=== PATIENT | female | born 1955 | race Caucasian/White ===

== ENCOUNTER 2020-01-28 11:25 | Outpatient (REF) | payer SELFPAY | END 2020-01-28 11:26 | disposition home or self-care (01) | LOC: HO.HAP 11:25 | PROVIDERS: PCP Internal Medicine Endocrinology, Diabetes & Metabolism; Referring Provider Internal Medicine Endocrinology, Diabetes & Metabolism; Visit Provider Internal Medicine Endocrinology, Diabetes & Metabolism | DX: Z46.1 Encounter for fitting and adjustment of hearing aid (principal) | CPT/HCPCS: V5267 ==

== ENCOUNTER 2020-02-04 14:52 | Outpatient (REF) | payer MEDICARE, OTHER, SELFPAY ==
--- NOTE | 2020-02-04 | MM_ITS ---
EXAMINATION: MM SCREENING DIGITAL BREAST TOMOSYNTHESIS, BILATERAL CLINICAL INFORMATION: Screening. Asymptomatic. The lifetime risk of breast cancer based on the Tyrer-Cuzick Model is 6%. COMPARISON: Mammography: 01/29/2019, 01/23/2018, 07/20/2017, 12/27/2016 TECHNIQUE: Digital breast tomosynthesis is performed in both the craniocaudal and mediolateral oblique views along with computer-aided detection (CAD). Synthesized 2D images are generated from the tomosynthesis. FINDINGS: There are scattered areas of fibroglandular density (ACR BI-RADS breast composition Category b). Scattered bilateral parenchymal asymmetries are stable. There is probable hamartoma again noted anterior medial right breast similar to prior studies. Neither breast shows developing density or interval mass or architectural abnormality or abnormal calcifications. No significant changes. MM/MM tomosynthesis screening BI IMPRESSION: No significant changes from prior exams. ASSESSMENT: BI-RADS 2: Benign RECOMMENDATION: Routine annual mammography screening. This patient's information was entered into a reminder system with a target due date for their next mammogram.
== END 2020-02-04 14:53 | disposition home or self-care (01) ==
LOC: HO.MAMMO 14:52
PROVIDERS: Visit Provider Internal Medicine Endocrinology, Diabetes & Metabolism
DX: Z12.31 Encounter for screening mammogram for malignant neoplasm of breast (principal)
CPT/HCPCS: 77063; 77067

== ENCOUNTER 2020-04-03 12:49 | Outpatient (REF) | payer MEDICARE, OTHER, SELFPAY ==
--- NOTE | 2020-04-07 09:50 | MHC.AU.P13 ---
Adult Audiological Evaluation Date of Visit: 04/03/20 Sales Development Associate Used: Not Applicable Reason for Appointment: Audiologic re-evaluation due to history of Diabetes which may cause further hearing loss and Linda notes speech sounds more muffled. Previous Hearing Test Results: 11/01/2018 [facility] Mild to moderate sensorineural hearing loss bilaterally Ear History: Bothersome Tinnitus/Ringing/Noises in Ears: Both Ears Medical History: Medical History: Diabetes High Blood Pressure Medication List: Aleve, Align Probiotic, Apple Cider Vinegar Capsule, Asprin, Benedryl, Biotin, Diltiazem, Fish Oil, Lisinopril, Lorazepam, Metformin, Omeprazole, Pravastatin, Sucralfate, Trulicity, Vitamin D, Zipraidone, Zolpidem Hearing Instrument History- Right Ear: Crm Marketing Analyst: ipadio Model: [place]da[employer] [id number] Serial Number: [id number] Battery Size: 312 Repair Warranty: 01/29/2022 Loss and Damage Warranty: 01/29/2022 Dispensed By: [facility] Date of Fittin11/07/2018 Hearing Instrument History- Left Ear: Crm Marketing Analyst: ipadio Model: Koudai [id number] Serial Number: [id number] Battery Size: 312 Warranty: 01/29/2022 Loss and Damage Warranty: 01/29/2022 Dispensed By: [facility] Date of Fittin11/07/2018 Otoscopy: Right Ear: Unremarkable Left Ear: Unremarkable Tympanometry: Right Ear: Not performed at today's visit Left Ear: Not performed at today's visit Hearing Evaluation: Transducer(s) Used: Insert Earphones Bone Conduction Method: Conventional Audiometry Stimuli Used: Pure Tones Right Ear: Description of Hearing: Moderate sensorineural hearing loss rising to mild loss at 4000 and 6000 Hz Left Ear: Description of Hearing: Moderate sensorineural hearing loss through all frequencies with the exception of a mild loss at 4000 Hz Speech Recognition Threshold (SRT): Method Used: Monitored Live Voice Stimuli Used: Spondee Words Right Ear: 40 dB HL Left Ear: 40 dB HL Word Discrimination: Method: Recorded Lists Word Lists Used: NU-6 Right Ear: 100% at 80 dB HL Left Ear: 96% at 80 dB HL Comparison: Compared to the most recent evaluation: Hearing is stable. Recommendations: -Hearing aids were cleaned. Microphones of both hearing aids were blocked with debris. Improved sounds quality of hearing aids following cleaning. -Audiologic re-evaluation in one year to continue to monitor due to diagnosis of Diabetes which may affect the peripheral auditory system. Will send a reminder card Diagnosis: Primary Diagnosis: H90.3 Bilateral Sensorineural Hearing Loss Secondary Diagnosis: H93.13 Tinnitus, Bilateral Services Performed: Comprehensive Audiological Evaluation (CPT 81149) Signature: Provider: Abby Delatorre, CCC-A
== END 2020-04-03 12:50 | disposition home or self-care (01) ==
LOC: HO.SH 12:49
PROVIDERS: Visit Provider Internal Medicine Endocrinology, Diabetes & Metabolism
DX: H93.13 Tinnitus, bilateral (principal)
CPT/HCPCS: 92557

== ENCOUNTER 2020-07-29 12:53 | Outpatient (REF) | payer SELFPAY | END 2020-07-29 12:54 | disposition home or self-care (01) | LOC: HO.HAP 12:53 | PROVIDERS: Visit Provider Internal Medicine Endocrinology, Diabetes & Metabolism | DX: Z13.89 Encounter for screening for other disorder (principal) ==

== ENCOUNTER 2021-01-01 15:08 | Outpatient (REF) | payer SELFPAY | END 2021-01-01 15:09 | disposition home or self-care (01) | LOC: HO.HAP 15:08 | PROVIDERS: Visit Provider Internal Medicine Endocrinology, Diabetes & Metabolism | DX: Z13.89 Encounter for screening for other disorder (principal) ==

== ENCOUNTER 2021-02-05 11:53 | Outpatient (REF) | payer MEDICARE, OTHER, SELFPAY ==
--- NOTE | ~2021-02-05 | MM_ITS ---
EXAMINATION: MM SCREENING DIGITAL BREAST TOMOSYNTHESIS, BILATERAL CLINICAL INFORMATION: Screening. Asymptomatic. The lifetime risk of breast cancer based on the Tyrer-Cuzick Model is 5%. COMPARISON: Mammography: 02/04/2020, 01/29/2019, 01/23/2018, 12/27/2016 TECHNIQUE: Digital breast tomosynthesis is performed in both the craniocaudal and mediolateral oblique views along with computer-aided detection (CAD). Synthesized 2D images are generated from the tomosynthesis. Additional left MLO view is provided. FINDINGS: There are scattered areas of fibroglandular density (ACR BI-RADS breast composition Category b). There are no significant masses, abnormal calcifications, or other abnormalities. There are scattered benign stable parenchymal asymmetries similar to prior studies. No developing density. No architectural abnormality or abnormal calcifications. No significant changes. MM/MM tomosynthesis screening BI IMPRESSION: No mammographic evidence of malignancy. ASSESSMENT: BI-RADS 2: Benign RECOMMENDATION: Routine annual mammography screening. This patient's information was entered into a reminder system with a target due date for their next mammogram.
== END 2021-02-05 11:54 | disposition home or self-care (01) ==
LOC: HO.MAMMO 11:53
PROVIDERS: Visit Provider Internal Medicine Endocrinology, Diabetes & Metabolism
DX: Z12.31 Encounter for screening mammogram for malignant neoplasm of breast (principal)
CPT/HCPCS: 77063; 77067

== ENCOUNTER 2021-04-30 12:42 | Outpatient (REF) | payer MEDICARE, OTHER, SELFPAY ==
--- NOTE | 2021-05-03 08:20 | MHC.AU.AHA ---
Adult Audiological Evaluation Date of Visit: 04/30/21 Senior Biostatistician Used: Not Applicable Reason for Appointment: Linda was seen for a re-evaluation to monitor the status of her hearing loss as she is diagnosed with diabetes which may cause further hearing loss. She reports no subjective change in hearing. Linda's medical history has remained stable, with the exception of the identification of an unknown mass in her uterus that she is undergoing surgery for later in the month. She reports being satisfied with the sound quality and fit of her hearing devices. Previous Hearing Test Results: [facility]- 04/03/2020- Overall moderate sensorineural hearing loss bilaterally with mild thresholds at 4000 and 6000 Hz. Ear History: Bothersome Tinnitus/Ringing/Noises in Ears: Both Ears History of occupational noise exposure?: No History: No Medical History: Medical History: Diabetes, High Blood Pressure Allergies: Demerol and Percocet Medication List: Align probiotic capsule, Apple cider vinegar capsules, ASA, Biotin, Colace, Diltiazem, Fish oil capsules, Ibuprofen, Lisinopril, Lorazepam, Metformin ER, Pravastatin, Sucralfate, Trulicity, Triamcinolone ointment, Vitamin D, Ziprasidone Hearing Instrument History- Right Ear: Propagator: Polarizonics Model: Circle of Moms [id number] Serial Number: [id number] Battery Size: 312 Repair Warranty: 01/29/2022 Loss and Damage Warranty: 01/29/2022 Dispensed By: [facility] Date of Fittin11/07/2018 Hearing Instrument History- Left Ear: Propagator: Polarizonics Model: Circle of Moms [id number] Serial Number: [id number] Battery Size: 312 Warranty: 01/29/2022 Loss and Damage Warranty: 01/29/2022 Dispensed By: [facility] Date of Fittin11/07/2018 Otoscopy: Right Ear: Partially occluded with cerumen Left Ear: Mostly occluding cerumen Tympanometry: Tympanometry performed due to: To determine if cerumen blockage is fully occluding canal(s) Right Ear: Normal Middle Ear System (Type A) Left Ear: Normal Middle Ear System (Type A) Hearing Evaluation: Transducer(s) Used: Circumaural Headphones Bone Conduction Method: Conventional Audiometry Stimuli Used: Pure Tones Right Ear: Description of Hearing: Mild at 250 Hz sloping to a moderate sensorineural hearing loss through 2000 Hz, rising to a mild sensorineural hearing loss at 4000 Hz, sloping to a moderate hearing loss through 8000 Hz. Left Ear: Description of Hearing: Mild at 250 Hz sloping to a moderate sensorineural hearing loss through 2000 Hz, rising to a mild sensorineural hearing loss at 4000 Hz, sloping to a moderate hearing loss through 8000 Hz. Speech Recognition Threshold (SRT): Method Used: Monitored Live Voice Stimuli Used: Spondee Words Right Ear: 45 dB HL Left Ear: 45 dB HL Word Discrimination: Method: Recorded Lists Word Lists Used: NU-6 Right Ear: 96% at 85 dB HL Left Ear: 92% at 85 dB HL Comparison: Compared to the most recent evaluation: Thresholds have decreased bilaterally. Compared to most recent evaluation: Since 04/03/2020, thresholds from 250-4000 Hz have remained stable, while a 15-20 dB worsening of thresholds is noted from 0189-4847 Hz bilaterally. Stable word discrimination for both ears. Interpretation of Results: Overall moderate sensorineural hearing loss that has remained mostly stable, with the exception of decreased thresholds in the high frequencies, since the previous evaluation. Recommendations: - Follow-up with physician for cerumen removal. - Hearing aid maintenance performed today. - Hearing aid(s) reprogrammed with updated test results. - Patient should follow up with her primary care physician to have mostly occluding cerumen in the left ear removed. Recommended patient obtain the ear wax softener, Earwax MD, to use 2-3 nights before the cerumen removal. Patient's hearing aids were cleaned and biologic listening check revealed the devices were in good working order. The hearing aids were reprogrammed with today's hearing test results. Discussed scheduling a follow up appointment in early December to send the devices to the director revenue before her warranty expires on 01/29/2022. Patient should return for a re-evaluation in one year, or sooner with changes. - Audiological re-evaluation in one year. Will send a reminder card. Diagnosis: Primary Diagnosis: H90.3 Bilateral Sensorineural Hearing Loss Secondary Diagnosis: H61.23 Impacted Cerumen, Bilateral Services Performed: Comprehensive Audiological Evaluation (CPT 94833) Tympanometry (CPT 07844) Signature: Student/Clinical Fellow: Yes: Yudith Davis B.A., Abby Chief Merchandising Officer I have reviewed/agreed with student/fellow documentation: Yes Provider: Abby Delatorre, [facility]
== END 2021-04-30 12:43 | disposition home or self-care (01) ==
LOC: HO.SH 12:42
PROVIDERS: Visit Provider Internal Medicine Endocrinology, Diabetes & Metabolism
DX: Z01.118 Encounter for examination of ears and hearing with other abnormal findings (principal); H90.3 Sensorineural hearing loss, bilateral; H61.23 Impacted cerumen, bilateral
CPT/HCPCS: 92557; 92567

== ENCOUNTER 2021-12-10 11:16 | Outpatient (REF) | payer SELFPAY ==
--- NOTE | 2021-12-10 12:11 | MHC.AU.HFU ---
Hearing Instrument Follow-Up- Binaural Date of Visit: 12/10/21 Right Ear: Stephani Potter0 312-T SN: [id number] Color: Sandalwood Repair Warranty: 01/29/2022 Loss and Damage Warranty: 01/29/2022 Battery Size: 312 Hospice Clinical Marketer: 2M Type of Mold: Large open dome Type of Wax Guard: CeruShield Dispensed By: [facility] Date of Fittin11/07/2018 Left Ear:Stephani Philippeo Tariq0 312-T SN: [id number] Color: [place]wood Repair Warranty: 01/29/2022 Loss and Damage Warranty: 01/29/2022 Battery Size: 312 Hospice Clinical Marketer: 2M Type of Mold: Large open dome Type of Wax Guard: CeruShield Dispensed By: [facility] Date of Fittin11/07/2018 Follow-Up Summary: Linda dropped of her left hearing aid reporting that it was . The cerushield was stuck in the rotor assembler and plugged with wax. The cerushield was able to be removed with a dental pick and replaced. The hearing aid was cleaned, microphones were vacuumed, and dome and retention tail were also replaced. A listening check demonstrated the hearing aid is in good working order. Recommendations: Hearing instrument maintenance in 6 months, or sooner if needed. Please contact our clinic with any questions or concerns. Diagnosis Code(s): Primary Diagnosis: H90.3 Bilateral Sensorineural Hearing Loss Signature: Provider: Helga Zambrano, [facility]
== END 2021-12-10 11:17 | disposition home or self-care (01) ==
LOC: HO.HAP 11:16
PROVIDERS: Visit Provider Internal Medicine Endocrinology, Diabetes & Metabolism
DX: Z13.89 Encounter for screening for other disorder (principal)

== ENCOUNTER 2021-12-24 12:53 | Outpatient (REF) | payer SELFPAY ==
--- NOTE | 2021-12-24 13:51 | MHC.AU.HFU ---
Hearing Instrument Follow-Up- Binaural Date of Visit: 12/24/21 Right Ear: Phonak Keniaeo M90 312-T SN: [id number] Color: [place]wood Repair Warranty: 01/29/2022 Loss and Damage Warranty: 01/29/2022 Battery Size: 312 Barking Machine Feeder: 2M Type of Dome: LARGE OPEN Type of Wax Guard: CeruShield Dispensed By: [facility] Date of Fittin11/07/2018 Left Ear: Phonak Keniaeo M90 312-T SN: [id number] Color: [place] Repair Warranty: 01/29/2022 Loss and Damage Warranty: 01/29/2022 Battery Size: 312 Barking Machine Feeder: 2M Type of Dome: LARGE OPEN Type of Wax Guard: CeruShield Dispensed By: [facility] Date of Fittin11/07/2018 Follow-Up Summary: Patient would like her hearing aids sent for clean/check at [facility] before end of warranty. She was provided with a pair of loaner instruments ([employer]padeo [id number] #[id number], [id number]). The loaners were paired to her phone. Recommendations: Patient will be contacted when materials have arrived. When repairs return, will need to unpair the loaners from her phone and potentially re-pair the hearing aids. Diagnosis Code(s): Primary Diagnosis: H90.3 Bilateral Sensorineural Hearing Loss Signature: Provider: Helga Torrez, CCC-A
== END 2021-12-24 12:54 | disposition home or self-care (01) ==
LOC: HO.HAP 12:53
PROVIDERS: Visit Provider Internal Medicine Endocrinology, Diabetes & Metabolism
DX: Z13.89 Encounter for screening for other disorder (principal)

== ENCOUNTER 2022-01-06 10:48 | Outpatient (REF) | payer SELFPAY | END 2022-01-06 10:49 | disposition home or self-care (01) | LOC: HO.HAP 10:48 | PROVIDERS: Visit Provider Internal Medicine Endocrinology, Diabetes & Metabolism | DX: Z46.1 Encounter for fitting and adjustment of hearing aid (principal); H90.3 Sensorineural hearing loss, bilateral | CPT/HCPCS: V5267 ==

== ENCOUNTER 2022-02-07 12:52 | Outpatient (REF) | payer MEDICARE, OTHER, SELFPAY ==
--- NOTE | ~2022-02-07 | MM_ITS ---
EXAMINATION: MM SCREENING DIGITAL BREAST TOMOSYNTHESIS, BILATERAL CLINICAL INFORMATION: Screening. Asymptomatic. The lifetime risk of breast cancer based on the Tyrer-Cuzick Model is 5%. COMPARISON: Mammography: 02/05/2021, 02/04/2020, 02/08/2019 TECHNIQUE: Digital breast tomosynthesis is performed in both the craniocaudal and mediolateral oblique views along with computer-aided detection (CAD). Synthesized 2D images are generated from the tomosynthesis. FINDINGS: There are scattered areas of fibroglandular density (ACR BI-RADS breast composition Category b). There are chronic bilateral scattered parenchymal asymmetries similar to prior studies. There is no developing density or interval mass or architectural abnormality. No abnormal calcifications. The axilla and skin contours are unremarkable. There are no significant changes from prior exams. MM/MM tomosynthesis screening BI IMPRESSION: No mammographic evidence of malignancy. ASSESSMENT: BI-RADS 2: Benign RECOMMENDATION: Routine annual mammography screening. This patient's information was entered into a reminder system with a target due date for their next mammogram.
== END 2022-02-07 12:53 | disposition home or self-care (01) ==
LOC: HO.MAMMO 12:52
PROVIDERS: PCP Internal Medicine Endocrinology, Diabetes & Metabolism; Visit Provider Internal Medicine Endocrinology, Diabetes & Metabolism
DX: Z12.31 Encounter for screening mammogram for malignant neoplasm of breast (principal)
CPT/HCPCS: 77063; 77067

== ENCOUNTER → 2022-06-17 12:59 | Outpatient (BNVA) | payer MEDICARE, OTHER, SELFPAY | PROVIDERS: PCP Internal Medicine Endocrinology, Diabetes & Metabolism; Visit Provider Physician Assistant Surgical ==

== ENCOUNTER 2022-06-25 09:51 | Emergency (ER) | payer MEDICARE, OTHER, SELFPAY ==
--- NOTE | ~2022-06-25 | XR_ITS ---
EXAMINATION: XR ANKLE, RIGHT CLINICAL INFORMATION: Intermittent pain and swelling. COMPARISON: None available. TECHNIQUE: AP, lateral, and mortise views of the right ankle. FINDINGS: Moderate lateral malleolar soft tissue swelling. Ankle mortise and subtalar joints are normal. No visible acute fracture or dislocation seen. There is a small calcaneal heel enthesophyte. XR/XR ankle RT min 3V IMPRESSION: Small calcaneal heel enthesophyte. No visible acute fracture or dislocation seen..
[2022-06-25 09:58] VITALS: BP 162/69; PULSE 95; RESP 16; TEMP 36.1; O2SAT 95; BMI 35.9
--- NOTE | 2022-06-25 10:16 | ED.GENADULT ---
HPI - General Adult General Chief complaint: Extremity Problem Stated complaint: R ankle pain Time Seen by Provider: 06/25/22 10:15 Source: patient Mode of arrival: ambulatory Limitations: no limitations History of Present Illness HPI narrative: Patient is a 67 year old assigned female at with no reported medical history presenting to the emergency department today with right ankle pain. Patient states that over the last 5 days she has had intermittent right ankle swelling with no known injury. Patient denies any dizziness, lightheadedness, abdominal pain, nausea, vomiting, fever, chills, blurry vision, double vision, loss of vision, chest pain, difficulty breathing, shortness of breath, back pain, night sweats, pain with urination, increased urinary frequency, increased urinary urgency, blood in her urine or stool, syncope or a near syncopal episode, bowel incontinence, bladder incontinence, bowel retention, bladder retention, or any other complaints at this time. Onset (ago): day(s) (5) Location: right and lower extremity Radiation: non-radiation Severity: mild Severity scale (1-10): 2 Quality: aching and dull Pain Consistency: intermittent Relieving factors: none Exacerbating factors: none Associated symptoms: denies other symptoms Treatments prior to arrival: none Related Data Home Medications Medication Instructions Recorded Confirmed APPLE CIDER VINEGAR CAPSULES 1,000 mg PO 06/17/22 ASA 81 mg PO 06/17/22 BIOTIN 45 mcg PO 06/17/22 Bifidobacterium infantis 4 mg 4 mg PO DAILY 06/17/22 capsule (Align) FISH OIL CAPSULES 500 mg PO BID 06/17/22 SENNA 50 mg PO BID 06/17/22 VITAMIN D3 2,000 units PO 06/17/22 cyclosporine 0.05 % eye drops in a 1 drp ophthalmic (eye) BID 06/17/22 dropperette (Restasis) diltiazem HCl 180 mg 180 mg PO DAILY 06/17/22 capsule,extended release 24 hr docusate sodium 100 mg capsule 100 mg PO BID 06/17/22 (Colace) dulaglutide 0.75 mg/0.5 mL 1.5 mg subcut QWEEK 06/17/22 subcutaneous pen injector (Trulicity) glipizide 5 mg tablet 5 mg PO DAILY 06/17/22 ibuprofen 600 mg tablet 600 mg PO Q6H PRN 06/17/22 insulin aspart U-100 100 unit/mL 12 unit subcut QAM 06/17/22 (3 mL) subcutaneous pen (Novolog FlexPen U-100 Insulin aspart) insulin aspart U-100 100 unit/mL 18 unit subcut QPM 06/17/22 (3 mL) subcutaneous pen (Novolog FlexPen U-100 Insulin aspart) insulin detemir U-100 100 unit/mL 60 unit subcut BEDTIME 06/17/22 (3 mL) subcutaneous pen (Levemir FlexPen) insulin detemir U-100 100 unit/mL 98 unit subcut BEDTIME 06/17/22 (3 mL) subcutaneous pen (Levemir FlexPen) lisinopril 10 mg tablet 10 mg PO DAILY 06/17/22 lorazepam 1 mg tablet 1 mg PO BID PRN 06/17/22 lorazepam 2 mg tablet 2 mg PO BID PRN 06/17/22 metformin 1,000 mg tablet,extended mg PO 06/17/22 release 24hr omeprazole 20 mg capsule,delayed 20 mg PO DAILY 06/17/22 release pravastatin 40 mg tablet 40 mg PO DAILY 06/17/22 sucralfate 1 gram tablet 1 g PO BID 06/17/22 ziprasidone HCl 20 mg capsule 20 mg PO BID 06/17/22 ziprasidone HCl 80 mg capsule 80 mg PO BID 06/17/22 Allergies Allergy/AdvReac Type Severity Reaction Status Date / Time demerol Allergy Unknown Hives Uncoded 06/25/22 10:01 percocet Allergy Unknown Hives Uncoded 06/25/22 10:01 Review of Systems Constitutional: Constitutional: Reports no additional constitutional complaints, Denies chills, Denies fever(s) and Denies night sweats Eyes: Eyes: Reports no additional eye complaints, Denies blurry vision, Denies change in vision, Denies diplopia, Denies eye discharge, Denies loss of vision and Denies eye pain ENT: Denies dizziness Cardiovascular: Cardiovascular: Reports no additional cardiovascular complaints, Denies chest pain, Denies lightheadedness, Denies Loss of Consciousness and Denies dyspnea Respiratory: Respiratory: Reports no additional respiratory complaints and Denies dyspnea Gastrointestinal: Gastrointestinal: Reports no additional gastrointestinal complaints, Denies abdominal pain, Denies melena, Denies hematochezia, Denies change in bowel habits and Denies change in stool character Genitourinary: Genitourinary: Denies hematuria, Denies urinary frequency, Denies dysuria, Denies urinary incontinence, Denies urinary hesitancy and Denies urinary urgency Musculoskeletal: Musculoskeletal: Reports no additional musculoskeletal complaints, Denies numbness and Denies tingling Comments: right ankle pain Neurologic: Denies dizziness, Denies loss of vision, Denies numbness and Denies tingling Psychiatric: Psychiatric: Reports no additional psychiatric complaints Endocrine: Endocrine: Reports no additional endocrine complaints Hematologic/Lymphatic: Hematologic/Lymphatic: Reports no additional hematologic/lymphatic complaints Allergic/Immunologic: Allergic/Immunologic: Reports no additional allergic/immunologic complaints [facility] Past Medical History Attestation statement: The following information was validated with the patient. Source: old records reviewed and nursing notes reviewed Surgical History Hx of section Hx of cholecystectomy Hx of hysterectomy Hx of lymph node excision Hx of wisdom tooth extraction Family History Family History Mother Hypertension Diabetes High cholesterol Stroke Father Diabetes Hypertension High cholesterol Heart attack Sister Diabetes Hypertension Son Stroke Hypertension High cholesterol Social History Social History Alcohol intake: never Patient Tobacco Use Status: Never used Tobacco Advance Directives: No Advance Directives Information Provided: Yes Physical Exam ED Vital Signs: Vital Signs - 24 hr 06/25/22 09:58 Temperature 97 F Pulse Rate 95 Respiratory Rate 16 Blood Pressure 162/69 H Pulse Oximetry 95 Oxygen Delivery Method Room Air BMI result Body Mass Index 35.9 Const General: cooperative, no acute distress, alert and awake Nutritional Appearance: well nourished Orientation/consciousness: patient oriented x3 Limitations: no limitations [facility] Head: Yes normal to inspection and Yes atraumatic Ears: hearing grossly normal bilaterally and external ears normal General nose exam: Normal external nose present, no nasal discharge noted and no epistaxis Face and sinus: Yes normal facial exam, No abrasion and No laceration Mouth: Normal oral and palatal mucosa present, no drooling and no muffled voice Eyes General: appearance normal, both eyes and all related structures Periorbital: periorbital findings normal Eyelids: Yes eyelids normal Conjunctivae: conjunctivae normal Pupils: Equal, round and reactive pupils present EOM: EOMs intact bilaterally Neck Neck: Yes normal visual inspection, Yes full ROM and Yes no lymphadenopathy Chest Chest palpation & inspection: normal inspection of the chest Resp Effort & Inspection: normal respiratory effort and able to speak in complete sentences Auscultation: clear to auscultation bilaterally Cardio Rate: regular rate Rhythm: regular rhythm GI Inspection: Yes normal to inspection Neuro General: patient oriented x3 and moves all extremities Cranial nerves: Yes Equal, round and reactive pupils present Cognition (Neuro): normal cognition Motor exam (neuro): 5/5 motor strength present throughout Sensory Exam: Normal double simultaneous stimulation for sensation Coordination: [id number] test normal Extrem General: Yes normal to inspection, Yes full ROM and Yes capillary refill normal Psych Appearance: grossly normal Mental Status: mental status grossly normal Affect: normal affect Attitude: cooperative Thought process: Normal thought process present Thought content: Normal thought content present Insight: Good insight present (Psych) Procedures Orthopedic Splinting/Casting Injury #1: Side: right Lower Extremity Injury Location: ankle Lower Extremity Immobilizer: boot orthosis Medical Decision Making Medical Decision Making MDM Narrative: Patient is a 67 year old assigned female at with no reported medical history presenting to the emergency department today with right ankle pain. Patient's physical exam was unremarkable. Patient's right ankle x-ray showed no acute process. I explained my physical exam findings as well as all test results to the patient. I answered all questions asked by the patient. Patient's right ankle was placed in a boot, without incident. PMS intact prior to and after boot placement. I stressed the importance of the patient taking her medication as prescribed. I stressed the importance of the patient following up with her primary care provider and an orthopedic provider. I stressed the importance of the patient returning to the emergency department immediately if her symptoms were to worsen or if she were to develop any dizziness, shortness of breath, difficulty breathing, chest pain, blurry vision, loss of vision, nausea, vomiting, abdominal pain, fever, chills, back pain, or any other complaints. Patient verbalized agreement and understanding with this treatment plan and discharge. Differential Diagnosis Differential Diagnoses: The differential diagnosis associated with the presentation includes right ankle pain, right ankle strain, right ankle sprain Independent Interpretation I performed an independent interpretation of an: Plain X-Ray Interpretation: My interpretation is in agreement with the radiologist's impression of this imaging study. EXAMINATION: XR ANKLE, RIGHT CLINICAL INFORMATION: Intermittent pain and swelling.? COMPARISON: None available.? TECHNIQUE: AP, lateral, and mortise views of the right ankle. FINDINGS: Moderate lateral malleolar soft tissue swelling. Ankle mortise and subtalar joints are normal. No visible acute fracture or dislocation seen. There is a small calcaneal heel enthesophyte. XR/XR ankle RT min 3V IMPRESSION: Small calcaneal heel enthesophyte. No visible acute fracture or dislocation seen.. Dictated By: Asa Sanford MD Signed By: Electronically signed by Asa Sanford MD 06/25/22 1029 Discharge Plan Discharge Clinical Impression: Ankle pain, Osteoarthritis, Ankle sprain Patient Disposition: Home, Self-Care Instructions: Osteoarthritis (DC) Additional Instructions: Follow up with your primary care provider and an orthopedic provider. Return to the emergency department immediately if your symptoms worsen or if you develop any dizziness, shortness of breath, difficulty breathing, chest pain, blurry vision, loss of vision, nausea, vomiting, abdominal pain, fever, chills, back pain, or any other complaints. Prescriptions: No Action lisinopril 10 mg tablet 10 mg PO DAILY lorazepam 2 mg tablet 2 mg PO BID PRN glipizide 5 mg tablet 5 mg PO DAILY metformin 1,000 mg tablet extended release 24hr PO pravastatin 40 mg tablet 40 mg PO DAILY ziprasidone HCl 20 mg capsule 20 mg PO BID ziprasidone HCl 80 mg capsule 80 mg PO BID diltiazem HCl 180 mg capsule,extended release 24hr 180 mg PO DAILY lorazepam 1 mg tablet 1 mg PO BID PRN Levemir FlexPen 100 unit/mL (3 mL) insulin pen 60 unit subcut BEDTIME Levemir FlexPen 100 unit/mL (3 mL) insulin pen 98 unit subcut BEDTIME Align 4 mg capsule 4 mg PO DAILY APPLE CIDER VINEGAR CAPSULES 1,000 mg PO ASA 81 mg PO BIOTIN 45 mcg PO docusate sodium [Colace] 100 mg capsule 100 mg PO BID FISH OIL CAPSULES 500 mg PO BID ibuprofen 600 mg tablet 600 mg PO Q6H PRN insulin aspart U-100 [Novolog FlexPen U-100 Insulin] 100 unit/mL (3 mL) insulin pen 12 unit subcut QAM insulin aspart U-100 [Novolog FlexPen U-100 Insulin] 100 unit/mL (3 mL) insulin pen 18 unit subcut QPM omeprazole 20 mg capsule,delayed release(DR/EC) 20 mg PO DAILY cyclosporine [Restasis] 0.05 % dropperette 1 drp ophthalmic (eye) BID SENNA 50 mg PO BID sucralfate 1 gram tablet 1 g PO BID Trulicity 0.75 mg/0.5 mL pen injector 1.5 mg subcut QWEEK VITAMIN D3 2,000 units PO Referrals: [facility] [place] Family Medicine [Provider Group] (Call to establish and follow up with a primary care provider. If you already have a primary care provider, please follow up with them.) [facility] [place] Primary Care, Leigh [Provider Group] (Call to establish and follow up with a primary care provider. If you already have a primary care provider, please follow up with them.) [facility] [place] Primary Care,Donal [Provider Group] (Call to establish and follow up with a primary care provider. If you already have a primary care provider, please follow up with them.) [facility] [place] [facility] [Provider Group] (Call to establish and follow up with an orthopedic provider.) Print Language: Swedish
== END 2022-06-25 11:13 | disposition home or self-care (01) ==
PROVIDERS: Emergency Provider Emergency Medicine; PCP Internal Medicine Endocrinology, Diabetes & Metabolism
DX: S93.401A Sprain of unspecified ligament of right ankle, initial encounter (principal); X58.XXXA Exposure to other specified factors, initial encounter; M25.571 Pain in right ankle and joints of right foot; Z79.85 Long-term (current) use of injectable non-insulin antidiabetic drugs; Z79.899 Other long term (current) drug therapy; Z79.02 Long term (current) use of antithrombotics/antiplatelets; Y93.9 Activity, unspecified; Y92.9 Unspecified place or not applicable; Y99.9 Unspecified external cause status
CPT/HCPCS: 73610; 99283

== ENCOUNTER → 2022-07-11 10:28 | Outpatient (BNVA) | payer MEDICARE, OTHER, SELFPAY | PROVIDERS: PCP Internal Medicine Endocrinology, Diabetes & Metabolism; Visit Provider Physician Assistant | DX: M76.71 Peroneal tendinitis, right leg (principal) | CPT/HCPCS: 99202 ==

== ENCOUNTER → 2022-07-14 12:54 | Outpatient (BNVA) | payer MEDICARE, OTHER, SELFPAY | PROVIDERS: PCP Internal Medicine Endocrinology, Diabetes & Metabolism; Visit Provider Physician Assistant | DX: E66.9 Obesity, unspecified (principal); E11.9 Type 2 diabetes mellitus without complications; I10 Essential (primary) hypertension; Z68.35 Body mass index [BMI] 35.0-35.9, adult | CPT/HCPCS: 99202 ==

== ENCOUNTER 2022-07-15 10:20 | Outpatient (REF) | payer MEDICARE, OTHER, SELFPAY ==
[2022-07-15 10:37] LABS: MANUAL DIFF FLAG NO
[2022-07-15 11:00] LABS: Basophils Percent Auto 0.4 % (0-2); Eosinophils Absolute Auto 0.3 X10*3/uL (0.0-0.4); Eosinophils Percent Auto 4.6 % (0-4); Hematocrit 36.8 % (37.0-47.0); Hemoglobin 12.6 g/dl (12.0-16.0); Imm Gran Abs Auto 0.03 X10*3/uL (0.00-0.03); Imm Gran Pct Auto 0.4 % (0.0-0.4); Lymphocytes Absolute Auto 1.8 X10*3/uL (1.2-4.9); Lymphocytes Percent Auto 26.6 % (20-40); Mean Corpuscular HGB Conc 34.2 g/dl (31.0-35.0); Mean Corpuscular Hemoglobin 29.2 pg (27.0-33.0); Mean Corpuscular Volume 85.4 fL (80.0-98.0); Mean Platelet Volume 11.4 fL (9.4-12.3); Monocytes Absolute Auto 0.6 X10*3/uL (0.1-1.2); Platelet Count 178 X10*3/uL (160-400); Red Blood Count 4.31 X10*6/uL (4.20-5.50); Red Cell Distribution Width 13.2 % (11.0-16.0); White Blood Count 6.8 X10*3/uL (4.8-10.8)
[2022-07-15 11:05] LABS: Estimated Average Glucose 146 mg/dL; Hemoglobin A1c % 6.7 %
[2022-07-15 11:34] LABS: Alanine Aminotransferase 66 U/L (0-31); Albumin Level 4.2 g/dL (3.5-5.0); Alkaline Phosphatase 100 U/L (39-117); Anion Gap 12 (12-20); Aspartate Amino Transferase 47 U/L (5-31); Bilirubin Total 1.1 mg/dL (0.0-1.0); Blood Urea Nitrogen 27 mg/dL (9-16); C Reactive Protein 1.28 mg/dL (< or = 0.50); Calcium 10.1 mg/dL (8.4-10.2); Carbon Dioxide 27 mmol/L (22-29); Chloride 106 mmol/L (96-108); Cholesterol 159 mg/dL; Estimated Glomerular Filt Rate > 60; Glucose Random 191 mg/dL (60-115); HDL Cholesterol 43 mg/dL; Iron 94 mcg/dL (30-160); LDL Cholesterol Calculated 83 mg/dl; Percent Iron Saturation 26 % (15-50); Potassium 4.1 mmol/L (3.3-5.1); Sodium 141 mmol/L (135-145); Total Iron Binding Capacity 364 mcg/dL (228-428); Total Protein 6.6 g/dL (6.5-8.0); Triglycerides 166 mg/dL; Unsaturated Iron Binding 270 ug/dL
[2022-07-15 12:19] LABS: Ferritin 49 ng/mL (10-250); Folate 12.3 ng/mL (> or = 4.0); TSH reflex Free T4 1.98 uIU/mL (0.32-4.0); Vitamin B12 536 pg/mL (200-900); Vitamin D 25-OH Total 69.7 ng/mL (>30)
[2022-07-15 12:45] LABS: Insulin 418 uU/mL (2-29)
[2022-07-20 19:59] LABS: Calcium (PTHI) 9.9 mg/dL (8.6-10.4); PTHI 22 pg/mL (16-77)
[2022-07-22 04:29] LABS: Zinc 92 mcg/dL (60-130)
[2022-07-22 13:22] LABS: Vitamin B1 7 nmol/L (8-30)
[2022-07-22 14:18] LABS: Vitamin A 73 mcg/dL (38-98)
== END 2022-07-15 10:21 | disposition home or self-care (01) ==
LOC: HO.LAB 10:20
PROVIDERS: PCP Internal Medicine Endocrinology, Diabetes & Metabolism; Visit Provider Physician Assistant
DX: Z01.818 Encounter for other preprocedural examination (principal); E11.9 Type 2 diabetes mellitus without complications; E66.9 Obesity, unspecified; I10 Essential (primary) hypertension
CPT/HCPCS: 36415; 80053; 80061; 82306; 82607; 82728; 82746; 83036; 83525; 83540; 83970; 84425; 84443; 84590; 84630; 85025; 86140

== ENCOUNTER 2022-07-27 13:56 | Outpatient (REF) | payer MEDICARE, OTHER, SELFPAY | END 2022-07-27 13:57 | disposition home or self-care (01) | LOC: HO.SH 13:56 | PROVIDERS: Visit Provider Internal Medicine Endocrinology, Diabetes & Metabolism | DX: Z01.118 Encounter for examination of ears and hearing with other abnormal findings (principal); H90.3 Sensorineural hearing loss, bilateral | CPT/HCPCS: 92557; 92567 ==

== ENCOUNTER 2022-07-27 14:52 | Outpatient (REF) | payer SELFPAY | END 2022-07-27 14:53 | disposition home or self-care (01) | LOC: HO.HAP 14:52 | PROVIDERS: Visit Provider Internal Medicine Endocrinology, Diabetes & Metabolism | DX: Z46.1 Encounter for fitting and adjustment of hearing aid (principal); H90.3 Sensorineural hearing loss, bilateral | CPT/HCPCS: 92700; V5267 ==

== ENCOUNTER 2022-08-02 11:25 | Outpatient (REF) | payer SELFPAY | END 2022-08-02 11:26 | disposition home or self-care (01) | LOC: HO.HAP 11:25 | PROVIDERS: Visit Provider Internal Medicine Endocrinology, Diabetes & Metabolism | DX: Z46.1 Encounter for fitting and adjustment of hearing aid (principal); H90.3 Sensorineural hearing loss, bilateral | CPT/HCPCS: V5299 ==

== ENCOUNTER → 2022-08-09 16:18 | Outpatient (BNVA) | payer SELFPAY | PROVIDERS: PCP Internal Medicine Endocrinology, Diabetes & Metabolism; Visit Provider Physician Assistant ==

== ENCOUNTER 2022-08-30 13:49 | Outpatient (AMB) | payer OTHER, SELFPAY ==
--- NOTE | 2022-08-30 14:00 | MHC.AMNUTRGE ---
Intake VS Expanded 08/30/22 14:08 Height 5 ft 1 in Weight 183 lb BMI 34.6 Intake Visit Reasons: (OV) Initial Nutrition SWL Allergies demerol Allergy (Unknown, Uncoded 07/11/22 10:43) Hives percocet Allergy (Unknown, Uncoded 07/11/22 10:43) Hives HPI Nutrition Presentation Details Pt reports she is still unsure about SWL vs MWL Reason for consult elevated BMI Diet Assmnt Details 2 eggs with tea 11:30 Premade premier shake 2:30 same shake 5:30 cheese stick 7pm dinner and fruit - 5oz chicken, salad with vinegar oil lettuce, tomato, cucumber 10pm Celebrate bar Bed at midnight - does not want to change this. States very hungry. used to snack at night also before program Wheelchair exercises - 3-4x per week, for 30 minutes SWL online classes: completed. She shares that she spoke with her psychiatrist about bariatric surgery and he is familiar, they discussed medication changes that could take place should she decide to pursue surgery Dietary counseling reduction Diagnosis Nutrition problem #1 overweight/obesity As related to (etiology) #1 excess energy intake and physical inactivity As evidenced by (sign/symptom) #1 high BMI Monitoring/Goals Nutrition problem monitoring total energy intake, level of knowledge/skill, total PRO intake, total CHO intake and weight Outcome progress progressing Learning/Education Readiness to learn fair Stages of change contemplation Most Recent Diabetes Results: Cholesterol 159 mg/dL 07/15/22 HDL Cholesterol 43 mg/dL 07/15/22 Triglycerides 166 mg/dL 07/15/22 Creatinine 0.85 mg/dL (0.5-1.4) 07/15/22 Blood Urea Nitrogen 27 mg/dL (9-16) H 07/15/22 Sodium 141 mmol/L (135-145) 07/15/22 Potassium 4.1 mmol/L (3.3-5.1) 07/15/22 Chloride 106 mmol/L (96-108) 07/15/22 Carbon Dioxide 27 mmol/L (22-29) 07/15/22 Calcium 10.1 mg/dL (8.4-10.2) 07/15/22 AST 47 U/L (5-31) H 07/15/22 ALT 66 U/L (0-31) H 07/15/22 Total Protein 6.6 g/dL (6.5-8.0) 07/15/22 Albumin 4.2 g/dL (3.5-5.0) 07/15/22 PFSH Surgical History Hx of section Hx of cholecystectomy Hx of hysterectomy Hx of lymph node excision Hx of wisdom tooth extraction Family History Mother Hypertension Diabetes High cholesterol Stroke Father Diabetes Hypertension High cholesterol Heart attack Sister Diabetes Hypertension Son Stroke Hypertension High cholesterol Social History Alcohol intake: never Patient Tobacco Use Status: Never used Tobacco Assessment & Plan Assessment & Plan (1) Diabetes mellitus: Code(s): E11.9 - Type 2 diabetes mellitus without complications (2) Obesity (BMI 30-39.9): Code(s): E66.9 - Obesity, unspecified Patient Instructions: Provided education about post op nutrition, ideas for meal preparation given her partners nutritional needs/preferences. Answered nutrition related questions and concerns. Will be seen again if she decides to pursue SWL Coding Level of Care Code Nutr Indiv Intake (32971) Diagnoses Diabetes mellitus E11.9 Obesity (BMI 30-39.9) E66.9 Time Spent (min) 45 Comment in office
[2022-08-30 14:08] VITALS: BMI 34.6
== END 2022-08-30 14:49 | disposition home or self-care (01) ==
PROVIDERS: PCP Internal Medicine Endocrinology, Diabetes & Metabolism; Visit Provider Dietitian, Registered
DX: E11.9 Type 2 diabetes mellitus without complications (principal); E66.9 Obesity, unspecified

== ENCOUNTER → 2022-08-30 13:49 | Outpatient (BNVA) | payer MEDICARE, OTHER, SELFPAY | PROVIDERS: PCP Internal Medicine Endocrinology, Diabetes & Metabolism; Visit Provider Dietitian, Registered | DX: E11.9 Type 2 diabetes mellitus without complications (principal); E66.9 Obesity, unspecified; Z68.34 Body mass index [BMI] 34.0-34.9, adult; Z71.3 Dietary counseling and surveillance | CPT/HCPCS: 97802 ==

== ENCOUNTER 2022-09-01 15:14 | Outpatient (AMB) | payer MEDICARE, OTHER, SELFPAY ==
[2022-09-01 15:18] VITALS: BP 120/57; PULSE 75; TEMP 36.2; O2SAT 96; BMI 34.1
--- NOTE | 2022-09-01 15:18 | MHC.OFFVISWM ---
Intake VS Expanded 09/01/22 15:18 Height 5 ft 1 in Weight 180 lb 9.6 oz BMI 34.1 BP 120/57 L Blood Pressure Location Rt brachial Blood Pressure Position Sitting Pulse 75 Pulse Source Pulse Oximeter Temp 97.2 F Temperature Source Temporal Artery Scan Pulse Oximetry 96 Oxygen Delivery Method Room Air Body Fat 75.2 Body Fat Percentage 41.6 Free Fat Mass 105.4 Muscle Mass 100.0 Visceral Mass 13.0 Water Mass 74.2 BMR 1,451 Intake Visit Reasons: (OV) F/U SWL Allergies demerol Allergy (Unknown, Uncoded 07/11/22 10:43) Hives percocet Allergy (Unknown, Uncoded 07/11/22 10:43) Hives Medication List - Last Reconciled 09/01/22 by Laquita Barroso PA-C [APPLE CIDER VINEGAR CAPSULES 1,000 mg PO] [ASA 81 mg PO] Bifidobacterium infantis (Align) 4 mg PO DAILY [BIOTIN 45 mcg PO] cyclosporine 0.05% (Restasis) 1 drp ophthalmic (eye) BID diltiazem HCl 180 mg PO DAILY docusate sodium (Colace) 100 mg PO BID dulaglutide (Trulicity) 1.5 mg subcut QWEEK [FISH OIL CAPSULES 500 mg PO BID] ibuprofen 600 mg PO Q6H PRN insulin aspart U-100 (Novolog FlexPen U-100 Insulin aspart) 18 units subcut QPM insulin aspart U-100 (Novolog FlexPen U-100 Insulin aspart) 12 units subcut QAM insulin detemir U-100 (Levemir FlexPen) 60 units subcut BEDTIME insulin detemir U-100 (Levemir FlexPen) 98 units subcut BEDTIME lisinopril 10 mg PO DAILY lorazepam 2 mg PO BID PRN lorazepam 1 mg PO BID PRN metformin ER mg PO BID omeprazole 20 mg PO DAILY pravastatin 40 mg PO DAILY [SENNA 50 mg PO BID] sucralfate 1 g PO BID thiamine HCl (vitamin B1) 50 mg PO DAILY [VITAMIN D3 2,000 multiple units PO] ziprasidone HCl 20 mg PO BID ziprasidone HCl 80 mg PO BID HPI HPI Comments History of Present Illness Details Follow up, patient still not sure about whether she wants to have bariatric surgery or not. Saw Judy and watched all SWL classes has appt with next week. She has not done pre operative work up yet. TBWL has been 9.2 lbs or 4.8%. She is most worried about not having any support at home and ability to take care of her ill live in partner. BS's - 120 - 150's, with ocassional up to 167. Pt had many questions today and all were answered. [facility] Medical History (Updated 09/01/22 @ 16:01 by Laquita Barroso PA-C) Myocardial infarction Surgical History Hx of section Hx of cholecystectomy Hx of hysterectomy Hx of lymph node excision Hx of wisdom tooth extraction Family History Mother Hypertension Diabetes High cholesterol Stroke Father Diabetes Hypertension High cholesterol Heart attack Sister Diabetes Hypertension Son Stroke Hypertension High cholesterol Social History Alcohol intake: never Patient Tobacco Use Status: Never used Tobacco Physical Exam Vital Signs: BMI result Body Mass Index 34.1 Assessment & Plan Assessment & Plan (1) Obesity: Code(s): E66.9 - Obesity, unspecified Plan: Patient still has not decided whether she wants to have bariatric surgery or not. She lsot 20 lbs in our MWL program many years ago. 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 Will order blood work today -she agrees to this, and she is being scheduled for surgical consultation with Dr Castro. Patient is obese and is not considered stable at this time. I spent 30 minutes in total with patient reviewing/updating records, examining the patient and counseling the patient on weight management as detailed above. (2) Diabetes mellitus: Code(s): E11.9 - Type 2 diabetes mellitus without complications (3) Myocardial infarction: Code(s): I21.9 - Acute myocardial infarction, unspecified Plan: hisotry (4) HTN (hypertension), benign: Code(s): I10 - Essential (primary) hypertension Orders: Orders Vitamin B12 and Folate Today E11.9 - Type 2 diabetes mellitus without complications, E66.9 - Obesity, unspecified, I10 - Essential (primary) hypertension Comprehensive Met. Panel Today E11.9 - Type 2 diabetes mellitus without complications, E66.9 - Obesity, unspecified, I10 - Essential (primary) hypertension C Reactive Protein Today E11.9 - Type 2 diabetes mellitus without complications, E66.9 - Obesity, unspecified, I10 - Essential (primary) hypertension Ferritin Today E11.9 - Type 2 diabetes mellitus without complications, E66.9 - Obesity, unspecified, I10 - Essential (primary) hypertension Hemoglobin A1c Today E11.9 - Type 2 diabetes mellitus without complications, E66.9 - Obesity, unspecified, I10 - Essential (primary) hypertension Insulin Today E11.9 - Type 2 diabetes mellitus without complications, E66.9 - Obesity, unspecified, I10 - Essential (primary) hypertension IRON PROFILE Today E11.9 - Type 2 diabetes mellitus without complications, E66.9 - Obesity, unspecified, I10 - Essential (primary) hypertension Lipid Panel Today E11.9 - Type 2 diabetes mellitus without complications, E66.9 - Obesity, unspecified, I10 - Essential (primary) hypertension PTHI Today E11.9 - Type 2 diabetes mellitus without complications, E66.9 - Obesity, unspecified, I10 - Essential (primary) hypertension TSH reflex Free T4 Today E11.9 - Type 2 diabetes mellitus without complications, E66.9 - Obesity, unspecified, I10 - Essential (primary) hypertension Vitamin A Today E11.9 - Type 2 diabetes mellitus without complications, E66.9 - Obesity, unspecified, I10 - Essential (primary) hypertension Vitamin B1 Today E11.9 - Type 2 diabetes mellitus without complications, E66.9 - Obesity, unspecified, I10 - Essential (primary) hypertension Vitamin D 25-OH Total Today E11.9 - Type 2 diabetes mellitus without complications, E66.9 - Obesity, unspecified, I10 - Essential (primary) hypertension Zinc Today E11.9 - Type 2 diabetes mellitus without complications, E66.9 - Obesity, unspecified, I10 - Essential (primary) hypertension Complete Blood Count Auto Diff Today E11.9 - Type 2 diabetes mellitus without complications, E66.9 - Obesity, unspecified, I10 - Essential (primary) hypertension Coding Level of Care Code Est Pt Level 4 (69829) Diagnoses Obesity E66.9 Diabetes mellitus E11.9 Myocardial infarction I21.9 HTN (hypertension), benign I10
== END 2022-09-01 16:06 | disposition home or self-care (01) ==
PROVIDERS: PCP Internal Medicine Endocrinology, Diabetes & Metabolism; Visit Provider Physician Assistant
DX: E66.9 Obesity, unspecified (principal); Z68.34 Body mass index [BMI] 34.0-34.9, adult; E11.9 Type 2 diabetes mellitus without complications; I21.9 Acute myocardial infarction, unspecified; I10 Essential (primary) hypertension
CPT/HCPCS: 99214

== ENCOUNTER → 2022-09-01 15:14 | Outpatient (BNVA) | payer MEDICARE, OTHER, SELFPAY | PROVIDERS: PCP Internal Medicine Endocrinology, Diabetes & Metabolism; Visit Provider Physician Assistant | DX: E66.9 Obesity, unspecified (principal); Z68.34 Body mass index [BMI] 34.0-34.9, adult; E11.9 Type 2 diabetes mellitus without complications; I10 Essential (primary) hypertension; I25.2 Old myocardial infarction | CPT/HCPCS: 99212 ==

== ENCOUNTER 2022-09-07 12:49 | Outpatient (AMB) | payer MEDICARE, OTHER, SELFPAY ==
--- NOTE | 2022-09-07 13:05 | MHC.WMTHER ---
Intake Intake Visit Reasons: (OV) BH Intake Allergies demerol Allergy (Unknown, Uncoded 07/11/22 10:43) Hives percocet Allergy (Unknown, Uncoded 07/11/22 10:43) Hives [facility] Medical History (Updated 09/08/22 @ 11:13 by Paloma He) Myocardial infarction Surgical History Hx of section Hx of cholecystectomy Hx of hysterectomy Hx of lymph node excision Hx of wisdom tooth extraction Family History Mother Hypertension Diabetes High cholesterol Stroke Father Diabetes Hypertension High cholesterol Heart attack Sister Diabetes Hypertension Son Stroke Hypertension High cholesterol Social History Alcohol intake: never Patient Tobacco Use Status: Never used Tobacco Behavioral Health Assessment Weight Management Therapy Therapy Notes Details Pt is looking to have weight loss surgery to help improve her health and quality of life. She stated that she was struggling with blood sugar levels and other health concerns. Patient sees a psychiatrist and takes anxiety medication 4x's daily for years. She was in therapy right before pandemic. No history of inpatient psychiatric admissions, alcohol or drug problems, and has never been diagnosed with eating disorder. Presenting Concerns Referral Source provider Reason for referral weight loss surgery evaluation Precipitating Event obesity Living Situation Current Living Situation Own and Rent At risk of losing current housing? No Satisfied with current living situation? Yes Comments Pt lives with her boyfriend who has Parkinson's dementia. Food/Weight/Diet Expectations of change weight loss and maintenance. History/Relationship with food I do not really have a problem with it, I don't binge or overeat, just maybe eating the wrong things . She enjoyed eating desserts, sandwiches, snack throughout the day, fruits. History/Relationship with weight Pt stated that around age 44 she started to struggling with her weight. In 1989, she was at a healthy weight after getting . History/Relationship with dieting WMP in the past and lost 20lbs. Binge Eating Do you frequently eat large amounts of food in short periods of time, not feeling physically hungry? No Do you feel out of control when you eat a large amount of food in a short period of time? No Do you eat large amounts of food rapidly and typically alone? No Night Eating Do you wake up at least once during the night to eat? No If you wake up in the night, do you find that it is necessary to eat something in order to fall back asleep? No Do you have little or no appetite in the morning and feel very hungry in the evening, often overeating between dinner and when you go to bed? No Social History Family history and relationship Pt lives with her boyfriend of 7 years. She has one adult with her ex . She was born in [place] and lived in [place] for a few years, then [place], then [facility] until college aged. Her father was in the and was raised by both parents, she has one sister. Mother in 2011, her anxiety worsened, then she had a stroke 6 months later. She reported having depression all of her life. 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 No Interested in further educational program? Yes Employment Employment Status Retired Meaningful activities exercise occasionally, also goes to PT Financial Situation Describe current financial situation Comfortable Financial assistance? None Service Service? No Mental Health and Addiction Treatment Current/Past substance abuse? No Current/Past addictive behavior concerns? No Medical and Physical Health Summary Physical exam in the last year? No Pain Screening Current pain? No Medications Is the patient compliant with medications? Yes Does the patient have [place] Guardian in place? Not applicable Does the patient use complimentary health approaches? No Trauma/Abuse History History of trauma? No Assessment & Plan Assessment & Plan (1) Generalized anxiety disorder: Code(s): F41.1 - Generalized anxiety disorder (2) Obesity: Code(s): E66.9 - Obesity, unspecified (3) Diabetes mellitus: Code(s): E11.9 - Type 2 diabetes mellitus without complications Plan Pt reported taking several miligrams of benzodiazepines for anxiety throughout the day severel years now. She stated that she does not feel sedated or over medicated. She presents with weight related issues and seeking weight loss surgery as well as seeking someone to speak to who is Yarsanism and has had this procedure for additional support. Patient was initially undecided but decided today to have the surgery. She is cleared for surgery when ready. Coding Level of Care Code Psy Diag Cathy (62660) Diagnoses Generalized anxiety disorder F41.1 Obesity E66.9 Diabetes mellitus E11.9 Time Spent (min) 50
== END 2022-09-07 13:59 | disposition home or self-care (01) ==
PROVIDERS: PCP Internal Medicine Endocrinology, Diabetes & Metabolism; Visit Provider Counselor Mental Health
DX: F41.1 Generalized anxiety disorder (principal); E66.9 Obesity, unspecified; E11.9 Type 2 diabetes mellitus without complications
CPT/HCPCS: 90791

== ENCOUNTER → 2022-09-07 12:49 | Outpatient (BNVA) | payer SELFPAY | PROVIDERS: PCP Internal Medicine Endocrinology, Diabetes & Metabolism; Visit Provider Counselor Mental Health ==

== ENCOUNTER 2022-09-08 07:51 | Outpatient (REF) | payer MEDICARE, OTHER, SELFPAY ==
[2022-09-08 08:10] LABS: MANUAL DIFF FLAG NO
[2022-09-08 09:13] LABS: Basophils Percent Auto 0.5 % (0-2); Eosinophils Absolute Auto 0.2 X10*3/uL (0.0-0.4); Eosinophils Percent Auto 1.9 % (0-4); Hematocrit 36.5 % (37.0-47.0); Hemoglobin 12.4 g/dl (12.0-16.0); Imm Gran Abs Auto 0.04 X10*3/uL (0.00-0.03); Imm Gran Pct Auto 0.5 % (0.0-0.4); Lymphocytes Absolute Auto 2.3 X10*3/uL (1.2-4.9); Lymphocytes Percent Auto 29.7 % (20-40); Mean Corpuscular Hemoglobin 28.8 pg (27.0-33.0); Mean Corpuscular Volume 84.9 fL (80.0-98.0); Mean Platelet Volume 11.1 fL (9.4-12.3); Monocytes Absolute Auto 0.6 X10*3/uL (0.1-1.2); Neutrophils Absolute Auto 4.7 x10*3/uL (2.0-8.3); Neutrophils Percent Auto 59.4 % (45-73); Platelet Count 219 X10*3/uL (160-400); Red Cell Distribution Width 13.3 % (11.0-16.0); White Blood Count 7.9 X10*3/uL (4.8-10.8)
[2022-09-08 09:41] LABS: Alanine Aminotransferase 37 U/L (0-31); Albumin Level 4.2 g/dL (3.5-5.0); Alkaline Phosphatase 89 U/L (39-117); Anion Gap 13 (12-20); Aspartate Amino Transferase 23 U/L (5-31); Bilirubin Total 0.6 mg/dL (0.0-1.0); Blood Urea Nitrogen 26 mg/dL (9-16); C Reactive Protein 0.72 mg/dL (< or = 0.50); Calcium 10.2 mg/dL (8.4-10.2); Carbon Dioxide 28 mmol/L (22-29); Chloride 105 mmol/L (96-108); Cholesterol 120 mg/dL; Estimated Glomerular Filt Rate > 60; Glucose Random 103 mg/dL (60-115); HDL Cholesterol 40 mg/dL; Iron 48 mcg/dL (30-160); LDL Cholesterol Calculated 54 mg/dl; Percent Iron Saturation 14 % (15-50); Potassium 3.2 mmol/L (3.3-5.1); Sodium 143 mmol/L (135-145); Total Iron Binding Capacity 334 mcg/dL (228-428); Total Protein 6.8 g/dL (6.5-8.0); Triglycerides 130 mg/dL; Unsaturated Iron Binding 286 ug/dL
[2022-09-08 09:59] LABS: Ferritin 33 ng/mL (10-250); TSH reflex Free T4 2.82 uIU/mL (0.32-4.0); Vitamin D 25-OH Total 78.3 ng/mL (>30)
[2022-09-08 10:14] LABS: Folate 12.5 ng/mL (> or = 4.0); Vitamin B12 587 pg/mL (200-900)
[2022-09-08 10:40] LABS: Insulin 393 uU/mL (2-29)
[2022-09-08 10:54] LABS: Estimated Average Glucose 123 mg/dL; Hemoglobin A1C 130.9305 umol/L; Hemoglobin A1c % 5.9 %
[2022-09-12 14:58] LABS: PTHI 20 pg/mL (16-77)
[2022-09-13 12:58] LABS: Zinc 92 mcg/dL (60-130)
[2022-09-15 14:54] LABS: Vitamin B1 35 nmol/L (8-30)
[2022-09-15 17:24] LABS: Vitamin A 57 mcg/dL (38-98)
== END 2022-09-08 07:52 | disposition home or self-care (01) ==
LOC: HO.LAB 07:51
PROVIDERS: PCP Internal Medicine Endocrinology, Diabetes & Metabolism; Visit Provider Physician Assistant
DX: I10 Essential (primary) hypertension (principal); E66.9 Obesity, unspecified; E11.9 Type 2 diabetes mellitus without complications
CPT/HCPCS: 36415; 80053; 80061; 82306; 82607; 82728; 82746; 83036; 83525; 83540; 83970; 84425; 84443; 84590; 84630; 85025; 86140

== ENCOUNTER 2022-09-26 08:17 | Outpatient (REF) | payer MEDICARE, OTHER, SELFPAY ==
--- NOTE | ~2022-09-26 | US_ITS ---
EXAMINATION: US COMPLETE ABDOMEN WITH LIVER ELASTOGRAPHY CLINICAL INFORMATION: Obesity. COMPARISON: None available. TECHNIQUE: Real-time imaging of the abdominal viscera. Noninvasive ultrasound liver fibrosis assessment is performed using Chetan ElastPQ point quantification shear wave elastography (2D-SWE) with a C5-2 MHz transducer. Multiple elastography samples are obtained. FINDINGS: PANCREAS: Normal. The visualized pancreatic head and body are normal in appearance. The remainder of the pancreas is obscured from visualization by the overlying bowel gas. ABDOMINAL AORTA: The proximal, middle, and distal aortic segments are normal in caliber. INFERIOR VENA CAVA: Visualized portions are normal. LIVER: There is hepatomegaly. The liver demonstrates normal contour and increased echogenicity. No focal lesion or intrahepatic biliary duct dilatation. The right lobe measures 19.3 cm in length. The left lobe measures 13.3 cm in length. Portal flow is towards the liver (hepatopetal). Shear wave liver elastography median stiffness is 1.94 m/s (reference: normal median stiffness is 1.3 m/s or less). IQR/median stiffness to assess sampling precision is 0.08 (reference: good quality data set is IQR/median stiffness of 0.15 or less). GALLBLADDER: Normal. The gallbladder is physiologically distended without evidence of stones, sludge, polyps, wall thickening or pericholecystic fluid. COMMON BILE DUCT: Normal in caliber measuring 0.4 cm in diameter. RIGHT KIDNEY: Normal. No hydronephrosis. No renal calculi or focal parenchymal lesions. The kidney measures 12.7 cm in maximum dimension. LEFT KIDNEY: Normal. No hydronephrosis. No renal calculi or focal parenchymal lesions. The kidney measures 12.1 cm in maximum dimension. SPLEEN: Normal. The spleen measures 13.8 cm in maximum dimension. FREE FLUID: None. US/US abdomen comp w elastography IMPRESSION: 1. There is hepatosplenomegaly 2. There is generalized increase in hepatic echotexture, consistent with fatty infiltration or hepatocellular disease. Please correlate clinically. No focal hepatic mass or intrahepatic biliary dilatation is seen. 3. Liver elastography: Measurements are suggestive of compensated advanced chronic liver disease but need further test for confirmation. 4. The gallbladder is surgically absent. REFERENCE: Society of Radiologists in Ultrasound Liver Stiffness Thresholds (2020): LIVER STIFFNESS THRESHOLDS: *Liver Stiffness equal or less than 1.3 m/s: High probability of being normal. *Liver Stiffness less than 1.7 m/s: In the absence of other known clinical signs, rules out compensated advanced chronic liver disease. *Liver Stiffness 1.7-2.1 m/s: Suggestive of compensated advanced chronic liver disease but need further test for confirmation. *Liver Stiffness over 2.1 m/s: Rules in compensated advanced chronic liver disease. *Liver Stiffness over 2.4 m/s: Suggestive of clinically significant portal hypertension. QUALITY OF DATA SET: *IQR/Median value equal or less than 0.15 implies a quality data set. *IQR/Median value over 0.15 implies a poor quality data set. SIGNIFICANT CHANGE FROM PRIOR EXAM: Significant change if liver stiffness measurement is 10% or greater from prior exam. OTHER CONSIDERATIONS: The stage of liver fibrosis may be overestimated in the setting of acute hepatitis, liver inflammation, elevated liver function tests, hepatic vascular congestion, obstructive cholestasis, non-fasting state, and infiltrative diseases such as amyloidosis and lymphoma. In some patients with NAFLD, the liver stiffness thresholds for compensated advanced chronic liver disease may be lower. In causes other than viral hepatitis and NAFLD, liver stiffness thresholds are not well established.
== END 2022-09-26 08:18 | disposition home or self-care (01) ==
LOC: HO.US 08:17
PROVIDERS: Visit Provider Physician Assistant Surgical
DX: E66.9 Obesity, unspecified (principal)
CPT/HCPCS: 76705; 76981

== ENCOUNTER → 2022-09-28 08:09 | Outpatient (BNVA) | payer OTHER, SELFPAY | PROVIDERS: PCP Internal Medicine Endocrinology, Diabetes & Metabolism; Visit Provider Surgery ==

== ENCOUNTER → 2022-09-28 11:35 | Outpatient (AMB) | payer MEDICARE, OTHER, SELFPAY ==
--- NOTE | 2022-09-28 10:55 | MHC.OFFVISWM ---
Intake VS Expanded 09/28/22 11:23 Height 5 ft 1 in Weight 178 lb BMI 33.6 Intake Visit Reasons: TV Consult/Transfer Laquita Allergies demerol Allergy (Unknown, Uncoded 09/28/22 10:55) Hives percocet Allergy (Unknown, Uncoded 09/28/22 10:55) Hives Medication List - Last Reconciled 09/28/22 by Eduardo Anderson MD [APPLE CIDER VINEGAR CAPSULES 1,000 mg PO] [ASA 81 mg PO] Bifidobacterium infantis (Align) 4 mg PO DAILY [BIOTIN 45 mcg PO] cyclosporine 0.05% (Restasis) 1 drp ophthalmic (eye) BID diltiazem HCl 180 mg PO DAILY docusate sodium (Colace) 100 mg PO BID dulaglutide (Trulicity) 1.5 mg subcut QWEEK [FISH OIL CAPSULES 500 mg PO BID] insulin aspart U-100 (Novolog FlexPen U-100 Insulin aspart) 18 units subcut QPM insulin aspart U-100 (Novolog FlexPen U-100 Insulin aspart) 12 units subcut QAM insulin detemir U-100 (Levemir FlexPen) 60 units subcut BEDTIME insulin detemir U-100 (Levemir FlexPen) 98 units subcut BEDTIME lisinopril 10 mg PO DAILY lorazepam 2 mg PO BID PRN lorazepam 1 mg PO BID PRN metformin ER mg PO BID omeprazole 20 mg PO DAILY pravastatin 40 mg PO DAILY [SENNA 50 mg PO BID] sucralfate 1 g PO BID thiamine HCl (vitamin B1) 50 mg PO DAILY [VITAMIN D3 2,000 multiple units PO] ziprasidone HCl 20 mg PO BID ziprasidone HCl 80 mg PO BID HPI TV Consult/Transfer Laquita HPI Details Start time: 10.34am, End time: 11.34am ?I spent 45 minutes speaking with the patient on the phone plus an additional 15 minutes reviewing and updating records for a total of 60 minutes HPI Comments History of Present Illness Details Overall weight loss: 12.8lbs, or 6.71% TBWL Is doing 2 scrambled eggs at 8am, one Premier premade protein shake at 11.30am and 2.30pm, dinner at 7pm (not measured and a cup of fruits), a Celebrate bar as needed at 10pm Snack: string cheese at 5.30pm Exercise: Wheelchair at youtube or walking [facility] Medical History (Updated 09/28/22 @ 11:27 by Eduardo Anderson MD) Bipolar 1 disorder Depression GERD (gastroesophageal reflux disease) Hepatomegaly Hyperlipidemia Insulin dependent type 2 diabetes mellitus Liver fibrosis Myocardial infarction Surgical History Hx of section Hx of cholecystectomy Hx of hysterectomy Hx of lymph node excision Hx of wisdom tooth extraction Family History Mother Hypertension Diabetes High cholesterol Stroke Father Diabetes Hypertension High cholesterol Heart attack Sister Diabetes Hypertension Son Stroke Hypertension High cholesterol Social History Alcohol intake: never Patient Tobacco Use Status: Never used Tobacco Assessment & Plan Assessment & Plan (1) Obesity: Code(s): E66.9 - Obesity, unspecified Plan: 1.? Plan for lap sleeve gastrectomy. If diaphragmatic or ventral hernias are present at time of surgery, these will be repaired laparoscopically as well. Risks and complications were discussed in detail including possible conversion to an open procedure, anastomotic leak, bleeding requiring transfusion, small bowel obstruction, , DVT and pulmonary embolism, cardiac, or pulmonary complications, as group home complications such as anastomotic ulcer, insufficient weight loss and vitamin deficiencies. I emphasized the importance of close follow-up, adherence to instructions and good communication. 2. Nutritional counseling. Start with 2 plant-based organic ORGAIN protein (buy at [employer], [employer], [employer], [employer]) shakes (HALF scoop EACH in 8oz low fat unsweetened almond milk each) at 9am-11am and 12pm-2pm, 1 Celebrate protein bar at 3pm-5pm, dinner at 6pm (7 forks of protein and 7 forks of salad/vegetables) and one more protein bar after dinner at 8pm-10pm. May have one more Orgain protein shake (1/2 scoop in 8oz almond milk) at 11pm-12am if you feel hungry. Meal to include lean meat (beef, fish, pork, turkey, chicken), or libyan yogurt, or egg whites, or beans with a salad with olive oil and fruits (berries, pears, apples, kiwi). Avoid salt, breads, potatoes, rice, pasta, desserts. 3. Each shake would be drunk slowly, like coffee in a period of 2 hours. 4. Cut each bar in 4 pieces and eat each piece in 30min ?to make each bar last 2 hours. 5. I emphasized the importance of measuring accurately the food portion and measure it when serving the food in plate 6. The meal portions include 7 full-size forks of meat and 7 full-size forks of salad. You always eat the meat portion but you can replace up to 4 forks for salad/vegetables with rice, potatoes or pasta, or a fruit ?if you like. The less you do it the better weight loss will be. 7. One full-size fork is what it can be scooped on the fork without falling aside and not what can be bit with the fork. Use regular forks like those you find in a typical restaurant. 8.? Please send me weight measurements as soon as possible and then once a week. Always include your diet and exercise plan. Alternatively come weekly at the office for weight checks and send me the measurements. 9. Please purchase a stationary bike at home that can track calories. Let me know if you do so I can give you an exercise plan. 10.?Goal is to lose 1.5lbs per week, if possible 11. Please follow the diet plan exactly without any change. If you don't like something about the plan or you feel hungry you need to communicate with me so I can help you revise the plan. You should not change the plan yourself. 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 (5) Hyperlipidemia: Code(s): E78.5 - Hyperlipidemia, unspecified (6) Generalized anxiety disorder: Code(s): F41.1 - Generalized anxiety disorder (7) Bipolar 1 disorder: Code(s): F31.9 - Bipolar disorder, unspecified (8) Depression: Code(s): F32.A - Depression, unspecified (9) Liver fibrosis: Code(s): K74.00 - Hepatic fibrosis, unspecified (10) Hepatomegaly: Code(s): R16.0 - Hepatomegaly, not elsewhere classified (11) GERD (gastroesophageal reflux disease): Code(s): K21.9 - Gastro-esophageal reflux disease without esophagitis Orders: Orders ECG 12 lead EKG Today E11.9 - Type 2 diabetes mellitus without complications, E66.9 - Obesity, unspecified, I10 - Essential (primary) hypertension XR chest 2V Today E11.9 - Type 2 diabetes mellitus without complications, E66.9 - Obesity, unspecified, I10 - Essential (primary) hypertension Telehealth Telehealth Location of provider rendering services: practice address Location of patient: address on file Patient Identification confirmed using: Name, : Yes Telehealth method: voice only Patient verbally consented to treatment: Yes Patient verbally consented to billing insurance company: Yes Patient informed of any privacy concerns related to visit: Yes Minutes spent on Phone/Video with Pt.: 60 Coding Level of Care Code Tele Est Pt Level 5 (16224) Diagnoses Obesity E66.9 BMI 33.0-33.9,adult Z68.33 HTN (hypertension), benign I10 Insulin dependent type 2 diabetes mellitus E11.9; Z79.4 Hyperlipidemia E78.5 Generalized anxiety disorder F41.1 Bipolar 1 disorder F31.9 Depression F32.A Liver fibrosis K74.00 Hepatomegaly R16.0 GERD (gastroesophageal reflux disease) K21.9 Time Spent (min) 60
[2022-09-28 11:23] VITALS: BMI 33.6
== END | disposition home or self-care (01) ==
LOC: HO.HBS 08:09
PROVIDERS: PCP Internal Medicine Endocrinology, Diabetes & Metabolism; Visit Provider Surgery
DX: E66.9 Obesity, unspecified (principal); Z68.33 Body mass index [BMI] 33.0-33.9, adult
CPT/HCPCS: 99215

== ENCOUNTER → 2022-09-30 14:53 | Outpatient (REF) | payer MEDICARE, OTHER, SELFPAY ==
--- NOTE | ~2022-09-30 | XR_ITS ---
EXAMINATION: XR CHEST CLINICAL INFORMATION: Obesity unspecified COMPARISON: None TECHNIQUE: 2 views of the chest. FINDINGS: Heart size normal. No focal consolidation to suggest pneumonia. No pleural effusion. Degenerative changes in the thoracic spine. Lung volumes are low. There is no gross pneumothorax. Surgical clips in the right upper quadrant of the abdomen. Electronic device partially imaged on the lateral view projecting over the anterior upper chest. XR/XR chest 2V IMPRESSION: No focal consolidation to suggest pneumonia.
--- NOTE | 2022-09-30 15:00 | ECG_ITS ---
Test Reason : e66.9 Blood Pressure : / mmHG Vent. Rate : 069 BPM Atrial Rate : 069 BPM P-R Int : 204 ms QRS Dur : 092 ms QT Int : 406 ms P-R-T Axes : 034 047 037 degrees QTc Int : 435 ms Normal sinus rhythm Normal ECG When compared with ECG of 28-DEC-2002 08:18, Nonspecific T wave abnormality has replaced inverted T waves in Inferior leads T wave amplitude has decreased in Lateral leads Referred By: Eduardo Anderson Electronically Signed By:Christopher Haq
== END ==
LOC: HO.CARD 14:53
PROVIDERS: PCP Internal Medicine Endocrinology, Diabetes & Metabolism; Visit Provider Surgery
DX: E66.9 Obesity, unspecified (principal); I10 Essential (primary) hypertension; E11.9 Type 2 diabetes mellitus without complications
CPT/HCPCS: 71046; 93005

== ENCOUNTER → 2022-09-30 15:00 | Outpatient (BNV) | payer MEDICARE, OTHER, SELFPAY | PROVIDERS: PCP Internal Medicine Endocrinology, Diabetes & Metabolism; Visit Provider Internal Medicine Cardiovascular Disease | DX: E66.9 Obesity, unspecified (principal) | CPT/HCPCS: 93010 ==

== ENCOUNTER 2022-10-06 15:00 | Outpatient (RCR) | payer MEDICARE, OTHER, SELFPAY ==
--- NOTE | 2022-10-13 10:05 | MHC.PT.DC ---
[facility] [place] [facility] [place] [facility] [place] [facility] [address] Angel Maldonado [address] [phone] F: [phone] F: [phone] F: [phone] F: [phone] Physical Therapy Discharge Report Diagnosis: PERONEAL TENDONITIS Date of Surgery: Date of Evaluation: 08/11/22 Date of Discharge: 10/13/22 Treatments to Date: 14 Cancellations to Date: 0 No Shows to Date: 0 Discharge Status: Improved Function Independent with HEP Recommend MD Follow-up Discharge Summary: Linda attends last scheduled appointments with subjective reports of continued pain. At this time STGs have been met and LTGs partially met. Overall pain management is not improving with therapy however, tolerance to exercise and ambulation has increased significantly. At this time D/C to I with HEP and refer back to MD for further pain management. Electronically signed by: Charissa Paredes PT DPT Please sign and return to therapist. Thank you for your referral.
== END 2022-10-13 10:05 | disposition home or self-care (01) ==
LOC: HO.PT 15:00
PROVIDERS: PCP Internal Medicine Endocrinology, Diabetes & Metabolism; Visit Provider Physician Assistant
DX: M76.71 Peroneal tendinitis, right leg (principal)
CPT/HCPCS: 97035; 97110; 97140; 97161

== ENCOUNTER 2022-10-14 15:30 | Outpatient (AMB) | payer MEDICARE, OTHER, SELFPAY ==
--- NOTE | 2022-10-14 15:43 | A.OFFVIS_ITS ---
Intake VS Expanded 10/14/22 15:48 Height 5 ft 1 in Weight 173 lb BMI 32.7 Intake Visit Reasons: (OV) F/U SWL & H. Pylori Allergies demerol Allergy (Unknown, Uncoded 09/28/22 10:55) Hives percocet Allergy (Unknown, Uncoded 09/28/22 10:55) Hives HPI Nutrition Presentation Details Pt was unsure about SWL vs MWL Current weight 173# Reason for consult elevated BMI Diet Assmnt Details Just started with Dr. Anderson 09/28 11:30 Orgain protein shake 1/2 scoop powder in 8oz almond milk 2:30 same shake 3-5pm Celebrate bar 7pm dinner 7 bites of protein, 7 bites of vegetables celebrate bar 11pm another shake SWL online classes: completed. She shares that she spoke with her psychiatrist about bariatric surgery and he is familiar, they discussed medication changes that could take place should she decide to pursue surgery Dietary counseling reduction Diagnosis Nutrition problem #1 overweight/obesity As related to (etiology) #1 excess energy intake and physical inactivity As evidenced by (sign/symptom) #1 high BMI Monitoring/Goals Nutrition problem monitoring total energy intake, level of knowledge/skill, total PRO intake, total CHO intake and weight Outcome progress progressing Learning/Education Readiness to learn fair Stages of change contemplation Most Recent Diabetes Results: Cholesterol 120 mg/dL 09/08/22 HDL Cholesterol 40 mg/dL 09/08/22 Triglycerides 130 mg/dL 09/08/22 Creatinine 0.83 mg/dL (0.5-1.4) 09/08/22 Blood Urea Nitrogen 26 mg/dL (9-16) H 09/08/22 Sodium 143 mmol/L (135-145) 09/08/22 Potassium 3.2 mmol/L (3.3-5.1) L 09/08/22 Chloride 105 mmol/L (96-108) 09/08/22 Carbon Dioxide 28 mmol/L (22-29) 09/08/22 Calcium 10.2 mg/dL (8.4-10.2) 09/08/22 AST 23 U/L (5-31) 09/08/22 ALT 37 U/L (0-31) H 09/08/22 Total Protein 6.8 g/dL (6.5-8.0) 09/08/22 Albumin 4.2 g/dL (3.5-5.0) 09/08/22 [facility] Medical History (Updated 09/28/22 @ 11:27 by Eduardo Anderson MD) Bipolar 1 disorder Depression GERD (gastroesophageal reflux disease) Hepatomegaly Hyperlipidemia Insulin dependent type 2 diabetes mellitus Liver fibrosis Myocardial infarction Surgical History Hx of section Hx of cholecystectomy Hx of hysterectomy Hx of lymph node excision Hx of wisdom tooth extraction Family History Mother Hypertension Diabetes High cholesterol Stroke Father Diabetes Hypertension High cholesterol Heart attack Sister Diabetes Hypertension Son Stroke Hypertension High cholesterol Social History Alcohol intake: never Patient Tobacco Use Status: Never used Tobacco Assessment & Plan Assessment & Plan (1) Insulin dependent type 2 diabetes mellitus: Code(s): E11.9 - Type 2 diabetes mellitus without complications; 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 Educational requirements have been completed. Reviewed vitamin supplementation and commitment to protein shake for several months post surgery. Encouraged communication with office as needed Coding Level of Care Code Nutr Indiv Subseq (50136) Diagnoses Insulin dependent type 2 diabetes mellitus E11.9; Z79.4 Obesity (BMI 30-39.9) E66.9 Time Spent (min) 30
[2022-10-14 15:48] VITALS: BMI 32.7
== END 2022-10-14 15:57 | disposition home or self-care (01) ==
PROVIDERS: PCP Internal Medicine Endocrinology, Diabetes & Metabolism; Visit Provider Dietitian, Registered
DX: E11.9 Type 2 diabetes mellitus without complications (principal); Z79.4 Long term (current) use of insulin; E66.9 Obesity, unspecified

== ENCOUNTER → 2022-10-14 15:30 | Outpatient (BNVA) | payer MEDICARE, OTHER, SELFPAY | PROVIDERS: PCP Internal Medicine Endocrinology, Diabetes & Metabolism; Visit Provider Dietitian, Registered | DX: E66.9 Obesity, unspecified (principal); E11.9 Type 2 diabetes mellitus without complications; Z68.32 Body mass index [BMI] 32.0-32.9, adult; Z79.4 Long term (current) use of insulin; Z98.84 Bariatric surgery status; Z11.0 Encounter for screening for intestinal infectious diseases | CPT/HCPCS: 83013; 97803; 99211 ==

== ENCOUNTER 2022-10-14 16:01 | Outpatient (REF) | payer MEDICARE, OTHER, SELFPAY ==
[2022-10-19 14:46] LABS: H Pylori Breath Test Negative (Negative)
== END 2022-10-14 16:02 | disposition home or self-care (01) ==
LOC: HO.LNP 16:01
PROVIDERS: Visit Provider Physician Assistant Surgical
DX: Z13.89 Encounter for screening for other disorder (principal)
CPT/HCPCS: 83013

== ENCOUNTER 2022-10-19 13:34 | Outpatient (AMB) | payer MEDICARE, OTHER, SELFPAY ==
--- NOTE | 2022-10-19 13:40 | MHC.OFFVIS ---
Intake Vital Signs 10/19/22 13:50 Height 5 ft 1 in Weight 173 lb BMI 32.7 Intake Visit Reasons: ov- right leg pain Intake Note: Linda a 67 year old female who presents today for a follow up of right ankle. Patient reports improvement in pain but still continues to have pain. She completed PT last week. Allergies demerol Allergy (Unknown, Uncoded 10/19/22 13:41) Hives percocet Allergy (Unknown, Uncoded 10/19/22 13:41) Hives HPI ov- right leg pain HPI Details 67-year-old female who returns to the office today for a follow-up of right leg pain. She continues to have pain in her right leg but states her pain is currently improved. She is completed with her physical therapy about 1 week ago. [facility] Medical History (Updated 09/28/22 @ 11:27 by Eduardo Anderson MD) Bipolar 1 disorder Depression GERD (gastroesophageal reflux disease) Hepatomegaly Hyperlipidemia Insulin dependent type 2 diabetes mellitus Liver fibrosis Myocardial infarction Surgical History Hx of section Hx of cholecystectomy Hx of hysterectomy Hx of lymph node excision Hx of wisdom tooth extraction Family History Mother Hypertension Diabetes High cholesterol Stroke Father Diabetes Hypertension High cholesterol Heart attack Sister Diabetes Hypertension Son Stroke Hypertension High cholesterol Social History Alcohol intake: never Patient Tobacco Use Status: Never used Tobacco Review of Systems Const All systems reviewed & are unremarkable except as noted in HPI and below Physical Exam Vital Signs: BMI result Body Mass Index 32.7 Const General: cooperative and no acute distress Orientation/consciousness: patient oriented x3 Resp Effort & Inspection: normal respiratory effort and able to speak in complete sentences Cardio Peripheral pulses: Peripheral pulses 2+ throughout Neuro General: patient oriented x3 Extrem Other: Right ankle normal to inspection without swelling. She does have tenderness along the soft tissues into the posterior aspect of the ankle. She does have tenderness over the anterior tibialis, no deformity along the Achilles tendon, negative Ogden?s. No pain along the syndesmosis or anterior tibia. No laxity, NVI. Assessment & Plan Assessment & Plan (1) Peroneal tendinitis of right lower extremity: Code(s): M76.71 - Peroneal tendinitis, right leg Plan She has completed physical therapy and states they have done only 1 session of ultrasound treatment with her. I did put in a new referral for therapy specifically to work on iontophoresis. I think this can help with her tendinitis symptoms and I will speak with physiatry to determine if this is something they can take on for further treatment recommendation or if I should send her to pain management. I will be in touch with her about this information and she will see me back as needed. Orders: Orders PT Evaluation and Treatment Today M76.71 - Peroneal tendinitis, right leg Patient Instructions: Scribed for Ana Ware PA-C, by Lenin Delatorre medical affairs director, on 10/19/2022 at 1:45 PM ANDREEA. Ana Gonzalez PA-C, have personally reviewed and agree with the information entered by the scribe. Coding Level of Care Code Est Pt Level 3 (86113) Diagnoses Peroneal tendinitis of right lower extremity M76.71
[2022-10-19 13:50] VITALS: BMI 32.7
== END 2022-10-19 14:11 | disposition home or self-care (01) ==
PROVIDERS: PCP Internal Medicine Endocrinology, Diabetes & Metabolism; Visit Provider Physician Assistant
DX: M76.71 Peroneal tendinitis, right leg (principal)
CPT/HCPCS: 99213

== ENCOUNTER → 2022-10-19 13:34 | Outpatient (BNVA) | payer MEDICARE, OTHER, SELFPAY | PROVIDERS: PCP Internal Medicine Endocrinology, Diabetes & Metabolism; Visit Provider Physician Assistant | DX: E66.9 Obesity, unspecified (principal); M76.71 Peroneal tendinitis, right leg | CPT/HCPCS: 99212 ==

== ENCOUNTER 2022-10-28 08:06 | Outpatient (AMB) | payer MEDICARE, OTHER, SELFPAY ==
--- NOTE | 2022-10-27 14:23 | A.OFFVIS_ITS ---
Intake VS Expanded 10/27/22 14:41 Height 5 ft 1 in Weight 170 lb BMI 32.1 Body Fat 77.3 Body Fat Percentage 45.5 Free Fat Mass 92.8 Visceral Mass 11.9 Water Mass 70.7 BMR 1,321 Intake Visit Reasons: TV Follow Up SWL Allergies demerol Allergy (Unknown, Uncoded 10/19/22 13:41) Hives percocet Allergy (Unknown, Uncoded 10/19/22 13:41) Hives HPI TV Follow Up SWL HPI Details Start time: 11am, End time: 11.30pm I spent 25 minutes speaking with the patient on the phone plus an additional 5 minutes reviewing and updating records for a total of 30 minutes HPI Comments History of Present Illness Details Overall weight loss: 20.8lbs, or 10.9% TBWL Is doing 3 Orgain protein shakes (1/2 scoop in almond milk), 2 Celebrate protein bars and one meal (7 forks of protein and >7 forks of salad or vegetables) Exercise: walking outside for 1.5 miles per day, 5-6 days per week [facility] Medical History (Updated 10/27/22 @ 14:33 by Eduardo Anderson MD) GERD (gastroesophageal reflux disease) Hepatomegaly Liver fibrosis Depression Bipolar 1 disorder Hyperlipidemia Insulin dependent type 2 diabetes mellitus Myocardial infarction Surgical History Hx of section Hx of cholecystectomy Hx of hysterectomy Hx of lymph node excision Hx of wisdom tooth extraction Family History Mother Hypertension Diabetes High cholesterol Stroke Father Diabetes Hypertension High cholesterol Heart attack Sister Diabetes Hypertension Son Stroke Hypertension High cholesterol Social History Alcohol intake: never Patient Tobacco Use Status: Never used Tobacco Physical Exam Vital Signs: BMI result Body Mass Index 32.1 Assessment & Plan Assessment & Plan (1) Obesity: Code(s): E66.9 - Obesity, unspecified Plan: 1. Plan for lap sleeve gastrectomy including upper GI endoscopy. All tests has been completed and reviewed and the patient is cleared for the surgery. If diaphragmatic or ventral hernias are present at time of surgery, these will be repaired laparoscopically as well. Risks and complications were discussed in detail including possible conversion to an open procedure, anastomotic leak, bleeding requiring transfusion, small bowel obstruction, , DVT and pulmonary embolism, cardiac, or pulmonary complications, as terminal makeup operator complications such as anastomotic ulcer, insufficient weight loss and vitamin deficiencies. I emphasized the importance of close follow-up, adherence to instructions and good communication. So far she has proven to be an excellent communicator and very compliant with all our directions accomplishing a great weight loss. I believe that she is an excellent candidate and she is ready. 2. Continue same nutritional plan of 3 Orgain protein shakes (1/2 scoop in almond milk), 2 Celebrate protein bars and one meal (7 forks of protein and 7 forks of salad or vegetables) 3. Reduce the salad portion to 7 forks of salad or vegetables 4. Use milk of magnesia 1 tablespoon per day until you go, if you are constipated and add 2 tablets of Metamucil daily 5. Exercise: continue walking outside for 1.5 miles per day, 5-6 days per week 6. Consider joining a gym to improve your calorie burn. It will be very important after surgery to improve weight loss. (2) BMI 31.0-31.9,adult: Code(s): Z68.31 - Body mass index [BMI] 31.0-31.9, adult Telehealth Telehealth Location of provider rendering services: practice address Location of patient: address on file Patient Identification confirmed using: Name, : Yes Telehealth method: voice only Patient verbally consented to treatment: Yes Patient verbally consented to billing insurance company: Yes Patient informed of any privacy concerns related to visit: Yes Minutes spent on Phone/Video with Pt.: 30 Coding Level of Care Code Tele Est Pt Level 4 (72336) Diagnoses Obesity E66.9 BMI 31.0-31.9,adult Z68.31 Time Spent (min) 30
[2022-10-27 14:41] VITALS: BMI 32.1
== END 2022-10-28 14:51 | disposition home or self-care (01) ==
LOC: HO.HBS 08:06
PROVIDERS: PCP Internal Medicine Endocrinology, Diabetes & Metabolism; Visit Provider Surgery
DX: E66.9 Obesity, unspecified (principal); Z68.31 Body mass index [BMI] 31.0-31.9, adult
CPT/HCPCS: 99443

== ENCOUNTER → 2022-10-28 08:06 | Outpatient (BNVA) | payer MEDICARE, OTHER, SELFPAY | PROVIDERS: PCP Internal Medicine Endocrinology, Diabetes & Metabolism; Visit Provider Surgery ==

== ENCOUNTER 2022-11-14 08:07 | Outpatient (AMB) | payer MEDICARE, OTHER, SELFPAY ==
--- NOTE | 2022-11-14 09:48 | MHC.OFFVISWM ---
Intake VS Expanded 11/14/22 09:59 Height 5 ft 1 in Weight 190 lb 8 oz BMI 36.0 Body Fat Percentage 49 Free Fat Mass 97.2 Visceral Mass 13.9 Intake Visit Reasons: TV Pre Op LSG 11/22/22 Allergies demerol Allergy (Unknown, Uncoded 11/14/22 09:49) Hives percocet Allergy (Unknown, Uncoded 11/14/22 09:49) Hives Medication List - Last Reconciled 11/14/22 by Eduardo Anderson MD [APPLE CIDER VINEGAR CAPSULES 1,000 mg PO] [ASA 81 mg PO] Bifidobacterium infantis (Align) 4 mg PO DAILY [BIOTIN 45 mcg PO] cyclosporine 0.05% (Restasis) 1 drp ophthalmic (eye) BID diltiazem HCl 180 mg PO DAILY docusate sodium (Colace) 100 mg PO BID dulaglutide (Trulicity) 1.5 mg subcut QWEEK [FISH OIL CAPSULES 500 mg PO BID] lisinopril 10 mg PO DAILY lorazepam 2 mg PO BID PRN lorazepam 1 mg PO BID PRN metformin ER mg PO BID omeprazole 20 mg PO DAILY ondansetron 4 mg PO Q12H pantoprazole 40 mg PO DAILY polyethylene glycol 3350 (Miralax) 17 grams PO DAILY pravastatin 40 mg PO DAILY [SENNA 50 mg PO BID] sucralfate 10 mL PO BID sucralfate 1 g PO BID thiamine HCl (vitamin B1) 50 mg PO DAILY [VITAMIN D3 2,000 multiple units PO] ziprasidone HCl 20 mg PO BID ziprasidone HCl 80 mg PO BID HPI TV Pre Op LSG 11/22/22 HPI Details Start time: 9.42am, End time: 10.12am ?I spent 25 minutes speaking with the patient on the phone plus an additional 5 minutes reviewing and updating records for a total of 30 minutes HPI Comments History of Present Illness Details Is doing3 Orgain protein shakes (1/2 scoop in almond milk), 2 Celebrate protein bars, one meal (7 forks of protein and 7 forks of salad or vegetables) Exercise: walking outside [facility] Medical History (Updated 11/14/22 @ 09:45 by Eduardo Anderson MD) BMI 35.0-35.9,adult GERD (gastroesophageal reflux disease) Hepatomegaly Liver fibrosis Depression Bipolar 1 disorder Hyperlipidemia Insulin dependent type 2 diabetes mellitus Myocardial infarction Surgical History Hx of section Hx of wisdom tooth extraction Hx of lymph node excision Hx of cholecystectomy Hx of hysterectomy Family History Mother Hypertension Diabetes High cholesterol Stroke Father Diabetes Hypertension High cholesterol Heart attack Sister Diabetes Hypertension Son Stroke Hypertension High cholesterol Social History Alcohol intake: never Patient Tobacco Use Status: Never used Tobacco Assessment & Plan Assessment & Plan (1) Obesity: Code(s): E66.9 - Obesity, unspecified Plan: 1. Plan for lap sleeve gastrectomy including upper GI endoscopy. All tests has been completed and reviewed and the patient is cleared for the surgery. ?If diaphragmatic or ventral hernias are present at time of surgery, these will be repaired laparoscopically as well. Risks and complications were discussed in detail including possible conversion to an open procedure, anastomotic leak, bleeding requiring transfusion, small bowel obstruction, , DVT and pulmonary embolism, cardiac, or pulmonary complications, as senior care complications such as anastomotic ulcer, insufficient weight loss and vitamin deficiencies. I emphasized the importance of close follow-up, adherence to instructions and good communication. So far she has proven to be an excellent communicator and very compliant with all our directions accomplishing a great weight loss. I believe that she is an excellent candidate and she is ready. 2. Preop prescriptions were provided and explained the purpose of each one. Need to be purchased preop. Pantoprazole, Sucralfate and Zofran are for after surgery as needed. 3. Bowel prep: please do 7 packets ?of Miralax mixing each one with a an 8oz glass of water, crystal light, gatorade zero, or propel ?on 11/20/22 and the same amount on 11/21/22. Continue the protein shakes during? the bowel prep. 4. Needs to purchase 1oz medicine cups . 5. Needs to purchase Children's liquid Tylenol for postop pain control. 6. She needs to stop TODAY 11/14/22 the aspirin, apply cyder, biotin, fish oil, Aligh. Avoid aspirin, motrin, Advil, Aleve, Ibuprofen, Naproxyn. Tylenol is OK. 7. She needs to purchase the Celebrate 4:1 protein shakes from the hospital's gift shop. 8. Will do basic preop blood work-up any day between Monday11/15/22 and Monday11/18/22 fasting for 12 hours and is scheduled to see the Anesthesiologist prior to the day of surgery. 9. Importance of adherence to postop folllow-up and recommendations was underscored and she understands that. 10. Stop food and bars as of TODAY 11/14/22 and continue with 5 ORGAIN protein shakes (ONE scoop EACH in 8oz almond milk) at 10am-12pm, 1pm-3pm, 4pm-6pm, 7pm-9pm and 10pm-12am. 11. No soups, broths or V8 12. The patient's?medical?history has been reviewed and they are considered low risk for post op DVT and therefore DVT prophylaxis is not considered necessary. Travel after surgery was reviewed. The patient has not disclosed any travel plans during the first 30 days after surgery and they have been advised that within the first 30 days after surgery any bus, plane, train or car travel over 2 hours in duration is contraindicated due to the possibility of developing blood clots from immobility. Any travel, needs to include periods of ambulation of 10 minutes in duration every 2 hours.? Patient was instructed to discuss any plans for travel during this period with their bariatric surgeon.? 12. Please take at the day of surgery the following medications: 13. Absolutely no smoking or vaping, or marijuana until the surgery and for at least the first 4 weeks. Only nicotine patches are allowed. 14. Send me weight measurements on and then on the day of surgery before you go to the hospital. 15. Avoid any steroids by mouth for any reason. Let me know if someone prescribes them to you 16. Measure your blood sugar daily and let Dr. Anderson if it drops below 100. 17. Measure your blood pressure daily and let Dr. Anderson if it drops below 120/70. 18. Start stationary bike at a resistance level of 4.0 Increase level by 1.0 every 3 min to a max level of 10.0. Stay at this level for 3 min and then return to level 4.0 and repeat same steps until 300 calories are burned. Goal is to burn 2000 calories per week on exercise, which means either 300 calories daily, or 400 calories 5 days per week, or 500 calories 4 days per week, or 650 calories 3 days per week. 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 Panel Today E11.9 - Type 2 diabetes mellitus without complications, E66.9 - Obesity, unspecified, E78.5 - Hyperlipidemia, unspecified, I10 - Essential (primary) hypertension, K21.9 - Gastro-esophageal reflux disease without esophagitis, K74.00 - Hepatic fibrosis, unspecified, Z68.35 - Body mass index [BMI] 35.0-35.9, adult, Z79.4 - nursing home (current) use of insulin Type and Screen Today E11.9 - Type 2 diabetes mellitus without complications, E66.9 - Obesity, unspecified, E78.5 - Hyperlipidemia, unspecified, I10 - Essential (primary) hypertension, K21.9 - Gastro-esophageal reflux disease without esophagitis, K74.00 - Hepatic fibrosis, unspecified, Z68.35 - Body mass index [BMI] 35.0-35.9, adult, Z79.4 - nursing home (current) use of insulin Hemoglobin A1c Today E11.9 - Type 2 diabetes mellitus without complications, E66.9 - Obesity, unspecified, E78.5 - Hyperlipidemia, unspecified, I10 - Essential (primary) hypertension, K21.9 - Gastro-esophageal reflux disease without esophagitis, K74.00 - Hepatic fibrosis, unspecified, Z68.35 - Body mass index [BMI] 35.0-35.9, adult, 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 Insulin Today E11.9 - Type 2 diabetes mellitus without complications, E66.9 - Obesity, unspecified, E78.5 - Hyperlipidemia, unspecified, I10 - Essential (primary) hypertension, K21.9 - Gastro-esophageal reflux disease without esophagitis, K74.00 - Hepatic fibrosis, unspecified, Z68.35 - Body mass index [BMI] 35.0-35.9, adult, 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 TSH reflex Free T4 Today E11.9 - Type 2 diabetes mellitus without complications, E66.9 - Obesity, unspecified, E78.5 - Hyperlipidemia, unspecified, I10 - Essential (primary) hypertension, K21.9 - Gastro-esophageal reflux disease without esophagitis, K74.00 - Hepatic fibrosis, unspecified, Z68.35 - Body mass index [BMI] 35.0-35.9, adult, Z79.4 - nursing home (current) use of insulin Prothrombin Time INR Today E11.9 - Type 2 diabetes mellitus without complications, E66.9 - Obesity, unspecified, E78.5 - Hyperlipidemia, unspecified, I10 - Essential (primary) hypertension, K21.9 - Gastro-esophageal reflux disease without esophagitis, K74.00 - Hepatic fibrosis, unspecified, Z68.35 - Body mass index [BMI] 35.0-35.9, adult, Z79.4 - nursing home (current) use of insulin Partial Thromboplastin Time Today E11.9 - Type 2 diabetes mellitus without complications, E66.9 - Obesity, unspecified, E78.5 - Hyperlipidemia, unspecified, I10 - Essential (primary) hypertension, K21.9 - Gastro-esophageal reflux disease without esophagitis, K74.00 - Hepatic fibrosis, unspecified, Z68.35 - Body mass index [BMI] 35.0-35.9, adult, 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 C Reactive Protein Today E11.9 - Type 2 diabetes mellitus without complications, E66.9 - Obesity, unspecified, E78.5 - Hyperlipidemia, unspecified, I10 - Essential (primary) hypertension, K21.9 - Gastro-esophageal reflux disease without esophagitis, K74.00 - Hepatic fibrosis, unspecified, Z68.35 - Body mass index [BMI] 35.0-35.9, adult, 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 Lipid Panel Today E11.9 - Type 2 diabetes mellitus without complications, E66.9 - Obesity, unspecified, E78.5 - Hyperlipidemia, unspecified, I10 - Essential (primary) hypertension, K21.9 - Gastro-esophageal reflux disease without esophagitis, K74.00 - Hepatic fibrosis, unspecified, Z68.35 - Body mass index [BMI] 35.0-35.9, adult, Z79.4 - nursing home (current) use of insulin Complete Blood Count Auto Diff Today E11.9 - Type 2 diabetes mellitus without complications, E66.9 - Obesity, unspecified, E78.5 - Hyperlipidemia, unspecified, I10 - Essential (primary) hypertension, K21.9 - Gastro-esophageal reflux disease without esophagitis, K74.00 - Hepatic fibrosis, unspecified, Z68.35 - Body mass index [BMI] 35.0-35.9, adult, 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 Medications: New sucralfate 10 mL PO BID 400 mL 2RF K21.9 - Gastro-esophageal reflux disease without esophagitis pantoprazole 40 mg PO DAILY 30 tabs 2RF K21.9 - Gastro-esophageal reflux disease without esophagitis ondansetron 4 mg PO Q12H 20 tabs 0RF nausea and vomiting R11.0 - Nausea polyethylene glycol 3350 (Miralax) Mix each packet with 8oz of water, Crystal light, or Gatorade zero, or Propel and do 7 packets on 11/20/22 and another 7 packets on 11/21/22 17 grams PO DAILY 14 ea 0RF Z01.818 - Encounter for other preprocedural examination Telehealth Telehealth Location of provider rendering services: practice address Location of patient: address on file Patient Identification confirmed using: Name, : Yes Telehealth method: voice only Patient verbally consented to treatment: Yes Patient verbally consented to billing insurance company: Yes Patient informed of any privacy concerns related to visit: Yes Minutes spent on Phone/Video with Pt.: 30 Coding Level of Care Code Tele Est Pt Level 4 (96449) Diagnoses Obesity E66.9 BMI 35.0-35.9,adult Z68.35 Insulin dependent type 2 diabetes mellitus E11.9; Z79.4 HTN (hypertension), benign I10 Hyperlipidemia E78.5 Time Spent (min) 30
[2022-11-14 09:59] VITALS: BMI 36.0
== END 2022-11-14 10:13 | disposition home or self-care (01) ==
LOC: HO.HBS 08:07
PROVIDERS: PCP Internal Medicine Endocrinology, Diabetes & Metabolism; Visit Provider Surgery
DX: E66.9 Obesity, unspecified (principal); Z68.35 Body mass index [BMI] 35.0-35.9, adult; E11.9 Type 2 diabetes mellitus without complications; Z79.4 Long term (current) use of insulin; I10 Essential (primary) hypertension; E78.5 Hyperlipidemia, unspecified
CPT/HCPCS: 99443

== ENCOUNTER → 2022-11-14 08:07 | Outpatient (BNVA) | payer MEDICARE, OTHER, SELFPAY | PROVIDERS: PCP Internal Medicine Endocrinology, Diabetes & Metabolism; Visit Provider Surgery ==

== ENCOUNTER 2022-11-15 08:07 | Outpatient (REF) | payer MEDICARE, OTHER, SELFPAY ==
--- NOTE | ~2022-11-15 | FL_ITS ---
EXAMINATION: XR FLUOROSCOPY UPPER GI WITH AIR CLINICAL INFORMATION: Preop bariatric. Patient has no specific symptoms. COMPARISON: None TECHNIQUE: Fluoroscopic air contrast upper GI examination was performed utilizing standard techniques with thin and thick barium and effervescent granules. Numerous spot images were obtained. FINDINGS: Hypopharyngeal structures appear normal without evidence of mass or diverticulum. There was minimal cricopharyngeal achalasia. Dual and single contrast images of the esophagus demonstrate normal caliber, contour, and mucosal pattern. No evidence of stricture, mass, or ulcerations identified. Esophageal peristalsis was noted to be quite disordered with nonpropulsive tertiary contractions after the primary peristaltic wave, consistent with presbyesophagus. At times this held up the esophageal bolus in the distal esophagus for a short period of time. Small type I hiatus hernia identified. There may be remnants of an old Schatzki's ring. Mild gastroesophageal reflux was seen during the course of the examination, to the level of the shashank. Dual contrast and single contrast images of the stomach demonstrated normal contour and mucosal pattern without evidence of mass, ulceration, or other abnormality. Contrast freely passed into the gastric antrum and duodenal bulb without delay. Single and air-contrast images of the duodenal bulb demonstrate no abnormality. The duodenal sweep has a normal appearance, course, and mucosal fold appearance. The imaged proximal jejunum has a normal fold pattern and caliber. Numerous surgical clips are seen in the subhepatic region, presumably related to cholecystectomy. FLUOROSCOPY TIME: 3 minutes 23 seconds Number of Spot Images: 5 image hold fluoroscopic cine runs; 12 fluoroscopic spot images. DOSE AREA PRODUCT: 2692 uGy-m2 (microgray-meter squared) FL/FL upper GI w air IMPRESSION: 1. Small type I hiatus hernia. Possible remnants of an old Schatzki's ring. 2. Moderate to severe presbyesophagus. 3. Mild episodic gastroesophageal reflux. 4. Normal-appearing stomach, duodenal bulb, duodenal sweep, and proximal small bowel.
[2022-11-15 08:32] LABS: MANUAL DIFF FLAG NO
[2022-11-15 09:01] LABS: Basophils Percent Auto 0.4 % (0-2); Eosinophils Absolute Auto 0.2 X10*3/uL (0.0-0.4); Eosinophils Percent Auto 2.9 % (0-4); Hematocrit 38.4 % (37.0-47.0); Hemoglobin 12.8 g/dl (12.0-16.0); Imm Gran Abs Auto 0.02 X10*3/uL (0.00-0.03); Imm Gran Pct Auto 0.3 % (0.0-0.4); Lymphocytes Absolute Auto 1.7 X10*3/uL (1.2-4.9); Lymphocytes Percent Auto 21.3 % (20-40); Mean Corpuscular HGB Conc 33.3 g/dl (31.0-35.0); Mean Corpuscular Hemoglobin 28.6 pg (27.0-33.0); Mean Corpuscular Volume 85.9 fL (80.0-98.0); Mean Platelet Volume 11.6 fL (9.4-12.3); Monocytes Absolute Auto 0.7 X10*3/uL (0.1-1.2); Monocytes Percent Auto 8.4 % (2-11); Neutrophils Absolute Auto 5.3 x10*3/uL (2.0-8.3); Neutrophils Percent Auto 66.7 % (45-73); Platelet Count 205 X10*3/uL (160-400); Red Blood Count 4.47 X10*6/uL (4.20-5.50); Red Cell Distribution Width 13.2 % (11.0-16.0)
[2022-11-15 09:04] LABS: Estimated Average Glucose 111 mg/dL; Hemoglobin A1c % 5.5 % (<6.0)
[2022-11-15 09:10] LABS: Prothrombin Time 12.2 SEC (11.1-13.3)
[2022-11-15 09:35] LABS: Alanine Aminotransferase 14 U/L (0-31); Albumin Level 4.3 g/dL (3.5-5.0); Alkaline Phosphatase 88 U/L (39-117); Anion Gap 17 (12-20); Aspartate Amino Transferase 16 U/L (5-31); Bilirubin Total 1.1 mg/dL (0.0-1.0); Blood Urea Nitrogen 20 mg/dL (9-16); C Reactive Protein 0.73 mg/dL (< or = 0.50); Calcium 10.8 mg/dL (8.4-10.2); Carbon Dioxide 24 mmol/L (22-29); Chloride 103 mmol/L (96-108); Cholesterol 124 mg/dL (<200); Estimated Glomerular Filt Rate 55; Glucose Random 165 mg/dL (60-115); HDL Cholesterol 39 mg/dL (>40); LDL Cholesterol Calculated 56 mg/dL (<100); Potassium 3.8 mmol/L (3.3-5.1); Sodium 140 mmol/L (135-145); Triglycerides 148 mg/dL (<150)
[2022-11-15 09:55] LABS: Insulin 37 uU/mL (2-29); TSH reflex Free T4 1.65 uIU/mL (0.32-4.0)
== END 2022-11-15 08:08 | disposition home or self-care (01) ==
LOC: HO.XRAY 08:07
PROVIDERS: Absent Provider Surgery; PCP Internal Medicine Endocrinology, Diabetes & Metabolism; Visit Provider Physician Assistant Surgical
DX: E66.9 Obesity, unspecified (principal); Z68.35 Body mass index [BMI] 35.0-35.9, adult; K21.9 Gastro-esophageal reflux disease without esophagitis; K74.00 Hepatic fibrosis, unspecified; E11.9 Type 2 diabetes mellitus without complications; E78.5 Hyperlipidemia, unspecified; I10 Essential (primary) hypertension; Z79.4 Long term (current) use of insulin
CPT/HCPCS: 36415; 74246; 80053; 80061; 83036; 83525; 84443; 85025; 85610; 85730; 86140

== ENCOUNTER → 2022-11-15 08:31 | Outpatient (BNV) | payer MEDICARE, OTHER, SELFPAY | PROVIDERS: Absent Provider Surgery; PCP Internal Medicine Endocrinology, Diabetes & Metabolism; Visit Provider Radiology Diagnostic Radiology | DX: K21.9 Gastro-esophageal reflux disease without esophagitis (principal) | CPT/HCPCS: 74246 ==

== ENCOUNTER 2022-11-22 06:18 | Inpatient (IN) | payer MEDICARE, OTHER, SELFPAY ==
[2022-11-17 11:22] VITALS: BMI 31.6
--- NOTE | 2022-11-18 22:29 | MHC.SHP ---
Pre-Procedural Eval Section A Date of Service: 11/18/22 The patient is an INPATIENT: Yes The History & Physical has been completed within 30 days and I have reviewed it.: Yes Section B Chief Complaint: Obesity, unspecified Relevant Family History (Specify if Yes): No Relevant Social History: None Present Medications: None Medical History: No relevant PMH History of Previous Operations: No relevant previous surgery Allergies: Allergies Allergy/AdvReac Type Severity Reaction Status Date / Time demerol Allergy Unknown hives, Uncoded 11/17/22 11:07 hallucinations percocet Allergy Unknown Hives Uncoded 11/14/22 09:49 Review of Systems Sugical H&P ROS: Negative: Constitution, Cardiovascular, Respiratory, Neurological, Psychiatric, Hem-Onc, Allergic/Immunologic, Gastrointestinal, Genitourinary, Musculoskeletal, Integumentary, Endocrine and Eyes/Ears/Nose/Throat Exam Surgical H&P Exam: Normal: HEENT, Normal: Heart, Normal: Lungs, Normal: Extremities, Normal: Abdomen, Normal: Skin and Normal: Neurological Plan Diagnosis/Plan: Unchanged I have reviewed the history and physical and performed a pertinent physical examination on my patient. No changes have occurred unless specified. Time Spent With Patient Time: Total time managing care of this patient today ____ minutes.
--- NOTE | 2022-11-21 08:16 | P.CONAN_ITS ---
Documented by User: Maddy Ames NP 11/21/22 10:18 HPI - Anesthesia Eval Consult details Narrative: 67yo F for Gastrectomy Sleeve,EGD,poss diaphragmatic hernia,poss ventral hernia,poss open, Hx [place] 20 years ago. Only follows PCP. Stable PMFSH Active Problems Active Problems: All Active Problems (Updated 11/17/22 @ 15:00 by Makenna Uribe RN) BMI 31.0-31.9,adult (Acute) BMI 33.0-33.9,adult (Acute) Generalized anxiety disorder (Acute) HTN (hypertension), benign (Acute) Diabetes mellitus (Acute) Obesity (Acute) Peroneal tendinitis of right lower extremity (Acute) BMI 35.0-35.9,adult (Acute) GERD (gastroesophageal reflux disease) (Acute) Hepatomegaly (Acute) Liver fibrosis (Acute) Depression (Acute) Bipolar 1 disorder (Acute) Hyperlipidemia (Acute) Insulin dependent type 2 diabetes mellitus (Acute) Past Medical History Medical History (Updated 11/17/22 @ 15:00 by Makenna Uribe RN) Asymptomatic coronary heart disease History of endometrial cancer History of cerebrovascular accident BMI 35.0-35.9,adult GERD (gastroesophageal reflux disease) Hepatomegaly Liver fibrosis Depression Bipolar 1 disorder Hyperlipidemia Insulin dependent type 2 diabetes mellitus Myocardial infarction Family History Family History Mother Hypertension Diabetes High cholesterol Stroke Father Diabetes Hypertension High cholesterol Heart attack Sister Diabetes Hypertension Son Stroke Hypertension High cholesterol Surgical History Surgical History (Updated 11/17/22 @ 11:00 by Makenna Uribe RN) Hx of section Hx of wisdom tooth extraction Hx of lymph node excision Hx of cholecystectomy Hx of hysterectomy Social History Social History Are you a primary skin care therapist to a significant other at home: Yes (SO, son with be available post-op to help with care) Do you presently have visiting nurse or other home services: No Alcohol intake: never Patient Tobacco Use Status: Never used Tobacco Use of substances other than those prescribed or required for medical reasons: No Have you been hit, kicked, punched, or otherwise hurt by someone within the past year? If so, by whom?: No Are you DNR?: No Advance Directives: No Advance Directives Information Provided: Yes Advance Directives on File: No Recently lost weight without trying: No Nutrition Risks: No Nutritional Risk Meds Allergies Allergy/AdvReac Type Severity Reaction Status Date / Time demerol Allergy Unknown hives, Uncoded 11/17/22 11:07 hallucinations percocet Allergy Unknown Hives Uncoded 11/14/22 09:49 Home Medications Medication Instructions Recorded Confirmed Last Taken Type APPLE CIDER VINEGAR CAPSULES 1,000 mg PO 06/17/22 11/14/22 Unknown History ASA 81 mg PO 06/17/22 11/14/22 Unknown History BIOTIN 45 mcg PO 06/17/22 11/14/22 Unknown History Bifidobacterium infantis 4 mg 4 mg PO DAILY 06/17/22 11/14/22 Unknown History capsule (Align) FISH OIL CAPSULES 500 mg PO BID 06/17/22 11/14/22 Unknown History SENNA 100 mg PO .@2200 06/17/22 11/17/22 Unknown History VITAMIN D3 2,000 units PO 06/17/22 11/14/22 Unknown History cyclosporine 0.05 % eye drops in a 1 drp ophthalmic (eye) .0800+2200 06/17/22 11/17/22 Unknown History dropperette (Restasis) diltiazem HCl 180 mg 180 mg PO DAILY 06/17/22 11/17/22 Unknown History capsule,extended release 24 hr docusate sodium 100 mg capsule 100 mg PO BID 06/17/22 11/17/22 Unknown History (Colace) dulaglutide 0.75 mg/0.5 mL 1.5 mg subcut QWEEK 06/17/22 11/14/22 Unknown History subcutaneous pen injector (Trulicity) lisinopril 10 mg tablet 10 mg PO DAILY 06/17/22 11/17/22 Unknown History lorazepam 1 mg tablet 1 mg PO .@0800+1700 PRN Anxiety 06/17/22 11/17/22 Unknown History lorazepam 2 mg tablet 2 mg PO .@2200 PRN Anxiety 06/17/22 11/17/22 Unknown History omeprazole 20 mg capsule,delayed 20 mg PO DAILY 06/17/22 11/17/22 Unknown History release pravastatin 40 mg tablet 40 mg PO .DAILY@1900 06/17/22 11/17/22 Unknown History sucralfate 1 gram tablet 1 g PO .@0800+1900 06/17/22 11/17/22 Unknown History ziprasidone HCl 20 mg capsule 20 mg PO .BID TAKES@0800+1700 06/17/22 11/17/22 Unknown History ziprasidone HCl 80 mg capsule 80 mg PO .BID TAKES@1900+2200 06/17/22 11/17/22 Unknown History metformin 1,000 mg tablet,extended mg PO BID 07/14/22 11/14/22 Unknown History release 24hr Exam Exam Date and Time: November 21, 2022 0816 Height,Weight and Vital Signs: Height 5 ft 1 in Weight 75.75 kg Pertinent Lab Results Pertinent Lab Results: Laboratory Tests 11/15/22 08:30 Blood Type O Positive Antibody Screen NEGATIVE Laboratory Tests 11/15/22 08:30 WBC 8.0 Hgb 12.8 Hct 38.4 Plt Count 205 Sodium 140 Potassium 3.8 Chloride 103 Carbon Dioxide 24 BUN 20 H Creatinine 1.01 Narrative Narrative: EKG 09/2022 Vent. Rate : 069 BPM Atrial Rate : 069 BPM P-R Int : 204 ms QRS Dur : 092 ms QT Int : 406 ms P-R-T Axes : 034 047 037 degrees QTc Int : 435 ms Normal sinus rhythm Normal ECG When compared with ECG of 28-DEC-2002 08:18, Nonspecific T wave abnormality has replaced inverted T waves in Inferior leads T wave amplitude has decreased in Lateral leads Documented by User: Rafael Villavicencio MD 11/22/22 07:14 [facility] Past Medical History Medical History (Updated 11/17/22 @ 15:00 by Makenna Uribe RN) Asymptomatic coronary heart disease History of endometrial cancer History of cerebrovascular accident BMI 35.0-35.9,adult GERD (gastroesophageal reflux disease) Hepatomegaly Liver fibrosis Depression Bipolar 1 disorder Hyperlipidemia Insulin dependent type 2 diabetes mellitus Myocardial infarction Family History Family History Mother Hypertension Diabetes High cholesterol Stroke Father Diabetes Hypertension High cholesterol Heart attack Sister Diabetes Hypertension Son Stroke Hypertension High cholesterol Family history of problems with anesthesia: No Surgical History Surgical History (Updated 11/17/22 @ 11:00 by Makenna Uribe RN) Hx of section Hx of wisdom tooth extraction Hx of lymph node excision Hx of cholecystectomy Hx of hysterectomy History of Problems with Anesthesia: No Social History Social History (Reviewed 10/19/22 @ 13:49 by Tika Roque [facility]) Are you a primary skin care therapist to a significant other at home: Yes (SO, son with be available post-op to help with care) Do you presently have visiting nurse or other home services: No Alcohol intake: never Patient Tobacco Use Status: Never used Tobacco Use of substances other than those prescribed or required for medical reasons: No Have you been hit, kicked, punched, or otherwise hurt by someone within the past year? If so, by whom?: No Are you DNR?: No Advance Directives: No Advance Directives Information Provided: Yes Advance Directives on File: No Recently lost weight without trying: No Nutrition Risks: No Nutritional Risk Meds Allergies Allergy/AdvReac Type Severity Reaction Status Date / Time demerol Allergy Unknown hives, Uncoded 11/17/22 11:07 hallucinations percocet Allergy Unknown Hives Uncoded 11/14/22 09:49 Home Medications Medication Instructions Recorded Confirmed Last Taken Type APPLE CIDER VINEGAR CAPSULES 1,000 mg PO 06/17/22 11/14/22 Unknown History ASA 81 mg PO 06/17/22 11/14/22 Unknown History BIOTIN 45 mcg PO 06/17/22 11/14/22 Unknown History Bifidobacterium infantis 4 mg 4 mg PO DAILY 06/17/22 11/14/22 Unknown History capsule (Align) FISH OIL CAPSULES 500 mg PO BID 06/17/22 11/14/22 Unknown History SENNA 100 mg PO .@2200 06/17/22 11/17/22 Unknown History VITAMIN D3 2,000 units PO 06/17/22 11/14/22 Unknown History cyclosporine 0.05 % eye drops in a 1 drp ophthalmic (eye) .0800+2200 06/17/22 11/17/22 Unknown History dropperette (Restasis) diltiazem HCl 180 mg 180 mg PO DAILY 06/17/22 11/17/22 Unknown History capsule,extended release 24 hr docusate sodium 100 mg capsule 100 mg PO BID 06/17/22 11/17/22 Unknown History (Colace) dulaglutide 0.75 mg/0.5 mL 1.5 mg subcut QWEEK 06/17/22 11/14/22 Unknown History subcutaneous pen injector (Trulicity) lisinopril 10 mg tablet 10 mg PO DAILY 06/17/22 11/17/22 Unknown History lorazepam 1 mg tablet 1 mg PO .@0800+1700 PRN Anxiety 06/17/22 11/17/22 Unknown History lorazepam 2 mg tablet 2 mg PO .@2200 PRN Anxiety 06/17/22 11/17/22 Unknown History omeprazole 20 mg capsule,delayed 20 mg PO DAILY 06/17/22 11/17/22 Unknown History release pravastatin 40 mg tablet 40 mg PO .DAILY@1900 06/17/22 11/17/22 Unknown History sucralfate 1 gram tablet 1 g PO .@0800+1900 06/17/22 11/17/22 Unknown History ziprasidone HCl 20 mg capsule 20 mg PO .BID TAKES@0800+1700 06/17/22 11/17/22 Unknown History ziprasidone HCl 80 mg capsule 80 mg PO .BID TAKES@1900+2200 06/17/22 11/17/22 Unknown History metformin 1,000 mg tablet,extended mg PO BID 07/14/22 11/14/22 Unknown History release 24hr Exam Airway Mallampati Class: III TM Dist: >3cm Neck ROM: Full Partial: Upper and Lower Assessment and Plan Assessment Anesthesia Assessment: Anesthesia Plan Discussed and Chart Reviewed Final Anesthetic Review Family History of Problems with Anesthesia: No History of Problems with Anesthesia: No NPO: Yes ASA Class: III Final Preanesthetic Review: No Changes in Pt Med Stat, Meds/Allgs Chart Reviewed, Consent Obtained/Reviewed and Anes Risks/Benef Reviewed Patient Risk: Intermediate Procedure Risk: Intermediate Anesthetic Plan Anesthetic Plan: GA Disposition: Standard PACU
[2022-11-22] VITALS (12 sets, daily range): BP systolic 119–171; BP diastolic 58–86; PULSE 57–74; RESP 14–18; TEMP 36–36.7; O2SAT 91–99
--- OUTSIDE RECORDS SUMMARY | 2022-11-22 06:21 | XMS_ITS | Continuity of Care Document ---
Author Name Unknown Organization [facility] Address [address] [place] [address]- Care Team Providers Care Customer Liaison Name Role Phone Karen PINO, Huber Tovar Primary Care Physician [place] [facility] [place] - 06/21/21 [facility] [address] [place] [address]- Attending Physician: Ming NAVA, Brittany Ramos Allergies, Adverse Reactions, Alerts Substance Reaction Severity Status Demerol hallucinations Active Percocet 5325 hives Active Medications Align 4 mg oral capsule 1 capsule = 4 mg, By Mouth, Daily, # 28 capsule, 0 Refills, Maintenance, 06/10/21 10:07:00 EDT, Capsule, Partial fill upon patient request if the prescription is for a schedule II opioid drug. Start Date: 06/10/21 Status: Ordered Aspir 81 = 81 mg, By Mouth, Daily in AM, tablet, 0 Refills, Maintenance, 04/06/10 18:06:51 EST Start Date: 04/06/10 Status: Ordered Biotin = 45 mcg, By Mouth, Daily, 0 Refills, Maintenance, 06/10/21 10:09:00 EDT, Partial fill upon patientrequest if the prescription is for a schedule II opioid drug. Start Date: 06/10/21 Status: Ordered Cardizem LA 180 mg/24 hours oral tablet, extended release 1 tablet = 180 mg, By Mouth, Daily in AM, 0 Refills, Maintenance, 04/06/10 18:08:51 EST Start Date: 04/06/10 Status: Ordered Colace sodium 100 mg oral capsule 100 mg, 1, capsule, By Mouth, 2 times a day, PRN, # 100 capsule, Refills 0, Tot. Refills 0, Maintenance, for constipation, 06/15/21 13:03:00 EDT, Route to Pharmacy Electronically, [facility]/pharmacy #[id number],Partial fill upon patient request if the prescripti... Start Date: 06/15/21 Status: Ordered Docusate = 100 mg, By Mouth, Daily, 0 Refills, Maintenance, 06/10/21 10:10:00 EDT, Partial fill upon patientrequest if the prescription is for a schedule II opioid drug. Start Date: 06/10/21 Status: Ordered Fish Oil 1000 mg oral capsule 2 capsule = 2,000 mg, By Mouth, 2 times a day, 0 Refills, Maintenance, 06/10/21 10:11:00 EDT, Capsule, Partial fill upon patient request if the prescription is for a schedule II opioid drug. Start Date: 06/10/21 Status: Ordered glipiZIDE 2.5 mg oral tablet, extended release 1 tablet = 2.5 mg, By Mouth, Daily, # 30 tablet, 0 Refills, Maintenance, 06/10/21 10:11:00 EDT, ER Tablet, Partial fill upon patient request if the prescription is for a schedule II opioid drug. Start Date: 06/10/21 Status: Ordered Levemir 100 units/mL subcutaneous solution = 54 units, Subcutaneous Infusion, Daily at bedtime, increasing by 2 units nightly until glucose is120, 0 Refills, Maintenance, 06/10/21 10:12:00 EDT, Partial fill upon patient request if the prescription is for a schedule II opioid drug. Start Date: 06/10/21 Status: Ordered lisinopril 10 mg oral tablet 10 mg, 1, tablet, By Mouth, Daily in AM, # 30 tablet, Refills 0, Maintenance, 05/10/21 14:57:00 EDT, Partial fill upon patient request if the prescription is for a schedule II opioid drug. Start Date: 05/10/21 Status: Ordered lorazepam 1 mg oral tablet See Instructions, 1 tablet By Mouth 2 times a day at 8am and 5 pm, and 2 mg at 10 pm, 0 Refills, Maintenance, 04/06/10 18:07:14 EST, Tablet Start Date: 04/06/10 Status: Ordered metFORMIN 750 mg oral tablet, extended release 1 tablet = 750 mg, By Mouth, Daily at bedtime, # 30 tablet, 0 Refills, Maintenance, 05/10/21 15:00:00 EDT, ER Tablet, Partial fill upon patient request if the prescription is for a schedule II opioiddrug. Start Date: 05/10/21 Status: Ordered Misc Rx Refills 0, Maintenance, Apple Cider Vinegar 500mg 2 tablets before supper daily, 06/10/21 10:08:00 EDT, Supply Start Date: 06/10/21 Status: Ordered Omeprazole = 20 mg, By Mouth, Daily in AM, 0 Refills, Maintenance, 06/10/21 10:16:00 EDT, Partial fill upon patient request if the prescription is for a schedule II opioid drug. Start Date: 06/10/21 Status: Ordered pravastatin 40 mg oral tablet 1 tablet = 40 mg, By Mouth, Daily at supper, 0 Refills, Maintenance, 05/09/12 0:55:14 EDT Start Date: 05/09/12 Status: Ordered Restasis 0.05% ophthalmic emulsion 1 drops, Eyes, Both, Every 12 hours, 0 Refills, Maintenance, 05/10/21 15:08:00 EDT, Partial fill upon patient request if the prescription is for a schedule II opioid drug. Start Date: 05/10/21 Status: Ordered Sucralfate = 1 Gm, By Mouth, 2 times a day, pt. states she takes for irritable bowel syndrome., 0 Refills, Maintenance, 05/03/19 14:00:00 EDT Start Date: 05/03/19 Status: Ordered Trulicity Pen 0.75 mg/0.5 mL subcutaneous solution 0.5 mL = 0.75 mg, Subcutaneous Injection, Every week, rotate injection sites Pt. takes once a week,on Sundays., # 2 mL, 0 Refills, Maintenance, 04/12/20 10:52:00 EST, Solution, Partial fill upon patient request if the prescription is for a schedule... Start Date: 04/12/20 Status: Ordered Vitamin D3 2000 intl units oral capsule 1 capsule = 50 mcg, By Mouth, Daily, # 60 capsule, 0 Refills, Maintenance, 05/10/21 15:08:00 EDT, Capsule, Partial fill upon patient request if the prescription is for a schedule II opioid drug. Start Date: 05/10/21 Status: Ordered Ziprasidone = 20 mg, By Mouth, 2 times a day, - takes at 8am and 5 pm - states does not tolerate generic brand,0 Refills, Maintenance, 02/14/14 13:49:11 EST Start Date: 02/14/14 Status: Ordered Ziprasidone = 80 mg, By Mouth, 2 times a day, at 7pm and 10pm- states does not tolerate generic brand, 0 Refills, Maintenance, 06/10/21 10:18:00 EDT, Partial fill upon patient request if the prescription is for a schedule II opioid drug. Start Date: 06/10/21 Status: Ordered Problem List Condition Effective Dates Status Health Status Inform ant Diabetes Mellitus(Confirmed) 04/07/10 Active Dyslipidemia(Confirmed) 04/07/10 Active Hypertension(Confirmed) 04/07/10 Active Major depression(Confirmed) 04/07/10 Active Endometrial cancer(Confirmed) Active Obese class I(Confirmed) Active Vital Signs Most recent to oldest [Reference Range]: 1 2 Height 154.9 cm (06/14/21 5:57 PM) 154.9 cm (06/14/21 5:54 PM) Oxygen Saturation [94-100 %] 94 % (06/14/21 5:54 PM) Pulse Rate [55-90 bpm] 86 bpm (06/14/21 5:54 PM) Blood Pressure [90-138/55-84 mm Hg] 143/ 74mm Hg *H* (06/14/21 5:54 PM) Respiratory Rate [16-30 br/min] 16 br/mi n (06/14/21 5:54 PM) Temperature [96.8-100.4 DegF] 96.7 DegF *L* (06/14/21 5:54 PM) Mode of Delivery (Oxygen) Room air (06/14/21 5:54 PM) Blood pressure sites Arm, left (06/14/21 5:54 PM) Temperature Route Temporal (06/14/21 5:54 PM)
--- OUTSIDE RECORDS SUMMARY | 2022-11-22 06:21 | XMS_ITS | Continuity of Care Document ---
Author Name Unknown Organization [facility] Address [address] [place] [address]- Care Team Providers Care Steam Fitter Helper Name Role Phone Karen PINO, Huber Tovar Primary Care Physician Encounter [facility] [place] Date(s): 05/31/21 - 06/30/21 [facility] [address] [place] [address]- Allergies, Adverse Reactions, Alerts Substance Reaction Severity Status Demerol hallucinations Active Percocet 5 hives Active Medications Align 4 mg oral [...] 18:06:51 EST Start Date: 04/06/10 Status: Ordered Bactrim DS 800 mg-160 mg oral tablet 1 tablet, By Mouth, Every 12 hours, for 3 days, # 6 tablet, 0 Refills, Acute 07/01/21 8:07:00 EDT, 06/28/21 8:07:00 EDT, Tablet, [facility]/pharmacy #[id number], Partial fill upon patient request if the prescription is for a schedule II opioid drug., 1 tablet By M... Start Date: 06/28/21 Stop Date: 07/01/21 Status: Ordered Biotin = 45 mcg, By [...] 06/15/21 13:03:00 EDT, Route to Pharmacy Electronically, [facility]/pharmacy #[id number],Partial fill upon patient request if the prescripti... Start Date: 06/15/21 Status: Ordered Diflucan 150 mg oral tablet 1 tablet = 150 mg, By Mouth, Once, # 1 tablet, 0 Refills, Soft Stop, 06/25/21 16:13:00 EDT, Tablet,[facility]/pharmacy #[id number], Partial fill upon patient request if the prescription is for a schedule II opioid drug., 154.9, cm, 06/15/21 12:37:00 EDT, Height,... Start Date: 06/25/21 Status: Ordered Docusate = 100 mg, By [...] opioid drug. Start Date: 06/10/21 Status: Ordered fluconazole 100 mg oral tablet 1 tablet = 100 mg, By Mouth, Daily, for 5 days, # 5 tablet, 0 Refills, Acute 07/03/21 13:27:00 EDT,06/28/21 13:27:00 EDT, Tablet, [facility]/pharmacy #[id number], Partial fill upon patient request if the prescription is for a schedule II opioid drug., 154.9, cm,... Start Date: 06/28/21 Stop Date: 07/03/21 Status: Ordered fluconazole 150 mg oral tablet 1 tablet = 150 mg, By Mouth, Once, # 1 tablet, 0 Refills, Soft Stop, 06/22/21 14:47:00 EDT, Tablet,[facility]/pharmacy #[id number], Partial fill upon patient request if the prescription is for a schedule II opioid drug., 154.9, cm, 06/15/21 12:37:00 EDT, Height,... Start Date: 06/22/21 Status: Ordered glipiZIDE 2.5 mg oral tablet, [...] EDT, Supply Start Date: 06/10/21 Status: Ordered nitrofurantoin macrocrystals-monohydrate 100 mg oral capsule 1 capsule = 100 mg, By Mouth, 2 times a day, for 5 days, # 10 capsule, 0 Refills, Acute 07/01/21 10:02:00 EDT, 06/26/21 10:02:00 EDT, Capsule, [facility]/pharmacy #[id number], Partial fill upon patient request ifthe prescription is for a schedule II opioid drug.,... Start Date: 06/26/21 Stop Date: 07/01/21 Status: Ordered Omeprazole = 20 mg, By Mouth, Daily in AM, 0 Refills, Maintenance, 06/10/21 10:16:00 EDT, Partial fill upon patient request if the prescription is for a schedule II opioid drug. Start Date: 06/10/21 Status: Ordered [id number] oral powder for reconstitution = 17 Gm, By Mouth, Daily, DISSOLVE IN WATER BEFORE TAKING, # 238 Gm, 0 Refills, [facility] STORE [id number], 14, TAKE 17 GM BY MOUTH DAILY. DISSOLVE IN WATER BEFORE TAKING, 154.9, cm, 06/15/21 12:37:00 EDT, Height, 81.3, kg, 06/15/21 12:37:00 EDT, Dry Weight Start Date: 06/25/21 Status: Ordered pravastatin 40 mg oral tablet [...]
--- OUTSIDE RECORDS SUMMARY | 2022-11-22 06:21 | XMS_ITS | Continuity of Care Document ---
Author Name Unknown Organization [facility] Address [address] [place] [address]- Care Team Providers Care Endodontic Assistant Name Role Phone Karen PINO, Huber Tovar Primary Care Physician [phone] Encounter [facility] [place] Date(s): 05/24/21 - 06/23/21 [facility] [address] [place] [id number]- Allergies, Adverse Reactions, Alerts Substance Reaction Severity Status Demerol hallucinations Active Percocet hives Active Medications Align 4 mg oral [...] 06/15/21 13:03:00 EDT, Route to Pharmacy Electronically, [facility]/pharmacy #[id number],Partial fill upon patient request if the [...] drug. Start Date: 06/10/21 Status: Ordered fluconazole 150 mg oral tablet 1 tablet = 150 mg, By Mouth, Once, # 1 tablet, 0 Refills, Soft Stop, 06/22/21 14:47:00 EDT, Tablet,[facility]/pharmacy #[id number], Partial fill upon patient request if [...]
--- OUTSIDE RECORDS SUMMARY | 2022-11-22 06:21 | XMS_ITS | Continuity of Care Document ---
Author Name Unknown Organization [facility] Address [address] [place] [address]- Care Team Providers Care Grinder And Honer Operator Automatic Name Role Phone Karen PINO, Huber Tovar Primary Care Physician Encounter [facility] [place] [place] [id number] Date(s): 04/12/20 - 05/12/20 [facility] [address] [place] [address]- Attending Physician: Jostin Clark Admitting Physician: Jostin Clark Referring Physician: Jostin Clark Allergies, Adverse Reactions, Alerts Substance Reaction Severity Status Percocet 5/325 hives Active Medications Aspir 81 = 81 mg, By Mouth, Daily, tablet, 0 Refills, Maintenance Start Date: 04/06/10 Status: Ordered Benadryl Capsule 25 mg, By Mouth, 3 times a day, Maintenance, 02/14/14 13:48:50 Start Date: 02/14/14 Status: Ordered Cardizem LA 180 mg/24 hours oral tablet, extended release 1 tablet = 180 mg, By Mouth, Daily, 0 Refills, Maintenance Start Date: 04/06/10 Status: Ordered lisinopril 5 mg oral tablet 1 tablet = 5 mg, By Mouth, Daily, 0 Refills, Maintenance Start Date: 05/09/12 Status: Ordered lorazepam 1 mg oral tablet 1 tablet, By Mouth, 2 times a day, PRN for anxiety, tablet, 0 Refills, Maintenance, Tablet Start Date: 04/06/10 Status: Ordered Melatonin By Mouth, Daily at bedtime, 0 Refills, Maintenance, 02/14/14 13:49:23 Start Date: 02/14/14 Status: Ordered metformin 500 mg oral tablet 2 tablet = 1,000 mg, By Mouth, 2 times a day, # 180 tablet, 0 Refills, Maintenance, Tablet Start Date: 04/06/10 Status: Ordered MiraLax = 17 Gm, By Mouth, Daily, PRN Constipation, 0 Refills, Maintenance Start Date: 04/06/10 Status: Ordered mupirocin 2% topical ointment 1 application, Topically, 2 times a day, # 15 Gm, 0 Refills, Maintenance, 02/18/14 15:34:24, Ointment, 1 application Topically 2 times a day Start Date: 02/18/14 Status: Ordered Naproxen Tablet By Mouth, 2 times a day, Maintenance, 02/14/14 13:49:37 Start Date: 02/14/14 Status: Ordered pravastatin 40 mg oral tablet 1 tablet = 40 mg, By Mouth, Daily, 0 Refills, Maintenance Start Date: 05/09/12 Status: Ordered Prilosec 20 mg oral enteric coated capsule 1 capsule = 20 mg, By Mouth, 2 times a day, 0 Refills, Maintenance Start Date: 05/09/12 Status: Ordered Sucralfate = 1 Gm, By Mouth, 3 times a day before meals and bedtime, 0 Refills, Maintenance, 05/03/19 14:00:00EDT Start Date: 05/03/19 Status: Ordered Trulicity Pen 0.75 mg/0.5 mL subcutaneous solution 0.5 mL = 0.75 mg, Subcutaneous Injection, Every week, rotate injection sites, # 2 mL, 0 Refills, Maintenance, 04/12/20 10:52:00 EST, Solution, Partial fill upon patient request if the prescription isfor a schedule II opioid drug. Start Date: 04/12/20 Status: Ordered Valerian 0 Refills, Maintenance, 02/14/14 13:48:59 Start Date: 02/14/14 Status: Ordered Ziprasidone 0 Refills, Maintenance, 02/14/14 13:49:11 Start Date: 02/14/14 Status: Ordered Zolpidem Daily at bedtime, 0 Refills, Maintenance, 05/03/19 14:01:00 EDT Start Date: 05/03/19 Status: Ordered Problem List Condition Effective Dates Status Health Status Inform ant Diabetes Mellitus(Confirmed) 04/07/10 Active Dyslipidemia(Confirmed) 04/07/10 Active Hypertension(Confirmed) 04/07/10 Active Major depression(Confirmed) 04/07/10 Active
--- OUTSIDE RECORDS SUMMARY | 2022-11-22 06:21 | XMS_ITS | Continuity of Care Document ---
Author Name Unknown Organization [facility] CODIFIER Oncolog y Address [address] [place] [address]- Care Team Providers Care Barrel Filler Head Name Role Phone Karen PINO, Huber Tovar Primary Care Physician [id number] Date(s): 06/16/21 - 07/16/21 [facility] CODIFIER Oncology [address] [place] [address] Allergies, Adverse Reactions, Alerts Substance Reaction Severity Status Demerol hallucinations Active Percocet 5/325 hives Active Medications Align 4 mg oral [...] 06/15/21 13:03:00 EDT, Route to Pharmacy Electronically, [facility]/pharmacy #[id number],Partial fill upon patient request if the prescripti... Start Date: 06/15/21 Status: Ordered Diflucan 150 mg oral tablet 1 tablet = 150 mg, By Mouth, Once, # 1 tablet, 0 Refills, Soft Stop, 06/25/21 16:13:00 EDT, Tablet,[facility]/pharmacy #[id number], Partial fill upon patient request if [...] 0 Refills, Soft Stop, 06/22/21 14:47:00 EDT, Tablet,[facility]/pharmacy #[id number], Partial fill upon patient request if [...] opioid drug. Start Date: 06/10/21 Status: Ordered ibuprofen 600 mg oral tablet 1, tablet, By Mouth, Every 6 hours, # 80 tablet, Refills 1, Route to Pharmacy Electronically, [facility] [id number], 156.2, cm, 07/07/21 10:00:00 EDT, Height, 82.7, kg, 07/07/21 10:00:00 EDT, Dry Weight Start Date: 07/15/21 Status: Ordered Levemir 100 units/mL subcutaneous solution [...] opioid drug. Start Date: 06/10/21 Status: Ordered [id number] oral powder for reconstitution = 17 Gm, By Mouth, Daily, DISSOLVE IN WATER BEFORE TAKING, # 238 Gm, 0 Refills, [facility] [address], 14, TAKE 17 GM BY MOUTH DAILY. [...] Endometrial cancer(Confirmed) Active Obese class I(Confirmed) Active Open draining abdominal incision(Confirmed) Active
--- OUTSIDE RECORDS SUMMARY | 2022-11-22 06:21 | XMS_ITS | Continuity of Care Document ---
Author Name Unknown Organization [facility] LIP CUTTER AND SCORER Oncolog y Address [address] [place] [address]- Care Team Providers Care Continuity Editor Name Role Phone Karen PINO, Huber Tovar Primary Care Physician [phone] [id number] Date(s): 07/02/21 - 08/01/21 [facility]TER [facility] SCORER Oncology [address] [place] [address] Allergies, Adverse Reactions, Alerts Substance [...] 06/15/21 13:03:00 EDT, Route to Pharmacy Electronically, [facility]/pharmacy #[id number],Partial fill upon patient request if the prescripti... Start Date: 06/15/21 Status: Ordered Diflucan 150 mg oral tablet 1 tablet = 150 mg, By Mouth, Once, # 1 tablet, 0 Refills, Soft Stop, 06/25/21 16:13:00 EDT, Tablet,[facility]/pharmacy #0373, Partial fill upon patient request if [...] 0 Refills, Soft Stop, 06/22/21 14:47:00 EDT, Tablet,[facility]/pharmacy #0373, Partial fill upon patient request if [...] tablet, Refills 1, Route to Pharmacy Electronically, [facility] [address]266, 156.2, cm, 07/07/21 10:00:00 EDT, Height, 82.7, [...] opioid drug. Start Date: 06/10/21 Status: Ordered [id number] oral powder for reconstitution = 17 Gm, By Mouth, Daily, DISSOLVE IN WATER BEFORE TAKING, # 238 Gm, 0 Refills, [facility] [address]60, 14, TAKE 17 GM BY MOUTH DAILY. [...]
--- OUTSIDE RECORDS SUMMARY | 2022-11-22 06:21 | XMS_ITS | Continuity of Care Document ---
Author Name Unknown Organization [facility] MANAGER GENERATION Oncolog y Address [address] [place] [address]- Care Team Providers Care Computer Console Operator Name Role Phone Karen PINO, Huber Tovar Primary Care Physician En[facility] Date(s): 12/20/21 - 01/19/22 [facility] MANAGER GENERATION Oncology [address] [place] [address]- Allergies, Adverse Reactions, Alerts Substance Reaction Severity [...] EST Start Date: 04/06/10 Status: Ordered Colace Clear = 50 mg, By Mouth, 2 times a day, 0 Refills, Maintenance, 08/19/21 14:55:00 EDT, Partial fill upon patient request if the prescription is for a schedule II opioid drug. Start Date: 08/19/21 Status: Ordered Colace sodium 100 mg oral capsule 100 mg, 1, capsule, By Mouth, 2 times a day, PRN, # 100 capsule, Refills 0, Tot. Refills 0, Maintenance, for constipation, 06/15/21 13:03:00 EDT, Route to Pharmacy Electronically, [facility]/pharmacy #[id number],Partial fill upon patient request if the prescripti... Start Date: 06/15/21 Status: Ordered Diflucan 150 mg oral tablet 1 tablet = 150 mg, By Mouth, Once, # 1 tablet, 0 Refills, Soft Stop, 06/25/21 16:13:00 EDT, Tablet,[facility]/pharmacy #0373, Partial fill upon patient request if the prescription is for a schedule II opioid drug., 154.9, cm, 06/15/21 12:37:00 EDT, Height,... Start Date: 06/25/21 Status: Ordered diltiazem 180 mg/24 hours oral capsule, extended release 180 mg, 1, capsule, By Mouth, Daily, # 90 capsule, Refills 0, Maintenance, 08/19/21 14:56:00 EDT, Partial fill upon patient request if the prescription is for a schedule II opioid drug. Start Date: 08/19/21 Status: Ordered Docusate = 100 mg, By [...] # 1 tablet, 0 Refills, Soft Stop, 11/23/21 14:07:00 EDT, Tablet,[facility]/pharmacy #0373, Partial fill upon patient request if the prescription is for a schedule II opioid drug., 156.2, cm, 08/19/21 14:53:00 EDT, Height,... Start Date: 11/23/21 Status: Ordered fluconazole 150 mg oral tablet 1 tablet = 150 mg, By Mouth, Once, # 1 tablet, 0 Refills, Soft Stop, 06/22/21 14:47:00 EDT, Tablet,[facility]/pharmacy #0373, Partial fill upon patient request if [...] tablet, Refills 1, Route to Pharmacy Electronically, [facility] [id number], 156.2, cm, 07/07/21 10:00:00 EDT, Height, 82.7, kg, 07/07/21 10:00:00 EDT, Dry Weight Start Date: 07/15/21 Status: Ordered Levemir 100 units/mL subcutaneous solution Subcutaneous Infusion, 0 Refills, Maintenance, 08/19/21 14:57:00 EDT, Partial fill upon patient request if the prescription is for a schedule II opioid drug. Start Date: 08/19/21 Status: Ordered Levemir 100 units/mL subcutaneous solution [...] opioid drug. Start Date: 06/10/21 Status: Ordered [id number] oral powder for reconstitution = 17 Gm, By Mouth, Daily, DISSOLVE IN WATER BEFORE TAKING, # 238 Gm, 0 Refills, [facility] 87967, 14, TAKE 17 GM BY MOUTH DAILY. DISSOLVE IN WATER BEFORE TAKING, 154.9, cm, 06/15/21 12:37:00 EDT, Height, 81.3, kg, 06/15/21 12:37:00 EDT, Dry Weight Start Date: 06/25/21 Status: Ordered pravastatin 40 mg oral tablet 1 tablet = 40 mg, By Mouth, Daily at supper, 0 Refills, Maintenance, 05/09/12 0:55:14 EDT Start Date: 05/09/12 Status: Ordered Restasis Every 12 hours, 0 Refills, Maintenance, 08/19/21 14:57:00 EDT, Partial fill upon patient request ifthe prescription is for a schedule II opioid drug. Start Date: 08/19/21 Status: Ordered Restasis 0.05% ophthalmic emulsion 1 drops, Eyes, Both, Every 12 hours, 0 Refills, Maintenance, 05/10/21 15:08:00 EDT, Partial fill upon patient request if the prescription is for a schedule II opioid drug. Start Date: 05/10/21 Status: Ordered Senna By Mouth, 0 Refills, Maintenance, 08/06/21 13:43:00 EDT, Partial fill upon patient request if the prescription is for a schedule II opioid drug. Start Date: 08/06/21 Status: Ordered Sucralfate = 1 Gm, By [...] Date: 06/10/21 Status: Ordered Problem List Condition Confirmation Course Effective Dates Status Health St atus Informant Diabetes Mellitus Confirmed 04/07/10 Active Dyslipidemia Confirmed 04/07/10 Active Hypertension Confirmed 04/07/10 Active Major depression Confirmed 04/07/10 Active Endometrial cancer Confirmed Active Obese class I Confirmed Active Open draining abdominal incision Confirmed Active Patient Care team information Care Team Personnel Name: Huber Jones MD Position: [facility] Physician (General Medicine) Member Role: PCP Address: Address: [address] [place] [address] [place] [address]- Care Team Related Persons Name: SAVAGE PERKINS Address: [place] [address] Name: DELROY POLLARD Address: home [address] [place] [id number] Name: DELROY WESTFALL Address: home [address] [place] [address]
--- OUTSIDE RECORDS SUMMARY | 2022-11-22 06:21 | XMS_ITS | Continuity of Care Document ---
Author Name Unknown Organization [facility] Address [address] [place] [address]- Care Team Providers Care Kids Activities Coach Name Role Phone Karen PINO, Huber Tovar Primary Care Physician [place] [facility] Date(s): 06/14/21 - 07/14/21 [facility] [address] [place] [address]- Attending Physician: Jostin Clark Admitting Physician: Jostin Clark Referring Physician: AdmtrJostin Allergies, Adverse Reactions, Alerts Substance Reaction Severity [...] 06/15/21 13:03:00 EDT, [id number] fill upon patient request if the prescripti... Start Date: 06/15/21 Status: Ordered Diflucan 150 mg oral tablet 1 tablet = 150 mg, By Mouth, Once, # 1 tablet, 0 Refills, Soft Stop, 06/25/21 16:13:00 EDT, Tablet,[facility]/pharmacy #0373, Partial fill upon patient request [...] 0 Refills, Soft Stop, 06/22/21 14:47:00 EDT, Tablet,[facility]/pharmacy #0373, Partial fill upon patient request [...] opioid drug. Start Date: 06/10/21 Status: Ordered [id number] oral powder for reconstitution = 17 Gm, By Mouth, Daily, DISSOLVE IN WATER BEFORE TAKING, # 238 Gm, 0 Refills, [facility] [address], 14, TAKE 17 GM BY MOUTH DAILY. [...]
--- OUTSIDE RECORDS SUMMARY | 2022-11-22 06:21 | XMS_ITS | Continuity of Care Document ---
Author Name Unknown Organization [facility] AUDIOPROSTHOLOGIST Oncolog y Address [address] [place] [address]- Care Team Providers Care Water Resource Project Manager Name Role Phone Karen PINO, Huber Tovar Primary Care Physician [phone] [id number] Date(s): 06/14/21 - 07/14/21 [facility] AUDIOPROSTHOLOGIST Oncology [address] [place] [address] Allergies, Adverse Reactions, Alerts Substance Reaction Severity [...] 06/15/21 13:03:00 EDT, Route to Pharmacy Electronically, [facility]/pharmacy #[id number],Partial fill upon patient request if the prescripti... Start Date: 06/15/21 Status: Ordered Diflucan 150 mg oral tablet 1 tablet = 150 mg, By Mouth, Once, # 1 tablet, 0 Refills, Soft Stop, 06/25/21 16:13:00 EDT, Tablet,[facility]/pharmacy #0373, Partial fill upon patient request [...] 0 Refills, Soft Stop, 06/22/21 14:47:00 EDT, Tablet,[facility]/pharmacy #0373, Partial fill upon patient request [...] opioid drug. Start Date: 06/10/21 Status: Ordered [id number] oral powder for reconstitution = 17 Gm, By Mouth, Daily, DISSOLVE IN WATER BEFORE TAKING, # 238 Gm, 0 Refills, [facility] [address]683, 14, TAKE 17 GM BY MOUTH DAILY. [...]
--- OUTSIDE RECORDS SUMMARY | 2022-11-22 06:22 | XMS_ITS | Continuity of Care Document ---
Author Name Unknown Organization [facility] FRUIT SORTER Oncolog y Address [address] [place] [address]- Care Team Providers Care Book Critic Name Role Phone Karen PINO, Huber Tovar Primary Care Physician [phone] Encounter [facility] Date(s): 11/03/21 - 12/03/21 [facility] Oncology [address] [place] [address]- Allergies, Adverse Reactions, Alerts Substance Reaction Severity [...] 06/15/21 13:03:00 EDT, Route to Pharmacy Electronically, [facility]/pharmacy #[id number],Partial fill upon patient request if the prescripti... Start Date: 06/15/21 Status: Ordered Diflucan 150 mg oral tablet 1 tablet = 150 mg, By Mouth, Once, # 1 tablet, 0 Refills, Soft Stop, 06/25/21 16:13:00 EDT, Tablet,[facility]/pharmacy #0373, Partial fill upon patient request if [...] 0 Refills, Soft Stop, 11/23/21 14:07:00 EDT, Tablet,[facility]/pharmacy #0373, Partial fill upon patient request if the prescription is for a schedule II opioid drug., 156.2, cm, 08/19/21 14:53:00 EDT, Height,... Start Date: 11/23/21 Status: Ordered fluconazole 150 mg oral tablet 1 tablet = 150 mg, By Mouth, Once, # 1 tablet, 0 Refills, Soft Stop, 06/22/21 14:47:00 EDT, Tablet,[facility]/pharmacy #0373, Partial fill upon patient request if [...] tablet, Refills 1, Route to Pharmacy Electronically, [facility] 22483, 156.2, cm, 07/07/21 10:00:00 EDT, Height, 82.7, [...] opioid drug. Start Date: 06/10/21 Status: Ordered [id number] oral powder for reconstitution = 17 Gm, By Mouth, Daily, DISSOLVE IN WATER BEFORE TAKING, # 238 Gm, 0 Refills, [facility] [address]62, 14, TAKE 17 GM BY MOUTH DAILY. [...] incision Confirmed Active Patient Care team information Personnel Name: Huber Jones MD Address: Address: [address] [place] [address] [facility] [place], [place] [address]
--- OUTSIDE RECORDS SUMMARY | 2022-11-22 06:22 | XMS_ITS | Continuity of Care Document ---
Author Name Unknown Organization [facility] Address [address] [place] [address]- Care Team Providers Care Lithographic Camera Operator Name Role Phone Karen PINO, Huber Tovar Primary Care Physician [phone] [place] [facility] [place] [id number] Date(s): 07/01/19 - 07/31/19 [facility] [address] [place] [address]- [facility] Attending Physician: Jostin Clark Admitting Physician: Jostin [...] 05/03/19 14:00:00EDT Start Date: 05/03/19 Status: Ordered Valerian 0 Refills, Maintenance, 02/14/14 [...]
--- OUTSIDE RECORDS SUMMARY | 2022-11-22 06:22 | XMS_ITS | Continuity of Care Document ---
Author Name Unknown Organization [facility] STAFF ANESTHESIOLOGIST Oncolog y Address [address] [place] [address]- Care Team Providers Care Home Service Director Name Role Phone Karen PINO, Huber Tovar Primary Care Physician [phone] [place] [facility] [place] 05/19/21 - 06/18/21 [facility] STAFF ANESTHESIOLOGIST Oncology [address] [place] [address]- Allergies, Adverse Reactions, Alerts Substance Reaction Severity [...] 06/15/21 13:03:00 EDT, Route to Pharmacy Electronically, [facility]/pharmacy #0373,Partial fill upon patient request if the prescripti... Start Date: 06/15/21 Status: Ordered Docusate = 100 mg, By Mouth, Daily, 0 Refills, Maintenance, 06/10/21 10:10:00 EDT, Partial fill upon patientrequest if the prescription is for a schedule II opioid drug. Start Date: 06/10/21 Status: Ordered erythromycin 0.5% ophthalmic ointment 0.5 inches, Eyes, Both, 2 times a day, for 7 days, # 3.5 Gm, 0 Refills, Acute 06/21/21 18:10:00 EDT, 06/14/21 18:10:00 EDT, Ophth Ointment, [facility]/pharmacy #0373, Partial fill upon patient request if the prescription is for a schedule II opioid drug., 0.... Start Date: 06/14/21 Stop Date: 06/21/21 Status: Ordered Fish Oil 1000 mg oral [...] Status: Ordered ibuprofen 600 mg oral tablet 600 mg, 1, tablet, By Mouth, Every 6 hours, # 80 tablet, Refills 1, Tot. Refills 1, Acute 06/22/21 0:00:00 EDT, 06/15/21 12:59:00 EDT, Route to Pharmacy Electronically, [facility]/pharmacy #0373, Partial fill upon patient request if the prescription is for a... Start Date: 06/15/21 Stop Date: 06/22/21 Status: Ordered Levemir 100 units/mL subcutaneous solution [...] II opioiddrug. Start Date: 05/10/21 Status: Ordered MiraLax oral powder for reconstitution = 17 Gm, By Mouth, Daily, dissolve in water before taking, # 255 Gm, 0 Refills, Acute 06/22/21 0:00:00 EDT, 06/15/21 13:03:00 EDT, REC Powder, [facility]/pharmacy #0373, Partial fill upon patient request ifthe prescription is for a schedule II opioid drug.,... Start Date: 06/15/21 Stop Date: 06/22/21 Status: Ordered Misc Rx Refills 0, Maintenance, [...] 14:00:00 EDT Start Date: 05/03/19 Status: Ordered traMADol 50 mg oral tablet 1 tablet = 50 mg, By Mouth, Every 4 hours, PRN for pain, # 5 tablet, 0 Refills, Acute 06/22/21 0:00:00 EDT, 06/15/21 13:02:00 EDT, Tablet, [facility]/pharmacy #0373, Partial fill upon patient request if theprescription is for a schedule II opioid drug., 154... Start Date: 06/15/21 Stop Date: 06/22/21 Status: Ordered Trulicity Pen 0.75 mg/0.5 mL subcutaneous solution 0.5 mL = 0.75 mg, Subcutaneous Injection, Every week, rotate injection sites Pt. takes once a week,on Sundays., # 2 mL, 0 Refills, Maintenance, 04/12/20 10:52:00 EST, Solution, Partial fill upon patient request if the prescription is for a schedule... Start Date: 04/12/20 Status: Ordered Tylenol 325 mg oral tablet 650 mg, 2, tablet, By Mouth, Every 6 hours, PRN, # 120 tablet, Refills 0, Tot. Refills 0, Acute 06/22/21 0:00:00 EDT, for fever, 06/15/21 12:59:00 EDT, Route to Pharmacy Electronically, [facility]/pharmacy #[id number], Partial fill upon patient request if the pres... Start Date: 06/15/21 Stop Date: 06/22/21 Status: Ordered Vitamin D3 2000 intl units [...]
--- OUTSIDE RECORDS SUMMARY | 2022-11-22 06:22 | XMS_ITS | Continuity of Care Document ---
Author Name Unknown Organization [facility] Address [address] [place] [address]- Care Team Providers Care Boilermaker Industrial Boilers Name Role Phone Huber Jones MD Primary Care Physician [id number] Date(s): 04/12/20 - 04/19/20 [facility] [address] [place] [address]- Attending Physician: Haylee Sam MD Referring Physician: Huber Jones MD Allergies, Adverse Reactions, Alerts Substance Reaction Severity [...] Hypertension(Confirmed) 04/07/10 Active Major depression(Confirmed) 04/07/10 Active Vital Signs Most recent to oldest [Reference Range]: 1 Height 154.94 cm (04/12/20 10:50 AM) Oxygen Saturation [94-100 %] 97 % (04/12/20 10:50 AM) Pulse Rate [55-90 bpm] 66 bpm (04/12/20 10:50 AM) Blood Pressure [90-138/55-84 mm Hg] 114/ 77mm Hg (04/12/20 10:50 AM) Respiratory Rate [16-30 br/min] 20 br/mi n (04/12/20 10:50 AM) Temperature [96.8-100.4 DegF] 96.8 DegF (04/12/20 10:50 AM) Mode of Delivery (Oxygen) Room air (04/12/20 10:50 AM) Blood pressure sites Arm, left (04/12/20 10:50 AM) Temperature Route Temporal (04/12/20 10:50 AM)
--- OUTSIDE RECORDS SUMMARY | 2022-11-22 06:22 | XMS_ITS | Continuity of Care Document ---
Author Name Unknown Organization [facility] Address [address] [place] [address]- Care Team Providers Care Truck Supervisor Name Role Phone Karen PINO, Huber Tovar Primary Care Physician [phone] [place] [facility] [place]14/[place] - 05/14/[address] [address]- Discharge Disposition: A-D/C Home Attending Physician: Belinda Carrizales DO Admitting Physician: Belinda Carrizales DO Referring Physician: Belinda Carrizales DO Allergies, Adverse Reactions, Alerts Substance Reaction Severity Status Demerol hallucinations Active Percocet 5/325 hives Active Medications Aspir 81 = 81 mg, By Mouth, Daily in AM, tablet, 0 Refills, Maintenance, 04/06/10 18:06:51 EST Start Date: 04/06/10 Status: Ordered Cardizem LA 180 mg/24 hours oral tablet, extended release 1 tablet = 180 mg, By Mouth, Daily in AM, 0 Refills, Maintenance, 04/06/10 18:08:51 EST Start Date: 04/06/10 Status: Ordered lisinopril 10 mg oral tablet [...] PRN for anxiety, tablet, 0 Refills, Maintenance, 04/06/10 18:07:14 EST, Tablet Start Date: 04/06/10 Status: Ordered metFORMIN 750 mg oral tablet, extended release 1 tablet = 750 mg, By Mouth, Daily at bedtime, # 30 tablet, 0 Refills, Maintenance, 05/10/21 15:00:00 EDT, ER Tablet, Partial fill upon patient request if the prescription is for a schedule II opioiddrug. Start Date: 05/10/21 Status: Ordered Amanda-Colace = 50 mg, By Mouth, Daily in AM, 0 Refills, Maintenance, 05/10/21 15:07:00 EDT, Partial fill upon patient request if the prescription is for a schedule II opioid drug. Start Date: 05/10/21 Status: Ordered pravastatin 40 mg oral tablet 1 tablet = 40 mg, By Mouth, Daily at bedtime, 0 Refills, Maintenance, 05/09/12 0:55:14 EDT Start Date: 05/09/12 Status: Ordered Prilosec 20 mg oral enteric coated capsule 1 capsule = 20 mg, By Mouth, 2 times a day, 0 Refills, Maintenance Start Date: 05/09/12 Status: Ordered Restasis 0.05% [...] Ordered Ziprasidone = 20 mg, By Mouth, Daily in AM, 0 Refills, Maintenance, 02/14/14 13:49:11 EST Start Date: 02/14/14 Status: Ordered Problem List Condition Effective Dates Status Health Status Inform ant Diabetes Mellitus(Confirmed) 04/07/10 Active Dyslipidemia(Confirmed) 04/07/10 Active Hypertension(Confirmed) 04/07/10 Active Major depression(Confirmed) 04/07/10 Active Obese class I(Confirmed) Active Vital Signs Most recent to oldest [Reference Range]: 1 2 3 Height 154.94 cm (05/14/21 8:06 AM) 154.94 cm (05/10/21 4:01 PM) Weight 81.2 kg (05/14/21 8:06 AM) 79.55 kg (05/10/21 4:01 PM) Oxygen Saturation [94-100 %] 94 % (05/14/21 11:09 AM) 96 % (05/14/21 11:00 AM) 95 % (05/14/21 10:45 AM) Pulse Rate [55-90 bpm] 88 bpm (05/14/21 8:06 AM) Body Mass Index [18.5-24.99] 33.82 *>HHI* (05/14/21 8:06 AM) 33.14 *>HHI* (05/10/21 4:01 PM) Blood Pressure [90-138/55-84 mm Hg] 146/73mm Hg *H* (05/14/21 11:09 AM) 146/73mm Hg *H* (05/14/21 11:00 AM) 147/73mm Hg *H* (05/14/21 10:45 AM) Respiratory Rate [16-30 br/min] 13 br/min *L* (05/14/21 11:09 AM) 15 br/min *L* (05/14/21 11:00 AM) 18 br/min (05/14/21 10:45 AM) Temperature [96.8-100.4 DegF] 97.4 DegF (05/14/21 11:09 AM) 98.1 DegF (05/14/21 10:15 AM) 97.3 DegF (05/14/21 8:06 AM) Liters per Minute 5 L/min (05/14/21 10:15 AM) Mode of Delivery (Oxygen) Room air (05/14/21 10:30 AM) Simple face mask (05/14/21 10:15 AM) Room air (05/14/21 8:06 AM) Blood pressure sites Arm, left (05/14/21 11:09 AM) Arm, left (05/14/21 11:00 AM) Arm, left (05/14/21 10:45 AM) Temperature Route Temporal (05/14/21 11:09 AM) Temporal (05/14/21 10:15 AM) Temporal (05/14/21 8:06 AM) Dry Weight 81.2 kg (05/14/21 8:06 AM) 79.55 kg (05/10/21 4:01 PM) Weight Obtained Via Standing scale (05/14/21 8:06 AM) Patient/family stated (05/10/21 4:01 PM) Dry Weight Obtained Via Standing scale (05/14/21 8:06 AM) Patient/family stated (05/10/21 4:01 PM)
--- OUTSIDE RECORDS SUMMARY | 2022-11-22 06:22 | XMS_ITS | Continuity of Care Document ---
Author Name Unknown Organization [facility] Address [address] [place] [address]- Care Team Providers Care [employer] Driver Name Role Phone Huber Jones MD Primary Care Physician [phone] [id number] Date(s): 05/03/19 - 05/10/19 [facility] [address] [place] [address]- [facility] Encounter Diagnosis UTI symptoms(Discharge Diagnosis) - 05/03/19 Attending Physician: Not on Staff, Attending MD Referring Physician: Huber Jones MD Allergies, [...] Hypertension(Confirmed) 04/07/10 Active Major depression(Confirmed) 04/07/10 Active Diagnosis Diagnosis Type Effective Dates Health Status Cl inical Service Informant UTI symptoms Discharge Diagnosis 05/03/19 Vital Signs Most recent to oldest [Reference Range]: 1 Height 154.94 cm (05/03/19 1:59 PM) Oxygen Saturation [94-100 %] 99 % (05/03/19 1:59 PM) Pulse Rate [55-90 bpm] 72 bpm (05/03/19 1:59 PM) Blood Pressure [90-138/55-84 mm Hg] 157/ 96mm Hg *H* (05/03/19 1:59 PM) Respiratory Rate [16-30 br/min] 18 br/mi n (05/03/19 1:59 PM) Temperature [96.8-100.4 DegF] 97.7 DegF (05/03/19 1:59 PM) Mode of Delivery (Oxygen) Room air (05/03/19 1:59 PM) Blood pressure sites Arm, right (05/03/19 1:59 PM) Temperature Route Tympanic (05/03/19 1:59 PM)
--- OUTSIDE RECORDS SUMMARY | 2022-11-22 06:22 | XMS_ITS | Continuity of Care Document ---
Author Name Unknown Organization [facility] MERCHANDISE SHOPPER Oncolog y Address [address] [place] [address]- Care Team Providers Care Patrol Driver Name Role Phone Karen PINO, Huber Tovar Primary Care Physician [place] [facility] [place] 08[place]04/21 [facility] MERCHANDISE SHOPPER Oncology [address] [place] [id number] Allergies, Adverse Reactions, Alerts Substance Reaction Severity [...] 06/15/21 13:03:00 EDT, Route to Pharmacy Electronically, [facility]/pharmacy #[id number],Partial fill upon patient request if the prescripti... Start Date: 06/15/21 Status: Ordered Diflucan 150 mg oral tablet 1 tablet = 150 mg, By Mouth, Once, # 1 tablet, 0 Refills, Soft Stop, 06/25/21 16:13:00 EDT, Tablet,[facility]/pharmacy #0373, Partial fill upon patient request [...] 0 Refills, Soft Stop, 06/22/21 14:47:00 EDT, Tablet,[facility]/pharmacy #0373, Partial fill upon patient request [...] tablet, Refills 1, Route to Pharmacy Electronically, [facility] STORE 62729, 156.2, cm, 07/07/21 10:00:00 EDT, Height, 82.7, [...] opioid drug. Start Date: 06/10/21 Status: Ordered [id number] oral powder for reconstitution = 17 Gm, By Mouth, Daily, DISSOLVE IN WATER BEFORE TAKING, # 238 Gm, 0 Refills, [facility] STORE 82229, 14, TAKE 17 GM BY MOUTH DAILY. [...]
--- OUTSIDE RECORDS SUMMARY | 2022-11-22 06:22 | XMS_ITS | Continuity of Care Document ---
Author Name Unknown Organization [facility] ORACLE DBA Oncolog y Address [address] [place] [address]- Care Team Providers Care Senior Nurse Manager Name Role Phone Karen PINO, Huber Tovar Primary Care Physician [facility] [id number] Date(s): 06/14/21 - 07/14/21 [facility]LE DBA Oncology [address] [place] [id number] Allergies, Adverse Reactions, Alerts Substance [...] 06/15/21 13:03:00 EDT, Route to Pharmacy Electronically, [facility]/pharmacy #[id number],Partial fill upon patient request if the prescripti... Start Date: 06/15/21 Status: Ordered Diflucan 150 mg oral tablet 1 tablet = 150 mg, By Mouth, Once, # 1 tablet, 0 Refills, Soft Stop, 06/25/21 16:13:00 EDT, Tablet,[facility]/pharmacy #0373, Partial fill upon patient request [...] 0 Refills, Soft Stop, 06/22/21 14:47:00 EDT, Tablet,[facility]/pharmacy #0373, Partial fill upon patient request [...] opioid drug. Start Date: 06/10/21 Status: Ordered [id number] oral powder for reconstitution = 17 Gm, By Mouth, Daily, DISSOLVE IN WATER BEFORE TAKING, # 238 Gm, 0 Refills, [facility] STORE 75587, 14, TAKE 17 GM BY MOUTH DAILY. [...]
--- OUTSIDE RECORDS SUMMARY | 2022-11-22 06:22 | XMS_ITS | Continuity of Care Document ---
Author Name Unknown Organization [facility] ENTRY LEVEL PROGRAMMER Oncolog y Address [address] [place] [address]- Care Team Providers Care Home Therapy Teacher Name Role Phone Karen PINO, Huber Tovar Primary Care Physician [place] [facility] [place] 05[place]/21 - 06/30/21 [facility] ENTRY LEVEL PROGRAMMER Oncology [address] [place] [address]- Allergies, Adverse Reactions, Alerts Substance Reaction Severity [...] 07/01/21 8:07:00 EDT, 06/28/21 8:07:00 EDT, Tablet, [facility]/pharmacy #[id number], Partial fill upon patient request if the [...] 06/15/21 13:03:00 EDT, Route to Pharmacy Electronically, [facility]/pharmacy #0373,Partial fill upon patient request if the prescripti... Start Date: 06/15/21 Status: Ordered Diflucan 150 mg oral tablet 1 tablet = 150 mg, By Mouth, Once, # 1 tablet, 0 Refills, Soft Stop, 06/25/21 16:13:00 EDT, Tablet,[facility]/pharmacy #0373, Partial fill upon patient request if [...] Acute 07/03/21 13:27:00 EDT,06/28/21 13:27:00 EDT, Tablet, [facility]/pharmacy #0373, Partial fill upon patient request if the prescription is for a schedule II opioid drug., 154.9, cm,... Start Date: 06/28/21 Stop Date: 07/03/21 Status: Ordered fluconazole 150 mg oral tablet 1 tablet = 150 mg, By Mouth, Once, # 1 tablet, 0 Refills, Soft Stop, 06/22/21 14:47:00 EDT, Tablet,[facility]/pharmacy #0343, Partial fill upon patient request if the [...] 07/01/21 10:02:00 EDT, 06/26/21 10:02:00 EDT, Capsule, [facility]/pharmacy #0373, Partial fill upon patient request ifthe prescription is for a schedule II opioid drug.,... Start Date: 06/26/21 Stop Date: 07/01/21 Status: Ordered Omeprazole = 20 mg, By Mouth, Daily in AM, 0 Refills, Maintenance, 06/10/21 10:16:00 EDT, Partial fill upon patient request if the prescription is for a schedule II opioid drug. Start Date: 06/10/21 Status: Ordered [id number] oral powder for reconstitution = 17 Gm, By Mouth, Daily, DISSOLVE IN WATER BEFORE TAKING, # 238 Gm, 0 Refills, [facility] STORE 32347, 14, TAKE 17 GM BY MOUTH DAILY. [...]
--- OUTSIDE RECORDS SUMMARY | 2022-11-22 06:22 | XMS_ITS | Continuity of Care Document ---
Author Name Unknown Organization [facility] FOOD PROCESSOR Oncolog y Address [address] [place] [address]- Care Team Providers Care Obstetrics Technician Name Role Phone Karen PINO, Huber Tovar Primary Care Physician [place] [facility] [place]s): 11/04/21 - 12/04/21 [facility] FOOD PROCESSOR Oncology [address] [place] [address]- Allergies, Adverse Reactions, Alerts Substance Reaction Severity [...] 06/15/21 13:03:00 EDT, Route to Pharmacy Electronically, [facility]/pharmacy #[id number],Partial fill upon patient request if the prescripti... Start Date: 06/15/21 Status: Ordered Diflucan 150 mg oral tablet 1 tablet = 150 mg, By Mouth, Once, # 1 tablet, 0 Refills, Soft Stop, 06/25/21 16:13:00 EDT, Tablet,[facility]/pharmacy #0373, Partial fill upon patient request [...] 0 Refills, Soft Stop, 11/23/21 14:07:00 EDT, Tablet,[facility]/pharmacy #0373, Partial fill upon patient request if the prescription is for a schedule II opioid drug., 156.2, cm, 08/19/21 14:53:00 EDT, Height,... Start Date: 11/23/21 Status: Ordered fluconazole 150 mg oral tablet 1 tablet = 150 mg, By Mouth, Once, # 1 tablet, 0 Refills, Soft Stop, 06/22/21 14:47:00 EDT, Tablet,[facility]/pharmacy #0373, Partial fill upon patient request [...] tablet, Refills 1, Route to Pharmacy Electronically, [facility] STORE 84002, 156.2, cm, 07/07/21 10:00:00 EDT, Height, 82.7, [...] opioid drug. Start Date: 06/10/21 Status: Ordered [id number] oral powder for reconstitution = 17 Gm, By Mouth, Daily, DISSOLVE IN WATER BEFORE TAKING, # 238 Gm, 0 Refills, [facility] STORE 31618, 14, TAKE 17 GM BY MOUTH DAILY. [...] Personnel Name: Huber Jones MD Address: Address: [address] [place] [address] [facility], [place] [address]
--- OUTSIDE RECORDS SUMMARY | 2022-11-22 06:22 | XMS_ITS | Continuity of Care Document ---
Author Name Unknown Organization [facility] Address [address] [place] [address]- Care Team Providers Care Integrity Specialist Name Role Phone Huber Jones MD [id number] Date[facility]/19/[facility] - 08/26/21 [facility] [address] [place] [address]- Attending Physician: Mariia Og DO Referring Physician: Huber Jones MD Allergies, Adverse [...] 06/15/21 13:03:00 EDT, Route to Pharmacy Electronically, [facility]/pharmacy #0373,Partial fill upon patient request if the prescripti... Start Date: 06/15/21 Status: Ordered Diflucan 150 mg oral tablet 1 tablet = 150 mg, By Mouth, Once, # 1 tablet, 0 Refills, Soft Stop, 06/25/21 16:13:00 EDT, Tablet,[facility]/pharmacy #0373, Partial fill upon patient request if [...] 0 Refills, Soft Stop, 06/22/21 14:47:00 EDT, Tablet,[facility]/pharmacy #0373, Partial fill upon patient request if [...] tablet, Refills 1, Route to Pharmacy Electronically, [facility] 80799, 156.2, cm, 07/07/21 10:00:00 EDT, Height, 82.7, [...] opioid drug. Start Date: 06/10/21 Status: Ordered [id number] oral powder for reconstitution = 17 Gm, By Mouth, Daily, DISSOLVE IN WATER BEFORE TAKING, # 238 Gm, 0 Refills, [facility] STORE 20977, 14, TAKE 17 GM BY MOUTH DAILY. [...] I(Confirmed) Active Open draining abdominal incision(Confirmed) Active Vital Signs Most recent to oldest [Reference Range]: 1 Height 156.2 cm (08/19/21 2:53 PM) Oxygen Saturation [94-100 %] 97 % (08/19/21 2:53 PM) Pulse Rate [55-90 bpm] 65 bpm (08/19/21 2:53 PM) Blood Pressure [90-138/55-84 mm Hg] 143/ 85mm Hg *H* (08/19/21 2:53 PM) Respiratory Rate [16-30 br/min] 16 br/mi n (08/19/21 2:53 PM) Temperature [96.8-100.4 DegF] 96.9 DegF (08/19/21 2:53 PM) Mode of Delivery (Oxygen) Room air (08/19/21 2:53 PM) Blood pressure sites Arm, left (08/19/21 2:53 PM) Temperature Route Temporal (08/19/21 2:53 PM)
--- OUTSIDE RECORDS SUMMARY | 2022-11-22 06:22 | XMS_ITS | Continuity of Care Document ---
Author Name Unknown Organization [facility] AUTOMATIC SHIRRING MACHINE OPERATOR Oncolog y Address [address] [place] [address]- Care Team Providers Care Boat Canvas Maker Installer Name Role Phone Karen PINO, Huber Tovar Primary [facility] Phys[id number] Date(s): 06/25/21 - 07/25/21 [facility] AUTOMATIC SHIRRING MACHINE OPERATOR Oncology [address] [place] [address] Allergies, Adverse Reactions, Alerts Substance Reaction Severity [...] 06/15/21 13:03:00 EDT, Route to Pharmacy Electronically, [facility]/pharmacy #[id number],Partial fill upon patient request if the prescripti... Start Date: 06/15/21 Status: Ordered Diflucan 150 mg oral tablet 1 tablet = 150 mg, By Mouth, Once, # 1 tablet, 0 Refills, Soft Stop, 06/25/21 16:13:00 EDT, Tablet,[facility]/pharmacy #0373, Partial fill upon patient [...] 0 Refills, Soft Stop, 06/22/21 14:47:00 EDT, Tablet,[facility]/pharmacy #0373, Partial fill upon patient [...] tablet, Refills 1, Route to Pharmacy Electronically, [facility] STORE 50089, 156.2, cm, 07/07/21 10:00:00 EDT, Height, 82.7, [...] opioid drug. Start Date: 06/10/21 Status: Ordered [id number] oral powder for reconstitution = 17 Gm, By Mouth, Daily, DISSOLVE IN WATER BEFORE TAKING, # 238 Gm, 0 Refills, [facility] STORE 85439, 14, TAKE 17 GM BY MOUTH DAILY. [...]
--- OUTSIDE RECORDS SUMMARY | 2022-11-22 06:22 | XMS_ITS | Continuity of Care Document ---
Author Name Unknown Organization [facility] TAKE AWAY MAN Oncolog y Address [address] [place] [address]- Care Team Providers Care Event Planning Manager Name Role Phone Karen PINO, Huber Tovar Primary Care Physician [id number] Date(s): 06/22/21 - 07/22/21 [facility] TAKE AWAY MAN Oncology [address] [place] [id number] Allergies, Adverse Reactions, Alerts Substance Reaction [...] 06/15/21 13:03:00 EDT, Route to Pharmacy Electronically, [facility]/pharmacy #0373,Partial fill upon patient request if the prescripti... Start Date: 06/15/21 Status: Ordered Diflucan 150 mg oral tablet 1 tablet = 150 mg, By Mouth, Once, # 1 tablet, 0 Refills, Soft Stop, 06/25/21 16:13:00 EDT, Tablet,[facility]/pharmacy #0373, Partial fill upon patient [...] 0 Refills, Soft Stop, 06/22/21 14:47:00 EDT, Tablet,[facility]/pharmacy #0373, Partial fill upon patient [...] tablet, Refills 1, Route to Pharmacy Electronically, [facility] STORE 63894, 156.2, cm, 07/07/21 10:00:00 EDT, Height, 82.7, [...] opioid drug. Start Date: 06/10/21 Status: Ordered [id number] oral powder for reconstitution = 17 Gm, By Mouth, Daily, DISSOLVE IN WATER BEFORE TAKING, # 238 Gm, 0 Refills, [facility] STORE 41721, 14, TAKE 17 GM BY MOUTH DAILY. [...]
--- OUTSIDE RECORDS SUMMARY | 2022-11-22 06:22 | XMS_ITS | Continuity of Care Document ---
Author Name Unknown Organization [facility] Address [address] [place] [address]- Care Team Providers Care Technician Preventative Medicine Name Role Phone Karen PINO, Huber Tovar Primary Care Physician En[place] [facility] [place] Date(s): 08/19/21 - 09/18/21 [facility] [address] [place] [address]- Attending Physician: Jostin Clark Admitting Physician: Jostin [...] 06/15/21 13:03:00 EDT, Route to Pharmacy Electronically, [facility]/pharmacy #[id number],Partial fill upon patient request if the prescripti... Start Date: 06/15/21 Status: Ordered Diflucan 150 mg oral tablet 1 tablet = 150 mg, By Mouth, Once, # 1 tablet, 0 Refills, Soft Stop, 06/25/21 16:13:00 EDT, Tablet,[facility]/pharmacy #0373, Partial fill upon [...] 0 Refills, Soft Stop, 06/22/21 14:47:00 EDT, Tablet,[facility]/pharmacy #0373, Partial fill upon [...] tablet, Refills 1, Route to Pharmacy Electronically, [facility] STORE 00488, 156.2, cm, 07/07/21 10:00:00 EDT, Height, 82.7, [...] opioid drug. Start Date: 06/10/21 Status: Ordered [id number] oral powder for reconstitution = 17 Gm, By Mouth, Daily, DISSOLVE IN WATER BEFORE TAKING, # 238 Gm, 0 Refills, [facility] STORE 43487, 14, TAKE 17 GM BY MOUTH DAILY. [...]
--- OUTSIDE RECORDS SUMMARY | 2022-11-22 06:22 | XMS_ITS | Continuity of Care Document ---
Author Name Unknown Organization [facility] CIRCLE SHEAR OPERATOR Oncolog y Address [address] [place] [address]- Care Team Providers Care Paediatric Thoracic Physician Name Role Phone Karen PINO, Huber Tovar Primary Care Physician Encounter [facility] [id number] Date(s): 06/28/21 - 07/28/21 [facility] CIRCLE SHEAR OPERATOR Oncology [address] [place] [address]- Allergies, Adverse Reactions, Alerts Substance Reaction Severity [...] 06/15/21 13:03:00 EDT, Route to Pharmacy Electronically, [facility]/pharmacy #0373,Partial fill upon patient request if the prescripti... Start Date: 06/15/21 Status: Ordered Diflucan 150 mg oral tablet 1 tablet = 150 mg, By Mouth, Once, # 1 tablet, 0 Refills, Soft Stop, 06/25/21 16:13:00 EDT, Tablet,[facility]/pharmacy #0373, Partial fill upon patient request [...] 0 Refills, Soft Stop, 06/22/21 14:47:00 EDT, Tablet,[facility]/pharmacy #0373, Partial fill upon patient request [...] tablet, Refills 1, Route to Pharmacy Electronically, [facility] STORE 60501, 156.2, cm, 07/07/21 10:00:00 EDT, Height, 82.7, [...] opioid drug. Start Date: 06/10/21 Status: Ordered [id number] oral powder for reconstitution = 17 Gm, By Mouth, Daily, DISSOLVE IN WATER BEFORE TAKING, # 238 Gm, 0 Refills, [facility] STORE 96204, 14, TAKE 17 GM BY MOUTH DAILY. [...]
--- OUTSIDE RECORDS SUMMARY | 2022-11-22 06:22 | XMS_ITS | Continuity of Care Document ---
Author Name Unknown Organization [facility] ter Address [address] [place] [address]- Care Team Providers Care Washing Machine Loader Name Role Phone Huber Jones MD Primary Care Physician [place] [facility] [place](s): 04/05/19 - 04/05/[address] [address]- [facility] Attending Physician: Huber Jones MD Allergies, Adverse Reactions, [...] Refills, Maintenance Start Date: 04/06/10 Status: Ordered Diflucan 150 mg oral tablet 1 tablet = 150 mg, By Mouth, Once, # 1 tablet, 0 Refills, Soft Stop, 11/20/16 14:29:25, Tablet Start Date: 11/20/16 Status: Ordered fluconazole 150 mg oral tablet 1 tablet = 150 mg, By Mouth, Once, # 1 tablet, 0 Refills, Soft Stop, 02/18/14 15:34:57, Tablet, 1 tablet By Mouth Once Start Date: 02/18/14 Status: Ordered Humalog Inj = 20 units, Subcutaneous Infusion, 3 times a day before meals, 0 Refills, Maintenance Start Date: 05/09/12 Status: Ordered Lantus Inj = 80 units, Subcutaneous Injection, Daily at bedtime, 0 Refills, Maintenance, Injection Start Date: 05/09/12 Status: Ordered lisinopril 5 mg oral tablet [...] Refills, Maintenance Start Date: 05/09/12 Status: Ordered Valerian 0 Refills, Maintenance, 02/14/14 13:48:59 Start Date: 02/14/14 Status: Ordered Ziprasidone 0 Refills, Maintenance, 02/14/14 13:49:11 Start Date: 02/14/14 Status: Ordered Problem List Condition Effective Dates Status Health Status Inform ant Diabetes Mellitus(Confirmed) 04/07/10 Active Dyslipidemia(Confirmed) 04/07/10 Active Hypertension(Confirmed) 04/07/10 Active Major depression(Confirmed) 04/07/10 Active
--- OUTSIDE RECORDS SUMMARY | 2022-11-22 06:23 | XMS_ITS | Continuity of Care Document ---
Author Name Unknown Organization [facility] WHEEL LACER AND TRUER Oncolog y Address [address] [place] [address]- Care Team Providers Care Towing Pilot Name Role Phone Karen PINO, Huber Tovar Primary Care Physician [phone] [place] [facility] [place] Date(s): 08/08/22 - 09/07/22 [facility] WHEEL LACER AND TRUER Oncology [address] [place] [address]- Allergies, Adverse Reactions, Alerts Substance Reaction Severity [...] 06/15/21 13:03:00 EDT, Route to Pharmacy Electronically, [facility]/pharmacy #0373,Partial fill upon patient request if the prescripti... Start Date: 06/15/21 Status: Ordered Diflucan 150 mg oral tablet 1 tablet = 150 mg, By Mouth, Once, # 1 tablet, 0 Refills, Soft Stop, 06/25/21 16:13:00 EDT, Tablet,[facility]/pharmacy #0373, Partial fill upon patient request if [...] 0 Refills, Soft Stop, 11/23/21 14:07:00 EDT, Tablet,[facility]/pharmacy #0373, Partial fill upon patient request if the prescription is for a schedule II opioid drug., 156.2, cm, 08/19/21 14:53:00 EDT, Height,... Start Date: 11/23/21 Status: Ordered fluconazole 150 mg oral tablet 1 tablet = 150 mg, By Mouth, Once, # 1 tablet, 0 Refills, Soft Stop, 06/22/21 14:47:00 EDT, Tablet,[facility]/pharmacy #0373, Partial fill upon patient request if [...] tablet, Refills 1, Route to Pharmacy Electronically, [facility] STORE 92032, 156.2, cm, 07/07/21 10:00:00 EDT, Height, 82.7, [...] opioid drug. Start Date: 06/10/21 Status: Ordered [id number] oral powder for reconstitution = 17 Gm, By Mouth, Daily, DISSOLVE IN WATER BEFORE TAKING, # 238 Gm, 0 Refills, [facility] STORE 43531, 14, TAKE 17 GM BY MOUTH DAILY. [...] opioid drug. Start Date: 08/06/21 Status: Ordered Smoothie Readi-Cat 2 oral suspension See Instructions, If scan in the am, drink 1st bottle night before & 2nd bottle 90 min before scan. If scan after 12p, drink 1st bottle by 8a & 2nd bottle 90 min before. If scan after 4p, drink 1st bottle 6hrs before & 90 minutes before scan, # 2 each... Start Date: 05/30/22 Status: Ordered Sucralfate = 1 Gm, By [...] Confirmed 04/07/10 Active Endometrial cancer Confirmed Active Open draining abdominal incision Confirmed Active Severe obesity (BMI 35.0-39.9) with comorbidity Confirmed Active Patient Care team information Care Team Personnel Name: Huber Jones MD Position: S Physician - Endocrinology Member Role: PCP Address: Address: [address] [place] [address] [place] [address]- Care Team Related Persons Name: SAVAGE PERKINS Address: [place] [address] Name: DELROY POLLARD Address: home [address] [place] [address] Name: DELROY WESTFALL Address: home [address] [place] [address]
--- OUTSIDE RECORDS SUMMARY | 2022-11-22 06:23 | XMS_ITS | Continuity of Care Document ---
Author Name Unknown Organization [facility] FOREST PATHOLOGY TEACHER Oncolog y Address [address] [place] [address]- Care Team Providers Care Coagulant Dipper Name Role Phone Karen PINO, Huber Tovar Primary Care Physician [id number] Date(s): 06/23/21 - 07/23/21 [facility] FOREST PATHOLOGY TEACHER Oncology [address] [place] [id number] Allergies, Adverse Reactions, Alerts Substance Reaction [...] Route to Pharmacy Electronically, [facility]/pharmacy #[id number],Partial fill upon patient request if the prescripti... Start Date: 06/15/21 Status: Ordered Diflucan 150 mg oral tablet 1 tablet = 150 mg, By Mouth, Once, # 1 tablet, 0 Refills, Soft Stop, 06/25/21 16:13:00 EDT, Tablet,[facility]/pharmacy #0373, Partial fill upon patient [...] 0 Refills, Soft Stop, 06/22/21 14:47:00 EDT, Tablet,[facility]/pharmacy #0373, Partial fill upon patient [...] tablet, Refills 1, Route to Pharmacy Electronically, [facility] STORE 77196, 156.2, cm, 07/07/21 10:00:00 EDT, Height, 82.7, [...] opioid drug. Start Date: 06/10/21 Status: Ordered [id number] oral powder for reconstitution = 17 Gm, By Mouth, Daily, DISSOLVE IN WATER BEFORE TAKING, # 238 Gm, 0 Refills, [facility] STORE 88066, 14, TAKE 17 GM BY MOUTH DAILY. [...]
--- OUTSIDE RECORDS SUMMARY | 2022-11-22 06:23 | XMS_ITS | Continuity of Care Document ---
Author Name Unknown Organization [facility] Address [address] [place] [address]- Care Team Providers Care Awning Maker Name Role Phone Karen PINO, Huber Tovar Primary Care Physician [place] [facility] [id number] Date(s): 05/03/19 - 05/13/19 [facility] [address] [place] [address]- [facility] Attending Physician: Jostin Clark Admitting Physician: [...]
--- OUTSIDE RECORDS SUMMARY | 2022-11-22 06:23 | XMS_ITS | Continuity of Care Document ---
Author Name Unknown Organization [facility] E LEARNING MANAGER Oncolog y Address [address] [place] [address]- Care Team Providers Care Vice President Tax Name Role Phone Karen PINO, Huber Tovar Primary Care Physician En[facility] Date(s): 06/10/21 - 07/10/21 [facility] E LEARNING MANAGER Oncology [address] [place] [address]- Allergies, Adverse Reactions, Alerts Substance Reaction Severity [...] 0 Refills, Soft Stop, 06/25/21 16:13:00 EDT, Tablet,[facility]/pharmacy #0373, Partial fill upon patient [...] 0 Refills, Soft Stop, 06/22/21 14:47:00 EDT, Tablet,[facility]/pharmacy #0373, Partial fill upon patient [...] opioid drug. Start Date: 06/10/21 Status: Ordered [id number] oral powder for reconstitution = 17 Gm, By Mouth, Daily, DISSOLVE IN WATER BEFORE TAKING, # 238 Gm, 0 Refills, [facility] STORE 46025, 14, TAKE 17 GM BY MOUTH DAILY. [...]
--- OUTSIDE RECORDS SUMMARY | 2022-11-22 06:23 | XMS_ITS | Continuity of Care Document ---
Author Name Unknown Organization [facility] Address [address] [place] [address]- Care Team Providers Care Plush Finisher Name Role Phone Karen PINO, Huber Tovar Primary Care Physician [place] [facility] [place] [id number] Date(s): 10/12/20 - 11/11/20 [facility] [address] [place] [address]- Attending Physician: Jostin Clark Admitting Physician: AdmtrJostin Referring Physician: Admtr, ArRhoda Allergies, Adverse Reactions, Alerts Substance Reaction Severity [...]
--- OUTSIDE RECORDS SUMMARY | 2022-11-22 06:23 | XMS_ITS | Continuity of Care Document ---
Author Name Unknown Organization [facility] Address [address] [place] [address]- Care Team Providers Care Clerk Travel Reservations Name Role Phone Karen PINO, Huber Tovar Primary Care Physician Encounter [facility] [place] [facility] Date(s): 05/31/22 - 06/30/22 [facility] [address] [place] [address]- Allergies, Adverse Reactions, Alerts Substance Reaction Severity [...] 0 Refills, Soft Stop, 11/23/21 14:07:00 EDT, Tablet,[facility]/pharmacy #[id number], Partial fill [...] tablet, Refills 1, Route to Pharmacy Electronically, [facility] STORE [id number], 156.2, cm, 07/07/21 10:00:00 EDT, Height, 82.7, [...] opioid drug. Start Date: 06/10/21 Status: Ordered [id number] oral powder for reconstitution = 17 Gm, By Mouth, Daily, DISSOLVE IN WATER BEFORE TAKING, # 238 Gm, 0 Refills, [facility] STORE [id number], 14, TAKE 17 GM BY MOUTH DAILY. [...] Team Personnel Name: Huber Jones MD Position: [facility] Physician (General Medicine) Member Role: PCP Address: Address: [address] [place] [address] [place] [address]- Care Team Related Persons Name: SAVAGE PERKINS Address: [place] [address] Name: DELROY POLLARD Address: home [address] [place] [id number] Name: DELROY WESTFALL Address: home [address] [place] [id number]
--- OUTSIDE RECORDS SUMMARY | 2022-11-22 06:23 | XMS_ITS | Continuity of Care Document ---
Author Name Unknown Organization [facility] Address [address] [place] [address]- Care Team Providers Care Marketing Finance Specialist Name Role Phone Karen PINO, Huber Tovar Primary Care Physician Encounter [facility] [place] Date(s): 06/18/21 - 07/18/21 [facility] On[facility] [address] [place] [address] Allergies, Adverse Reactions, Alerts Substance [...] to Pharmacy Electronically, [facility] STORE [id number], 156.2, cm, 07/07/21 10:00:00 EDT, Height, 82.7, [...] opioid drug. Start Date: 06/10/21 Status: Ordered [id number] oral powder for reconstitution = 17 Gm, By Mouth, Daily, DISSOLVE IN WATER BEFORE TAKING, # 238 Gm, 0 Refills, [facility] STORE [id number], 14, TAKE 17 GM BY MOUTH DAILY. [...]
--- OUTSIDE RECORDS SUMMARY | 2022-11-22 06:23 | XMS_ITS | Continuity of Care Document ---
Author Name Unknown Organization [facility] Address [address] [place] [address]- Care Team Providers Care Nuclear Instructor Name Role Phone Huber Jones MD Primary [facility] Phys[id number] 07[facility]08/[facility] [address] [place] [address]- [facility] Attending Physician: Solange Jovel MD Referring Physician: Huber Jones MD Allergies, Adverse Reactions, Alerts Substance Reaction Severity Status Percocet hives Active Medications Aspir 81 = 81 [...]
--- OUTSIDE RECORDS SUMMARY | 2022-11-22 06:23 | XMS_ITS | Continuity of Care Document ---
Author Name Unknown Organization [facility] Address [address] [place] [address]- Care Team Providers Care Applications Engineer Name Role Phone Huber Jones MD Primary Care Physician [phone] Encounter [facility] [id number] Date(s): 10/12/20 - 10/19/20 [facility] [address] [place] [address]- Attending Physician: Catarino Garcia Referring Physician: Huber Jones MD Allergies, Adverse [...] Refills, Maintenance Start Date: 04/06/10 Status: Ordered Keflex monohydrate 500 mg oral capsule 1 capsule = 500 mg, By Mouth, Every 8 hours, for 10 days, # 30 capsule, 0 Refills, Acute 10/22/20 9:48:00 EDT, 10/12/20 9:48:00 EDT, Capsule, [id number], Partial fill upon patient request if the prescription is for a schedule II opioid drug.,... Start Date: 10/12/20 Stop Date: 10/22/20 Status: Ordered lisinopril 5 mg oral tablet [...]
[2022-11-22] MEDS: Lactated Ringers 1,000 ML 999 ML IV (06:43)
[2022-11-22] MEDS: Aprepitant 32 MG/4.4 ML VIAL IVPUSH (06:44)
[2022-11-22 06:50] LABS: Glucose, Whole Blood 129 mg/dL (60-115)
--- NOTE | 2022-11-22 07:34 | P.BOP_ITS ---
Brief Operative Note Date of Service: 11/22/22 Pre-op diagnosis: Severe obesity with comorbidities (see below) Post-op diagnosis: same (& extensive abdominal adhesions) Procedure: INITIAL PATIENT BMI ON PRESENTATION AT OUR OFFICE: 35.5 kg/m2 LAST BMI BEFORE SURGERY: 36 kg/m2 COMORBIDITIES: Hypertension, insulin-dependent diabetes, DJD, anxiety, depression, GERD, diaphragmatic hernia repair, liver steatosis, hepatomegaly, splenomegaly, hyperlidemia ?The patient presented to the Weight Management Program with significant obesity that was negatively impacting the patient's comorbidities as listed above.? The program is a phased program with a special focus on preoperative medical weight management to promote substantial weight loss and prepare the patients for the second phase of the program: bariatric surgery. The patient participated in an intensive weekly lifestyle ?intervention and exercise program and It was deemed appropriate for the patient to now have bariatric surgery. In light of the current Covid-19 pandemic and the well documented strong association of obesity and increased risk of worse outcomes if infected with Covid-19 (REFERENCES: https://pubmed.ncbi.nlm.nih.gov/82838147/ ,? h ttps://pubmed.ncbi.nlm.nih.gov/94411979/ ), any delay in undergoing bariatric surgery may lead to the patient's worsening health condition and increased?risk of more severe Covid-19 disease if infected. In addition a recent?study from [facility] published in [employer] [facility] on 02/15/2021 (file:///C:/[email or web address]/Downloads/[email or web address].pdf) found that, among patients with obesity, substantial weight loss achieved with surgery was associated with improved outcomes of COVID-19 infection. The findings suggest that obesity can be a modifiable risk factor for the severity of COVID-19 infection. In addition, the patient met the BMI-criteria for bariatric surgery based on the BMI on initial presentation. The patient should not be penalized for achieving such weight loss because ?it is not sustainable long-term without surgical intervention and it was achieved in preparation for bariatric surgery ?under my direction and based on my published research ([email or web address]/C:/[email or web address]).pdf and? https://www.soard.org/article/[email or web address](17)49568-X/pdf ) ?that a 10% preoperative weight loss improves long-term weight loss after surgery and reduces perioperative complications.? Insurance carriers such as [facility] have endorsed my recommendations ?and have included in their policies criteria to include a 10% preoperative weight loss requirement. PROCEDURE: Esophago-gastroscopy, laparoscopic lysis of adhesions, laparoscopic sleeve gastrectomy and laparoscopic gastropexy INDICATIONS: This is a 67 year-old female who was electively scheduled for laparoscopic, possibly open sleeve gastrectomy. The risks and complications of the procedure were discussed with the patient in advance, particularly the possibility of ; pulmonary embolism; staple line leak; bleeding; GERD; cardiac, pulmonary, or renal complications; as well as long-term problems such as insufficient weight loss, vitamin deficiency, strictures, or ulcers. The patient understood all the risks, and was in agreement to proceed with surgery. DESCRIPTION OF PROCEDURE: After informed consent was obtained from the patient, the patient was given preoperative antibiotics, and was transferred to the operating room. After successful induction of general anesthesia, pneumatic compression devices were placed on both lower extremities. An upper endoscopy was performed next. The oropharynx and esophagus appeared to be within normal limits. There was no significant diaphragmatic hernia present. The stomach was entered. Then after all fluid and air were suctioned and the stomach was fully decompressed, the scope was withdrawn and secured in the mid esophagus. The patient was then prepped and draped in the usual sterile manner, and abdominal access was established at the left upper quadrant with the Veress needle due to a previous upper abdominla midline incision for an open cholecystectomy. The abdomen was insufflated with CO2 to a pressure of 15 mmHg. Two extra 5 mm Versi step ports were required to lyse the adhesions. One at the left flank and the level of the umbilicus and one to the left of the umbilicus. The area where the Veress needle was inserted, was inspected and there was no injury. The needle was removed and an additonal 5 mm Versi step port was placed. There were adhesions in the abdomen from previous open cholecystectomy involving the omentum and the anterior abdominal wall. Those were lysed completely with the ultrasonic device using the above 3 trocars. Once all adhesions were lysed, under direct visualization, additional ports were placed, specifically two 5 mm Versi-step ports to the left upper quadrant, and a 5 mm Versi-Step port to Hasson techniquee right upper quadrant. 1% lidocaine plain was used to infiltrate all port sites as well as all fascia defects. A 12 mm blunt port was inserted,using the Vicki technique slightly to the right from the midline. Following that, the patient was placed in a steep reverse Trendelenburg position. An additional 5 mm port was placed to the right flank for the Mediflex retractor that was used to retract the left lobe of the liver. The gastro-esophageal fat pad was opened with the ultrasonic device (Thunderbeat, Olympus) and the anterior esophagus and hiatus were exposed. The angle of His was opened with the ultrasonic device the fundus of the stomach from any diaphragmatic and splenic attachments. I then opened the gastrocolic ligament between the transverse colon and the greater curvature of the stomach with the ultrasonic device to enter the lesser sac and facilitate the ligation of the short gastric vessels. I started at a mid-point along the greater curvature and using the Thunderbeat, all short gastric vessels were divided all the way to the angle of His until the left paige was completely dissected at its entirety. I then divided the gastro-colic ligament distally to a distance of about 3-4 cm proximal to the pylorus. There were extensive congenital adhesions between the pancreas and posterior gastric wall. Those were lysed completely with the ultrasonic device. Adhesiolysis took approximately 45 min to complete. The stomach was then divided transversely with one Endo FEDERICA-45 purple and five FEDERICA-60 articulating purple loads using the SIGNIA stapler and loads. Every effort was made that the gastric sleeve had a tubular shape and an even caliber throughout. Once the sleeve resection was completed, the staple line of the gastric sleeve was reinforced with Hemoclips. The resected stomach was retrieved without difficulty from the Vicki port. A gastropexy was then performed in order to prevent postoperative GERD and partial gastric volvulus. Several interrupted 2.0 Surgidac sutures were placed between the sleeve's staple line and the previously divided greater omentum and gastro-colic ligament using the Endo-Stitch device. ?An upper endoscopy was performed. There was no narrowing at the GE junction. The scope was easily advanced all the way to the pylorus which was clearly visualized. There was no narrowing anywhere and the sleeve's caliber was even throughout. The sleeve's staple line was inspected and there was no evidence of ischemia, bleeding or dehiscence. At that point the gastroscope was withdrawn from the patient?s mouth while we were decompressing the bowel and the stomach from any remaining air. I looked into the lesser sac to see how the sleeve was situating and it was situating well. There was no bleeding from the staple line, spleen, or short gastric vessels. The Mediflex retractor was removed, and the undersurface of the liver was inspected and there was no bleeding. The patient was placed in supine position. I closed the fascial defect of the 12 mm port site with a figure of eight #1 Polysorb suture. Then 30cc Ropivacaine plain with 10 mg of Dexamethasone were used to infiltrate the fascial closure as well as all skin incisions. A total of 4ml Zynrelef was applied in the Vicki wound. At this point, the abdomen was deflated, all ports were removed under direct vision, and no bleeding was noted from any of the port sites. The skin incisions were irrigated with saline and were closed with 4-0 absorbable monofilament sutures. Steri-Strips and OpSites were used to cover all incisions. The patient was extubated and was transferred in stable condition to the recovery room for further care. I was present and performed all zuniga parts of the procedure. Ms. Barroso was the sales operations assistant. There were no residents to assist with this case. Torrey Anderson MD, PhD, FACS Surgeon: Eduardo Anderson MD Anesthesia: GETA, local and other (TAP block and 4ml Zynrelef) Was an Neon Sign Installer used for this Procedure?: No Neon Sign Installer: Laquita Barroso Estimated blood loss (mL): 10 IV fluids (mL): 2,000 Urine output (mL): 0 (No Mena to record output) Pathology: other (Stomach) Condition: stable Disposition: PACU
--- NOTE | 2022-11-22 07:38 | P.PNGS_ITS ---
Subjective Subjective Date of Service: 11/23/22 Interval history: Feels well. Mild incisional pain. She is tolerating phase 1 bariatric diet Physical Exam 2 Vital Signs: Vital Signs: Last Vital Signs Temp 98.0 F 11/22/22 06:17 Pulse 68 11/22/22 06:17 Resp 18 11/22/22 06:17 BP 119/58 L 11/22/22 06:17 Pulse Ox 97 11/22/22 06:17 O2 Del Method Room Air 11/22/22 06:17 BMI result Body Mass Index 31.6 GI: Inspection: Yes normal to inspection, Yes incision (clean, dry and intact) and Yes obesity Palpation (GI): Soft to palpation Extrem: Right lower extremity: normal to inspection (no calf tenderness) L eft lower extremity: normal to inspection (no calf tenderness) Objective Data Active Medications Hydromorphone HCl (Hydromorphone Hcl 0.5 Mg/0.5 Ml Syringe) 0.5 mg IVPUSH Q5M PRN; Protocol PRN Reason: Pain, Severe (Pain Scale 7-10) Lactated Ringer's (Lr) 1,000 mls @ 100 mls/hr IVCONT .Q10H DOMENIC Lactated Ringer's (Lr) 1,000 mls @ 999 mls/hr IV .Q1H1M DOMENIC Stop: 11/22/22 08:15 Last Admin: 11/22/22 06:43 Dose: 999 mls/hr Documented By: SHIVAM Ondansetron HCl (Ondansetron Hcl 4 Mg/2 Ml Vial) 4 mg IVPUSH ONCE PRN PRN Reason: Nausea and Vomiting Labs 11/23/22 05:44 11/23/22 05:44 Labs: Laboratory Results - last 24 hr 11/22/22 06:46 POC Glucose 129 H Procedures Date of Service Date of Service: 11/23/22 Progress Note: A&P Assessment and plan (1) Obesity: Status: Acute Assessment and Plan: s/p laparoscopic sleeve gastrectomy, lysis of adhesions and gastropexy Doing well Will check am labs and if OK the patient will be discharged home (2) BMI 36.0-36.9,adult: Status: Inactive (3) Insulin dependent type 2 diabetes mellitus: Status: Acute (4) HTN (hypertension), benign: Status: Acute (5) Hyperlipidemia: Status: Acute (6) Depression: Status: Acute (7) Liver fibrosis: Status: Acute (8) Hepatomegaly: Status: Acute (9) GERD (gastroesophageal reflux disease): Status: Acute (10) Steatosis, liver: Status: Acute (11) Anxiety: Status: Acute (12) S/P laparoscopic sleeve gastrectomy: Status: Acute (13) Intra-abdominal adhesions: Status: Acute (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 Quality Stroke Does the patient have a stroke diagnosis?: No Reason for No Anti-thrombotic by Day Two: N/A - Med Ordered VTE Prior VTE?: No VTE Risk Level:: Surgical - moderate VTE Device Contraindication: N/A - Device Ordered VTE Drug Contraindication: Treatment Not Indicated
--- NOTE | 2022-11-22 07:41 | PC.NURSE ---
ziprasidone x 2 doses sent to pharmacy, verified 2 rn's
--- NOTE | 2022-11-22 10:43 | P.DS_ITS ---
DS: Providers Provider Date of Service: 11/23/22 Date of admission: 11/22/22 06:18 Primary care physician: Unknown Physician DS: Diagnosis Discharge Diagnosis (1) Obesity: Status: Acute (2) BMI 36.0-36.9,adult: Status: Inactive (3) Insulin dependent type 2 diabetes mellitus: Status: Acute (4) HTN (hypertension), benign: Status: Acute (5) Hyperlipidemia: Status: Acute (6) Depression: Status: Acute (7) Liver fibrosis: Status: Acute (8) Hepatomegaly: Status: Acute (9) GERD (gastroesophageal reflux disease): Status: Acute (10) Steatosis, liver: Status: Acute (11) Anxiety: Status: Acute DS: Summary Hospital Course Hospital Course: ADMITTING DIAGNOSIS: morbid obesity, DM, GERD, HLD, liver fibrosis, anxiety/depression DISCHARGE DIAGNOSIS: same, s/p laparoscopic sleeve gastrectomy PAST SURGICAL HISTORY: open cholecystectomy, hysterectomy PROCEDURE: upper endoscopy, laparoscopic sleeve gastrectomy DISCHARGE SUMMARY: History of Present Illness: The patient is a 67 year-old woman with a BMI of 35.9 kg/m2 and associated co-morbidities as described above. The patient had extensive work-up, lost 30 lbs preoperatively and was electively scheduled for laparoscopic, possible open sleeve gastrectomy and gastropexy. Risks and complications of the surgery were discussed with the patient in advance, particularly the possibility of , pulmonary embolism, anastomotic leak, bleeding, bowel injury, GERD, cardiac, renal or pulmonary complications. The patient understood all the risks and was in agreement with the surgical plan. Hospital Course: The patient underwent an uneventful laparoscopic sleeve gastrectomy with gastrop exy on the day of admission. Postoperatively, the patient was transferred to the surgical floor. The patient received IV Acetaminophen and IV dilaudid for pain control. Patient was started on bariatric phase 1 diet POD #0. On postoperative day one, the patient was feeling well without nausea, vomiting, fevers, or tachycardia. The patient had some mild incisional pain and the abdomen was soft. On the morning of postoperative day one, the patient was continued on 1 ounce of water or ice every half hour. During the day, the patient did fairly well, having some incisional pain, but able to ambulate adequately and to tolerate liquids well. Since the patient is doing well, we decided that the patient was ready to be discharged. The patient was given instructions to follow-up with me next week and to call my office for any fever over 101, persistent abdominal pain, nausea, vomiting, GERD, symptoms of DVT such as calf tenderness, or leg swelling, or pulmonary embolism such as chest pain or shortness of breath. The patient was also instructed to drink 40-60 ounces of liquids per day using the 1-ounce cups. The patient had been given prescriptions for Tylenol for pain, Zofran prn for nausea, and pantoprazole and carafate previously. The patient was encouraged to ambulate and use the incentive spirometer. The patient was allowed to shower, but no baths, and encouraged to stay active at home. All of these instructions were given to the patient personally. All questions were answered and the patient understood all instructions, the instructions were also given to the patient in print. Time Spent with Patient Time attestation: Total time managing care of this patient today ____ minutes. Discharge coordination time: Less than 30 minutes Quality: Safe Use of Opioids Does Pt have an Active Cancer Diagnosis on the Problem List?: No Quality: Stroke Does the patient have a stroke diagnosis?: No Physical Exam Vital Signs: Vital Signs: Last Vital Signs Temp 98.0 F 11/22/22 06:17 Pulse 68 11/22/22 06:17 Resp 18 11/22/22 06:17 BP 119/58 L 11/22/22 06:17 Pulse Ox 97 11/22/22 06:17 O2 Del Method Room Air 11/22/22 06:17 BMI result Body Mass Index 31.6 DS: Data Data Completed and Pending Pending studies at discharge: Pending at discharge 11/22/22 09:49 Surgical [PTH] Routine Labs on day of discharge: Laboratory Results - last 24 hr 11/22/22 06:46 POC Glucose 129 H Discharge Plan Discharge Anticipated Discharge Date/Time: 11/23/22 10:47 Patient Disposition: Home, Self-Care Discharge Diagnosis: s/p sleeve gastrectomy Referrals: Physician,Unknown J [Primary Care Provider] - 1 Week Discharge Medications: Continued lorazepam 2 mg tablet 2 mg PO .@2200 PRN (Reason: Anxiety) ziprasidone HCl 20 mg capsule 20 mg PO BID@0800,1700 ziprasidone HCl 80 mg capsule 80 mg PO BID@1900,2200 lorazepam 1 mg tablet 1 mg PO .@0800+1700 PRN (Reason: Anxiety) cyclosporine [Restasis] 0.05 % dropperette 1 drp ophthalmic (eye) .0800+2200 pantoprazole 40 mg tablet,delayed release (DR/EC) 40 mg PO DAILY Qty: 30 2RF ondansetron 4 mg tablet,disintegrating 4 mg PO Q12H Qty: 20 0RF Held lisinopril 10 mg tablet 10 mg PO DAILY Hold Instructions: Resume on 11/24/22. Check your blood pressure every evening and send it to Dr. Anderson. Do not take the medication before you hear from Dr. Anderson. Do not take the medication if your blood pressure is below 120/70 mmHg. pravastatin 40 mg tablet 40 mg PO .DAILY@1900 Hold Instructions: discuss with Dr Anderson diltiazem HCl 180 mg capsule,extended release 24hr 180 mg PO DAILY Hold Instructions: Resume on 11/24/22. Check your blood pressure every evening and send it to Dr. Anderson. Do not take the medication before you hear from Dr. Anderson. Do not take the medication if your blood pressure is below 120/70 mmHg. Align 4 mg capsule 4 mg PO DAILY Hold Instructions: Discuss restart with Dr Anderson Discontinued thiamine HCl (vitamin B1) 50 mg tablet 50 mg PO aspirin 81 mg Tablet,Delayed Release (Dr/Ec) 81 mg PO DAILY sennosides [senna] 8.6 mg Tablet 8.6 mg PO BEDTIME cholecalciferol (vitamin D3) [Vitamin D3] 50 mcg (2,000 unit) Capsule 50 mcg PO DAILY APPLE CIDER VINEGAR CAPSULES 1,000 mg PO DAILY BIOTIN 45 mcg PO DAILY docusate sodium [Colace] 100 mg capsule 100 mg PO BID FISH OIL CAPSULES 500 mg PO BID metformin 1,000 mg tablet extended release 24 hr 1,000 mg PO BID sucralfate 100 mg/mL suspension 10 ml PO BID Qty: 400 2RF polyethylene glycol 3350 [Miralax] 17 gram powder in packet 17 g PO DAILY Qty: 14 0RF Rx Instructions: Mix each packet with 8oz of water, Crystal light, or Gatorade zero, or Propel and do 7 packets on 11/20/22 and another 7 packets on 11/21/22 Discharge Orders: Discharge Order (Routine); Ordered 11/23/22 Ordered By: Eduardo Anderson Activity on Discharge: No heavy lifting Stand Alone Forms: Patient Portal Discharge page Care Plan Goals: weight loss Health Concerns: obesity Plan of Treatment: No tub baths, sex or returning to work until discussed at first post op appointment. No exercise, alcohol, tobacco or illegal drug use. Continue to use incentive spirometer hourly while awake. Walk in home for 5- 10 minutes every 2 hours during the first week. Continue phase 1 diet today and start phase 2 diet tomorrow morning. Follow all instructions in the bariatric handbook and call with any questions. 1. Please call your doctor or come back to the emergency room should any new symptoms arise. 2. You will receive a courtesy call from [facility] 24-48 hours after discharge. 3. Activity: abstain from alcohol, practice limited stair climbing, no bending, no driving, no exercise, no illicit substances, no lifting, no sex, no tub bath, no work. 4. Diet: continue as discussed with bariatric team.. 5. Dressing Change/Wound Care: Do not change or remove surgical dressings unless they are wet or soiled. 6. Call your doctor if: - Your temperature exceeds 101.5 F - You experience excessive pain or swelling - You have an unexpected reaction to medication - You have excessive bleeding - You experience continued vomiting/nausea - Your incision begins to separate - Your incision shows signs of infection such as increased redness, swelling, excessive pain, heat, or drainage (light blood or clear fluid is normal) 7. General instructions: No lifting greater than 5 lbs for 1 week and not more than 20lbs the next 3?weeks. No driving until seen at the office in 5-7 days after surgery. If you do not move your bowels in the next 2 days, please tell?Dr. Anderson. Please walk around your home every hour or two to prevent blood clots from forming in your legs. You do not need to wake from sleeping to walk. Please sleep in a bed or couch to prevent kinking at the hips and knees. Please take your incentive spirometer (your lung pantograph watcher) home with you and use it for the next few days to prevent pneumonia. You may shower, no hot tubs, baths or swimming pools.?Please follow the post op diet instructions you are?given by Dr R aftopoulos? and text me daily at 5-6pm for an update.?If you have any issues or concerns or questions please communicate this to him via text.? The Celebrate shakes have all of the bariatric vitamins you need if you consume these shakes. If you are drinking other protein shakes, you will need to purchase the Celebrate multivitamins and calcium that are available in the hospital gift shop on the first floor of the main hospital.??Do not take anything without first discussing with Dr Anderson. Please make sure you are consuming at least 40 ounces of fluids per day starting the?day AFTER your discharge from the hospital. Always drink 1-2 ml per minute using the 5ml?syringe. If you drink faster you may experience?bloating,?gas pain, burping, nausea or heartburn. In that case please slow down your pace and use the syringe to?understand better the?proper?pace and volume of drinking. Do not hesitate to contact the office with any questions at . The patient's medical history has been reviewed and they are considered low risk for post op DVT and therefore DVT prophylaxis is not considered necessary. Travel after surgery was reviewed. The patient has not disclosed any travel libby ns during the first 30 days after surgery and they have been advised that within the first 30 days after surgery any bus, plane, train or car travel over 2 hours in duration is contraindicated due to the possibility of developing blood clots from immobility. Any travel, needs to include periods of ambulation of 10 minutes in duration every 2 hours. The patient was instructed to discuss any plans for travel during this period with their bariatric surgeon. Assessment: stable, post op sleeve gastrectomy
[2022-11-22] MEDS: HYDROmorphone HCl 0.5 MG/0.5 ML SYRINGE IVPUSH (10:53)
[2022-11-22 11:48] LABS: Hematocrit 38.1 % (37.0-47.0)
[2022-11-22 12:04] LABS: Anion Gap 15 (12-20); Blood Urea Nitrogen 13 mg/dL (9-16); Calcium 9.7 mg/dL (8.4-10.2); Carbon Dioxide 25 mmol/L (22-29); Chloride 103 mmol/L (96-108); Creatinine Clr Calc Pharmacy 53.9; Estimated Glomerular Filt Rate 60; Glucose Random 192 mg/dL (60-115); Potassium 4.3 mmol/L (3.3-5.1); Sodium 139 mmol/L (135-145)
[2022-11-22] MEDS: Acetaminophen 1,000 MG/100 ML PIGGYBACK 16.7 MG IV ×3 (12:05→23:53)
[2022-11-22] MEDS: Lactated Ringers 1,000 ML 100 ML IVCONT ×2 (12:06→22:05)
[2022-11-22] MEDS: Famotidine/PF 20 MG/2 ML VIAL IVPUSH ×2 (12:06→19:21)
[2022-11-22] MEDS: ceFAZolin Sodium/Dextrose,Iso 2 GM/50 ML PIGGYBACK IV (13:35)
[2022-11-22] MEDS: LORazepam 1 MG TABLET PO ×2 (13:39→17:10)
--- NOTE | 2022-11-22 15:01 | PHA.MEDREC ---
Pharmacy Consult ? Medication Reconciliation Pharmacy has completed the medication reconciliation. pharmacy has reviewed med rec done by nursing and clarified several discrepancies with the patient. lisinopril has not been filled since 04/29/22 but pt states she is still taking this medication. it was in med rec done by nursing and continued by so left in home med list.
[2022-11-22] MEDS: HYDROmorphone HCl 0.5 MG/0.5 ML SYRINGE 0.25 MG IVPUSH ×2 (15:16→21:59)
[2022-11-22] MEDS: ondansetron HCL 4 MG/2 ML VIAL IVPUSH (15:49)
[2022-11-22] MEDS: 0.9 % Sodium Chloride Flush 3 ML SYRINGE IVFLUSH (19:21)
[2022-11-22] MEDS: LORazepam 1 MG TABLET 2 MG PO (21:58)
[2022-11-22] MEDS: Metoclopramide HCl 10 MG/2 ML VIAL IVPUSH (22:04)
[2022-11-23 03:29] VITALS: BP 134/65; PULSE 54; RESP 16; TEMP 36.1; O2SAT 95
[2022-11-23] MEDS: Acetaminophen 1,000 MG/100 ML PIGGYBACK 16.7 MG IV (05:42)
[2022-11-23 05:59] LABS: MANUAL DIFF FLAG NO
[2022-11-23 06:20] LABS: Anion Gap 13 (12-20); Blood Urea Nitrogen 12 mg/dL (9-16); Calcium 9.5 mg/dL (8.4-10.2); Carbon Dioxide 24 mmol/L (22-29); Chloride 104 mmol/L (96-108); Creatinine Clr Calc Pharmacy 61.9; Estimated Glomerular Filt Rate > 60; Glucose Random 152 mg/dL (60-115); Potassium 4.2 mmol/L (3.3-5.1); Sodium 137 mmol/L (135-145)
[2022-11-23 06:52] LABS: Hematocrit 33.6 % (37.0-47.0); Hemoglobin 11.6 g/dl (12.0-16.0); Imm Gran Abs Auto 0.05 X10*3/uL (0.00-0.03); Imm Gran Pct Auto 0.7 % (0.0-0.4); Lymphocytes Absolute Auto 0.7 X10*3/uL (1.2-4.9); Lymphocytes Percent Auto 10.3 % (20-40); Mean Corpuscular HGB Conc 34.5 g/dl (31.0-35.0); Mean Corpuscular Hemoglobin 28.5 pg (27.0-33.0); Mean Corpuscular Volume 82.6 fL (80.0-98.0); Monocytes Absolute Auto 0.6 X10*3/uL (0.1-1.2); Neutrophils Absolute Auto 5.6 x10*3/uL (2.0-8.3); Platelet Count 180 X10*3/uL (160-400); Red Blood Count 4.07 X10*6/uL (4.20-5.50); Red Cell Distribution Width 13.2 % (11.0-16.0)
[2022-11-23 07:09] LABS: Glucose, Whole Blood 144 mg/dL (60-115)
[2022-11-23] MEDS: Famotidine/PF 20 MG/2 ML VIAL IVPUSH (08:01)
[2022-11-23] MEDS: LORazepam 1 MG TABLET PO (08:01)
[2022-11-23] MEDS: lisinopriL 10 MG TABLET PO (08:01)
[2022-11-23] MEDS: dilTIAZem HCL CD 180 MG CAP.ER.24H PO (08:01)
--- NOTE | 2022-11-23 09:49 | HO.POSTANES ---
Post Anesthesia Evaluation Post Anesthesia Evaluation Date of Service: 11/23/22 Vital Signs: Vital Signs Temp Pulse Resp BP Pulse Ox O2 Del Method 11/23/22 03:29 96.9 F 54 16 134/65 95 Room Air 11/22/22 23:26 96.8 F 57 16 137/65 93 Room Air Anesthesia: General Endotracheal-GETA Mental Status: Awake Pain Control: Satisfactory Nausea/Vomiting: None Hydration: Adequate Anesthesia-Related Issues: No Anes. Related Issues
--- NOTE | 2022-11-23 11:00 | MHC.CM.PN ---
Patient discharged prior to being seen by Case management. Home self care. Patient arranged for transport.
== END 2022-11-23 09:48 | disposition home or self-care (01) | DRG 621 ==
LOC: HO.SSSA 07:51 → HO.S3 11:05
PROVIDERS: Physician Assistant; Admitting Provider Surgery; Visit Provider Surgery
PROC: 0DB64Z3 Excision of Stomach, Percutaneous Endoscopic Approach, Vertical (ICD-10-PCS; CPT 43845; principal; 2022-11-22 07:30)
DX: E66.01 Morbid (severe) obesity due to excess calories (principal); K76.0 Fatty (change of) liver, not elsewhere classified; K66.0 Peritoneal adhesions (postprocedural) (postinfection); I10 Essential (primary) hypertension; E11.9 Type 2 diabetes mellitus without complications; E78.5 Hyperlipidemia, unspecified; M19.90 Unspecified osteoarthritis, unspecified site; F41.9 Anxiety disorder, unspecified; K21.9 Gastro-esophageal reflux disease without esophagitis; Z68.36 Body mass index [BMI] 36.0-36.9, adult; Z86.73 Personal history of transient ischemic attack (TIA), and cerebral infarction without residual deficits; Z79.02 Long term (current) use of antithrombotics/antiplatelets; Z79.899 Other long term (current) drug therapy
CPT/HCPCS: 36415; 80048; 82947; 85014; 85018; 85025; 86850; 86900; 86901; 88304; 88305; 88307; 88342; A4649; C9088; C9145; J0131; J0690; J1100; J1170; J2250; J2405; J2765; J2795; J3010

== ENCOUNTER → 2022-11-22 06:18 | Outpatient (BNV) | payer MEDICARE, OTHER, SELFPAY ==
--- NOTE | 2022-12-03 00:14 | MHC.OFFVISWM ---
Intake Intake Visit Reasons: Obesity, unspecified Allergies demerol Allergy (Unknown, Uncoded 11/17/22 11:07) hives, hallucinations percocet Allergy (Unknown, Uncoded 11/14/22 09:49) Hives [facility] Medical History (Updated 12/01/22 @ 00:02 by Background Daemon) BMI 36.0-36.9,adult Steatosis, liver Asymptomatic coronary heart disease History of endometrial cancer History of cerebrovascular accident BMI 35.0-35.9,adult GERD (gastroesophageal reflux disease) Hepatomegaly Liver fibrosis Depression Bipolar 1 disorder Hyperlipidemia Insulin dependent type 2 diabetes mellitus Myocardial infarction Surgical History (Updated 12/01/22 @ 00:02 by Background Daemon) Hx of laparoscopic partial gastrectomy Hx of section Hx of wisdom tooth extraction Hx of lymph node excision Hx of cholecystectomy Hx of hysterectomy Family History Mother Hypertension Diabetes High cholesterol Stroke Father Diabetes Hypertension High cholesterol Heart attack Sister Diabetes Hypertension Son Stroke Hypertension High cholesterol Social History Household Members: Significant Other Housing: House Are you a primary director long term care to a significant other at home: Yes (SO, son with be available post-op to help with care) Do you presently have visiting nurse or other home services: No Alcohol intake: never Patient Tobacco Use Status: Never used Tobacco Assessment & Plan Assessment & Plan Medications: On Hold lisinopril Hold Comment: Resume on 11/24/22. Check your blood pressure every evening and send it to Dr. Anderson. Do not take the medication before you hear from Dr. Anderson. Do not take the medication if your blood pressure is below 120/70 mmHg. 10 mg PO DAILY Eduardo Anderson MD pravastatin Hold Comment: discuss with Dr Anderson 40 mg PO .DAILY@1900 Laquita Barroso PA-C diltiazem HCl Hold Comment: Resume on 11/24/22. Check your blood pressure every evening and send it to Dr. Anderson. Do not take the medication before you hear from Dr. Anderson. Do not take the medication if your blood pressure is below 120/70 mmHg. 180 mg PO DAILY Eduardo Anderson MD Bifidobacterium infantis (Align) Hold Comment: Discuss restart with Dr Anderson 4 mg PO DAILY Laquita Barroso PA-C Coding
== END ==
PROVIDERS: Admitting Provider Surgery; Visit Provider Surgery
DX: E66.9 Obesity, unspecified (principal); Z68.36 Body mass index [BMI] 36.0-36.9, adult
CPT/HCPCS: 43659; 43775; 99024

== ENCOUNTER 2022-11-29 12:44 | Outpatient (AMB) | payer MEDICARE, OTHER, SELFPAY ==
--- NOTE | 2022-11-29 13:20 | MHC.OFFVISWM ---
Intake VS Expanded 11/29/22 13:32 Height 5 ft 1.5 in Weight 157 lb 12.8 oz BMI 29.3 Intake Visit Reasons: (OV) 7 Days PO LSG 11/22/22 Book Reviewer Required: No Allergies demerol Allergy (Unknown, Uncoded 11/17/22 11:07) hives, hallucinations percocet Allergy (Unknown, Uncoded 11/14/22 09:49) Hives Medication List - Last Reconciled 11/29/22 by ELIJAH Hernandez Bifidobacterium infantis (Align) 4 mg PO DAILY cyclosporine 0.05% (Restasis) 1 drp ophthalmic (eye) .0800+2200 diltiazem HCl 180 mg PO DAILY lisinopril 10 mg PO DAILY lorazepam 2 mg PO .@2200 PRN lorazepam 1 mg PO .@0800+1700 PRN pantoprazole 40 mg PO DAILY pravastatin 40 mg PO .DAILY@1900 ziprasidone HCl 20 mg PO BID@0800,1700 ziprasidone HCl 80 mg PO BID@1900,2200 HPI HPI Comments History of Present Illness Details Patient is a pleasant 67-year-old female who returns today, postop day 7., status post sleeve gastrectomy on 11/22/2022. Patient tolerating celebrate 4 in 1 protein shakes, 3 with 1 scoop each. She is tolerating 40-50 oz of fluids daily. She has had a bowel movement and reports taking Tylenol every 4-6 hours as needed. [facility] Medical History (Updated 11/23/22 @ 00:01 by Kentrell Fitzgerald) BMI 36.0-36.9,adult Steatosis, liver Asymptomatic coronary heart disease History of endometrial cancer History of cerebrovascular accident BMI 35.0-35.9,adult GERD (gastroesophageal reflux disease) Hepatomegaly Liver fibrosis Depression Bipolar 1 disorder Hyperlipidemia Insulin dependent type 2 diabetes mellitus Myocardial infarction Surgical History (Updated 11/29/22 @ 13:24 by Yudith Herzog CMA) Hx of laparoscopic partial gastrectomy Hx of section Hx of wisdom tooth extraction Hx of lymph node excision Hx of cholecystectomy Hx of hysterectomy Family History Mother Hypertension Diabetes High cholesterol Stroke Father Diabetes Hypertension High cholesterol Heart attack Sister Diabetes Hypertension Son Stroke Hypertension High cholesterol Social History Household Members: Significant Other Housing: House Are you a primary farm or ranch animal caretaker to a significant other at home: Yes (SO, son with be available post-op to help with care) Do you presently have visiting nurse or other home services: No Alcohol intake: never Patient Tobacco Use Status: Never used Tobacco Physical Exam Vital Signs: BMI result Body Mass Index 29.3 GI Inspection: Yes incision (Mild bruising otherwise clean, dry, intact.) Assessment & Plan Assessment & Plan (1) S/P laparoscopic sleeve gastrectomy: Code(s): Z98.84 - Bariatric surgery status Plan: POD 7 s/p LSG on 11/22/[address] Anderson Weight loss prior to surgery was 213.7 pounds or 12.4% TBWL. Original weight on 07/14/22 was 190.2 pounds and op weight was 166.5 pounds. Be sure to text Dr Anderson exactly 1 week after surgery your weight from your home scale so he can adjust your meal plan. Continue meal plan until f/u w Laquita in 2 weeks May shower, no submersion in bath for another week Continue abdominal binder with activity and exercise for the next 2 weeks. Exercise prior to surgery was walking, may resume No abdominal exercises for 6 weeks post operatively Will be emailed link to post op video for review Reminded of the pace of drinking, 2 mL per minute, 1 oz/15 min. Patient reports blood pressure 140s over 80s to 90s and has been taking her Cardizem CD 180 as well as her lisinopril 10 mg daily. She did take half dose of her lisinopril last night although this was the 1st time she had done so. She has been discussing with Dr. Anderson her blood pressure readings and for the majority of the time she has been taking her full dose antihypertensives. Coding Level of Care Code Global (04367) Diagnoses S/P laparoscopic sleeve gastrectomy Z98.84
[2022-11-29 13:32] VITALS: BMI 29.3
[2022-11-29 13:56] VITALS: BP 131/63; PULSE 76; TEMP 35.7; O2SAT 97; BMI 29.3
== END 2022-11-29 13:57 | disposition home or self-care (01) ==
PROVIDERS: PCP Internal Medicine Endocrinology, Diabetes & Metabolism; Visit Provider Physician Assistant Surgical
DX: E66.3 Overweight (principal); Z68.29 Body mass index [BMI] 29.0-29.9, adult; Z90.3 Acquired absence of stomach [part of]; Z98.84 Bariatric surgery status
CPT/HCPCS: 99024

== ENCOUNTER → 2022-11-29 12:44 | Outpatient (BNVA) | payer MEDICARE, OTHER, SELFPAY | PROVIDERS: PCP Internal Medicine Endocrinology, Diabetes & Metabolism; Visit Provider Physician Assistant Surgical ==

== ENCOUNTER 2022-11-30 19:30 | Outpatient (AMB) | payer MEDICARE, OTHER, SELFPAY ==
--- NOTE | 2022-12-19 11:29 | A.OFFWM_ITS ---
Intake Intake Visit Reasons: group therapy Allergies demerol Allergy (Unknown, Uncoded 11/17/22 11:07) hives, hallucinations percocet Allergy (Unknown, Uncoded 11/14/22 09:49) Hives [facility] Medical History (Updated 12/01/22 @ 00:02 by Background Daemon) BMI 36.0-36.9,adult Steatosis, liver Asymptomatic coronary heart disease History of endometrial cancer History of cerebrovascular accident BMI 35.0-35.9,adult GERD (gastroesophageal reflux disease) Hepatomegaly Liver fibrosis Depression Bipolar 1 disorder Hyperlipidemia Insulin dependent type 2 diabetes mellitus Myocardial infarction Surgical History (Updated 12/01/22 @ 00:02 by Background Daemon) Hx of laparoscopic partial gastrectomy Hx of section Hx of wisdom tooth extraction Hx of lymph node excision Hx of cholecystectomy Hx of hysterectomy Family History Mother Hypertension Diabetes High cholesterol Stroke Father Diabetes Hypertension High cholesterol Heart attack Sister Diabetes Hypertension Son Stroke Hypertension High cholesterol Social History Household Members: Significant Other Housing: House Are you a primary long term care phlebotomist to a significant other at home: Yes (SO, son with be available post-op to help with care) Do you presently have visiting nurse or other home services: No Alcohol intake: never Patient Tobacco Use Status: Never used Tobacco Behavioral Health Assessment Weight Management Therapy Therapy Notes Details Patient's first post op group. Group therapy on fear and seven steps to help. She was engaged and actively participated. Pt is looking to have weight loss surgery to help improve her health and quality of life. She stated that she was struggling with blood sugar levels and other health concerns. Patient sees a psychiatrist and takes anxiety medication 4x's daily for years. She was in therapy right before pandemic. No history of inpatient psychiatric admissions, alcohol or drug problems, and has never been diagnosed with eating disorder. Presenting Concerns Referral Source provider Reason for referral weight loss surgery evaluation Precipitating Event obesity Living Situation Current Living Situation Own and Rent At risk of losing current housing? No Satisfied with current living situation? Yes Comments Pt lives with her boyfriend who has Parkinson's dementia. Food/Weight/Diet Expectations of change weight loss and maintenance. History/Relationship with food I do not really have a problem with it, I don't binge or overeat, just maybe eating the wrong things . She enjoyed eating desserts, sandwiches, snack throughout the day, fruits. History/Relationship with weight Pt stated that around age 44 she started to struggling with her weight. In 1989, she was at a healthy weight after getting . History/Relationship with dieting WMP in the past and lost 20lbs. Binge Eating Do you frequently eat large amounts of food in short periods of time, not feeling physically hungry? No Do you feel out of control when you eat a large amount of food in a short period of time? No Do you eat large amounts of food rapidly and typically alone? No Night Eating Do you wake up at least once during the night to eat? No If you wake up in the night, do you find that it is necessary to eat something in order to fall back asleep? No Do you have little or no appetite in the morning and feel very hungry in the evening, often overeating between dinner and when you go to bed? No Social History Family history and relationship Pt lives with her boyfriend of 7 years. She has one adult with her ex . She was born in [place] and lived in [place] for a few years, then [place], then [facility] until college aged. Her father was in the and was raised by both parents, she has one sister. Mother in 2011, her anxiety worsened, then she had a stroke 6 months later. She reported having depression all of her life. Parental/Familial reverberatory skimmer obligations boyfriend who has health concerns Developmental history and status no issues known Social support sister, boyfriend, son Community support religious she belongs to [employer] Legal Involvement and History Current or historical involvement with the legal system? 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 No Interested in further educational program? Yes Employment Employment Status Retired Meaningful activities exercise occasionally, also goes to PT Financial Situation Describe current financial situation Comfortable Financial assistance? None Service Service? No Mental Health and Addiction Treatment Current/Past substance abuse? No Current/Past addictive behavior concerns? No Medical and Physical Health Summary Physical exam in the last year? No Pain Screening Current pain? No Medications Is the patient compliant with medications? Yes Does the patient have [place] Guardian in place? Not applicable Does the patient use complimentary health approaches? No Trauma/Abuse History History of trauma? No Assessment & Plan Assessment & Plan (1) Generalized anxiety disorder: Code(s): F41.1 - Generalized anxiety disorder (2) Obesity: Code(s): E66.9 - Obesity, unspecified (3) Diabetes mellitus: Code(s): E11.9 - Type 2 diabetes mellitus without complications Plan Pt reported taking several miligrams of benzodiazepines for anxiety throughout the day severel years now. She stated that she does not feel sedated or over medicated. She presents with weight related issues and seeking weight loss surgery as well as seeking someone to speak to who is [employer] and has had this procedure for additional support. Patient was initially undecided but decided today to have the surgery. She is cleared for surgery when ready. Coding Level of Care Code Grp Psych (52993) Diagnoses Generalized anxiety disorder F41.1 Obesity E66.9 Diabetes mellitus E11.9 Time Spent (min) 60
== END 2022-12-19 11:27 | disposition home or self-care (01) ==
LOC: HO.HBST 19:30
PROVIDERS: PCP Internal Medicine Endocrinology, Diabetes & Metabolism; Visit Provider Counselor Mental Health
DX: F41.1 Generalized anxiety disorder (principal); E66.9 Obesity, unspecified; Z68.36 Body mass index [BMI] 36.0-36.9, adult; E11.9 Type 2 diabetes mellitus without complications

== ENCOUNTER → 2022-11-30 19:30 | Outpatient (BNVA) | payer MEDICARE, OTHER, SELFPAY | PROVIDERS: PCP Internal Medicine Endocrinology, Diabetes & Metabolism; Visit Provider Counselor Mental Health | DX: F41.1 Generalized anxiety disorder (principal); E66.9 Obesity, unspecified; E11.9 Type 2 diabetes mellitus without complications; Z68.36 Body mass index [BMI] 36.0-36.9, adult; Z90.49 Acquired absence of other specified parts of digestive tract; Z90.3 Acquired absence of stomach [part of] | CPT/HCPCS: 90853 ==

== ENCOUNTER 2022-12-22 14:54 | Outpatient (AMB) | payer MEDICARE, OTHER, SELFPAY ==
--- NOTE | 2022-12-22 14:59 | A.OFFVIS_ITS ---
Intake VS Expanded 12/22/22 15:08 BP 138/65 Blood Pressure Location Rt brachial Blood Pressure Position Sitting Pulse 55 Pulse Source Pulse Oximeter Temp 96.4 F L Temperature Source Tympanic Pulse Oximetry 97 Oxygen Delivery Method Room Air Height 5 ft 1.5 in Weight 152 lb 1.5 oz BMI 28.3 Body Fat % 48.5 Body Fat Mass 47.6 Fat Free Mass 105.2 Visceral Fat Rating 9.0 Body Water % 48.5 Body Water Mass 74.0 Muscle Mass/Score 99.8 Basal Metabolic Rate/Score 1,402 Intake Visit Reasons: (OV) PO LSG 11/22/22 Allergies demerol Allergy (Unknown, Uncoded 11/17/22 11:07) hives, hallucinations percocet Allergy (Unknown, Uncoded 11/14/22 09:49) Hives Medication List - Last Reconciled 12/22/22 by Laquita Barroso PA-C clopidogrel (Plavix) 75 mg PO DAILY cyclosporine 0.05% (Restasis) 1 drp ophthalmic (eye) .0800+2200 lorazepam 2 mg PO .@2200 PRN lorazepam 1 mg PO .@0800+1700 PRN pantoprazole 40 mg PO DAILY pravastatin 40 mg PO .DAILY@1900 sucralfate 10 mL PO BID ziprasidone HCl 20 mg PO BID@0800,1700 ziprasidone HCl 80 mg PO BID@1900,2200 HPI HPI Comments History of Present Illness Details Pt is now 5 weeks s/p LSG done on 11/22/22. She denies n/v/abd pain or reflux. Diltiazem 180 mg - last taken 1 month ago, lisinopril is prn - last taken last night [id number] 5 mg. (if over over 131/85) Pt states she has double vision since surgery - after reading. Has appt for eye exam next week. No dizziness. History of cataract surgery on left. Patient taking Plavix, was given [address] Anderson. Has stopped daily ASA 81 mg and wants to know when to restart 8-10am, 11 - 1pm and 2pm - 4pm = Celebra te 4:1 1 scoop with 8 oz UAM Celebrate bar from 5- 8pm. Pt states she feels hungry between 4-5 pm. Total fluids 50 - 60 oz's, Propel 0 8 oz's Exercise - [address] on bike about an hour - 7 days per week. [facility] Medical History (Updated 12/22/22 @ 15:40 by Laquita Barroso PA-C) BMI 36.0-36.9,adult Steatosis, liver Asymptomatic coronary heart disease History of endometrial cancer History of cerebrovascular accident BMI 35.0-35.9,adult GERD (gastroesophageal reflux disease) Hepatomegaly Liver fibrosis Depression Bipolar 1 disorder Hyperlipidemia Insulin dependent type 2 diabetes mellitus Myocardial infarction Surgical History Hx of laparoscopic partial gastrectomy Hx of section Hx of wisdom tooth extraction Hx of lymph node excision Hx of cholecystectomy Hx of hysterectomy Family History Mother Hypertension Diabetes High cholesterol Stroke Father Diabetes Hypertension High cholesterol Heart attack Sister Diabetes Hypertension Son Stroke Hypertension High cholesterol Social History Household Members: Significant Other Housing: House Are you a primary child care aide to a significant other at home: Yes (SO, son with be available post-op to help with care) Do you presently have visiting nurse or other home services: No Alcohol intake: never Patient Tobacco Use Status: Never used Tobacco Assessment & Plan Assessment & Plan (1) S/P laparoscopic sleeve gastrectomy: Code(s): Z98.84 - Bariatric surgery status Plan: 9 lb fat mass loss and 3 lb water gain loss over last 3 weeks. -States hungry between 4- 5pm - will have third shake be 2 scoops protein powder now for this and to reach full vitamin requirements per day. Recommended she stop Propel 0 - may be causing water retention. No change to exercise plans today, discussed idea of starting ST exercises soon. Encouraged her to to text me weekly weights and updates. Next appt in 4 weeks, I will discuss duration of plavix and restart of baby ASA wtih Dr Huynh (2) Double vision: Code(s): H53.2 - Diplopia (3) Bipolar 2 disorder: Code(s): F31.81 - Bipolar II disorder Plan: VSS, no associated symptoms.I do not think that this is directly related to her surgery. New onset of double vision over last week. I recommended that she call her psychiatric provider to see if this could be from her Geodon dose. Has appt for eye exam next week. Coding Level of Care Code Global (97682) Diagnoses S/P laparoscopic sleeve gastrectomy Z98.84 Double vision H53.2 Bipolar 2 disorder F31.81
[2022-12-22 15:08] VITALS: BP 138/65; PULSE 55; TEMP 35.8; O2SAT 97; BMI 28.3
== END 2022-12-22 15:46 | disposition home or self-care (01) ==
PROVIDERS: PCP Internal Medicine Endocrinology, Diabetes & Metabolism; Visit Provider Physician Assistant
DX: Z98.84 Bariatric surgery status (principal); H53.2 Diplopia; F31.81 Bipolar II disorder
CPT/HCPCS: 99024

== ENCOUNTER → 2022-12-22 14:54 | Outpatient (BNVA) | payer MEDICARE, OTHER, SELFPAY | PROVIDERS: PCP Internal Medicine Endocrinology, Diabetes & Metabolism; Visit Provider Physician Assistant ==

== ENCOUNTER 2023-01-19 13:22 | Outpatient (REF) | payer SELFPAY ==
--- NOTE | 2023-01-19 13:57 | MHC.AU.HA3 ---
Hearing Instrument Follow-Up- Binaural Right Ear: Eulogio, Model, Color, Serial Number: Stephani Reynoso [id number] 312-[id number] SN: [id number] Color: [place] Cutting Machine Tender Repair Warranty: 01/29/2022 Cutting Machine Tender Loss and Damage Warranty: 01/29/2022 [facility] Service Plan: 08/02/2025 Battery Size: [address] Light Mechanic/Slim Tube: 2M Earmold/Dome/CShell/SlimTip:Large open dome Type of Wax Guard: CeruShield Dispensed By: [facility] Date of Fittin11/07/2018 Left Ear: Eulogio, Model, Color, Serial Number: Stephani Reynoso [id number] 312-T SN: [id number] Color: [place] Cutting Machine Tender Repair Warranty: 01/29/2022 Cutting Machine Tender Loss and Damage Warranty: 01/29/2022 [facility] Service Plan: 08/02/2025 Battery Size: [address] Light Mechanic/Slim Tube: 2M Earmold/Dome/CShell/SlimTip: Large open dome Type of Wax Guard: CeruShield Dispensed By: [facility] Date of Fittin11/07/2018 Follow-Up Summary: Linda is here for routine maintenance on her hearing aids--no issues reported. Cleaned aids; vacuumed microphones, changed domes, wax guards, tails. Listening check ok. Otoscopy shows nonoccluding wax bilaterally. Return in 6 months for routine maintenance and annual evaluation. Recommendations: Recommendations: Hearing instrument maintenance in 6 months, or sooner if needed. Diagnosis Code(s): Primary Diagnosis: H90.3 Bilateral Sensorineural Hearing Loss Signature: Provider: Abby Sands, [facility]
== END 2023-01-19 13:23 | disposition home or self-care (01) ==
LOC: HO.HAP 13:22
PROVIDERS: Visit Provider Internal Medicine Endocrinology, Diabetes & Metabolism
DX: Z13.89 Encounter for screening for other disorder (principal)

== ENCOUNTER 2023-02-02 13:30 | Outpatient (AMB) | payer MEDICARE, SELFPAY ==
--- NOTE | 2023-02-02 13:23 | MHC.OFFVISWM ---
Intake VS Expanded 02/02/23 13:33 Height 5 ft 1.5 in Weight 143 lb BMI 26.6 Intake Visit Reasons: (OV) PO LSG 11/22/22 Allergies demerol Allergy (Unknown, Uncoded 11/17/22 11:07) hives, hallucinations percocet Allergy (Unknown, Uncoded 11/14/22 09:49) Hives Medication List - Last Reconciled 02/02/23 by Laquita Barroso PA-C clopidogrel (Plavix) 75 mg PO DAILY cyclosporine 0.05% (Restasis) 1 drp ophthalmic (eye) .0800+2200 lorazepam 2 mg PO .@2200 PRN lorazepam 1 mg PO .@0800+1700 PRN ltxiwvjyhhza-qpa-cakq-FA-vit K 45 mg iron- 800 mcg-120 mcg (Bariatric Multivitamins) caps PO pantoprazole 40 mg PO DAILY pravastatin 40 mg PO .DAILY@1900 ziprasidone HCl 20 mg PO BID@0800,1700 ziprasidone HCl 80 mg PO BID@1900,2200 HPI HPI Comments History of Present Illness Details 67 yo woman now 9 weeks s/p LSG. Pt is presently in ED with her boyfriend. Blood sugar was 67 last night, then 54 and took a bite. Lens Polisher weight of 190.1, TBWL is 47.1 lbs or 24.8% No n/v/abd pain or reflux. Meal plan: changed by Dr Castro last week, still in contact with him regularly. Happier with this plan does not need changes. 7a -9am - 4:1 half scoop with 8 oz UAM 9:30 - 11 am - Zone bar 12 - 2pm - half scoop of 4:1 3-5pm half scoop 4:1 6pm- 4 forks each protein and cooked veg 7pm- half bar 9pm - 4:1 half scoop Bike 450 calories 7 d/ week Eyesight still having double vision- has appt scheduled with retina specialist later this month. [facility] Medical History (Updated 12/22/22 @ 15:40 by Laquita Barroso PA-C) BMI 36.0-36.9,adult Steatosis, liver Asymptomatic coronary heart disease History of endometrial cancer History of cerebrovascular accident BMI 35.0-35.9,adult GERD (gastroesophageal reflux disease) Hepatomegaly Liver fibrosis Depression Bipolar 1 disorder Hyperlipidemia Insulin dependent type 2 diabetes mellitus Myocardial infarction Surgical History Hx of laparoscopic partial gastrectomy Hx of section Hx of wisdom tooth extraction Hx of lymph node excision Hx of cholecystectomy Hx of hysterectomy Family History Mother Hypertension Diabetes High cholesterol Stroke Father Diabetes Hypertension High cholesterol Heart attack Sister Diabetes Hypertension Son Stroke Hypertension High cholesterol Social History Household Members: Significant Other Housing: House Are you a primary sub acute care nurse to a significant other at home: Yes (SO, son with be available post-op to help with care) Do you presently have visiting nurse or other home services: No Alcohol intake: never Patient Tobacco Use Status: Never used Tobacco Assessment & Plan Assessment & Plan (1) S/P laparoscopic sleeve gastrectomy: Code(s): Z98.84 - Bariatric surgery status Plan: Pt is now 9 weeks s/p LSG and is receivng meal and exercise plans from Dr Castro. No changes made today. Pt will continue to have a bite of protein bar if blood sugars are low. Next appt with me in 4 weeks, may contact me if needs any changes to plans. Will continue to follow Dr Castro's instructions. Telehealth Telehealth Location of provider rendering services: practice address Location of patient: address on file Patient Identification confirmed using: Name, : Yes Telehealth method: voice only Patient verbally consented to treatment: Yes Patient verbally consented to billing insurance company: Yes Patient informed of any privacy concerns related to visit: Yes Coding Level of Care Code Global (10543) Diagnoses S/P laparoscopic sleeve gastrectomy Z98.84
[2023-02-02 13:33] VITALS: BMI 26.6
== END 2023-02-02 14:00 | disposition home or self-care (01) ==
LOC: HO.HBS 13:57
PROVIDERS: PCP Internal Medicine Endocrinology, Diabetes & Metabolism; Visit Provider Physician Assistant
DX: Z98.84 Bariatric surgery status (principal)
CPT/HCPCS: 99024

== ENCOUNTER → 2023-02-02 13:30 | Outpatient (BNVA) | payer MEDICARE, OTHER, SELFPAY | PROVIDERS: PCP Internal Medicine Endocrinology, Diabetes & Metabolism; Visit Provider Physician Assistant | DX: Z98.84 Bariatric surgery status (principal) | CPT/HCPCS: 99212 ==

== ENCOUNTER 2023-02-24 12:49 | Outpatient (REF) | payer MEDICARE, SELFPAY ==
--- NOTE | ~2023-02-24 | MM_ITS ---
EXAMINATION: MM SCREENING DIGITAL BREAST TOMOSYNTHESIS, BILATERAL CLINICAL INFORMATION: Screening. Asymptomatic. COMPARISON: Mammography: 02/07/2022, 02/05/2021, 02/04/2020, 02/08/2019, dating back to 2016 TECHNIQUE: Digital breast tomosynthesis is performed in both the craniocaudal and mediolateral oblique views along with computer-aided detection (CAD). Synthesized 2D images are generated from the tomosynthesis. FINDINGS: There are scattered areas of fibroglandular density (ACR BI-RADS breast composition Category b). There is a skin lesion in the upper outer left breast, posterior one third. There are a few dystrophic calcifications scattered in the right breast. There are mild vascular calcifications. There are no suspicious masses, suspicious grouped calcifications, or areas of architectural distortion in either breast. The parenchymal pattern is stable from prior exams. MM/MM tomosynthesis screening BI IMPRESSION: No mammographic evidence of malignancy. ASSESSMENT: BI-RADS BI-RADS 2 - Benign Findings RECOMMENDATION: Routine annual mammography screening. 1 year F/U This examination should not preclude the clinical evaluation of a suspicious palpable abnormality. This patient's information was entered into a reminder system with a target due date for their next mammogram.
== END 2023-02-24 12:50 | disposition home or self-care (01) ==
LOC: HO.MAMMO 12:49
PROVIDERS: PCP Internal Medicine Endocrinology, Diabetes & Metabolism; Visit Provider Internal Medicine Endocrinology, Diabetes & Metabolism
DX: Z12.31 Encounter for screening mammogram for malignant neoplasm of breast (principal)
CPT/HCPCS: 77063; 77067

== ENCOUNTER → 2023-02-24 13:00 | Outpatient (BNV) | payer MEDICARE, SELFPAY | PROVIDERS: PCP Internal Medicine Endocrinology, Diabetes & Metabolism; Visit Provider Radiology Diagnostic Radiology | DX: Z12.31 Encounter for screening mammogram for malignant neoplasm of breast (principal) | CPT/HCPCS: 77063; 77067 ==

== ENCOUNTER 2023-03-03 11:00 | Outpatient (AMB) | payer MEDICARE, OTHER, SELFPAY ==
--- NOTE | 2023-03-03 11:07 | MHC.OFFVISWM ---
Intake VS Expanded 03/03/23 11:13 Height 5 ft 1.5 in Weight 138 lb BMI 25.6 Intake Visit Reasons: VIDEO PO LSG 11/22/22 Allergies demerol Allergy (Unknown, Uncoded 11/17/22 11:07) hives, hallucinations percocet Allergy (Unknown, Uncoded 11/14/22 09:49) Hives Medication List - Last Reconciled 03/03/23 by Laquita Barroso PA-C clopidogrel (Plavix) 75 mg PO DAILY cyclosporine 0.05% (Restasis) 1 drp ophthalmic (eye) .0800+2200 docusate sodium (Colace) 100 mg PO TID lorazepam 2 mg PO .@2200 PRN lorazepam 1 mg PO .@0800+1700 dxgmyjkjdgkp-otv-ctud-FA-vit K 45 mg iron- 800 mcg-120 mcg (Bariatric Multivitamins) caps PO pravastatin 40 mg PO .DAILY@1900 sennosides (senna) 8.6 mg PO BID ziprasidone HCl 20 mg PO BID@0800,1700 ziprasidone HCl 80 mg PO BID@1900,2200 HPI HPI Comments History of Present Illness Details 67 yo woman now 3+ 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 Only low BS now are at 2-3 am- take abite of protein bar and it comes up well, asymptomatic. No reflux symptoms, will stop pantoprazole now. Meal plan - per Dr Matthew ibrahim not need any changes 7a - /2 scoop 4;! with 8 UAM 9:30 - same shake 12 pm- 4 forks of protein and vegetable 3pm - /2 scoop 4:1 shake again 6pm - 4 forks each protien and veg 7pm - /2 Zone bar 9pm - /2 scoop 4:1 shake again Exercise Bike for 450 calories dialy for 60 - 75 minutes. [facility] Medical History (Updated 03/03/23 @ 11:23 by Laquita Barroso PA-C) BMI 36.0-36.9,adult Steatosis, liver Asymptomatic coronary heart disease History of endometrial cancer History of cerebrovascular accident BMI 35.0-35.9,adult GERD (gastroesophageal reflux disease) Hepatomegaly Liver fibrosis Depression Bipolar 1 disorder Hyperlipidemia Insulin dependent type 2 diabetes mellitus Myocardial infarction Surgical History (Reviewed 12/22/22 @ 15:14 by Yudith Herzog [facility] [address]) Hx of laparoscopic partial gastrectomy Hx of section Hx of wisdom tooth extraction Hx of lymph node excision Hx of cholecystectomy Hx of hysterectomy Family History (Reviewed 12/22/22 @ 15:14 by Yudith Herzog [facility]) Mother Hypertension Diabetes High cholesterol Stroke Father Diabetes Hypertension High cholesterol Heart attack Sister Diabetes Hypertension Son Stroke Hypertension High cholesterol Social History (Reviewed 12/22/22 @ 15:14 by Yudith Herzog [facility] [address]) Household Members: Significant Other Housing: House Are you a primary health care analyst to a significant other at home: Yes (SO, son with be available post-op to help with care) Do you presently have visiting nurse or other home services: No Alcohol intake: never Patient Tobacco Use Status: Never used Tobacco Assessment & Plan Assessment & Plan (1) Overweight: Code(s): E66.3 - Overweight Plan: Pt is doing very well post op, goal weight of 125 - 130 lbs. No changes made to any plans today - receives instructions form Dr Matthew klein. Was taking 2 Opurity vitmamis per day - will decrease to 1 - because she is having 2 scoops 4:1 shake per day. Next appt with me in 4 weeks - then likely Judy for mainitenance meal plans (2) S/P laparoscopic sleeve gastrectomy: Code(s): Z98.84 - Bariatric surgery status Plan see above Telehealth Telehealth Location of provider rendering services: practice address Location of patient: address on file Patient Identification confirmed using: Name, : Yes Telehealth method: video Patient verbally consented to treatment: Yes Patient verbally consented to billing insurance company: Yes Patient informed of any privacy concerns related to visit: Yes Coding Level of Care Code Tele Est Pt Level 4 (56682) Diagnoses Overweight E66.3 S/P laparoscopic sleeve gastrectomy Z98.84
[2023-03-03 11:13] VITALS: BMI 25.6
== END 2023-03-03 11:30 | disposition home or self-care (01) ==
LOC: HO.HBS 11:31
PROVIDERS: PCP Internal Medicine Endocrinology, Diabetes & Metabolism; Visit Provider Physician Assistant
DX: E66.3 Overweight (principal); Z68.25 Body mass index [BMI] 25.0-25.9, adult; Z90.3 Acquired absence of stomach [part of]; Z98.84 Bariatric surgery status
CPT/HCPCS: 99214

== ENCOUNTER → 2023-03-03 11:00 | Outpatient (BNVA) | payer MEDICARE, OTHER, SELFPAY | PROVIDERS: PCP Internal Medicine Endocrinology, Diabetes & Metabolism; Visit Provider Physician Assistant | DX: E66.3 Overweight (principal); Z98.84 Bariatric surgery status ==

== ENCOUNTER 2023-03-30 09:41 | Outpatient (AMB) | payer MEDICARE, OTHER, SELFPAY ==
--- NOTE | 2023-03-30 09:39 | A.OFFVIS_ITS ---
Intake VS Expanded 03/30/23 09:49 Height 5 ft 1.5 in Weight 139 lb BMI 25.8 Intake Visit Reasons: TV PO LSG 11/22/22 Allergies demerol Allergy (Unknown, Uncoded 11/17/22 11:07) hives, hallucinations percocet Allergy (Unknown, Uncoded 11/14/22 09:49) Hives Medication List - Last Reconciled 03/30/23 by Laquita Barroso PA-C clopidogrel (Plavix) 75 mg PO DAILY cyclosporine 0.05% (Restasis) 1 drp ophthalmic (eye) .0800+2200 docusate sodium (Colace) 100 mg PO TID lorazepam 2 mg PO .@2200 PRN lorazepam 1 mg PO .@0800+1700 studusixghgp-blm-wexc-FA-vit K 45 mg iron- 800 mcg-120 mcg (Bariatric Multivitamins) caps PO pravastatin 40 mg PO .DAILY@1900 sennosides (senna) 8.6 mg PO BID ziprasidone HCl 20 mg PO BID@0800,1700 ziprasidone HCl 80 mg PO BID@1900,2200 HPI HPI Comments History of Present Illness Details Pt is now 4 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 No n/vomiting or reflux. BS - 3am - 2- 3 d/ week, still reading in the 60's, has a half bar and goes back to bed, then in am BS 120's. During the day 120 - 130's. BP this am 86/56, normally SBP 90 - 110. Total liquid per day is only 44 oz per day. Meal plan - per Dr Castro - changing it this week. Is following meal plan. Each day has 4 slices of dried hoang per day for constipation. 7a - 1/2 scoop 4;1 with 8 UAM 9:30 - same shake 12 pm- 5 forks each of protein and veget able 3pm - 1 scoop 4:1 shake again 6pm - 4 forks each protein and veg 7pm - 1/2 Zone bar 9pm - 1/2 scoop 4:1 shake again Exercise Bike for 500 calories daily for 90 minutes. [facility] Medical History (Updated 03/03/23 @ 11:23 by Laquita Barroso PA-C) BMI 36.0-36.9,adult Steatosis, liver Asymptomatic coronary heart disease History of endometrial cancer History of cerebrovascular accident BMI 35.0-35.9,adult GERD (gastroesophageal reflux disease) Hepatomegaly Liver fibrosis Depression Bipolar 1 disorder Hyperlipidemia Insulin dependent type 2 diabetes mellitus Myocardial infarction Surgical History Hx of laparoscopic partial gastrectomy Hx of section Hx of wisdom tooth extraction Hx of lymph node excision Hx of cholecystectomy Hx of hysterectomy Family History Mother Hypertension Diabetes High cholesterol Stroke Father Diabetes Hypertension High cholesterol Heart attack Sister Diabetes Hypertension Son Stroke Hypertension High cholesterol Social History Household Members: Significant Other Housing: House Are you a primary ambulatory care nurse to a significant other at home: Yes (SO, son with be available post-op to help with care) Do you presently have visiting nurse or other home services: No Alcohol intake: never Patient Tobacco Use Status: Never used Tobacco Assessment & Plan Assessment & Plan (1) Overweight: Code(s): E66.3 - Overweight Plan: Pt is 4 months post op LSG without complications. She receives renita meal and exercise plans from Dr Matthew Chaparro so I did not make any changes. We discussed her low blood sugars at 3 am and that increasing her protein and complex carbs in the evening could raise her 3 am BS. Also adding more fluid 64 oz total, psyllium powder should help her constipation. Salt to taste on her meals could also help her low BP's. Next appt at 6 mos post op with labs. I spent 30 minutes in total speaking with the patient via video conference counseling , reviewing records and charting in patients chart. . (2) S/P laparoscopic sleeve gastrectomy: Code(s): Z98.84 - Bariatric surgery status Plan see above Telehealth Telehealth Location of provider rendering services: practice address Location of patient: address on file Patient Identification confirmed using: Name, : Yes Telehealth method: video Patient verbally consented to treatment: Yes Patient verbally consented to billing insurance company: Yes Patient informed of any privacy concerns related to visit: Yes Coding Level of Care Code Tele Est Pt Level 4 (53142) Diagnoses Overweight E66.3 S/P laparoscopic sleeve gastrectomy Z98.84
[2023-03-30 09:49] VITALS: BMI 25.8
== END 2023-03-30 10:11 | disposition home or self-care (01) ==
LOC: HO.HBS 09:41
PROVIDERS: PCP Internal Medicine Endocrinology, Diabetes & Metabolism; Visit Provider Physician Assistant
DX: E66.3 Overweight (principal); Z68.25 Body mass index [BMI] 25.0-25.9, adult; Z90.3 Acquired absence of stomach [part of]; Z98.84 Bariatric surgery status
CPT/HCPCS: 99214

== ENCOUNTER → 2023-03-30 09:41 | Outpatient (BNVA) | payer MEDICARE, OTHER, SELFPAY | PROVIDERS: PCP Internal Medicine Endocrinology, Diabetes & Metabolism; Visit Provider Physician Assistant | DX: E66.3 Overweight (principal); Z98.84 Bariatric surgery status ==

== ENCOUNTER 2023-05-20 07:37 | Outpatient (REF) | payer MEDICARE, OTHER, SELFPAY ==
[2023-05-20 08:25] LABS: MANUAL DIFF FLAG NO
[2023-05-20 08:42] LABS: Basophils Percent Auto 0.3 % (0-2); Eosinophils Absolute Auto 0.1 X10*3/uL (0.0-0.4); Eosinophils Percent Auto 1.3 % (0-4); Hematocrit 38.6 % (37.0-47.0); Hemoglobin 13.8 g/dl (12.0-16.0); Imm Gran Abs Auto 0.01 X10*3/uL (0.00-0.03); Imm Gran Pct Auto 0.1 % (0.0-0.4); Lymphocytes Absolute Auto 1.9 X10*3/uL (1.2-4.9); Lymphocytes Percent Auto 27.7 % (20-40); Mean Corpuscular HGB Conc 35.8 g/dl (31.0-35.0); Mean Corpuscular Hemoglobin 31.4 pg (27.0-33.0); Mean Corpuscular Volume 87.7 fL (80.0-98.0); Mean Platelet Volume 11.2 fL (9.4-12.3); Monocytes Absolute Auto 0.5 X10*3/uL (0.1-1.2); Neutrophils Absolute Auto 4.3 x10*3/uL (2.0-8.3); Neutrophils Percent Auto 62.6 % (45-73); Platelet Count 169 X10*3/uL (160-400); Red Cell Distribution Width 12.6 % (11.0-16.0); White Blood Count 6.8 X10*3/uL (4.8-10.8)
[2023-05-20 08:48] LABS: Estimated Average Glucose 105 mg/dL; Hemoglobin A1c % 5.3 % (<6.0)
[2023-05-20 09:23] LABS: Anion Gap 12 (12-20); Blood Urea Nitrogen 24 mg/dL (9-16); C Reactive Protein 0.13 mg/dL (< or = 0.50); Calcium 9.8 mg/dL (8.4-10.2); Carbon Dioxide 29 mmol/L (22-29); Chloride 107 mmol/L (96-108); Cholesterol 150 mg/dL (<200); Estimated Glomerular Filt Rate > 60; Glucose Random 122 mg/dL (60-115); HDL Cholesterol 49 mg/dL (>40); Iron 72 mcg/dL (30-160); LDL Cholesterol Calculated 82 mg/dL (<100); Percent Iron Saturation 24 % (15-50); Potassium 3.8 mmol/L (3.3-5.1); Sodium 144 mmol/L (135-145); Total Iron Binding Capacity 304 mcg/dL (228-428); Triglycerides 96 mg/dL (<150); Unsaturated Iron Binding 232 ug/dL
[2023-05-20 09:42] LABS: Ferritin 47 ng/mL (10-250); Insulin 7 uU/mL (2-29); TSH reflex Free T4 1.28 uIU/mL (0.32-4.0); Vitamin D 25-OH Total 75.5 ng/mL (>30)
[2023-05-20 09:47] LABS: Folate 15.2 ng/mL (> or = 4.0); Vitamin B12 1507 pg/mL (200-900)
[2023-05-23 13:54] LABS: Zinc 72 mcg/dL (60-130)
[2023-05-25 05:48] LABS: Vitamin A 52 mcg/dL (38-98)
[2023-05-26 12:13] LABS: Vitamin B1 60 nmol/L (8-30)
== END 2023-05-20 07:38 | disposition home or self-care (01) ==
LOC: HO.LAB 07:37
PROVIDERS: Visit Provider Physician Assistant Surgical
DX: E66.3 Overweight (principal); K76.0 Fatty (change of) liver, not elsewhere classified; I25.9 Chronic ischemic heart disease, unspecified; E11.9 Type 2 diabetes mellitus without complications; I10 Essential (primary) hypertension; Z98.84 Bariatric surgery status
CPT/HCPCS: 36415; 80048; 80061; 82306; 82607; 82728; 82746; 83036; 83525; 83540; 84425; 84443; 84590; 84630; 85025; 86140

== ENCOUNTER 2023-05-29 13:49 | Outpatient (AMB) | payer MEDICARE, OTHER, SELFPAY ==
--- NOTE | 2023-05-29 13:51 | A.OFFVIS_ITS ---
Intake VS Expanded 05/29/23 13:59 BP 149/61 H Blood Pressure Location Rt brachial Blood Pressure Position Sitting Pulse 50 Pulse Source Pulse Oximeter Temp 97.0 F Temperature Source Temporal Artery Scan Pulse Oximetry 98 Oxygen Delivery Method Room Air Height 5 ft 1.5 in Weight 138 lb 12.8 oz BMI 25.8 Body Fat % 26.1 Body Fat Mass 36.2 Fat Free Mass 102.6 Visceral Fat Rating 7.0 Body Water % 52.0 Body Water Mass 72.0 Muscle Mass/Score 97.2 Basal Metabolic Rate/Score 1,350 Intake Visit Reasons: (OV) PO LSG 11/22/22 Industrial Technologist Required: No Allergies demerol Allergy (Unknown, Uncoded 11/17/22 11:07) hives, hallucinations percocet Allergy (Unknown, Uncoded 11/14/22 09:49) Hives HPI HPI Comments History of Present Illness Details This?a?68?yo female who is s/p LSG without hiatal hernia repair on?11/22/2022. Presents for six-month post op visit. Weight today is 138.8 pounds, with a BMI of 25.8. There has been a 51.4 pound weight loss,(initial weight 190.2 pounds) since starting the program on 07/14/2022 reflecting a 27 % total body weight loss and a weight loss of 27.7 pounds since surgery (operative weight 166.5 pounds) reflecting a 16.6 % TBWL since surgery. No complaints of nausea, emesis, abdominal pain or reflux. Reports infrequent but normal bowel movements every 1- 2 days. Taking 1 Unjury vitamin daily instead of 2 due to vitamins in shake for the last 4 months. Previously taking cardizem and lisinopril. Not taking for the last 3 months. BP 100-110/60-70. No feelings of lightheadedness. Wants to continue to lose weight. Labs from 05/20/2023 show elevated B1 and B12. Getting her meal plan from Dr Anderson. Present meal plan includes: kiwi celebrate 4 in 1 1/2 in 8 oz unsweetened almond milk, 7-9am another shake 930-1130 am 4 forks protein and 4 forks veg at 12-2 pm 2-3 pm 1/2 zp bar 3-5pm another shake 6-8pm 4 forks protein, 4 forks veg 8-10pm another shake another 1/2 bar 3-4 am due to low BS. Drinkin oz water daily ? Exercise routine includes: stationary bike 7 days per week, 800-900 calories per session Any post op complications: none GEORGE: never DM: rresolved HTN: resolved Hyperlipidemia: improved GERD:?0-5 scale ??0 = no symptoms ??1 = symptoms noticeable but not bothersome 2 =symptoms bothersome but not daily ? 3 = symptoms bothersome and daily 4 = symptoms affect daily activities 5 = symptoms are incapacitating, unable to do daily activities ? How bad is the heartburn: 0 ? Heartburn while lying down: 0 ? Heartburn when standing up: 0 ? Heartburn after meals: 0 ? Does heartburn change your diet: 0 ? Does heartburn wake you up from sleep: 0 ? Do you have difficulty swallowin ? Do you have pain with swallowin ? If you take medicine for your reflux, does this affect your daily life: 0 Satisfaction with present condition - satisfied or not satisfied: satisfied [facility], [facility] Medical History (Updated 03/03/23 @ 11:23 by Laquita Barroso PA-C) BMI 36.0-36.9,adult Steatosis, liver Asymptomatic coronary heart disease History of endometrial cancer History of cerebrovascular accident BMI 35.0-35.9,adult GERD (gastroesophageal reflux disease) Hepatomegaly Liver fibrosis Depression Bipolar 1 disorder Hyperlipidemia Insulin dependent type 2 diabetes mellitus Myocardial infarction Surgical History Hx of laparoscopic partial gastrectomy Hx of section Hx of wisdom tooth extraction Hx of lymph node excision Hx of cholecystectomy Hx of hysterectomy Family History Mother Hypertension Diabetes High cholesterol Stroke Father Diabetes Hypertension High cholesterol Heart attack Sister Diabetes Hypertension Son Stroke Hypertension High cholesterol Social History Household Members: Significant Other Housing: House Are you a primary intensive care ambulance paramedic to a significant other at home: Yes (SO, son with be available post-op to help with care) Do you presently have visiting nurse or other home services: No Alcohol intake: never Patient Tobacco Use Status: Never used Tobacco Physical Exam Const General: cooperative and no acute distress Orientation/consciousness: patient oriented x3 Resp Effort & Inspection: normal respiratory effort Auscultation: clear to auscultation bilaterally Cardio Rate: regular rate Rhythm: regular rhythm GI Inspection: Yes normal to inspection and Yes incision (well healed) Palpation (GI): Soft to palpation and no masses Neuro General: patient oriented x3 Assessment & Plan Assessment & Plan (1) S/P laparoscopic sleeve gastrectomy: Code(s): Z98.84 - Bariatric surgery status Plan: Patient has made excellent progress. She continues to follow her meal plan through Dr. Anderson. We discussed changes to her exercise routine. She has been using her stationary bike for 90 minutes daily. Suggested adding weight training, yoga, body weight exercises. She states that she does not have any formal training in weightlifting and I suggested she either consider going to a gym short-term or working with a warehouse trainer privately. She is certainly may also consider [employer] videos. We will have her return to the office in 6 weeks. Additionally, she was told to stop her vitamin as she is having elevated B vitamins in the setting of continued celebrate 4 in 1 shake. Orders: Orders Insulin 05/20/23 E11.9 - Type 2 diabetes mellitus without complications, E66.3 - Overweight, I10 - Essential (primary) hypertension, I25.9 - Chronic ischemic heart disease, unspecified, K76.0 - Fatty (change of) liver, not elsewhere classified, Z98.84 - Bariatric surgery status Vitamin B12 and Folate 05/20/23 E11.9 - Type 2 diabetes mellitus without c omplications, E66.3 - Overweight, I10 - Essential (primary) hypertension, I25.9 - Chronic ischemic heart disease, unspecified, K76.0 - Fatty (change of) liver, not elsewhere classified, Z98.84 - Bariatric surgery status Zinc 05/20/23 E11.9 - Type 2 diabetes mellitus without complications, E66.3 - Overweight, I10 - Essential (primary) hypertension, I25.9 - Chronic ischemic heart disease, unspecified, K76.0 - Fatty (change of) liver, not elsewhere classified, Z98.84 - Bariatric surgery status C Reactive Protein 05/20/23 E11.9 - Type 2 diabetes mellitus without complications, E66.3 - Overweight, I10 - Essential (primary) hypertension, I25.9 - Chronic ischemic heart disease, unspecified, K76.0 - Fatty (change of) liver, not elsewhere classified, Z98.84 - Bariatric surgery status Vitamin A 05/20/23 E11.9 - Type 2 diabetes mellitus without complications, E66.3 - Overweight, I10 - Essential (primary) hypertension, I25.9 - Chronic ischemic heart disease, unspecified, K76.0 - Fatty (change of) liver, not elsewhere classified, Z98.84 - Bariatric surgery status Basic Metabolic Panel 05/20/23 E11.9 - Type 2 diabetes mellitus without complications, E66.3 - Overweight, I10 - Essential (primary) hypertension, I25.9 - Chronic ischemic heart disease, unspecified, K76.0 - Fatty (change of) liver, not elsewhere classified, Z98.84 - Bariatric surgery status Hemoglobin A1c 05/20/23 E11.9 - Type 2 diabetes mellitus without complications, E66.3 - Overweight, I10 - Essential (primary) hypertension, I25.9 - Chronic ischemic heart disease, unspecified, K76.0 - Fatty (change of) liver, not elsewhere classified, Z98.84 - Bariatric surgery status Complete Blood Count Auto Diff 05/20/23 E11.9 - Type 2 diabetes mellitus without complications, E66.3 - Overweight, I10 - Essential (primary) hypertension, I25.9 - Chronic ischemic heart disease, unspecified, K76.0 - Fatty (change of) liver, not elsewhere classified, Z98.84 - Bariatric surgery status Lipid Panel 05/20/23 E11.9 - Type 2 diabetes mellitus without complications, E66.3 - Overweight, I10 - Essential (primary) hypertension, I25.9 - Chronic ischemic heart disease, unspecified, K76.0 - Fatty (change of) liver, not elsewhere classified, Z98.84 - Bariatric surgery status IRON PROFILE 05/20/23 E11.9 - Type 2 diabetes mellitus without complications, E66.3 - Overweight, I10 - Essential (primary) hypertension, I25.9 - Chronic ischemic heart disease, unspecified, K76.0 - Fatty (change of) liver, not elsewhere classified, Z98.84 - Bariatric surgery status Vitamin B1 05/20/23 E11.9 - Type 2 diabetes mellitus without complications, E66.3 - Overweight, I10 - Essential (primary) hypertension, I25.9 - Chronic ischemic heart disease, unspecified, K76.0 - Fatty (change of) liver, not elsewhere classified, Z98.84 - Bariatric surgery status TSH reflex Free T4 05/20/23 E11.9 - Type 2 diabetes mellitus without complications, E66.3 - Overweight, I10 - Essential (primary) hypertension, I25.9 - Chronic ischemic heart disease, unspecified, K76.0 - Fatty (change of) liver, not elsewhere classified, Z98.84 - Bariatric surgery status Ferritin 05/20/23 E11.9 - Type 2 diabetes mellitus without complications, E66.3 - Overweight, I10 - Essential (primary) hypertension, I25.9 - Chronic ischemic heart disease, unspecified, K76.0 - Fatty (change of) liver, not elsewhere classified, Z98.84 - Bariatric surgery status Vitamin D 25-OH Total 05/20/23 E11.9 - Type 2 diabetes mellitus without complications, E66.3 - Overweight, I10 - Essential (primary) hypertension, I25.9 - Chronic ischemic heart disease, unspecified, K76.0 - Fatty (change of) liver, not elsewhere classified, Z98.84 - Bariatric surgery status Coding Level of Care Code Est Pt Level 3 (34616) Diagnoses S/P laparoscopic sleeve gastrectomy Z.84
[2023-05-29 13:59] VITALS: BP 149/61; PULSE 50; TEMP 36.1; O2SAT 98; BMI 25.8
== END 2023-05-29 14:46 | disposition home or self-care (01) ==
PROVIDERS: PCP Internal Medicine Endocrinology, Diabetes & Metabolism; Visit Provider Physician Assistant Surgical
DX: E66.3 Overweight (principal); Z68.25 Body mass index [BMI] 25.0-25.9, adult; Z90.3 Acquired absence of stomach [part of]; Z98.84 Bariatric surgery status
CPT/HCPCS: 99213

== ENCOUNTER → 2023-05-29 13:49 | Outpatient (BNVA) | payer MEDICARE, OTHER, SELFPAY | PROVIDERS: PCP Internal Medicine Endocrinology, Diabetes & Metabolism; Visit Provider Physician Assistant Surgical | DX: Z98.84 Bariatric surgery status (principal) | CPT/HCPCS: 99212 ==

== ENCOUNTER 2023-07-04 14:03 | Outpatient (REF) | payer SELFPAY | END 2023-07-04 14:04 | disposition home or self-care (01) | LOC: HO.HAP 14:03 | PROVIDERS: Visit Provider Internal Medicine Endocrinology, Diabetes & Metabolism | DX: Z46.1 Encounter for fitting and adjustment of hearing aid (principal); H90.3 Sensorineural hearing loss, bilateral | CPT/HCPCS: V5267 ==

== ENCOUNTER 2023-07-21 15:15 | Outpatient (AMB) | payer MEDICARE, OTHER, SELFPAY ==
--- NOTE | 2023-07-21 13:52 | A.OFFVIS_ITS ---
VS Expanded 07/21/23 13:53 Height 5 ft 1.5 in Weight 138 lb 12.8 oz BMI 25.8 Body Fat % 37.9 Body Fat Mass 52.6 Intake Visit Reasons: PO LSG 11/22/22 Allergies demerol Allergy (Unknown, Uncoded 11/17/22 11:07) hives, hallucinations percocet Allergy (Unknown, Uncoded 11/14/22 09:49) Hives HPI Comments Details: This?a?68?yo female who is s/p LSG without hiatal hernia repair on?11/22/2022. Presents for 8 month post op visit. Weight today is 138.8 pounds, with a BMI of 25.8. There has been a 51.4 pound weight loss,(initial weight 190.2 pounds) since starting the program on 07/14/2022 reflecting a 27 % total body weight loss and a weight loss of 27.7 pounds since surgery (operative weight 166.5 pounds) reflecting a 16.6 % TBWL since surgery. No complaints of nausea, emesis, abdominal pain or reflux. Reports infrequent but normal bowel movements every 1- 2 days. Taking 1 Unjury vitamin daily instead of 2 due to vitamins in shake for the last 4 months. Previously taking cardizem and lisinopril. Not taking for the last 3 months. BP 100-110/60-70. No feelings of lightheadedness. Wants to continue to lose weight. Labs from 05/20/2023 show elevated B1 and B12. just had r1 toe nail removal and has not been able to use treadmill for one week. Dr Pavon. Getting her meal plan from Dr Anderson. Present meal plan includes: kiwi celebrate 4 in 1 1/2 in 8 oz unsweetened almond milk, 7-9am another shake 930-1130 am 4 forks protein and 4 forks veg at 12-2 pm 2-3 pm 1/2 zp bar 3-5pm another shake 6-8pm 4 forks protein, 4 forks veg 8-10pm another shake another 1/2 bar 3-4 am due to low BS. Drinkin oz water daily ? Exercise routine includes: treadmill 400 calories 35 min stationary bike 400 alban 90 min 7 days per week, 800-[address] [facility] Medical History (Updated 03/03/23 @ 11:23 by Laquita Barroso PA-C) BMI 36.0-36.9,adult Steatosis, liver Asymptomatic coronary heart disease History of endometrial cancer History of cerebrovascular accident BMI 35.0-35.9,adult GERD (gastroesophageal reflux disease) Hepatomegaly Liver fibrosis Depression Bipolar 1 disorder Hyperlipidemia Insulin dependent type 2 diabetes mellitus Myocardial infarction Surgical History Hx of laparoscopic partial gastrectomy Hx of section Hx of wisdom tooth extraction Hx of lymph node excision Hx of cholecystectomy Hx of hysterectomy Family History Mother Hypertension Diabetes High cholesterol Stroke Father Diabetes Hypertension High cholesterol Heart attack Sister Diabetes Hypertension Son Stroke Hypertension High cholesterol Social History Household Members: Significant Other Housing: House Are you a primary respiratory care assistant to a significant other at home: Yes (SO, son with be available post-op to help with care) Do you presently have visiting nurse or other home services: No Alcohol intake: never Patient Tobacco Use Status: Never used Tobacco Telehealth Telehealth Telehealth Platform: Telephone Location of provider rendering services: practice address Location of patient: address on file Patient Identification confirmed using: Name, : Yes Telehealth method: voice only Patient verbally consented to treatment: Yes Patient verbally consented to billing insurance company: Yes Patient informed of any privacy concerns related to visit: Yes Minutes spent on Phone/Video with Pt.: 15 Assessment & Plan Assessment & Plan (1) S/P laparoscopic sleeve gastrectomy: Code(s): Z98.84 - Bariatric surgery status Category: Surgical Plan: Patient is generally doing very well. She does state that she hit a plateau. Discussed strategies to improve that including changing exercise routines, incorporating weight training, changing intensities or programs as well as duration and calories burned. She is satisfied with her meal plan and does not wish to change it at this time. She was however wanting to add different protein sources in, discussed fish, shrimp, pork, beef. She may additionally have 2 eggs as an option. She appreciated this information and will adjust accordingly. She will call or text with any questions or concerns.
[2023-07-21 13:53] VITALS: BMI 25.8
--- OUTSIDE RECORDS SUMMARY | 2023-07-21 15:17 | XMS_ITS | Continuity of Care Document ---
Author Organization [facility] Address [address] [place] [address]- Care Team Providers Care Cancer Registry Manager Name Role Phone Huber Jones MD Primary Care Physician Encounter [facility] Date(s): 03/10/23 - 07/08/23 [facility] [address] [place] [id number]- Attending Physician: Neeru Farfan MD Admitting Physician: Neeru Farfan MD Referring Physician: Huber Jones MD Allergies, [...] 18:08:51 EST Start Date: 04/06/10 Status: Ordered clopidogrel 75 mg oral tablet 75 mg, 1, tablet, By Mouth, Daily, # 30 tablet, Refills 0, Maintenance, 06/08/23 14:05:00 EDT, Partial fill upon patient request if the prescription is for a schedule II opioid drug. Start Date: 06/08/23 Status: Ordered Colace Clear = 50 mg, [...] 06/15/21 13:03:00 EDT, Route to Pharmacy Electronically, [facility]/pharmacy #[id number],Partial fill upon patient request if the prescripti... Start Date: 06/15/21 Status: Ordered Diflucan 150 mg oral tablet 1 tablet = 150 mg, By Mouth, Once, # 1 tablet, 0 Refills, Soft Stop, 06/25/21 16:13:00 EDT, Tablet,[facility]/pharmacy #[id number], Partial fill upon patient request [...] 0 Refills, Soft Stop, 11/23/21 14:07:00 EDT, Tablet,[facility]/pharmacy #[id number], Partial fill upon patient request if the prescription is for a schedule II opioid drug., 156.2, cm, 08/19/21 14:53:00 EDT, Height,... Start Date: 11/23/21 Status: Ordered fluconazole 150 mg oral tablet 1 tablet = 150 mg, By Mouth, Once, # 1 tablet, 0 Refills, Soft Stop, 06/22/21 14:47:00 EDT, Tablet,[facility]/pharmacy #[id number], Partial fill upon patient request [...] tablet, Refills 1, Route to Pharmacy Electronically, [id number], 156.2, cm, 07/07/21 10:00:00 EDT, Height, 82.7, [...] opioid drug. Start Date: 06/10/21 Status: Ordered [id number] oral powder for reconstitution = 17 Gm, By Mouth, Daily, DISSOLVE IN WATER BEFORE TAKING, # 238 Gm, 0 Refills, [id number], 14, TAKE 17 GM BY MOUTH DAILY. DISSOLVE IN WATER BEFORE TAKING, 154.9, cm, 06/15/21 12:37:00 EDT, Height, 81.3, kg, 06/15/21 12:37:00 EDT, Dry Weight Start Date: 06/25/21 Status: Ordered pravastatin 40 mg oral tablet 1 tablet = 40 mg, By Mouth, Daily at supper, 0 Refills, Maintenance, 05/09/12 0:55:14 EDT Start Date: 05/09/12 Status: Ordered Refresh - solution re, Eyes, Both, 2 times a day, PRN for dry eyes, # 15 mL, 0 Refills, Maintenance, 06/08/23 14:05:00EDT, Solution, Partial fill upon patient request if the prescription is for a schedule II opioid drug. Start Date: 06/08/23 Status: Ordered Restasis Every 12 hours, 0 Refills, Maintenance, 08/19/21 14:57:00 EDT, Partial fill upon patient request ifthe prescription is for a schedule II opioid drug. Start Date: 08/19/21 Status: Ordered Restasis 0.05% ophthalmic emulsion 1 drops, Every 12 hours, 0 Refills, Maintenance, 06/08/23 14:06:00 EDT, Partial fill upon patient request if the prescription is for a schedule II opioid drug. Start Date: 06/08/23 Status: Ordered Restasis 0.05% ophthalmic emulsion 1 [...] 14:00:00 EDT Start Date: 05/03/19 Status: Ordered tretinoin 0.025% topical cream 1 application, Topically, Daily at bedtime, # 20 Gm, 0 Refills, Maintenance, 06/08/23 14:06:00 EDT,Cream, Partial fill upon patient request if the prescription is for a schedule II opioid drug. Start Date: 4/18/24 Status: Ordered Trulicity Pen 0.75 mg/0.5 mL [...] Team Personnel Name: Huber Jones MD Position: [facility] Physician - Endocrinology Member Role: PCP Address: Address: [address] [place] [address] [facility] [address]- Care Team Related Persons Name: SAVAGE PERKINS Address: [place] [address] Name: DELROY POLLARD Address: home [address] [place] [id number] Name: DELROY WESTFALL Address: home [address] [place] [id number]
== END 2023-07-21 15:16 | disposition home or self-care (01) ==
LOC: HO.HBS 15:15
PROVIDERS: PCP Internal Medicine Endocrinology, Diabetes & Metabolism; Visit Provider Physician Assistant Surgical
DX: E66.3 Overweight (principal); Z68.25 Body mass index [BMI] 25.0-25.9, adult; Z90.3 Acquired absence of stomach [part of]; Z98.84 Bariatric surgery status
CPT/HCPCS: 99213

== ENCOUNTER → 2023-07-21 15:15 | Outpatient (BNVA) | payer SELFPAY | PROVIDERS: PCP Internal Medicine Endocrinology, Diabetes & Metabolism; Visit Provider Physician Assistant Surgical | DX: E66.3 Overweight (principal); Z98.84 Bariatric surgery status; K76.0 Fatty (change of) liver, not elsewhere classified; I25.9 Chronic ischemic heart disease, unspecified; E11.9 Type 2 diabetes mellitus without complications; I10 Essential (primary) hypertension ==

== ENCOUNTER 2023-08-16 13:39 | Outpatient (AMB) | payer MEDICARE, OTHER, SELFPAY ==
--- NOTE | 2023-08-16 13:42 | MHC.OFFVISWM ---
VS Expanded 08/16/23 13:48 BP 152/67 H Blood Pressure Location Rt brachial Blood Pressure Position Sitting Pulse 55 Pulse Source Pulse Oximeter Temp 96.1 F L Temperature Source Tympanic Pulse Oximetry 98 Oxygen Delivery Method Room Air Height 5 ft 1.5 in Weight 141 lb 3.2 oz BMI 26.2 Body Fat % 25.5 Body Fat Mass 36.0 Fat Free Mass 105.2 Visceral Fat Rating 7.0 Body Water % 52.5 Body Water Mass 74.0 Muscle Mass/Score 99.8 Basal Metabolic Rate/Score 1,381 Intake Visit Reasons: OV PO LSG 11/22/22 Airport Driver Required: No Allergies demerol Allergy (Unknown, Uncoded 11/17/22 11:07) hives, hallucinations percocet Allergy (Unknown, Uncoded 11/14/22 09:49) Hives Medication List - Last Reconciled 08/16/23 by ELIJAH Hernandez clopidogrel (Plavix) 75 mg PO DAILY cyclosporine 0.05% (Restasis) 1 drp ophthalmic (eye) .0800+2200 docusate sodium (Colace) 100 mg PO TID lorazepam 2 mg PO .@2200 PRN lorazepam 1 mg PO .@0800+1700 [id number] K 45 mg iron- 800 mcg-120 mcg (Bariatric Multivitamins) caps PO pravastatin 40 mg PO .DAILY@1900 sennosides (senna) 8.6 mg PO BID ziprasidone HCl 20 mg PO BID@0800,1700 ziprasidone HCl 80 mg PO BID@1900,2200 HPI Comments Details: This?a?68?yo female who is s/p LSG without hiatal hernia repair on?11/22/2022. Presents for 8 month post op visit. Weight today is 141.2 pounds, with a BMI of 26.2. There has been a 49 pound weight loss,(initial weight 190.2 pounds) since starting the program on 07/14/2022 reflecting a 25.7 % total body weight loss and a weight loss of 25.3 pounds since surgery (operative weight 166.5 pounds) reflecting a 15.1 % TBWL since surgery. No complaints of nausea, emesis, abdominal pain or reflux. Reports infrequent but normal bowel movements every 1-2 days. Labs from 05/20/2023 show elevated B1 and B12. Has since decreased her supplemental vitamin intake overall, she has gained 2.4 lb of muscle and lost 0.2 lb of fat and gained 0.5 lb of water. Overall, satisfied with her energy level and sleeping better. She wants to continue to lose weight and will do so. Getting her meal plan from Dr Anderson. Present meal plan includes: kiwi celebrate 4 in 1 1/2 in 8 oz unsweetened almond milk, 7-9am another shake 930-1130 am 4 forks protein and 4 forks veg at 12-2 pm 2-3 pm 1/2 zp bar 3-5pm another shake 6-8pm 4 forks protein, 4 forks veg 8-10pm another shake another 1/2 bar 3-4 am due to low BS. Drinkin oz water daily Exercise plan: Gym daily burning 400 calories on multiple cardio activities including stationary bike and rowing machine additionally doing weight training [facility] Medical History (Updated 03/03/23 @ 11:23 by Laquita Barroso PA-C) BMI 36.0-36.9,adult Steatosis, liver Asymptomatic coronary heart disease History of endometrial cancer History of cerebrovascular accident BMI 35.0-35.9,adult GERD (gastroesophageal reflux disease) Hepatomegaly Liver fibrosis Depression Bipolar 1 disorder Hyperlipidemia Insulin dependent type 2 diabetes mellitus Myocardial infarction Surgical History Hx of laparoscopic partial gastrectomy Hx of section Hx of wisdom tooth extraction Hx of lymph node excision Hx of cholecystectomy Hx of hysterectomy Family History Mother Hypertension Diabetes High cholesterol Stroke Father Diabetes Hypertension High cholesterol Heart attack Sister Diabetes Hypertension Son Stroke Hypertension High cholesterol Social History Household Members: Significant Other Housing: House Are you a primary home care liaison to a significant other at home: Yes (SO, son with be available post-op to help with care) Do you presently have visiting nurse or other home services: No Alcohol intake: never Patient Tobacco Use Status: Never used Tobacco Physical Exam Const General: healthy appearing and no acute distress Resp Effort & Inspection: normal respiratory effort Auscultation: clear to auscultation bilaterally Cardio Rate: regular rate Rhythm: regular rhythm GI Auscultation: normal bowel sounds Extrem General: Yes normal to inspection Assessment & Plan Assessment & Plan (1) S/P laparoscopic sleeve gastrectomy: Code(s): Z98.84 - Bariatric surgery status Category: Surgical Plan: Continue current meal plan as she is very satisfied with this. Continue with her dedicated cardio exercise. Text weekly with any questions or concerns.
[2023-08-16 13:48] VITALS: BP 152/67; PULSE 55; TEMP 35.6; O2SAT 98; BMI 26.2
== END 2023-08-16 14:20 | disposition home or self-care (01) ==
PROVIDERS: PCP Internal Medicine Endocrinology, Diabetes & Metabolism; Visit Provider Physician Assistant Surgical
DX: E66.3 Overweight (principal); Z68.26 Body mass index [BMI] 26.0-26.9, adult; Z90.3 Acquired absence of stomach [part of]; Z98.84 Bariatric surgery status
CPT/HCPCS: 99213

== ENCOUNTER → 2023-08-16 13:39 | Outpatient (BNVA) | payer MEDICARE, OTHER, SELFPAY | PROVIDERS: PCP Internal Medicine Endocrinology, Diabetes & Metabolism; Visit Provider Physician Assistant Surgical | DX: Z98.84 Bariatric surgery status (principal) | CPT/HCPCS: 99212 ==

== ENCOUNTER 2023-09-22 13:46 | Outpatient (REF) | payer MEDICARE, OTHER, SELFPAY ==
--- NOTE | 2023-09-22 14:42 | MHC.AU.HA3 ---
Hearing Instrument Follow-Up- Binaural Date of Visit: 09/22/23 Right Ear: Eulogio, Model, Color, Serial Number: Stephani Reynoso [id number] 312-[id number] SN: [id number] Color: [place] [employer]er Repair Warranty: 01/29/2022 [employer]er Loss and Damage Warranty: 01/29/2022 [facility] Service Plan: 08/02/2025 Battery Size: 312 Theatre Professor/Slim Tube: 2M Earmold/Dome/CShell/SlimTip:Medium vented dome with retention tail Type of Wax Guard: CeruShield Dispensed By: [facility] Date of Fittin11/07/2018 Left Ear: Eulogio, Model, Color, Serial Number: Stephani Reynoso [id number] 312-[id number] SN: [id number] Color: [place] [employer] Assembler Repair Warranty: 01/29/2022 [employer] Assembler Loss and Damage Warranty: 01/29/2022 [facility] Service Plan: 08/02/2025 Battery Size: 312 Theatre Professor/Slim Tube: 2M Earmold/Dome/CShell/SlimTip: Medium vented dome with retention tail Type of Wax Guard: CeruShield Dispensed By: [facility] Date of Fittin11/07/2018 Follow-Up Summary: Routine hearing aid maintenance following updated hearing test. Significant wax build up noted on domes, wax guards, retention tails/receivers. Recommended right-sided wax removal by PCP. Cleaned both hearing aids. Replaced domes, wax guards, and retention tails. Vacuumed microphones. Ran through dehumidifier. Listening check demonstrated hearing aids amplifying clearly. Hearing is stable; however, noticing increasing hearing difficulties. Asking for more repetition. Switched to medium vented domes (from open domes) and reprogrammed. Sound quality louder in office but tolerable. Willing to acclimate, will call if issues arise. Provided four extra vented domes. Also gave print out of previous note from 01/19/2023, as Linda requested documentation of purchasing the Service Agreement. Scheduled clean and check on 04/05/2024. Recommendations: Hearing instrument follow-up or maintenance as needed. Please contact our clinic with any questions or concerns. Diagnosis Code(s): Primary Diagnosis: H90.3 Bilateral Sensorineural Hearing Loss Signature: Provider: Helga Zambrano, [facility]
== END 2023-09-22 13:47 | disposition home or self-care (01) ==
LOC: HO.SH 13:46
PROVIDERS: Visit Provider Physician Assistant
DX: Z46.1 Encounter for fitting and adjustment of hearing aid (principal); H90.3 Sensorineural hearing loss, bilateral
CPT/HCPCS: 92552; 92556

== ENCOUNTER 2023-10-20 13:20 | Outpatient (AMB) | payer MEDICARE, OTHER, SELFPAY ==
--- NOTE | 2023-10-20 13:24 | A.OFFVIS_ITS ---
VS Expanded 10/20/23 13:32 BP 154/64 H Blood Pressure Location Rt brachial Blood Pressure Position Sitting Pulse 84 Pulse Source Pulse Oximeter Temp 96.2 F L Temperature Source Tympanic Pulse Oximetry 98 Oxygen Delivery Method Room Air Height 5 ft 1.5 in Weight 139 lb 3.2 oz BMI 25.9 Body Fat % 50.6 Body Fat Mass 39.2 Fat Free Mass 99.8 Visceral Fat Rating 8.0 Body Water % 50.6 Body Water Mass 70.4 Muscle Mass/Score 94.8 Basal Metabolic Rate/Score 1,324 Intake Visit Reasons: OV PO LSG 11/22/22 Allergies demerol Allergy (Unknown, Uncoded 10/20/23 13:38) hives, hallucinations percocet Allergy (Unknown, Uncoded 10/20/23 13:38) Hives HPI Comments Details: This?a?68?yo female who is s/p LSG without hiatal hernia repair on?11/22/2022. Presents for 10 month post op visit. Weight today is 139.2 pounds, with a BMI of 25.9. There has been a 51 pound weight loss,(initial weight 190.2 pounds) since starting the program on 07/14/2022 reflecting a 25.9 % total body weight loss and a weight loss of 27.3 pounds since surgery (operative weight 166.5 pounds) reflecting a 15.3 % TBWL since surgery. No complaints of nausea, emesis, abdominal pain or reflux. Reports infrequent but normal bowel movements every 1- 2 days. Getting her meal plan from Dr Anderson. Present meal plan includes: kiwi celebrate 4 in 1 1/2 in 8 oz unsweetened almond milk, 7-9am another shake 930-1130 am 4 forks protein and 4 forks veg at 12-2 pm 2-3 pm 1/2 zp bar 3-5pm another shake 6-8pm 4 forks protein, 4 forks veg 8-10pm another shake another 1/2 bar 3-4 am due to low BS. Drinkin oz water daily Exercise plan: Gym daily burning 400 calories on multiple cardio activities including stationary bike and rowing machine additionally doing weight training [facility] Medical History (Updated 03/03/23 @ 11:23 by Laquita Barroso PA-C) BMI 36.0-36.9,adult Steatosis, liver Asymptomatic coronary heart disease History of endometrial cancer History of cerebrovascular accident BMI 35.0-35.9,adult GERD (gastroesophageal reflux disease) Hepatomegaly Liver fibrosis Depression Bipolar 1 disorder Hyperlipidemia Insulin dependent type 2 diabetes mellitus Myocardial infarction Surgical History Hx of laparoscopic partial gastrectomy Hx of section Hx of wisdom tooth extraction Hx of lymph node excision Hx of cholecystectomy Hx of hysterectomy Family History Mother Hypertension Diabetes High cholesterol Stroke Father Diabetes Hypertension High cholesterol Heart attack Sister Diabetes Hypertension Son Stroke Hypertension High cholesterol Social History Household Members: Significant Other Housing: House Are you a primary adult day care worker to a significant other at home: Yes (SO, son with be available post-op to help with care) Do you presently have visiting nurse or other home services: No Alcohol intake: never Patient Tobacco Use Status: Never used Tobacco Physical Exam Const General: healthy appearing and no acute distress Resp Effort & Inspection: normal respiratory effort Auscultation: clear to auscultation bilaterally Cardio Rate: regular rate Rhythm: regular rhythm GI Auscultation: normal bowel sounds Extrem General: Yes normal to inspection Assessment & Plan Assessment & Plan (1) Overweight: Code(s): E66.3 - Overweight Category: Medical Plan: Overall doing very well. Satisfied with her meal plan and exercise plan would recommend continuing such. She will follow up in the office in approximately 2 months for her 1 year postoperative follow-up visit.
[2023-10-20 13:32] VITALS: BP 154/64; PULSE 84; TEMP 35.7; O2SAT 98; BMI 25.9
== END 2023-10-20 13:52 | disposition home or self-care (01) ==
PROVIDERS: PCP Internal Medicine Endocrinology, Diabetes & Metabolism; Visit Provider Physician Assistant Surgical
DX: E66.3 Overweight (principal); Z68.25 Body mass index [BMI] 25.0-25.9, adult
CPT/HCPCS: 99213

== ENCOUNTER → 2023-10-20 13:20 | Outpatient (BNVA) | payer MEDICARE, OTHER, SELFPAY | PROVIDERS: PCP Internal Medicine Endocrinology, Diabetes & Metabolism; Visit Provider Physician Assistant Surgical | DX: E66.3 Overweight (principal); Z71.3 Dietary counseling and surveillance; Z98.84 Bariatric surgery status; Z68.25 Body mass index [BMI] 25.0-25.9, adult | CPT/HCPCS: 99212 ==

== ENCOUNTER 2023-11-28 10:31 | Outpatient (REF) | payer SELFPAY | END 2023-11-28 10:32 | disposition home or self-care (01) | LOC: HO.HAP 10:31 | PROVIDERS: Visit Provider Internal Medicine Endocrinology, Diabetes & Metabolism | DX: Z13.89 Encounter for screening for other disorder (principal) ==

== ENCOUNTER 2023-12-21 13:17 | Outpatient (AMB) | payer MEDICARE, OTHER, SELFPAY ==
--- NOTE | 2023-12-21 13:24 | A.OFFVIS_ITS ---
VS Expanded 12/21/23 13:40 BP 176/76 H Blood Pressure Location Rt brachial Blood Pressure Position Sitting Pulse 46 L Pulse Source Pulse Oximeter Temp 97.3 F Temperature Source Temporal Artery Scan Pulse Oximetry 97 Oxygen Delivery Method Room Air Height 5 ft 1.5 in Weight 141 lb 3.2 oz BMI 26.2 Body Fat % 27.3 Body Fat Mass 38.6 Fat Free Mass 102.6 Visceral Fat Rating 8.0 Body Water % 51.1 Body Water Mass 72.0 Muscle Mass/Score 97.2 Basal Metabolic Rate/Score 1,354 Intake Visit Reasons: OV PO LSG 11/22/22 Allergies demerol Allergy (Unknown, Uncoded 10/20/23 13:38) hives, hallucinations percocet Allergy (Unknown, Uncoded 10/20/23 13:38) Hives HPI Comments Details: This?a?68?yo female who is s/p LSG without hiatal hernia repair on?11/22/2022. Presents for 1 year post op visit. Weight today is 141.2 pounds, with a BMI of 26.2. There has been a 53 pound weight loss,(initial weight 190.2 pounds) since starting the program on 07/14/2022 reflecting a 26 % total body weight loss and a weight loss of 27.3 pounds since surgery (operative weight 166.5 pounds) reflecting a 15.3 % TBWL since surgery. No complaints of nausea, emesis, abdominal pain or reflux. Reports infrequent but normal bowel movements every 1- 2 days. Getting her meal plan from Dr Anderson. She had mandibular dental extraction 2 weeks ago and has been on puree meals ever since Present meal plan includes: celebrate 4 in 1 1/2 in 8 oz unsweetened almond milk x 4 Two meals, puree, 4 forks each Drinkin oz water daily Exercise plan: Gym daily burning 400 calories on multiple cardio activities including stationary bike and rowing machine additionally doing weight training Any post op complications: none GEORGE: never DM: resolved HTN: resolved Hyperlipidemia: improved GERD:?0-5 scale ??0 = no symptoms ??1 = symptoms noticeable but not bothersome 2 =symptoms bothersome but not daily ? 3 = symptoms bothersome and daily 4 = symptoms affect daily activities 5 = symptoms are incapacitating, unable to do daily activities ? How bad is the heartburn: 0 ? Heartburn while lying down: 0 ? Heartburn when standing up: 0 ? Heartburn after meals: 0 ? Does heartburn change your diet: 0 ? Does heartburn wake you up from sleep: 0 ? Do you have difficulty swallowin ? Do you have pain with swallowin ? If you take medicine for your reflux, does this affect your daily life: 0 Satisfaction with present condition - satisfied or not satisfied: partially satisfied [facility] Medical History (Updated 03/03/23 @ 11:23 by Laquita Barroso PA-C) BMI 36.0-36.9,adult Steatosis, liver Asymptomatic coronary heart disease History of endometrial cancer History of cerebrovascular accident BMI 35.0-35.9,adult GERD (gastroesophageal reflux disease) Hepatomegaly Liver fibrosis Depression Bipolar 1 disorder Hyperlipidemia Insulin dependent type 2 diabetes mellitus Myocardial infarction Surgical History Hx of laparoscopic partial gastrectomy Hx of section Hx of wisdom tooth extraction Hx of lymph node excision Hx of cholecystectomy Hx of hysterectomy Family History Mother Hypertension Diabetes High cholesterol Stroke Father Diabetes Hypertension High cholesterol Heart attack Sister Diabetes Hypertension Son Stroke Hypertension High cholesterol Social History Household Members: Significant Other Housing: House Are you a primary director career to a significant other at home: Yes (SO, son with be available post-op to help with care) Do you presently have visiting nurse or other home services: No Alcohol intake: never Patient Tobacco Use Status: Never used Tobacco Physical Exam Const General: healthy appearing and no acute distress Resp Effort & Inspection: normal respiratory effort Auscultation: clear to auscultation bilaterally Cardio Rate: regular rate Rhythm: regular rhythm GI Auscultation: normal bowel sounds Extrem General: Yes normal to inspection Assessment & Plan Assessment & Plan (1) S/P laparoscopic sleeve gastrectomy: Code(s): Z98.84 - Bariatric surgery status Category: Surgical Plan: Change meal plan 2 celebrate 4 in 1, half scoop, half scoop, 1 scoop, 1 scoop, 1 meal for forks protein 4 forks vegetables Encouraged to use her home health aide time that is 3 days per week, 2 hours per session so that she may go to the gym to exercise. She has an incredible burden helping to care for her boyfriend who has Parkinson's disease. Check 1 year postop labs. Return to clinic 4-6 weeks Orders: Orders Insulin Today E78.5 - Hyperlipidemia, unspecified, I10 - Essential (primary) hypertension, R16.0 - Hepatomegaly, not elsewhere classified, Z98.84 - Bariatric surgery status Hemoglobin A1c Today E78.5 - Hyperlipidemia, unspecified, I10 - Essential (primary) hypertension, R16.0 - Hepatomegaly, not elsewhere classified, Z98.84 - Bariatric surgery status Lipid Panel Today E78.5 - Hyperlipidemia, unspecified, I10 - Essential (primary) hypertension, R16.0 - Hepatomegaly, not elsewhere classified, Z98.84 - Bariatric surgery status Zinc Today E78.5 - Hyperlipidemia, unspecified, I10 - Essential (primary) hypertension, R16.0 - Hepatomegaly, not elsewhere classified, Z98.84 - Bariatric surgery status C Reactive Protein Today E78.5 - Hyperlipidemia, unspecified, I10 - Essential (primary) hypertension, R16.0 - Hepatomegaly, not elsewhere classified, Z98.84 - Bariatric surgery status Vitamin A Today E78.5 - Hyperlipidemia, unspecified, I10 - Essential (primary) hypertension, R16.0 - Hepatomegaly, not elsewhere classified, Z98.84 - Bariatric surgery status TSH reflex Free T4 Today E78.5 - Hyperlipidemia, unspecified, I10 - Essential (primary) hypertension, R16.0 - Hepatomegaly, not elsewhere classified, Z98.84 - Bariatric surgery status Ferritin Today E78.5 - Hyperlipidemia, unspecified, I10 - Essential (primary) hypertension, R16.0 - Hepatomegaly, not elsewhere classified, Z98.84 - Bariatric surgery status Basic Metabolic Panel Today E78.5 - Hyperlipidemia, unspecified, I10 - Essential (primary) hypertension, R16.0 - Hepatomegaly, not elsewhere classified, Z98.84 - Bariatric surgery status Complete Blood Count Auto Diff Today E78.5 - Hyperlipidemia, unspecified, I10 - Essential (primary) hypertension, R16.0 - Hepatomegaly, not elsewhere classified, Z98.84 - Bariatric surgery status IRON PROFILE Today E78.5 - Hyperlipidemia, unspecified, I10 - Essential (primary) hypertension, R16.0 - Hepatomegaly, not elsewhere classified, Z98.84 - Bariatric surgery status Vitamin B12 and Folate Today E78.5 - Hyperlipidemia, unspecified, I10 - Essential (primary) hypertension, R16.0 - Hepatomegaly, not elsewhere classified, Z98.84 - Bariatric surgery status Vitamin B1 Today E78.5 - Hyperlipidemia, unspecified, I10 - Essential (primary) hypertension, R16.0 - Hepatomegaly, not elsewhere classified, Z98.84 - Bariatric surgery status Vitamin D 25-OH Total Today E78.5 - Hyperlipidemia, unspecified, I10 - Essential (primary) hypertension, R16.0 - Hepatomegaly, not elsewhere classified, Z98.84 - Bariatric surgery status US abdomen comp w elastography Today E78.5 - Hyperlipidemia, unspecified, I10 - Essential (primary) hypertension, R16.0 - Hepatomegaly, not elsewhere classified, Z98.84 - Bariatric surgery status
[2023-12-21 13:40] VITALS: BP 176/76; PULSE 46; TEMP 36.3; O2SAT 97; BMI 26.2
== END 2023-12-21 14:06 | disposition home or self-care (01) ==
LOC: HO.HBS 13:18
PROVIDERS: PCP Internal Medicine Endocrinology, Diabetes & Metabolism; Visit Provider Physician Assistant Surgical
DX: E78.5 Hyperlipidemia, unspecified (principal); Z90.3 Acquired absence of stomach [part of]; Z98.84 Bariatric surgery status
CPT/HCPCS: 99214; G2211

== ENCOUNTER → 2023-12-21 13:17 | Outpatient (BNVA) | payer MEDICARE, OTHER, SELFPAY | PROVIDERS: PCP Internal Medicine Endocrinology, Diabetes & Metabolism; Visit Provider Physician Assistant Surgical | DX: E66.3 Overweight (principal); Z68.26 Body mass index [BMI] 26.0-26.9, adult; Z90.3 Acquired absence of stomach [part of] | CPT/HCPCS: 99212 ==

== ENCOUNTER 2023-12-23 08:52 | Outpatient (REF) | payer MEDICARE, OTHER, SELFPAY ==
[2023-12-23 09:19] LABS: MANUAL DIFF FLAG NO
[2023-12-23 09:39] LABS: Basophils Percent Auto 0.4 % (0-2); Eosinophils Absolute Auto 0.1 X10*3/uL (0.0-0.4); Eosinophils Percent Auto 1.8 % (0-4); Hematocrit 37.2 % (37.0-47.0); Hemoglobin 13.2 g/dl (12.0-16.0); Imm Gran Abs Auto 0.01 X10*3/uL (0.00-0.03); Imm Gran Pct Auto 0.2 % (0.0-0.4); Lymphocytes Absolute Auto 1.6 X10*3/uL (1.2-4.9); Lymphocytes Percent Auto 28.1 % (20-40); Mean Corpuscular HGB Conc 35.5 g/dl (31.0-35.0); Mean Corpuscular Volume 90.1 fL (80.0-98.0); Mean Platelet Volume 10.6 fL (9.4-12.3); Monocytes Absolute Auto 0.5 X10*3/uL (0.1-1.2); Monocytes Percent Auto 8.2 % (2-11); Neutrophils Absolute Auto 3.4 x10*3/uL (2.0-8.3); Neutrophils Percent Auto 61.3 % (45-73); Platelet Count 187 X10*3/uL (160-400); Red Blood Count 4.13 X10*6/uL (4.20-5.50); Red Cell Distribution Width 12.2 % (11.0-16.0); White Blood Count 5.6 X10*3/uL (4.8-10.8)
[2023-12-23 10:15] LABS: Estimated Average Glucose 103 mg/dL; Hemoglobin A1C 112.2171 umol/L; Hemoglobin A1c % 5.2 % (<6.0); Total Hemoglobin (HGBA1C) 3324.5142 umol/L
[2023-12-23 10:17] LABS: Anion Gap 13 (12-20); Blood Urea Nitrogen 20 mg/dL (9-16); C Reactive Protein 0.11 mg/dL (< or = 0.50); Carbon Dioxide 28 mmol/L (22-29); Chloride 109 mmol/L (96-108); Cholesterol 137 mg/dL (<200); Estimated Glomerular Filt Rate > 60; Glucose Random 150 mg/dL (60-115); HDL Cholesterol 57 mg/dL (>40); Iron 127 mcg/dL (30-160); LDL Cholesterol Calculated 67 mg/dL (<100); Percent Iron Saturation 46 % (15-50); Potassium 3.9 mmol/L (3.3-5.1); Sodium 146 mmol/L (135-145); Total Iron Binding Capacity 277 mcg/dL (228-428); Triglycerides 67 mg/dL (<150); Unsaturated Iron Binding 150 ug/dL
[2023-12-23 10:52] LABS: Ferritin 91 ng/mL (10-250); TSH reflex Free T4 1.14 uIU/mL (0.32-4.0); Vitamin D 25-OH Total 55.2 ng/mL (>30)
[2023-12-23 10:55] LABS: Folate 16.5 ng/mL (> or = 4.0); Vitamin B12 1086 pg/mL (200-900)
[2023-12-23 11:07] LABS: Insulin 11 uU/mL (2-29)
[2023-12-28 12:29] LABS: Vitamin B1 40 nmol/L (8-30)
[2023-12-29 21:13] LABS: Vitamin A 56 mcg/dL (38-98)
== END 2023-12-23 08:53 | disposition home or self-care (01) ==
LOC: HO.LAB 08:52
PROVIDERS: PCP Physician Assistant; Visit Provider Physician Assistant Surgical
DX: I10 Essential (primary) hypertension (principal); R16.0 Hepatomegaly, not elsewhere classified; E78.5 Hyperlipidemia, unspecified; Z98.84 Bariatric surgery status; Z13.1 Encounter for screening for diabetes mellitus
CPT/HCPCS: 36415; 80048; 80061; 82306; 82607; 82728; 82746; 83036; 83525; 83540; 84425; 84443; 84590; 84630; 85025; 86140

== ENCOUNTER 2024-02-08 13:25 | Outpatient (AMB) | payer MEDICARE, OTHER, SELFPAY ==
--- OUTSIDE RECORDS SUMMARY | 2024-02-08 13:28 | XMS_ITS ---
Author Organization [facility] ([facility] Address [address] [place] [address] Care Team Providers Care Dietitian Teacher Name Role Phone Mitra Cheung Primary Care Provider UnavailRigoberto Childs Unavailable [phone] Pari Monroy Unavailable [phone] Allergies Allergen (clinical drug ingredient) Drug/Non Drug Allergy documented on EMR Reaction Allergy Type Onset Date Status acetaminophen / oxycodone Percocet Hives Drug Allergy Active Tape Rash/Itchy Allergy Active REASON FOR VISIT At Risk Footcare, Painful Nail(s) aggrevated by shoes and causing difficulty standing/walking. Medications Medication SIG (Take, Route, Frequency, Duration) Notes Start Date End Date Status dilTIAZem HCl ER Beads 180 MG 1 capsule Orally Once a day Not-Taking Lisinopril 10 MG 1 tablet Orally Once a day Not-Taking Sucralfate 1 GM 1 tablet on an empty stomach Orally Twice a day Not-Taking Pantoprazole Sodium 40 MG 1 tablet Orally Once a day Not-Taking Keflex 500 MG 1 capsule Orally every 12 hrs for 10 day(s) 07/13/2023 Not-Taking Clopidogrel Bisulfate 75 MG 1 tablet Orally Once a day Active LORazepam 4 MG/ML as directed Injection 2mg Active Refresh Eye Itch Relief Active Ammonium Lactate 12 % 1 application Externally Twice a day for 30 days Active Extra Depth Orthopedic Shoes (1 Pair) with Customized Heat Molded Multidensity Innersoles (3 Pair) as directed Dx: NIDDM (E11.9), Hammertoe Foot Deformity (M20.41,M20.42), Preulcerative Skin Lesion(s) (L85.1) 03/07/2023 Active Restasis 0.05 % 1 drop into affected eye Ophthalmic Twice a day Active Ziprasidone HCl 20mg 5am 80mg 7pm Active Biotin Active Colace Active Senna Active Pravastatin Sodium 40 MG 1 tablet Orally Once a day Active Tretinoin Active Vital Signs Height 5ft 1.5in in 01/04/2024 Weight 140 lbs 01/04/2024 BMI 26.02 kg/m2 01/04/2024 Encounters Encounter Location Date Provider Diagnosis [facility] [address] [place] [address] 01/04/2024 Pari Monroy Pain in right toe(s) M79.674 ; Tinea unguium B35.1 ; Pain in left toe(s) M79.675 and Type 2 diabetes mellitus without complication E11.9 Assessments Encounter Date Diagnosis (ICD Code) Assessment Notes Treatment Notes Treatment Clinical Notes Section Notes 01/04/2024 Pain in right toe(s) (ICD-10 - M79.674) 01/04/2024 Tinea unguium (ICD-10 - B35.1) 01/04/2024 Pain in left toe(s) (ICD-10 - M79.675) 01/04/2024 Type 2 diabetes mellitus without complication (ICD-10 - E11.9) Plan Of Treatment Next Appt Details Follow Up: 3 Months, Reason: Provider Name:Pari De Souza dilip, 03/28/2024 04:00:00 PM, [address] [place] [address], [id number], Procedure Notes * Category Sub-Category Detail Notes Debride Nail 6-10 Nail debridement Performance o f this nail treatment by a nonprofessional would put this patients foot and overall health at risk. Therefore, debridement to affected nail(s), as described in exam, was performed extensively to reduce/remove overall nail length, girth, thickness, subungual debris, and necrotic tissue, by manual and/or electrical means through the use of a nail nipper and/or dremel-type swing frame grinder operator, to a more viable healthy nail plate or bed tissue 6-10. Silver nitrate used for any petechial bleeding as necessary. Definitive antifungal treatment options have been reviewed and discussed with the patient. The patient chooses, no pharmaceutical tx - 22928 Progress Notes * Adri DINEROB:1955 (68 yo F)Acc No.[id number]:01/04/2024 Progress Note Patient:Linda CALIX Provider:?Pari Monroy DPM :1955???Age:68 Y???Sex:Female D ate:01/04/2024 Address:[address] [place] [address] [address], [facility] Pcp:Mitra Cheung Subjective: * Chief Complaints: * ???At Risk FootcarePainful N ail(s) aggrevated by shoes and causing difficulty standing/walking. * HPI: ???At Risk footcare:?Pt States Last PCP Visit:?Date?04/10/2023 * ROS:?General/Constitutional:?Nausea?denies, denies.?Vomiting?denies, denies.?Hunger Thirst?denies, denies.?Loss appetite?denies, denies.?Chills?denies, denies.?Fatigue?denies, denies.?Fever?denies, denies.?Night Sweats denies, denies.?Unexplained weight loss?denies, denies.?Unexplained weight gain?denies, denies.?HEENTM:?Dentures?admits, admits.?Dizziness?denies, denies.?Glasses/contacts?admits, admits.?Retinopathy?denies, denies.?Blurred/double vision?admits, admits.?TMJ?denies, denies.?Discharge/drainage?denies, denies.?Implants?denies, denies.?Sore throat?denies, denies.?Dental implants?denies, denies.?Hard of hearing ?admits, admits.?Difficulty chewing/swallowing/speaking?denies, denies.?Nose bleeds?denies, denies.?Sore mouth?denies, denies.?Respiratory:?On Oxygen?denies, denies.?Pneumonia/pleurisy?denies, denies.?Bronchitis?denies, denies.?Emphysema?denies, denies.?Coughing?denies, denies.?Cough blood?denies, denies.?Shortness of breath?denies, denies.?Wheezing?denies, denies.?Cardiovascular:?Pacemaker?denies, denies.?MVP?denies, denies.?WPW?denies, denies.?CHF?denies, denies.?Heart attack?admits, admits.?Septal defect?denies, denies.?Rapid beat?denies, denies.?Chest pain ?denies, denies.?Atrial Fib.?denies, denies.?Murmur/Palpitations?denies, denies.?Gastrointestinal:?Hemorrhoids?denies, denies.?Stomach/Abdominal pain?denies, denies.?Dark blood stool?denies, denies.?Irritable bowel ?denies, denies.?Constipation?denies, denies.?Diarrhea?denies, denies.?Hematology:?Swelling?denies, denies.?Clots?denies, denies.?Varicose Veins?denies, denies.?Bruising?denies, denies.?Bleeding problem?denies, denies.?Genitourinary:?Blood urine?denies, denies.?Frequent/Painfu/urination/bladder control?denies, denies.?Kidney stones?denies, denies.?Infection (UTI)?denies, denies.?Nephropathy?denies, denies.?sex trans dis (STD)?denies, denies.?Prostate?denies, denies.?Musculoskeletal:?Hammertoes?admits, admits.?Bunions?denies, denies.?Back Pain?denies, denies.?Muscle Cramps/ Resting?denies, denies.?Muscle cramps / walking?denies, denies.?Generalized aches and pains?denies, denies.?Weakness?denies, denies.?Integ.:?Leigh?denies, denies.?Scars?denies, denies.?Corns/calluses?admits, admits.?Ingrown nails?admits, admits.?Painful nails?admits,admits.?Open Sores?denies, denies.?Rashes?denies, denies.?Neurologic:?Difficulty sleeping?denies, denies.?Brain disorder?denies, denies.?Numbness?denies, denies.?Balance trouble?denies, denies.?Confusion?denies, denies.?Fainting/blackouts?denies, denies.?Tingling?denies, denies.?Tremors?denies, denies.? * Medical History:? * Surgical History:?gastrectom y [id number] 44-75-1850Qjhm bladder removal 1978C-Section [id number] removal 1969 * Hospitalization/Major Diagno stic Procedure:?Denies Past Hospitalization * Family History:?Mother: dece ased, diagnosed with Diabetic - NIDDM, Unspecified essential hypertension, Unspecified cerebral artery occlusion with cerebral infarction, Family history of arthritis.?Father: , diagnosed with Diabetic - NIDDM, Unspecified essential hypertension, Unspecified heart disease.? * Medications:?TakingTretinoin Pravastatin Sodium 40 MG Tablet 1 tablet Orally Once a day Senna Colace Biotin Ziprasidone HCl , Notes to Pharmacist: 20mg 5am 80mg 7pmRestasis 0.05 % Emulsion 1 drop into affected eye Ophthalmic Twice a day Refresh Eye Itch Relief LORazepam 4 MG/ML Solution as directed Injection , Notes to Pharmacist: 2mgClopidogrel Bisulfate 75 MG Tablet 1 tablet Orally Once a day Extra Depth Orthopedic Shoes (1 Pair) with Customized Heat Molded Multidensity Innersoles (3 Pair) as directed Dx: NIDDM (E11.9), Hammertoe Foot Deformity (M20.41,M20.42), Preulcerative Skin Lesion(s) (L85.1) Ammonium Lactate 12 % Cream 1 application Externally Twice a day Taking Tretinoin Taking Pravastatin Sodium 40 MG Tablet 1 tablet Orally Once a day Taking Senna Taking Colace Taking Biotin Taking Ziprasidone HCl , Notes to Pharmacist: 20mg 5am 80mg 7pmTaking Restasis 0.05 % Emulsion 1 drop into affected eye Ophthalmic Twice a day Taking Refresh Eye Itch Relief Taking LORazepam 4 MG/ML Solution as directed Injection , Notes to Pharmacist: 2mgTaking Clopidogrel Bisulfate 75 MG Tablet 1 tablet Orally Once a day Taking Extra Depth Orthopedic Shoes (1 Pair) with Customized Heat Molded Multidensity Innersoles (3 Pair) as directed Dx: NIDDM (E11.9), Hammertoe Foot Deformity (M20.41,M20.42), Preulcerative Skin Lesion(s) (L85.1) Taking Ammonium Lactate 12 % Cream 1 application Externally Twice a day Not-Taking/PRNKeflex 500 MG Capsule 1 capsule Orally every 12 hrs Pantoprazole Sodium 40 MG Tablet Delayed Release 1 tablet Orally Once a day Sucralfate 1 GM Tablet 1 tablet on an empty stomach Orally Twice a day Lisinopril 10 MG Tablet 1 tablet Orally Once a day dilTIAZem HCl ER Beads 180 MG Capsule Extended Release 24 Hour 1 capsule Orally Once a day Medication List reviewed and reconciled with the patientNot-Taking/PRN Keflex 500 MG Capsule 1 capsule Orally every 12 hrs Not-Taking/PRN Pantoprazole Sodium 40 MG Tablet Delayed Release 1 tablet Orally Once a day Not-Taking/PRN Sucralfate 1 GM Tablet 1 tablet on an empty stomach Orally Twice a day Not-Taking/PRN Lisinopril 10 MG Tablet 1 tablet Orally Once a day Not-Taking/PRN dilTIAZem HCl ER Beads 180 MG Capsule Extended Release 24 Hour 1 capsule Orally Once a day Medication List reviewed and reconciled with the patient * Allergies:?Tape: Rash/ItchyP ercocet: Hivesyes[Allergies Verified] Objective: * Vitals:?Ht:5ft 1.5in, Wt:140 , BMI:26.02, Shoe size:8.5, BS:110, Ht-cm: 156.21 cm, Wt-k.5 kg. * ???Past Orders: ???Lab:HEMOGLOBIN A1C (GLYCO HEMOGLOBIN) (Order Date - 05/18/2023) (Collection Date & Time - 05/18/2023 01:49 PM) ? Value Reference Range ?HEMOGLOBIN A1C (HH) 5.5 * Examination: ???Ophthalmology Referral: ?DIABETES EYE EXAM?Nails: ?NAILS are:?Elongated, overgrown, dystrophic, lytic, greater than 3mm thick, discolored and friable with crumbly malodorous subungual debris, with pain on palpation , TA , T1 , T4 , T5 , T6 , T9 , remaining nails are elongated, overgrown, dystrophic.?Dermatologic: ?SKIN FINDINGS:?Skin exam reveals Keratotic lesion(s) located at, Medial plantar, IPJ, T5.?Vascular: ?DP PULSES(B):?2/4, B/L.?PT PULSES(B):?1/4 , LEFT , 2/4 , RIGHT.?CAPILLARY FILL TIME:?3 secs. per digit, B/L.?TROPHIC CONDITION-TEXTURE/ELASTICITY/TURGOR/HAIR GROWTH(B):?normal, B/L.?TEMPERTURE GRADIENT(C):?normal, warm to cool, proximal to distal, B/L, B/L.?PIGMENTATION:?normal, B/L.?EDEMA(C):?absent, B/L.?Neurological: ?SENSORY:?Neurological exam reveals intact sensorium, pain sensation normal, vibration sensation intact, pinprick sensation is normal in the lower extremities, Pt denies, anesthesia, burning, paresthesia, tingling, B/L.? Assessment: * Assessment: 1.?Tinea unguium - B35.1 (Pr imary)???2.?Pain in right toe(s) - M79.674???3.?Pain in left toe(s) - M79.675???4.?Type 2 diabetes mellitus without complication - E11.9??? Plan: * Treatment: * Procedures:?Debride Nail 6-10:?Nail debridement?Performance of this nail treatment by a nonprofessional would put this patients foot and overall health at risk. Therefore, debridement to affected nail(s), as described in exam, was performed extensively to reduce/remove overall nail length, girth, thickness, subungual debris, and necrotic tissue, by manual and/or electrical means through the use of a nail nipper and/or dremel-type swing frame grinder operator, to a more viable healthy nail plate or bed tissue 6-10. Silver nitrate used for any petechial bleeding as necessary. Definitive antifungal treatment options have been reviewed and discussed with the patient. The patient chooses, no pharmaceutical tx - 11357.? * Procedure Codes:?56336 DEBRI DE NAIL, 6 OR MORE * Follow Up:?3 Months * Images: * Sign off status: Completed true * Provider:?Pari Monroy DPM Date:?03/05/2023 Generated for Leslye us/Ayo/Austynsmitting on:?02/08/2024 01:28 PM EST History and Physical Notes * HPI (History of Present Illness) Category Sub-Category Detail Notes Category Not es At Risk footcare Pt States Last PCP Visit: Date: 4 Examination Category Sub-Category Detail Notes Category Not es Neurological SENSORY: Neurological exa m reveals intact sensorium, pain sensation normal, vibration sensation intact, pinprick sensation is normal in the lower extremities, Pt denies, anesthesia, burning, paresthesia, tingling, B/L Dermatologic SKIN FINDINGS: Skin exam reveal s Keratotic lesion(s) located at, Medial plantar, IPJ, T5 Ophthalmology Referral DIABETES EYE EXAM Diabeti c Retinopathy Screening:: No Findings of Diabetic Eye Exam:: no retin opathy Vascular DP PULSES (B): 2/4, B/L PT PULSES (B): 1/4 , LEFT , 2/4 , R IGHT CAPILLARY FILL TIME: 3 secs. per digit, B/L TEMPERTURE GRADIENT (C): normal, warm to cool, proximal to distal, B/L, B/L TROPHIC CONDITION-TEXTURE/ELASTICITY/TURGOR/HAIR GROWTH (B): normal, B/L EDEMA (C): absent, B/L PIGMENTATION: normal, B/L Nails NAILS are: Elongated, overg rown, dystrophic, lytic, greater than 3mm thick, discolored and friable with crumbly malodorous subungual debris, with pain on palpation , TA , T1 , T4 , T5 , T6 , T9 , remaining nails are elongated, overgrown, dystrophic
--- OUTSIDE RECORDS SUMMARY | 2024-02-08 13:28 | XMS_ITS ---
Author Organization [facility] Address [address] [place] [address] Care Team Providers Care Nurse Informaticist Name Role Phone Mitra Cheung Primary Care Provider Rigoberto Jimenez Unavailable [phone] REASON FOR VISIT Refill Request Medications Medication SIG (Take, Route, Fr equency, Duration) Notes Start Date End Date Status Ammonium Lactate 12 % 1 application Exte rnally Twice a day for 30 days Active Encounters Encounter Location Date Provider Diagnosis [facility] [address] [place] [address] 09/22/2023 Rigoberto Christopher Xerosis of skin L85.3 Assessments Encounter Date Diagnosis (ICD Code) Assessment Notes Treatment Notes Treatment Clinical Notes Section Notes 09/22/2023 Xerosis of skin (ICD-10 - L85.3) Plan Of Treatment Medication Medication Name Sig Start Date Stop Date Notes Ammonium Lactate 12 % 1 application Exte rnally Twice a day for 30 days Next Appt Details Provider Name:Pari cherry, 03/28/2024 04:00:00 PM, [address] [place], [address], Progress Notes * Sarah DINERO:1955 (68 yo F)Acc No.[id number]:09/22/2023 Patient:?Linda Dinero :1955???Age:68 Y???Sex:Female Address:[address] [place] [address] [address], [place] [address] * Refills? Refill Ammonium Lactate Cream, 12 %, Externally, 60, 1 application, Twice a day, 30 days, Refills=2 * true * Date:? Generated for Leslye us/Ayo/Jonnaitting on:?02/08/2024 01:28 PM EST
--- OUTSIDE RECORDS SUMMARY | 2024-02-08 13:28 | XMS_ITS ---
[facility] Address [address] [place] [address] Care Team Providers Care Communications Designer Name Role Phone Mitra Cheung Primary Care Provider UnavailRigoberto Childs Unavailable [phone] Jared Pavon Unavailable [phone] Allergies Allergen (clinical drug ingredient) Drug/Non Drug Allergy documented on EMR Reaction Allergy Type Onset Date Status acetaminophen / oxycodone Percocet Hives Drug Allergy Active Tape Rash/Itchy Allergy Active REASON FOR VISIT At Risk Footcare, Painful Nail(s) aggrevated by shoes and causing difficulty standing/walking., Skin problem(s) Medications Medication SIG (Take, Route, Frequency, Duration) Notes Start Date End Date Status dilTIAZem HCl ER Beads 180 MG 1 capsule Orally Once a day Not-Taking Keflex 500 MG 1 capsule Orally julio ry 12 hrs for 10 day(s) 07/13/2023 Not-Taking Pantoprazole Sodium 40 MG 1 tablet Orally Once a day Not-Taking Sucralfate 1 GM 1 tablet on an empty stomach Orally Twice a day Not-Taking Lisinopril 10 MG 1 tablet Orally Once a day Not-Taking Refresh Eye Itch Relief Active LORazepam 4 MG/ML as directed Injection Active Clopidogrel Bisulfate 75 MG 1 tablet Orally Once a day Active Extra Depth Orthopedic Shoes (1 Pair) with Customized Heat Molded Multidensity Innersoles (3 Pair) as directed Dx: NIDDM (E11.9), Hammertoe Foot Deformity (M20.41,M20.42), Preulcerative Skin Lesion(s) (L85.1) 03/07/2023 Active Ammonium Lactate 12 % 1 application Exte rnally Twice a day for 30 days Active Restasis 0.05 % 1 drop into affected eye Ophthalmic Twice a day Active Senna Active Colace Active Biotin Active Ziprasidone HCl 200mg Acti ve Tretinoin Active Pravastatin Sodium 40 MG 1 tablet Orally Once a day Active Social History Tobacco Use: Social History Observation Description Date Details (start date - stop date) Former Smoker NA - NA Tobacco Use/Smoking Question Answer Notes Are you a: former smoker Additional Findings: Tobacco Non-User Current no n-smoker Alcohol Screen Question Answer Notes Did you have a drink containing alcohol in the p ast year? No Points 0 Interpretation Negative Tobacco use other than smoking: Question Answer Notes Are you an other tobacco user? No Vital Signs Height 5ft 1.5in in 10/09/2023 Weight 141 lbs 10/09/2023 BMI 26.21 kg/m2 10/09/2023 Encounters Encounter Location Date Provider Diagnosis [facility] [place] [address] [place] [address] 10/09/2023 Jared Pavon Pain in right toe(s) M79.674 ; Tinea unguium B35.1 ; Pain in left toe(s) M79.675 ; Type 2 diabetes mellitus without complication E11.9 and Xerosis of skin L85.3 Assessments Encounter Date Diagnosis (ICD Code) Assessment Notes Treatment Notes Treatment Clinical Notes Section Notes 10/09/2023 Pain in right toe(s) (ICD-10 - M79.674) 10/09/2023 Tinea unguium (ICD-10 - B35.1) 10/09/2023 Pain in left toe(s) (ICD-10 - M79.675) 10/09/2023 Type 2 diabetes mellitus without complication (ICD-10 - E11.9) 10/09/2023 Xerosis of skin (ICD-10 - L85.3) Plan Of Treatment Next Appt Details Follow Up: prn, Reason: Provider Name:Pari cherry, 03/28/2024 04:00:00 PM, [address] [place], [address], Procedure Notes * Category Sub-Category Detail Notes Debride Nail 6-10 Nail debridement Nail debridem ent performed extensively to reduce/remove overall nail length, girth, thickness, subungual debris, and necrotic tissue, by manual and electrical means through the use of a nail nipper and/or dremel, to more viable healthy nail plate or bed tissue 1-5. Silver nitrate used for any petechial bleeding as necessary. Patient chooses, no pharmaceutical tx (10642) Progress Notes * Dex DINEROiDOB:1955 (68 yo F)Acc No.[id number]:10/09/2023 Progress Note Patient:?Linda Dinero Provider:?Jraed Pavon DPM :1955???Age:68 Y???Sex:Female D ate:10/09/2023 Address:[address] [place] [address], [address], [facility] Pcp:Huber Jones MD Subjective: * Chief Complaints: * ???At Risk FootcarePainful N ail(s) aggrevated by shoes and causing difficulty standing/walking.Skin problem(s) * HPI: ???At Risk footcare:?Pt States Last PCP Visit:?Date?04/10/2023 ???Skin problems:?Treatments:?medication ( AM Lactin ) , states adherence to recommended treatment application.? * ROS:?General/Constitutional:?Nausea?denies, denies.?Vomiting?denies, denies.?Hunger Thirst?denies, denies.?Loss appetite?denies, [...] * Medical History:? * Surgical History:?gastrectom y [id number] bladder removal 1978C-Section [id number] removal 1969 * Hospitalization/Major Diagno stic Procedure:?Denies Past Hospitalization * Family History:?Mother: dece ased, diagnosed with Diabetic - NIDDM, Unspecified essential hypertension, Unspecified cerebral artery occlusion with cerebral infarction, Family history of arthritis.?Father: , diagnosed with Diabetic - NIDDM, Unspecified essential hypertension, Unspecified heart disease.? * Social History:?Tobacco Use:?Tobacco Use/Smoking?Are you a:?former smoker ?Additional Findings: Tobacco Non-User?Current non-smoker ?Tobacco use other than smoking?Are you an other tobacco user??No ???Drugs/Alcohol:?Drugs?Have you used drugs other than those for medical reasons in the past 12 months??No ?Alcohol Screen?Did you have a drink containing alcohol in the past year??No ?Points?0 ?Interpretation?Negative ???Miscellaneous:?no Caffeine, none. ?Children: yes, 1. ?Exercise: yes, Stationary Bike everyday for 1 hour. ?Marital status: . 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 * Medications:?TakingTretinoin Pravastatin Sodium 40 MG Tablet 1 tablet Orally Once a daySenna Colace Biotin Ziprasidone HCl , Notes: 200mgRestasis 0.05 % Emulsion 1 drop into affected eye Ophthalmic Twice a dayRefresh Eye Itch Relief LORazepam 4 MG/ML Solution as directed Injection Clopidogrel Bisulfate 75 MG Tablet 1 tablet Orally Once a dayExtra Depth Orthopedic Shoes (1 Pair) with Customized Heat Molded Multidensity Innersoles (3 Pair) as directed Dx: NIDDM (E11.9), Hammertoe Foot Deformity (M20.41,M20.42), Preulcerative Skin Lesion(s) (L85.1)Ammonium Lactate 12 % Cream 1 application Externally Twice a dayTaking Tretinoin Taking Pravastatin Sodium 40 MG Tablet 1 tablet Orally Once a dayTaking Senna Taking Colace Taking Biotin Taking Ziprasidone HCl , Notes: 200mgTaking Restasis 0.05 % Emulsion 1 drop into affected eye Ophthalmic Twice a dayTaking Refresh Eye Itch Relief Taking LORazepam 4 MG/ML Solution as directed Injection Taking Clopidogrel Bisulfate 75 MG Tablet 1 tablet Orally Once a dayTaking Extra Depth Orthopedic Shoes (1 Pair) with Customized Heat Molded Multidensity Innersoles (3 Pair) as directed Dx: NIDDM (E11.9), Hammertoe Foot Deformity (M20.41,M20.42), Preulcerative Skin Lesion(s) (L85.1)Taking Ammonium Lactate 12 % Cream 1 application Externally Twice a dayNot-Taking/PRNKeflex 500 MG Capsule 1 capsule Orally every 12 hrsPantoprazole Sodium 40 MG Tablet Delayed Release 1 tablet Orally Once a daySucralfate 1 GM Tablet 1 tablet on an empty stomach Orally Twice a dayLisinopril 10 MG Tablet 1 tablet Orally Once a daydilTIAZem HCl ER Beads 180 MG Capsule Extended Release 24 Hour 1 capsule Orally Once a dayMedication List reviewed and reconciled with the patientNot-Taking/PRN Keflex 500 MG Capsule 1 capsule Orally every 12 hrsNot-Taking/PRN Pantoprazole Sodium 40 MG Tablet Delayed Release 1 tablet Orally Once a dayNot-Taking/PRN Sucralfate 1 GM Tablet 1 tablet on an empty stomach Orally Twice a dayNot-Taking/PRN Lisinopril 10 MG Tablet 1 tablet Orally Once a dayNot-Taking/PRN dilTIAZem HCl ER Beads 180 MG Capsule Extended Release 24 Hour 1 capsule Orally Once a dayMedication List reviewed and reconciled with the patient * Allergies:?Tape: Rash/ItchyP ercocet: Hivesyes[Allergies Verified] Objective: * Vitals:?Ht: 5ft 1.5in, Wt:14 1, BMI:26.21, Shoe size:8.5, BS:127. * ???Past Orders: ???Lab:HEMOGLOBIN A1C (GLYCO HEMOGLOBIN) (Order Date - 05/18/2023) (Collection Date - 05/18/2023) ? Value Reference Range ?HEMOGLOBIN A1C (HH) 5.5 * Examination: ???Ophthalmology Referral: ?DIABETES EYE EXAM?Nails: ?NAILS are:?Elongated, overgrown, dystrophic, lytic, greater than 3mm thick, discolored and friable with crumbly malodorous subungual debris, with pain on palpation , TA , T1 , T4 , T5 , T6 , T9 , remaining nails are elongated, overgrown, dystrophic.?Dermatologic: ?SKIN FINDINGS:?Skin shows approximately 90% LESS, sign(s) of, dryness, scaling, in a stocking fashion, no fissure(s) present, B/L, Skin exam reveals Keratotic lesion(s) located at, Medial plantar, IPJ, T5.? Assessment: * Assessment: 1.?Pain in right toe(s) - M7 9.674?2.?Tinea unguium - B35.1?3.?Pain in left toe(s) - M79.675?4.?Type 2 diabetes mellitus without complication - E11.9?5.?Xerosis of skin - L85.3, Acute problem, Stable (1=3),Response to treatment - Improvement? Plan: * Treatment: * Procedures:?Debride Nail 6-10:?Nail debridement?Nail debridement performed extensively to reduce/remove overall nail length, girth, thickness, subungual debris, and necrotic tissue, by manual and electrical means through the use of a nail nipper and/or dremel, to more viable healthy nail plate or bed tissue 1-5. Silver nitrate used for any petechial bleeding as necessary. Patient chooses, no pharmaceutical tx (26014).? * Procedure Codes:?68457 DEBRI DE NAIL, 6 OR MORE * Preventive Medicine:? ??Counseling:?Discussion:?-12: Office or other outpatient visit for the evaluation and management of an established patient, which required a medically appropriate history and/or examination and STRAIGHTFORWARD level of MEDICAL DECISION MAKING, 1 SELF-LIMITED OR MINOR PROBLEM, MINIMAL- NO AMOUNT/COMPLEXITY OF DATA TO BE REVIEWED/ANALYZED, AND MINIMAL RISK OF COMPLICATION/MORBIDITY. The visit on the day of the encounter encompassed interpreting the data and educating the patient as to the nature of their condition, treatment options available according to their individual PMH, meds, allergies, and overall health/living conditions, as well as any potential risks or complications that may occur from a failure to adhere to, and participate in, the recommended course of therapy. The discussion included a complete verbal, and/or written explanation of the examination results, any x-rays taken, the proposed diagnosis, and outline of the treatment plan. A schedule for future care needs was also explained. The patient verbalized an understanding of the instructions at this time and agreed to be an active participant in their treatment. If the patient should think of any questions or concerns after the visit, I have encouraged the patient to call the office.? * Follow Up:?prn * Images: * Sign off status: Completed true * Provider:?Jared Pavon DPM Date:? 024 Generated for Leslye us/Ayo/Lisa on:?02/08/2024 01:28 PM EST History and Physical Notes * HPI (History of Present Illness) Category Sub-Category Detail Notes Category Not es Skin problems Treatments: medication ( AM Lactin ) , states adherence to recommended treatment application At Risk footcare Pt States Last PCP Visit: Date: 04/10/2023 Examination Category Sub-Category Detail Notes Category Not es Dermatologic SKIN FINDINGS: Skin shows appro ximately 90% LESS, sign(s) of, dryness, scaling, in a stocking fashion, no fissure(s) present, B/L, Skin exam reveals Keratotic lesion(s) located at, Medial plantar, IPJ, T5 Ophthalmology Referral DIABETES EYE EXAM Diabeti c Retinopathy Screening:: No Findings of Diabetic Eye Exam:: no retin opathy Nails NAILS are: Elongated, overg rown, dystrophic, lytic, greater than 3mm thick, discolored and friable with crumbly malodorous subungual debris, with pain on palpation , TA , T1 , T4 , T5 , T6 , T9 , remaining nails are elongated, overgrown, dystrophic
--- OUTSIDE RECORDS SUMMARY | 2024-02-08 13:29 | XMS_ITS | Continuity of Care Document ---
Author Organization [facility] [address] [place] [address] Phone [phone] Problems Active Problems Provider Date Diabetes mellitus Huber Jones M.D. Onset: 0 09/07/2021 Endometrial carcinoma Huber Jones M.D. Onse t: 09/07/2021 Asymptomatic coronary heart disease Huber borjas M.D. Onset: 09/07/2021 Depressive disorder Huber Jones M.D. Onset: 09/07/2021 Gastroesophageal reflux disease Huber Jones M.D. Onset: 09/07/2021 Strain of tendon of foot and ankle Huber chiu M.D. Onset: 06/20/2022 Anemia ELIJAH Flores Onset: 2023 H/O: depression ELIJAH Flores Onset: 2023 Social History Type Date Description Comments Sex Unknown Tobacco Use Start: Unknown Never Smoked Cigarettes Smoking Status Reviewed: 12/11/23 Never Smoked Cigaret cassidy ETOH Use Denies alcohol use Allergies and adverse reactions Active Allergies Criticality Reaction Severity Comments Date Percocet Unable to assess criticality 01/31/2022 Medications Active Medications SIG Qnty Indications Order ing Provider Date Ziprasidone LLX74mr Capsules Take 1 tablet at 7 pm and 10 pm (Dr. Horta Brand only) 60caps Huber Jones M.D. 12/06/2022 BD Pen Needle/Liat/Ultra -Fine/32G X 4mm32G X 4 mm Misc 3 pen needle to insulin pen three times a day dx: e11.9 400units Huber Jones M.D. 05/27/2022 Rzzhlxljr3ja Tablets 1 tab at bedtime as needed Huber Jones M.D. 04/08/2022 Pravastatin Wbtans12mb Tablets Take 1 Tablet By Mouth Every Day 90tabs Felicitas Rachel M.D. 09/07/2021 [id number] Tablets 1 tab by mouth twice a day as needed 60tabs Huber Jones M.D. 09/07/2021 Ziprasidone JAR89zl Capsules Take 1 tablet at 8 am and 5 pm. Huber Jones M.D. 09/07/2021 Restasis0.05% Emulsion 1 drop each eye twice daily Unknown Clopidogrel Xlkuqwzzq32jj Tablets 1 tab by mouth every day as directed 90tabs Felicitas Rachel M.D. [id number] Capsules 1 by mouth every day as needed Unknown Refresh1.4-0.6% Solution Unknown Senna Laxative8.6mg Tablets Unknown Ammonium Fsaziol19% Cream apply to feet at 8 am and 8 pm Unknown [id number] Capsules 1 by mouth every day at 7 pm Unknown Vital Signs Date Vital Result Comment 12/11/2023 2:32pm BP Systolic 126 mmHg BP Diastolic 90 mmHg Heart Rate 98 /min Height 61 inches 5'1 Weight 143.38 lb BMI (Body Mass Index) 27.1 kg/m2 Results Test Acquired Date Facility Test Result H/L Range Note Laboratory test finding 12/11/2023 Inhouse Glucose Fingerstick 93 Comp. Metabolic Panel (14) 12/08/2023 [facility] Glucose 104 mg/dL High 70-99 BUN 22 mg/dL 8-27 Creatinine 0.78 mg/dL 0.57-1.0 0 eGFR 82 mL/min/1. 73 >59 BUN/Creatinine Ratio 28 12-28 Sodium 143 mmol/L 134-144 Potassium 4.3 mmol/L 3.5-5.2 Chloride 104 mmol/L 96-106 Carbon Dioxide, Total 26 mmol/L 20-29 Calcium 9.6 mg/dL 8.7-10.3 Protein, Total 6.1 g/dL 6.0-8.5 Albumin 4.1 g/dL 3.9-4.9 Globulin, Total 2.0 g/dL 1.5-4.5 Bilirubin, Total 1.0 mg/dL 0.0-1 .2 Alkaline Phosphatase 74 IU/L 44-121 Ast (Sgot) 24 IU/L 0-40 Alt (SGPT) 22 IU/L 0-32 Lipid Panel 12/08/2023 [facility] Cholesterol, Total 138 mg/dL 100-199 Triglycerides 80 mg/dL 0-149 HDL Cholesterol 60 mg/dL >39 VLDL Cholestero l Demetrio 16 mg/dL 5-40 LDL Chol Calc (Nih) 62 mg/dL 0-99 LDL Calc Comment: TNP Hemoglobin A1c 12/08/2023 [facility] Hemoglobin A1c 5.6 % 4.8-5.6 1 CBC With Differential/Plat elet 12/08/2023 [facility] WBC 6.5 x10E3/uL 3.4-10.8 RBC 3.93 x10E6/uL 3.77-5.2 8 Hemoglobin 12.7 g/dL 11.1-15. 9 Hematocrit 37.7 % 34.0-46. 6 MCV 96 fL 79-97 MCH 32.3 pg 26.6-33. 0 MCHC 33.7 g/dL 31.5-35. 7 RDW 12.7 % 11.7-15. 4 Platelets 158 x10E3/uL 150-450 Neutrophils 52 % Not Estab. Lymphs 36 % Not Estab. Monocytes 9 % Not Estab. Eos 2 % Not Estab. Basos 1 % Not Estab. Immature Cells TNP Neutrophils (Absolute) 3.4 x10E3/uL 1.4-7.0 Lymphs (Absolute) 2.3 x10E3/uL 0.7-3.1 Monocytes(Absol u te) 0.6 x10E3/uL 0.1-0.9 Eos (Absolute) 0.1 x10E3/uL 0.0-0.4 Baso (Absolute) 0.0 x10E3/uL 0.0-0.2 Immature Granulocytes 0 % Not Estab. Immature Grans (Abs) 0.0 x10E3/uL 0.0-0.1 NRBC TNP Hematology Comments: TNP Albumin/Creatinin e Ratio, Random Urine 12/08/2023 [facility] Creatinine, Urine 76.4 mg/dL Not Estab. Albumin, Urine 6.7 ug/mL Not Estab. Alb/Creat Ratio 9 mg/gcreat 0-29 2 Laboratory test finding 08/10/2023 Inhouse Glucose Fingerstick 98 Laboratory test finding 08/03/2023 [facility] Hemoglobin A1c 5.5 % 4.8-5.6 3 Laboratory test finding 04/11/2023 Inhouse Glucose Fingerstick 118 Laboratory test finding 04/06/2023 [facility] Hemoglobin A1c 5.7 % High (4.0-5.6 ) 4 Laboratory test finding 12/06/2022 Inhouse Glucose Fingerstick 89 Laboratory test finding 12/01/2022 [facility] Hemoglobin A1c 5.7 % High (4.0-5.6 ) 5 Laboratory test finding 09/23/2022 Inhouse Glucose Fingerstick 140 Electrolytes 09/21/2022 [facility] Sodium 141 mmol/L (133-145 ) Potassium 4.1 mmol/L (3.6-5.2 ) Chloride 103 mmol/L (98-107) Bicarbonate 24 mmol/L (22-29) Anion Gap 14 (4-17) Laboratory test finding 09/21/2022 [facility] Ferritin 32 NG/ML (14-283) Laboratory test finding 09/19/2022 [facility] Hemoglobin A1c 6.1 % High (4.0-5.6 ) 6 Laboratory test finding 06/20/2022 Inhouse Glucose Fingerstick 136 Comprehensive Metabolic Panl 06/13/2022 [facility] Glucose 206 mg/dL High (70-99) BUN 20 mg/dL (8-23) Creatinine 0.9 mg/dL (0.5-1.0 ) Sodium 144 mmol/L (133-145 ) Potassium 3.9 mmol/L (3.6-5.2 ) Chloride 104 mmol/L (98-107) Bicarbonate 28 mmol/L (22-29) Anion Gap 12 (4-17) Albumin 4.5 GM/DL (3.4-4.8 ) Calcium 9.7 mg/dL (8.6-10. 5) Bilirubin,Total 0.5 mg/dL (0-1.2 ) Total Protein 6.4 GM/DL (6.2-8.2 ) Ag Ratio 2.4 Ast 32 U/L (0-32) Alk Phos 97 U/L (35-104) Alt 52 U/L High (0-33) Estimated GFR Creatinine 71 ML/MIN/1. 73M2 7 Lipid Panel 06/13/2022 [facility] Cholesterol, Total 133 mg/dL (<200) Triglyceride 176 mg/dL High (<150) HDL Chol 45 mg/dL (>39) LDL Cholesterol , Calculated 53 mg/dL (0-130) Non HDL Cholesterol (Calc) 88 mg/dL (<160) Complete Abc With Diff 06/13/2022 [facility] WBC 7.1 K/MM3 (4.0-11. 0) RBC 4.10 M/MM3 Low (4.20-5. 40) HGB 11.9 GM/DL (11.7-15 .5) HCT 35.8 % (35.7-45 .8) MCV 87.3 FL (80.0-10 0.0) MCH 29.0 pg (27.0-34 .0) MCHC 33.2 g/dL (33.0-37 .0) PLT 169 K/MM3 (150-460 ) RDW-SD 43.1 FL (<47.0) MPV 11.4 FL (9.4-12. 4) Automated NRBC 0.0 #/100WBC' S Abs. NRBC 0.0 K/MM3 Neut # 4.5 K/MM3 (1.3-7.0 ) Lymph # 1.7 K/MM3 (0.8-3.1 ) Letcher# 0.6 K/MM3 (0.4-0.9 ) Eo # 0.2 K/MM3 (0.0-0.4 ) Baso # 0.0 K/MM3 (0.0-0.1 ) Abs. Imm Gran 0.0 K/MM3 Neut 63.4 % (44-76) Lymph 24.4 % (15-43) Monocyte 8.7 % (4.5-10. 5) Eo 2.3 % (0-6) Baso 0.6 % (0-2) Imm Gran 0.6 % Urinary Microalbumin 06/13/2022 [facility] Micro-Albumin 38.8 mg/L High (<20) 8 Malb/Creat Ratio 61.9 MG/GM High (0-20) Urine Creat For Micro Albumin 62.7 mg/dL Laboratory test finding 06/13/2022 [facility] Hemoglobin A1c 6.7 % High (4.0-5.6 ) 9 Laboratory test finding 04/08/2022 Inhouse Glucose Fingerstick 139 Laboratory test finding 04/01/2022 [facility] Hemoglobin A1c 8.1 % High (4.0-5.6 ) 10 Laboratory test finding 01/31/2022 Inhouse Glucose Fingerstick 232 Laboratory test finding 09/07/2021 Inhouse Glucose Fingerstick 166 Laboratory test finding 09/02/2021 [facility] Hemoglobin A1c 6.1 % High (4.0-5.6 ) 11 1 Prediabetes: 5.7 - 6 .4 Diabetes: >6.4 Glycemic control for adults with diabetes: <7.0 2 Normal: 0 - 29 Moderately increased: 30 - 300 Severely increased: >300 3 Prediabetes: 5.7 - 6 .4 Diabetes: >6.4 Glycemic control for adults with diabetes: <7.0 4 MONITORING: In known diabetic patients, hemoglobin A1c targets should be discussed with health care provider. DIAGNOSTIC USE: The [place] Diabetes Association (ADA) and the World Health Organization (WHO) recommend the use of HbA1c to diagnose diabetes using a threshold of 6.5%. Patients who have an HbA1c between 5.7% and 6.4% are considered at increased risk for developing diabetes in the future. CAUTION: Falsely low HbA1c results may be observed in patients with hemolytic anemia, homozygous forms of abnormal hemoglobin (e.g. SS, CC, SC), , recent blood loss or hemoglobin F greater than 7%. Fructosamine may be used as an alternate test in these cases. REFERENCE: ADA: Standards of Medical Care in Diabetes 2020, The Journal of Clinical and Applied Research and Education Volume 43, Supplement 1 5 MONITORING: In known diabetic patients, hemoglobin A1c targets should be discussed with health care provider. DIAGNOSTIC USE: The [place] Diabetes Association (ADA) and the World Health Organization (WHO) recommend the use of HbA1c to diagnose diabetes using a threshold of 6.5%. Patients who have an HbA1c between 5.7% and 6.4% are considered at increased risk for developing diabetes in the future. CAUTION: Falsely low HbA1c results may be observed in patients with hemolytic anemia, homozygous forms of abnormal hemoglobin (e.g. SS, CC, SC), , recent blood loss or hemoglobin F greater than 7%. Fructosamine may be used as an alternate test in these cases. REFERENCE: ADA: Standards of Medical Care in Diabetes 2020, The Journal of Clinical and Applied Research and Education Volume 43, Supplement 1 6 MONITORING: In known diabetic patients, hemoglobin A1c targets should be discussed with health care provider. DIAGNOSTIC USE: The [place] Diabetes Association (ADA) and the World Health Organization (WHO) recommend the use of HbA1c to diagnose diabetes using a threshold of 6.5%. Patients who have an HbA1c between 5.7% and 6.4% are considered at increased risk for developing diabetes in the future. CAUTION: Falsely low HbA1c results may be observed in patients with hemolytic anemia, homozygous forms of abnormal hemoglobin (e.g. SS, CC, SC), , recent blood loss or hemoglobin F greater than 7%. Fructosamine may be used as an alternate test in these cases. REFERENCE: ADA: Standards of Medical Care in Diabetes 2020, The Journal of Clinical and Applied Research and Education Volume 43, Supplement 1 7 Creatinine based est imated glomerular filtration (eGFR) in adults is calculated using the National Kidney Foundation recommended 2020 CKD-EPI equation. Estimates GFR from serum creatinine, age and sex. 8 The urine microalbum in test is designed to monitor renal function. When screening for Bence Azevedo proteinuria, urine electrophoresis is recommended. 9 MONITORING: In known diabetic patients, hemoglobin A1c targets should be discussed with health care provider. DIAGNOSTIC USE: The [place] Diabetes Association (ADA) and the World Health Organization (WHO) recommend the use of HbA1c to diagnose diabetes using a threshold of 6.5%. Patients who have an HbA1c between 5.7% and 6.4% are considered at increased risk for developing diabetes in the future. CAUTION: Falsely low HbA1c results may be observed in patients with hemolytic anemia, homozygous forms of abnormal hemoglobin (e.g. SS, CC, SC), , recent blood loss or hemoglobin F greater than 7%. Fructosamine may be used as an alternate test in these cases. REFERENCE: ADA: Standards of Medical Care in Diabetes 2020, The Journal of Clinical and Applied Research and Education Volume 43, Supplement 1 10 MONITORING: In known diabetic patients, hemoglobin A1c targets should be discussed with health care provider. DIAGNOSTIC USE: The [place] Diabetes Association (ADA) and the World Health Organization (WHO) recommend the use of HbA1c to diagnose diabetes using a threshold of 6.5%. Patients who have an HbA1c between 5.7% and 6.4% are considered at increased risk for developing diabetes in the future. CAUTION: Falsely low HbA1c results may be observed in patients with hemolytic anemia, homozygous forms of abnormal hemoglobin (e.g. SS, CC, SC), , recent blood loss or hemoglobin F greater than 7%. Fructosamine may be used as an alternate test in these cases. REFERENCE: ADA: Standards of Medical Care in Diabetes 2020, The Journal of Clinical and Applied Research and Education Volume 43, Supplement 1 11 MONITORING: In known diabetic patients, hemoglobin A1c targets should be discussed with health care provider. DIAGNOSTIC USE: The [place] Diabetes Association (ADA) and the World Health Organization (WHO) recommend the use of HbA1c to diagnose diabetes using a threshold of 6.5%. Patients who have an HbA1c between 5.7% and 6.4% are considered at increased risk for developing diabetes in the future. CAUTION: Falsely low HbA1c results may be observed in patients with hemolytic anemia, homozygous forms of abnormal hemoglobin (e.g. SS, CC, SC), , recent blood loss or hemoglobin F greater than 7%. Fructosamine may be used as an alternate test in these cases. REFERENCE: ADA: Standards of Medical Care in Diabetes 2020, The Journal of Clinical and Applied Research and Education Volume 43, Supplement 1 Procedures Date Code Description Status 09/28/2023 03637 Remove Impacted Cerumen Comp leted Medical Devices Description No Information Available Encounters Type Date Location Provider Dx Diagnosis Office Visit 12/26/2023 12:49p Main Office ELIJAH Flores E11.8 Type 2 diabet es mellitus with unspecified complications D64.9 Anemia, unspecified Assessments Date Code Description Provider 12/26/2023 E11.8 Type 2 diabetes mellitus with unspecified complications ELIJAH Flores 12/26/2023 D64.9 Anemia, unspecified ELIJAH Altamirano Plan of Treatment Future Appointment(s):* 04/12/2024 1:15 pm - ELIJAH Flores at Main Office 12/11/2023 - ELIJAH Flores* I25.89 Asymptomatic coronary heart disease * C54.1 Endometrial carcinoma * Z86.59 H/O: depression * Z98.84 Bariatric surgery status Functional Status Description No Information Available Mental Status Description No Information Available Referrals Refer to Dr Reason for Referral Status Appt [facility] AN[facility]AL HEARING TEST Closed 09/22/[address] [place] [address] [phone] [facility] HEARING EVALUATION Closed 07/27/[address] [place] [address] [phone] [facility] RIGHT BUTTOX Closed [address] [place] [address] [phone]
--- OUTSIDE RECORDS SUMMARY | 2024-02-08 13:29 | XMS_ITS | Patient Health Record ---
Author Organization [facility] Address [address] [facility] [place] [address] Care Team Providers Care Director Game Name Role Phone Jonatan Mitra Primary Care Provider UnavailRigoberto Childs Unavailable [phone] Jared Pavon Unavailable [phone] Pari Monroy Unavailable [phone] Allergies Allergen (clinical drug ingredient) Drug/Non Drug Allergy documented on EMR Reaction Allergy Type Onset Date Status acetaminophen / oxycodone Percocet Hives Drug Allergy Active Tape Rash/Itchy Allergy Active Results Component Value Reference Range Notes HEMOGLOBIN A1C (GLYCOHEMOGLO BIN) Reviewed date:05/18/2023 01:50:02 PM Interpretation: Performing Lab: Notes/Report: HEMOGLOBIN A1C (HH) 5.5 Reason For Referral No Information Medications Medication SIG (Take, Route, Frequency, Duration) Notes Start Date End Date Status Clopidogrel Bisulfate 75 MG 1 tablet Orally Once a day Active LORazepam 4 MG/ML as directed Injection 2mg Active Refresh Eye Itch Relief Active Restasis 0.05 % 1 drop into affected eye Ophthalmic Twice a day Active Ziprasidone HCl 20mg 5am 80mg 7pm Active dilTIAZem HCl ER Beads 180 MG 1 capsule Orally Once a day Not-Taking Biotin Active Lisinopril 10 MG 1 tablet Orally Once a day Not-Taking Colace Active Sucralfate 1 GM 1 tablet on an empty stomach Orally Twice a day Not-Taking Senna Active Pantoprazole Sodium 40 MG 1 tablet Orally Once a day Not-Taking Pravastatin Sodium 40 MG 1 tablet Orally Once a day Active Keflex 500 MG 1 capsule Orally every 12 hrs for 10 day(s) 07/13/2023 Not-Taking Tretinoin Active Ammonium Lactate 12 % 1 application Externally Twice a day for 30 days Active Extra Depth Orthopedic Shoes (1 Pair) with Customized Heat Molded Multidensity Innersoles (3 Pair) as directed Dx: NIDDM (E11.9), Hammertoe Foot Deformity (M20.41,M20.42), Preulcerative Skin Lesion(s) (L85.1) 03/07/2023 Active Immunizations Vaccine Route Administration Date Status Comme nts Influenza Unknown 03/05/2023 Administered Social History Tobacco Use: Social History Observation [...] Are you an other tobacco user? No Problems Problem Type SNOMED Code ICD Code Onset Dates Problem Status W/U Status Risk Notes Problem Acquired hammer toe of right foot (484265464071317 5) Other hammer toe(s) (acquired), right foot (M20.41) Active confirmed Problem Acquired hammer toe of left foot (289443054830044 3) Other hammer toe(s) (acquired), left foot (M20.42) Active confirmed Problem Type 2 diabetes mellitus without complication (649306757) Type 2 diabetes mellitus without complication (E11.9) Active confirmed Vital Signs Blood pressure diastolic 74 mm Hg 07/13/2023 Height 5ft 1.5in in 01/04/2024 Blood pressure systolic 102 mm Hg 07/13/2023 Weight 140 lbs 01/04/2024 BMI 26.02 kg/m2 01/04/2024 Procedures Procedure Date Ordered Date Performed Result Body Sit e 02143-VKUTQFC NAIL, 6 OR MORE 03/07/2023 N/A 99408-QMPSGON NAIL, 6 OR MORE 05/18/2023 N/A 27358-QXOTGZJ NAIL, 6 OR MORE 07/27/2023 N/A Encounters Encounter Location Date Provider Diagnosis [facility] [place] [address] [place] [address] 03/07/2023 Rigoberto Ashwin Pain in right toe(s) M79.674 ; Tinea unguium B35.1 ; Pain in left toe(s) M79.675 ; Type 2 diabetes mellitus without complication E11.9 ; Other hammer toe(s) (acquired), left foot M20.42 and Other hammer toe(s) (acquired), right foot M20.[address] [address] 05/18/2023 Rigoberto Ashwin Pain in right toe(s) M79.674 ; Tinea unguium B35.1 ; Pain in left toe(s) M79.675 ; Type 2 diabetes mellitus without complication E11.9 and Xerosis of skin L85.[address] [address] 07/13/2023 Jared Pavon Ingrowing nail L60.0 ; Cellulitis of right lower limb L03.115 ; Hematoma of toe of right foot, initial encounter S90.121A ; Pain in right toe(s) M79.674 and Type 2 diabetes mellitus without complication E11.[address] [address] 07/27/2023 Rigoberto Ashwin Pain in right toe(s) M79.674 ; Tinea unguium B35.1 ; Pain in left toe(s) M79.675 ; Type 2 diabetes mellitus without complication E11.9 and Xerosis of skin L85.[address] [address] 08/14/2023 Rigoberto Ashwin Hematoma of toe of left foot, initial encounter S90.122A ; Traumatic hematoma of left foot, initial encounter S90.32XA ; Other hammer toe(s) (acquired), left foot M20.42 ; Arthritis of joint of lesser toe, 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 and Pain in left toe(s) M79.[address] [address] 10/09/2023 Jared Pavon Pain in right toe(s) M79.674 ; Tinea unguium B35.1 ; Pain in left toe(s) M79.675 ; Type 2 diabetes mellitus without complication E11.9 and Xerosis of skin L85.3 [facility] [address] 01/04/2024 Pari Monroy Pain in right toe(s) M79.674 ; Tinea unguium B35.1 ; Pain in left toe(s) M79.675 and Type 2 diabetes mellitus without complication E11.9 [facility] [address] [facility] [address] [place] [address] 07/13/2023 Rigoberto Christopher [facility] [address] 08/14/[address] [facility] [address] 09/22/2023 Rigoberto Christopher Xerosis of skin L85.3 Assessments Encounter Date Diagnosis (ICD Code) Assessment Notes Treatment Notes Treatment Clinical Notes Section Notes 03/07/2023 Pain in right toe(s) (ICD-10 - M79.674) 05/18/2023 Tinea unguium (ICD-10 - B35.1) 05/18/2023 Pain in right toe(s) (ICD-10 - M79.674) 07/13/2023 Ingrowing nail (ICD-10 - L60.0) 07/13/2023 Cellulitis of right lower limb (ICD-10 - L03.115) 07/27/2023 Tinea unguium (ICD-10 - B35.1) 07/27/2023 Pain in right toe(s) (ICD-10 - M79.674) 08/14/2023 Hematoma of toe of left foot, initial encounter (ICD-10 - S90.122A) Patient Educated with: RICE THERAPY.pdf (RICE THERAPY.pdf) 09/22/2023 Xerosis of skin (ICD-10 - L85.3) 10/09/2023 Pain in right toe(s) (ICD-10 - M79.674) 01/04/2024 Tinea unguium (ICD-10 - B35.1) 01/04/2024 Pain in right toe(s) (ICD-10 - M79.674) 01/04/2024 Pain in left toe(s) (ICD-10 - M79.675) 10/09/2023 Tinea unguium (ICD-10 - B35.1) 08/14/2023 Traumatic hematoma of left foot, initial encounter (ICD-10 - S90.32XA) 07/27/2023 Pain in left toe(s) (ICD-10 - M79.675) 07/13/2023 Hematoma of toe of right foot, initial encounter (ICD-10 - S90.121A) 05/18/2023 Pain in left toe(s) (ICD-10 - M79.675) 03/07/2023 Tinea unguium (ICD-10 - B35.1) 03/07/2023 Pain in left toe(s) (ICD-10 - M79.675) 05/18/2023 Type 2 diabetes mellitus without complication (ICD-10 - E11.9) 07/13/2023 Pain in right toe(s) (ICD-10 - M79.674) 07/27/2023 Type 2 diabetes mellitus without complication (ICD-10 - E11.9) 10/09/2023 Pain in left toe(s) (ICD-10 - M79.675) 08/14/2023 Other hammer toe(s) (acquired), left foot (ICD-10 - M20.42) 01/04/2024 Type 2 diabetes mellitus without complication (ICD-10 - E11.9) 10/09/2023 Type 2 diabetes mellitus without complication (ICD-10 - E11.9) 08/14/2023 Arthritis of joint of lesser toe, left (ICD-10 - M19.072) 07/27/2023 Xerosis of skin (ICD-10 - L85.3) 05/18/2023 Xerosis of skin (ICD-10 - L85.3) 07/13/2023 Type 2 diabetes mellitus without complication (ICD-10 - E11.9) 03/07/2023 Type 2 diabetes mellitus without complication (ICD-10 - E11.9) 03/07/2023 Other hammer toe(s) (acquired), left foot (ICD-10 - M20.42) 08/14/2023 Pain in left toe(s) (ICD-10 - M79.675) 10/09/2023 Xerosis of skin (ICD-10 - L85.3) 03/07/2023 Other hammer toe(s) (acquired), right foot (ICD-10 - M20.41) Patient Educated with: DIABETIC FOOT CARE INSTRUCTIONS.p df (DIABETIC FOOT CARE INSTRUCTIONS.p df) 08/14/2023 Other Plan Of Treatment Pending Test Test Name Order Date X ray : Foot, left 3V 08/14/2023 [id number] NAIL, 6 OR MORE 03/07/2023 [id number] NAIL, 6 OR MORE 05/18/2023 [id number] NAIL, 6 OR MORE 07/27/2023 Next Appt Details Provider Name:Pari De Souza dilip, 03/28/2024 04:00:00 PM, [address] [place], [address], Insurance Providers Payer Name Payer Address Payer Phone Subscriber Number Group Number Insured Name Patient Relationship to Insured Coverage Start Date Coverage End Date Medicare National Govt [employer] [address] [place] [address] [phone] [id number] Linda Dinero Self - [facility] is the insured [facility] [address] [place] [address] [id number] Linda Dinero Self - patient is the insured Medical (General) History Medical History History ICD Code Anxiety Cancer Cataracts Depression Diabetic Gall bladder problems Glaucoma Heart disease High blood pressure Psychiatric disorder Reflux Stroke Measles Mumps Chicken pox Planter Wart Surgical History Surgery Date(Month/Year) gastrectomy 11-22-2022 hysterectomy 06-14-2021 Gall bladder removal 1977 03-27-1979 Wart removal 1969
--- NOTE | 2024-02-08 13:43 | MHC.OFFVISWM ---
VS Expanded 02/08/24 13:57 BP 149/70 H Blood Pressure Location Rt brachial Blood Pressure Position Sitting Pulse 70 Pulse Source Pulse Oximeter Temp 97.4 F Temperature Source Temporal Artery Scan Pulse Oximetry 97 Oxygen Delivery Method Room Air Height 5 ft 1.5 in Weight 137 lb 6.4 oz BMI 25.5 Body Fat % 27.8 Body Fat Mass 38.2 Fat Free Mass 99.2 Visceral Fat Rating 8.0 Body Water % 50.9 Body Water Mass 69.8 Muscle Mass/Score 94.2 Basal Metabolic Rate/Score 1,315 Intake Visit Reasons: OV PO LSG 11/22/22 Mail Delivery Supervisor Required: No Allergies demerol Allergy (Unknown, Uncoded 10/20/23 13:38) hives, hallucinations percocet Allergy (Unknown, Uncoded 10/20/23 13:38) Hives Medication List - Last Reconciled 02/08/24 by ELIJAH Hernandez biotin mcg PO carboxymethylcellulose sodium 1% (Refresh Celluvisc) 1 drp ophthalmic (eye) QID clopidogrel 75 mg PO DAILY cyclosporine 0.05% (Restasis) 1 drp ophthalmic (eye) .0800+2200 docusate sodium (Colace) 100 mg PO TID lorazepam 2 mg PO .@2200 PRN lorazepam 1 mg PO .@0800+1700 pravastatin 40 mg PO .DAILY@1900 sennosides (senna) 8.6 mg PO BID tretinoin 0.025% appl topical ziprasidone HCl 20 mg PO BID@0800,1700 ziprasidone HCl 80 mg PO BID@1900,2200 HPI Comments Details: This?a?68?yo female who is s/p LSG without hiatal hernia repair on?11/22/2022. Presents for 1 year 2 month post op visit. Weight today is 137.4 pounds, with a BMI of 25.5. There has been a 52.8 pound weight loss,(initial weight 190.2 pounds) since starting the program on 07/14/2022 reflecting a 27.7 % total body weight loss and a weight loss of 29.1 pounds since surgery (operative weight 166.5 pounds) reflecting a 17.4 % TBWL since surgery. No complaints of nausea, emesis, abdominal pain or reflux. Reports infrequent but normal bowel movements every 1-2 days. Patient is feeling overwhelmed by her caregiver responsibility for her boyfriend. We discussed the importance of self-care. Discussed the possibility of bringing in more help or admission to a facility. She states that she is going to look into this. Getting her meal plan from Dr Anderson. She had mandibular dental extraction 2 weeks ago and has been on puree meals ever since Present meal plan includes: celebrate 4 in 1 1/2 in 8 oz unsweetened almond milk x 2 Celebrate 4 in 1 1 scoop in 8 oz unsweetened almond milk x2 Two meals, puree, 4 forks each Drinkin oz water daily Exercise plan: Gym 1-2 x per week burning 400 calories on multiple cardio activities including stationary bike and rowing machine additionally doing weight training [facility] Medical History (Updated 03/03/23 @ 11:23 by Laquita Barroso PA-C) BMI 36.0-36.9,adult Steatosis, liver Asymptomatic coronary heart disease History of endometrial cancer History of cerebrovascular accident BMI 35.0-35.9,adult GERD (gastroesophageal reflux disease) Hepatomegaly Liver fibrosis Depression Bipolar 1 disorder Hyperlipidemia Insulin dependent type 2 diabetes mellitus Myocardial infarction Surgical History Hx of laparoscopic partial gastrectomy Hx of section Hx of wisdom tooth extraction Hx of lymph node excision Hx of cholecystectomy Hx of hysterectomy Family History Mother Hypertension Diabetes High cholesterol Stroke Father Diabetes Hypertension High cholesterol Heart attack Sister Diabetes Hypertension Son Stroke Hypertension High cholesterol Social History Household Members: Significant Other Housing: House Are you a primary patient care technician instructor to a significant other at home: Yes (SO, son with be available post-op to help with care) Do you presently have visiting nurse or other home services: No Alcohol intake: never Patient Tobacco Use Status: Never used Tobacco Physical Exam Vital Signs: Last Vital Signs Temp 97.4 F 02/08/24 13:57 Pulse 70 02/08/24 13:57 BP 149/70 H 02/08/24 13:57 Pulse Ox 97 02/08/24 13:57 Oxygen Delivery Method Room Air 02/08/24 13:57 BMI result Body Mass Index 25.5 Assessment & Plan Assessment & Plan (1) S/P laparoscopic sleeve gastrectomy: Code(s): Z98.84 - Bariatric surgery status Category: Surgical Plan: Patient was encouraged to continue her meal plan. Continue exercising as she is able. Consideration for placement with her boyfriend so that she may focus on her own health. She will return to the clinic as scheduled
[2024-02-08 13:57] VITALS: BP 149/70; PULSE 70; TEMP 36.3; O2SAT 97; BMI 25.5
== END 2024-02-08 14:53 | disposition home or self-care (01) ==
PROVIDERS: PCP Internal Medicine Endocrinology, Diabetes & Metabolism; Visit Provider Physician Assistant Surgical
DX: E66.3 Overweight (principal); Z68.25 Body mass index [BMI] 25.0-25.9, adult; Z90.3 Acquired absence of stomach [part of]; Z98.84 Bariatric surgery status
CPT/HCPCS: 99213

== ENCOUNTER → 2024-02-08 13:25 | Outpatient (BNVA) | payer MEDICARE, OTHER, SELFPAY | PROVIDERS: PCP Internal Medicine Endocrinology, Diabetes & Metabolism; Visit Provider Physician Assistant Surgical | DX: Z71.3 Dietary counseling and surveillance (principal); Z98.84 Bariatric surgery status | CPT/HCPCS: 99212 ==

== ENCOUNTER 2024-02-12 14:27 | Outpatient (REF) | payer SELFPAY ==
--- NOTE | 2024-02-15 08:23 | MHC.AU.HA3 ---
Hearing Instrument Follow-Up- Binaural Date of Visit: 02/12/24 Right Ear: Eulogio, Model, Color, Serial Number: Stephani Reynoso [id number] 312-T SN: [id number] Color: [place] Bird Tender Repair Warranty: 01/29/2022 Bird Tender Loss and Damage Warranty: 01/29/2022 [facility] Service Plan: 08/02/2025 Battery Size: 312 Architecture Manager/Slim Tube: 2M Earmold/Dome/CShell/SlimTip:Medium vented dome with retention tail Type of Wax Guard: CeruShield Dispensed By: [facility] Date of Fittin11/07/2018 Left Ear: Eulogio, Model, Color, Serial Number: Stephani Philippeo [id number] 312-T SN: [id number] Color: [place] Bird Tender Repair Warranty: 01/29/2022 Bird Tender Loss and Damage Warranty: 01/29/2022 [facility] Service Plan: 08/02/2025 Battery Size: 312 Architecture Manager/Slim Tube: 2M Earmold/Dome/CShell/SlimTip: Medium vented dome with retention tail Type of Wax Guard: CeruShield Dispensed By: [facility] Date of Fittin11/07/2018 Follow-Up Summary: Lnida is seen with broken right paperboard box maker. Replaced. Cleaned aid. Listening check positive. Recommendations: Recommendations: Hearing instrument follow-up or maintenance as needed. Diagnosis Code(s): Primary Diagnosis: H90.3 Bilateral Sensorineural Hearing Loss Signature: Provider: Helga Reno, [facility]
== END 2024-02-12 14:28 | disposition home or self-care (01) ==
LOC: HO.HAP 14:27
PROVIDERS: Visit Provider Internal Medicine Endocrinology, Diabetes & Metabolism
DX: Z46.1 Encounter for fitting and adjustment of hearing aid (principal); H90.3 Sensorineural hearing loss, bilateral
CPT/HCPCS: V5299

== ENCOUNTER 2024-03-01 12:47 | Outpatient (REF) | payer OTHER, MEDICARE, SELFPAY ==
--- OUTSIDE RECORDS SUMMARY | 2024-03-01 12:50 | XMS_ITS ---
[facility] Address [address] [facility] [place] [address] Care Team Providers Care Code Enforcement Supervisor Name Role Phone Mitra Cheung Primary Care Provider UnavailRigoberto Childs Unavailable [phone] Pari Monroy Unavailable [phone] Allergies Allergen (clinical drug ingredient) Drug/Non Drug [...] 01/04/2024 Encounters Encounter Location Date Provider Diagnosis [facility] [address] [place] [address] 01/04/2024 Pari Monroy Pain in right toe(s) [...] Name:Pari De Souza dilip, 03/28/2024 04:00:00 PM, [address] [place] [address], [address], Procedure Notes * Category Sub-Category Detail Notes [...] use of a nail nipper and/or dremel-type metal grinder, to a more viable healthy nail plate or bed tissue 6-10. Silver nitrate used for any petechial bleeding as necessary. Definitive antifungal treatment options have been reviewed and discussed with the patient. The patient chooses, no pharmaceutical tx - 53383 Progress Notes * Adri DINEROB:1955 (68 yo F)Acc No.[id number]:01/04/2024 Progress Note Patient:Linda CALIX Provider:?Pari Monroy DPM :1955???Age:68 Y???Sex:Female D ate:01/04/2024 Address:[address] [place] [address] [address], [address], [facility] Pcp:Mitra Cheung Subjective: * Chief Complaints: * [...] * Medical History:? * Surgical History:?gastrectom y 73-6-4831rjltlwrnmdxd 03-22-8407Ctzl bladder removal 1978C-Section 7-0-2384Qfuk removal 1969 * Hospitalization/Major Diagno stic Procedure:?Denies [...] use of a nail nipper and/or dremel-type metal grinder, to a more viable healthy nail plate or bed tissue 6-10. Silver nitrate used for any petechial bleeding as necessary. Definitive antifungal treatment options have been reviewed and discussed with the patient. The patient chooses, no pharmaceutical tx - 61989.? * Procedure Codes:?33078 DEBRI DE NAIL, 6 OR MORE * Follow Up:?3 Months * Images: * Sign off status: Completed true * Provider:?Pari Monroy DPM Date:?03/05/2023 Generated for Leslye us/Ayo/Jonnaitting on:?03/01/2024 12:50 PM EST History and Physical Notes * [...]
--- OUTSIDE RECORDS SUMMARY | 2024-03-01 12:50 | XMS_ITS ---
Author Organization [facility] Address [address] [place] [address] Care Team Providers Care Prom Burn Off Operator Name Role Phone Mitra Cheung Primary Care Provider Rigoberto Jimenez Unavailable [phone] REASON FOR VISIT Refill Request Medications Medication SIG (Take, Route, Fr equency, Duration) Notes Start Date End Date Status Ammonium Lactate 12 % 1 application Exte rnally Twice a day for 30 days Active Encounters Encounter Location Date Provider Diagnosis [facility] [address] [place] [address] 09/22/2023 Rigoberto Christopher Xerosis of skin L85.3 [...] Provider Name:Pari cherry, 03/28/2024 04:00:00 PM, [address] [place], [address], Progress Notes * Sarah DINERO:1955 (68 yo F)Acc No.[id number]:09/22/2023 Patient:?Linda Dinero :1955???Age:68 Y???Sex:Female Address:[address] [place] [address] [address], [place] [address] * Refills? Refill Ammonium Lactate Cream, 12 %, Externally, 60, 1 application, Twice a day, 30 days, Refills=2 * true * Date:? Generated for Leslye us/Ayo/Jonnaitting on:?03/01/2024 12:50 PM EST
--- OUTSIDE RECORDS SUMMARY | 2024-03-01 12:50 | XMS_ITS ---
Author Organization [facility] Address [address] [facility] [place] [address] Care Team Providers Care Bingo Usher Name Role Phone Mitra Cheung Primary Care Provider UnavailRigoberto Childs Unavailable [phone] Jared Pavon Unavailable [phone] Allergies Allergen (clinical drug ingredient) Drug/Non Drug [...] 10/09/2023 Encounters Encounter Location Date Provider Diagnosis [facility] [address] [place] [address] 10/09/2023 Jared Pavon Pain in right toe(s) [...] Provider Name:Pari cherry, 03/28/2024 04:00:00 PM, [address] [place], [address], Procedure Notes * Category Sub-Category Detail Notes [...] as necessary. Patient chooses, no pharmaceutical tx (62609) Progress Notes * Dex DINEROiDOB:1955 (68 yo F)Acc No.[id number]:10/09/2023 Progress Note Patient:?Linda Dinero Provider:?Jared Pavon DPM :1955???Age:68 Y???Sex:Female D ate:10/09/2023 Address:[address] [place] [address], [address], [facility] Pcp:Huber Jones MD Subjective: * Chief Complaints: [...] * Medical History:? * Surgical History:?gastrectom y 65-2-2286orgbkfsihxpo 74-63-1943Xibk bladder removal 1978C-Section 4-7-3195Feep removal 1969 * Hospitalization/Major Diagno stic Procedure:?Denies [...] as necessary. Patient chooses, no pharmaceutical tx (56588).? * Procedure Codes:?66636 DEBRI DE NAIL, 6 OR MORE * [...] DPM Date:? 024 Generated for Leslye us/Ayo/Lisa on:?03/01/2024 12:50 PM EST History and Physical [...]
--- OUTSIDE RECORDS SUMMARY | 2024-03-01 12:51 | XMS_ITS ---
Continuity of Care Document (CCD) Created on: March 01, 2024 Linda Dinero External Reference #: [id number] : [id number] Sex: Female Author Organization [facility] [address] [facility] [address] [place] [address] Phone [phone] Problems Active Problems Provider Date Diabetes mellitus [...] Qnty Indications Order ing Provider Date Ziprasidone BTB22ob Capsules Take 1 tablet at 7 pm and 10 pm (Dr. Horta Brand only) 60caps Huber Jones M.D. 12/06/2022 BD Pen Needle/Liat/Ultra -Fine/32G X 4mm32G X 4 mm Misc 3 pen needle to insulin pen three times a day dx: e11.9 400units Huber Jones M.D. 05/27/2022 Sfssercpe9xy Tablets 1 tab at bedtime as needed Huber Jones M.D. 04/08/2022 Pravastatin Fafkuw18ci Tablets Take 1 Tablet By Mouth Every Day 90tabs Felicitas Rachel M.D. 09/07/2021 Rtdtdmlhf5yg Tablets 1 tab by mouth twice a day as needed 60tabs Huber Jones M.D. 09/07/2021 Ziprasidone FKY33zf Capsules Take 1 tablet at 8 am and 5 pm. Huber Jones M.D. 09/07/2021 Restasis0.05% Emulsion 1 drop each eye twice daily Unknown Clopidogrel Covqvnnrv37jg Tablets 1 tab by mouth every day as directed 90tabs Felicitas Rachel M.D. Zxtfxc495wj Capsules 1 by mouth every day as needed Unknown Refresh1.4-0.6% Solution Unknown Senna Laxative8.6mg Tablets Unknown Ammonium Xhcnbdb03% Cream apply to feet at 8 am and 8 pm Unknown Melpor2215uko Capsules 1 by mouth every day at [...] Glucose Fingerstick 118 Laboratory test finding 04/06/2023 [facility] Hemoglobin A1c 5.7 % High (4.0-5.6 ) 4 Laboratory test finding 12/06/2022 Inhouse Glucose Fingerstick 89 Laboratory test finding 12/01/2022 [facility] Hemoglobin A1c 5.7 % High (4.0-5.6 ) 5 Laboratory test finding 09/23/2022 Inhouse Glucose Fingerstick 140 Electrolytes 09/21/2022 [facility] Sodium 141 mmol/L (133-145 ) Potassium 4.1 mmol/L (3.6-5.2 ) Chloride 103 mmol/L (98-107) Bicarbonate 24 mmol/L (22-29) Anion Gap 14 (4-17) Laboratory test finding 09/21/2022 [facility] Ferritin 32 NG/ML (14-283) Laboratory test finding 09/19/2022 [facility] Hemoglobin A1c 6.1 % High (4.0-5.6 ) 6 Laboratory test finding 06/20/2022 Inhouse Glucose Fingerstick 136 Comprehensive Metabolic Panl 06/13/2022 [facility] Glucose 206 mg/dL High [...] 71 ML/MIN/1. 73M2 7 Lipid Panel 06/13/2022 [facility] Cholesterol, Total 133 mg/dL (<200) Triglyceride 176 mg/dL High (<150) HDL Chol 45 mg/dL (>39) LDL Cholesterol , Calculated 53 mg/dL (0-130) Non HDL Cholesterol (Calc) 88 mg/dL (<160) Complete Abc With Diff 06/13/2022 [facility] WBC 7.1 K/MM3 (4.0-11. [...] ) Lymph # 1.7 K/MM3 (0.8-3.1 ) Travis# 0.6 K/MM3 (0.4-0.9 ) Eo # 0.2 K/MM3 (0.0-0.4 ) Baso # 0.0 K/MM3 (0.0-0.1 ) Abs. Imm Gran 0.0 K/MM3 Neut 63.4 % (44-76) Lymph 24.4 % (15-43) Monocyte 8.7 % (4.5-10. 5) Eo 2.3 % (0-6) Baso 0.6 % (0-2) Imm Gran 0.6 % Urinary Microalbumin 06/13/2022 [facility] Micro-Albumin 38.8 mg/L High (<20) 8 Malb/Creat Ratio 61.9 MG/GM High (0-20) Urine Creat For Micro Albumin 62.7 mg/dL Laboratory test finding 06/13/2022 [facility] Hemoglobin A1c 6.7 % High (4.0-5.6 ) 9 Laboratory test finding 04/08/2022 Inhouse Glucose Fingerstick 139 Laboratory test finding 04/01/2022 [facility] Hemoglobin A1c 8.1 % High (4.0-5.6 ) 10 Laboratory test finding 01/31/2022 Inhouse Glucose Fingerstick 232 Laboratory test finding 09/07/2021 Inhouse Glucose Fingerstick 166 Laboratory test finding 09/02/2021 [facility] Hemoglobin A1c 6.1 % [...] with health care provider. DIAGNOSTIC USE: The [place] Diabetes Association (ADA) and the World Health [...] with health care provider. DIAGNOSTIC USE: The [place] Diabetes Association (ADA) and the World Health [...] with health care provider. DIAGNOSTIC USE: The [place] Diabetes Association (ADA) and the World Health [...] with health care provider. DIAGNOSTIC USE: The [place] Diabetes Association (ADA) and the World Health [...] with health care provider. DIAGNOSTIC USE: The [place] Diabetes Association (ADA) and the World Health [...] with health care provider. DIAGNOSTIC USE: The [place] Diabetes Association (ADA) and the World Health [...] 1 Procedures Date Code Description Status 09/28/2023 75598 Remove Impacted Cerumen Comp leted Medical Devices [...] And Hearing ANNUAL HEARING TEST Closed 09/22/[address] [place] [address] [phone] [facility] Speech And Hearing HEARING EVALUATION Closed 07/27/[address] [place] [address] [phone] [facility] RIGHT BUTTOX Closed [address] [place] [address] [phone]
--- OUTSIDE RECORDS SUMMARY | 2024-03-01 12:51 | XMS_ITS | Patient Health Record ---
Author Organization [facility] Address [address] [facility] [place] [address] Care Team Providers Care Orthopedic Technician Name Role Phone Jonatan Mitra Primary Care Provider UnavailRigoberto Childs Unavailable [phone] Jared Pavon Unavailable [phone] Pari Monroy Unavailable [phone] Allergies Allergen (clinical drug ingredient) Drug/Non Drug [...] Problem Acquired hammer toe of right foot (501466266364027 5) Other hammer toe(s) (acquired), right foot (M20.41) Active confirmed Problem Acquired hammer toe of left foot (886879924014721 3) Other hammer toe(s) (acquired), left foot (M20.42) Active confirmed Problem Type 2 diabetes mellitus without complication (725405603) Type 2 diabetes mellitus without complication (E11.9) Active confirmed Vital Signs Blood pressure diastolic 74 mm Hg 07/13/2023 Height 5ft 1.5in in 01/04/2024 Blood pressure systolic 102 mm Hg 07/13/2023 Weight 140 lbs 01/04/2024 BMI 26.02 kg/m2 01/04/2024 Procedures Procedure Date Ordered Date Performed Result Body Sit e 06571-DLJJRSF NAIL, 6 OR MORE 03/07/2023 N/A 22705-JHOIBTJ NAIL, 6 OR MORE 05/18/2023 N/A 72460-LMZUTOS NAIL, 6 OR MORE 07/27/2023 N/A Encounters Encounter Location Date Provider Diagnosis [facility] [address] [place] [address] 03/07/2023 Rigoberto Ashwin Pain in right toe(s) M79.674 ; Tinea unguium B35.1 ; Pain in left toe(s) M79.675 ; Type 2 diabetes mellitus without complication E11.9 ; Other hammer toe(s) (acquired), left foot M20.42 and Other hammer toe(s) (acquired), right foot M20.[address] [address] 05/18/2023 Rigoberto Ashwin Pain in right toe(s) M79.674 ; Tinea unguium B35.1 ; Pain in left toe(s) M79.675 ; Type 2 diabetes mellitus without complication E11.9 and Xerosis of skin L85.[address] [address] 07/13/2023 Jared Pavon Ingrowing nail L60.0 ; Cellulitis of right lower limb L03.115 ; Hematoma of toe of right foot, initial encounter S90.121A ; Pain in right toe(s) M79.674 and Type 2 diabetes mellitus without complication E11.[address] [address] 07/27/2023 Rigoberto Ashwin Pain in right toe(s) M79.674 ; Tinea unguium B35.1 ; Pain in left toe(s) M79.675 ; Type 2 diabetes mellitus without complication E11.9 and Xerosis of skin L85.[address] [address] 08/14/2023 Rigoberto Ashwin Hematoma of toe of left foot, initial encounter S90.122A ; Traumatic hematoma of left foot, initial encounter S90.32XA ; Other hammer toe(s) (acquired), left foot M20.42 ; Arthritis of joint of lesser toe, 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 and Pain in left toe(s) M79.[address] [address] 10/09/2023 Jared Pavon Pain in right toe(s) M79.674 ; Tinea unguium B35.1 ; Pain in left toe(s) M79.675 ; Type 2 diabetes mellitus without complication E11.9 and Xerosis of skin L85.3 [facility] [address] 01/04/2024 Pari Monroy Pain in right toe(s) M79.674 ; Tinea unguium B35.1 ; Pain in left toe(s) M79.675 and Type 2 diabetes mellitus without complication E11.9 [facility] [address] [facility] [address] [place] [address] 07/13/2023 Rigoberto Christopher [facility] [address] [facility] [facility] [address] 09/22/2023 Rigoberto Christopher Xerosis of skin L85.3 [...] X ray : Foot, left 3V 08/14/2023 76992-LYPYVZF NAIL, 6 OR MORE 03/07/2023 89729-KIPOIJD NAIL, 6 OR MORE 05/18/2023 93323-PQIWNMG NAIL, 6 OR MORE 07/27/2023 Next Appt Details Provider Name:Pari De Souza dilip, 03/28/2024 04:00:00 PM, [address] [place], [address], Insurance Providers Payer Name Payer Address Payer Phone Subscriber Number Group Number Insured Name Patient Relationship to Insured Coverage Start Date Coverage End Date Medicare National Govt [employer] [address] [facility] [address] [phone] [id number] Linda Dinero Self - patient is the insured [facility] [address] [place] [address] [id number] Linda Dinero Self - patient is the insured Medical (General) History Medical History History ICD Code Anxiety Cancer Cataracts Depression Diabetic Gall bladder problems Glaucoma Heart disease High blood pressure Psychiatric disorder Reflux Stroke Measles Mumps Chicken pox Planter Wart Surgical History Surgery Date(Month/Year) gastrectomy 11-22-2022 hysterectomy 06-14-2021 Gall bladder removal 1977 03-27-1979 Wart removal 1969
== END 2024-03-01 12:48 | disposition home or self-care (01) ==
LOC: HO.MAMMO 12:47
PROVIDERS: PCP Physician Assistant; Visit Provider Physician Assistant
DX: Z12.31 Encounter for screening mammogram for malignant neoplasm of breast (principal)
CPT/HCPCS: 77063; 77067

== ENCOUNTER → 2024-03-01 13:00 | Outpatient (BNV) | payer OTHER, MEDICARE, SELFPAY | PROVIDERS: PCP Physician Assistant; Visit Provider Internal Medicine | DX: Z12.31 Encounter for screening mammogram for malignant neoplasm of breast (principal) | CPT/HCPCS: 77063; 77067 ==

== ENCOUNTER 2024-04-05 12:55 | Outpatient (REF) | payer SELFPAY ==
--- OUTSIDE RECORDS SUMMARY | 2024-04-05 13:19 | XMS_ITS ---
Author Organization [facility] Address [address] [facility] [place] [address] Care Team Providers Care Bilingual Trainer Name Role Phone Mitra Cheung Primary Care Provider UnavailRigoberto Childs Unavailable [phone] Jared Pavon Unavailable [phone] Allergies Allergen (clinical drug ingredient) Drug/Non Drug [...] 10/09/2023 Encounters Encounter Location Date Provider Diagnosis [facility] [place] [address] [place] [address] 10/09/2023 Jared Pavon Pain in right toe(s) [...] Appt Details Follow Up: prn, Reason: Provider Name:Quin cohn, 04/09/2024 02:00:00 PM, [address] [place], [address], Procedure Notes * Category Sub-Category Detail Notes [...] as necessary. Patient chooses, no pharmaceutical tx (44589) Progress Notes * Dex DINEROiDOB:1955 (68 yo F)Acc No.[id number]:10/09/2023 Progress Note Patient:?Linda Dinero Provider:?Jared Pavon DPM :1955???Age:68 Y???Sex:Female D ate:10/09/2023 Address:[address] [place] [address], [address], [facility] Pcp:Huber Jones MD Subjective: * Chief Complaints: [...] * Medical History:? * Surgical History:?gastrectom y 13-5-8720afybafxakwdo 67-64-4688Gpfu bladder removal 1978C-Section 9-1-5229Fzsu removal 1969 * Hospitalization/Major Diagno stic Procedure:?Denies [...] as necessary. Patient chooses, no pharmaceutical tx (53882).? * Procedure Codes:?36415 DEBRI DE NAIL, 6 OR MORE * [...] DPM Date:? 024 Generated for Leslye us/Ayo/Lisa on:?04/05/2024 01:19 PM EST History and Physical Notes * [...]
--- OUTSIDE RECORDS SUMMARY | 2024-04-05 13:19 | XMS_ITS | Patient Health Record ---
Author Organization [facility] Address [address] [facility] [place] [address] Care Team Providers Care County Extension Agent Name Role Phone Jonatan Mitra Primary Care Provider UnavailRigoberto Childs Unavailable [phone] Jared Pavon Unavailable [phone] aPri Monroy Unavailable [phone] Allergies Allergen (clinical drug ingredient) Drug/Non Drug [...] Duration) Notes Start Date End Date Status Biotin Active Lisinopril 10 MG 1 tablet Orally Once a day Not-Taking Ziprasidone HCl 20mg 5am 80mg 7pm Active dilTIAZem HCl ER Beads 180 MG 1 capsule Orally Once a day Not-Taking Senna Active Pantoprazole Sodium 40 MG 1 tablet Orally Once a day Not-Taking Colace Active Sucralfate 1 GM 1 tablet on an empty stomach Orally Twice a day Not-Taking Tretinoin Active Ammonium Lactate 12 % 1 application Externally Twice a day for 30 days Active Pravastatin Sodium 40 MG 1 tablet [...] 4 MG/ML as directed Injection 2mg Active Restasis 0.05 % 1 drop into affected eye Ophthalmic Twice a day Active Refresh Eye Itch Relief Active Immunizations Vaccine Route Administration Date Status [...] Problem Acquired hammer toe of right foot (575263063149149 5) Other hammer toe(s) (acquired), right foot (M20.41) Active confirmed Problem Acquired hammer toe of left foot (233785727029835 3) Other hammer toe(s) (acquired), left foot (M20.42) Active confirmed Problem Type 2 diabetes mellitus without complication (359268472) Type 2 diabetes mellitus without complication (E11.9) Active confirmed Vital Signs Blood pressure diastolic 74 mm Hg 07/13/2023 Height 5ft 1.5in in 01/04/2024 Blood pressure systolic 102 mm Hg 07/13/2023 Weight 140 lbs 01/04/2024 BMI 26.02 kg/m2 01/04/2024 Procedures Procedure Date Ordered Date Performed Result Body Sit e 33779-XETZCQR NAIL, 6 OR MORE 05/18/2023 N/A 23729-QUDKUGM NAIL, 6 OR MORE 07/27/2023 N/A Encounters Encounter Location Date Provider Diagnosis [facility] [address] [address] 05/18/2023 Rigoberto Ashwin Pain in right toe(s) M79.674 ; Tinea unguium B35.1 ; Pain in left toe(s) M79.675 ; Type 2 diabetes mellitus without complication E11.9 and Xerosis of skin L85.[address] [address] 07/13/2023 Jared Pavon Ingrowing nail L60.0 ; Cellulitis of right lower limb L03.115 ; Hematoma of toe of right foot, initial encounter S90.121A ; Pain in right toe(s) M79.674 and Type 2 diabetes mellitus without complication E11.[address] [address] 07/27/2023 Rigoberto Ashwin Pain in right toe(s) M79.674 ; Tinea unguium B35.1 ; Pain in left toe(s) M79.675 ; Type 2 diabetes mellitus without complication E11.9 and Xerosis of skin L85.[address] [address] 08/14/2023 Rigoberto Ashwin Hematoma of toe of left foot, initial encounter S90.122A ; Traumatic hematoma of left foot, initial encounter S90.32XA ; Other hammer toe(s) (acquired), left foot M20.42 ; Arthritis of joint of lesser toe, 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 and Pain in left toe(s) M79.[address] [address] 10/09/2023 Jared Pavon Pain in right toe(s) M79.674 ; Tinea unguium B35.1 ; Pain in left toe(s) M79.675 ; Type 2 diabetes mellitus without complication E11.9 and Xerosis of skin L85.[address] [address] 01/04/2024 Pari Monroy Pain in right toe(s) M79.674 ; Tinea unguium B35.1 ; Pain in left toe(s) M79.675 and Type 2 diabetes mellitus without complication E11.[address] [address] [facility]/13/2023 [facility] [place] [address] [place] [address] 08/14/2023 [facility] [place] [address] [place] [address] 09/22/2023 Rigobertoizabella VidalAshwin Xerosis of skin L85.3 Assessments Encounter Date Diagnosis (ICD Code) Assessment Notes Treatment Notes Treatment Clinical Notes Section Notes 05/18/2023 Tinea unguium (ICD-10 - B35.1) 05/18/2023 [...] mellitus without complication (ICD-10 - E11.9) 08/14/2023 Pain in left toe(s) (ICD-10 - M79.675) 10/09/2023 Xerosis of skin (ICD-10 - L85.3) 08/14/2023 Other Plan Of Treatment Pending Test Test Name Order Date X ray : Foot, left 3V 08/14/2023 44701-FHEKULI NAIL, 6 OR MORE 03/07/2023 73094-WCMCHKT NAIL, 6 OR MORE 05/18/2023 52000-VDMGEMM NAIL, 6 OR MORE 07/27/2023 Next Appt Details Provider Name:Quin cohn, 04/09/2024 02:00:00 PM, [address] [facility], [place], [address], Insurance Providers Payer Name Payer Address Payer Phone Subscriber Number Group Number Insured Name Patient Relationship to Insured Coverage Start Date Coverage End Date Medicare National Govt Sv[employer] [address] [facility] [place] [address] [id number] Linda Dinero Self - patient is the insured [facility] [address] [place] [address] [phone] [id number] Bar Linda Self - patient is the insured Medical (General) History Medical History History ICD Code Anxiety Cancer Cataracts Depression Diabetic Gall bladder problems Glaucoma Heart disease High blood pressure Psychiatric disorder Reflux Stroke Measles Mumps Chicken pox Planter Wart Surgical History Surgery Date(Month/Year) gastrectomy 11-22-2022 hysterectomy 06-14-2021 Gall bladder removal 1977 03-27-1979 Wart removal 1969
--- OUTSIDE RECORDS SUMMARY | 2024-04-05 13:19 | XMS_ITS ---
Author Organization [facility] Address [address] [facility] [address] Care Team Providers Care Elementary Science Teacher Name Role Phone Mitra Cheung Primary Care Provider UnavailRigoberto Childs Unavailable [phone] Pari Monroy Unavailable [phone] Allergies Allergen (clinical drug ingredient) Drug/Non Drug [...] 01/04/2024 Encounters Encounter Location Date Provider Diagnosis [facility] [address] [place] [address] 01/04/2024 Pari Vazquezaker Pain in right toe(s) M79.674 ; Tinea [...] Details Follow Up: 3 Months, Reason: Provider Name:Quin cohn, 04/09/2024 02:00:00 PM, [address] [place], [address], Procedure Notes * Category Sub-Category Detail Notes [...] use of a nail nipper and/or dremel-type grinder set up operator thread, to a more viable healthy nail plate or bed tissue 6-10. Silver nitrate used for any petechial bleeding as necessary. Definitive antifungal treatment options have been reviewed and discussed with the patient. The patient chooses, no pharmaceutical tx - 53619 Progress Notes * Adri DINEROB:1955 (68 yo F)Acc No.[id number]:01/04/2024 Progress Note Patient:Linda CALIX Provider:?Pari Monroy DPM :1955???Age:68 Y???Sex:Female D ate:01/04/2024 Address:[address] [place] [address] [address], [address], [facility] Pcp:Mitra Cheung Subjective: * Chief Complaints: * [...] * Medical History:? * Surgical History:?gastrectom y 89-9-3841jxstityinvnp 18-44-8193Jxud bladder removal 1978C-Section 5-5-1700Fims removal 1969 * Hospitalization/Major Diagno stic Procedure:?Denies [...] use of a nail nipper and/or dremel-type grinder set up operator thread, to a more viable healthy nail plate or bed tissue 6-10. Silver nitrate used for any petechial bleeding as necessary. Definitive antifungal treatment options have been reviewed and discussed with the patient. The patient chooses, no pharmaceutical tx - 33028.? * Procedure Codes:?62891 DEBRI DE NAIL, 6 OR MORE * Follow Up:?3 Months * Images: * Sign off status: Completed true * Provider:?Pari Monroy DPM Date:?03/05/2023 Generated for Leslye us/Ayo/Jonnaitting on:?04/05/2024 01:19 PM EST History and Physical [...]
--- OUTSIDE RECORDS SUMMARY | 2024-04-05 13:19 | XMS_ITS | Continuity of Care Document ---
Author Organization [facility] [address] [facility] [address] [place] [address] Phone [phone] Problems Active Problems Provider Date Diabetes mellitus [...] Qnty Indications Order ing Provider Date Ziprasidone SJS24ia Capsules Take 1 tablet at 7 pm and 10 pm (Dr. Horta Brand only) 60caps Huber Jones M.D. 12/06/2022 BD Pen Needle/Liat/Ultra -Fine/32G X 4mm32G X 4 mm Misc 3 pen needle to insulin pen three times a day dx: e11.9 400units Huber Jones M.D. 05/27/2022 Trzmmurtq1nk Tablets 1 tab at bedtime as needed Huber Jones M.D. 04/08/2022 Pravastatin Ymyurw61vq Tablets Take 1 Tablet By Mouth Every Day 90tabs Felicitas Rachel M.D. 09/07/2021 Hqpqtrphy7xb Tablets 1 tab by mouth twice a day as needed 60tabs Huber Jones M.D. 09/07/2021 Ziprasidone NGJ44gn Capsules Take 1 tablet at 8 am and 5 pm. Huber Jones M.D. 09/07/2021 Restasis0.05% Emulsion 1 drop each eye twice daily Unknown Clopidogrel Udwsiropj56lz Tablets 1 tab by mouth every day as directed 90tabs Felicitas Rachel M.D. Eagnkf368ny Capsules 1 by mouth every day as needed Unknown Refresh1.4-0.6% Solution Unknown Senna Laxative8.6mg Tablets Unknown Ammonium Dfhlmwv53% Cream apply to feet at 8 am and 8 pm Unknown Niyplq7189mrg Capsules 1 by mouth every day at [...] Glucose Fingerstick 118 Laboratory test finding 04/06/2023 [facility] Hemoglobin A1c 5.7 % High (4.0-5.6 ) 4 Laboratory test finding 12/06/2022 Inhouse Glucose Fingerstick 89 Laboratory test finding 12/01/2022 [facility] Hemoglobin A1c 5.7 % High (4.0-5.6 ) 5 Laboratory test finding 09/23/2022 Inhouse Glucose Fingerstick 140 Electrolytes 09/21/2022 [facility] Sodium 141 mmol/L (133-145 ) Potassium 4.1 mmol/L (3.6-5.2 ) Chloride 103 mmol/L (98-107) Bicarbonate 24 mmol/L (22-29) Anion Gap 14 (4-17) Laboratory test finding 09/21/2022 [facility] Ferritin 32 NG/ML (14-283) Laboratory test finding 09/19/2022 [facility] Hemoglobin A1c 6.1 % High (4.0-5.6 ) 6 Laboratory test finding 06/20/2022 Inhouse Glucose Fingerstick 136 Comprehensive Metabolic Panl 06/13/2022 [facility] Glucose 206 mg/dL High [...] 71 ML/MIN/1. 73M2 7 Lipid Panel 06/13/2022 [facility] Cholesterol, Total 133 mg/dL (<200) Triglyceride 176 mg/dL High (<150) HDL Chol 45 mg/dL (>39) LDL Cholesterol , Calculated 53 mg/dL (0-130) Non HDL Cholesterol (Calc) 88 mg/dL (<160) Complete Abc With Diff 06/13/2022 [facility] WBC 7.1 K/MM3 (4.0-11. [...] ) Lymph # 1.7 K/MM3 (0.8-3.1 ) Screven# 0.6 K/MM3 (0.4-0.9 ) Eo # 0.2 K/MM3 (0.0-0.4 ) Baso # 0.0 K/MM3 (0.0-0.1 ) Abs. Imm Gran 0.0 K/MM3 Neut 63.4 % (44-76) Lymph 24.4 % (15-43) Monocyte 8.7 % (4.5-10. 5) Eo 2.3 % (0-6) Baso 0.6 % (0-2) Imm Gran 0.6 % Urinary Microalbumin 06/13/2022 [facility] Micro-Albumin 38.8 mg/L High (<20) 8 Malb/Creat Ratio 61.9 MG/GM High (0-20) Urine Creat For Micro Albumin 62.7 mg/dL Laboratory test finding 06/13/2022 [facility] Hemoglobin A1c 6.7 % High (4.0-5.6 ) 9 Laboratory test finding 04/08/2022 Inhouse Glucose Fingerstick 139 Laboratory test finding 04/01/2022 [facility] Hemoglobin A1c 8.1 % High (4.0-5.6 ) 10 Laboratory test finding 01/31/2022 Inhouse Glucose Fingerstick 232 Laboratory test finding 09/07/2021 Inhouse Glucose Fingerstick 166 Laboratory test finding 09/02/2021 [facility] Hemoglobin A1c 6.1 % [...] with health care provider. DIAGNOSTIC USE: The [place] [employer] (ADA) and the World Health [...] with health care provider. DIAGNOSTIC USE: The [place] [employer] (ADA) and the World Health [...] with health care provider. DIAGNOSTIC USE: The [place] [employer] (ADA) and the World Health [...] with health care provider. DIAGNOSTIC USE: The [place] [employer] (ADA) and the World Health [...] with health care provider. DIAGNOSTIC USE: The [place] [employer] (ADA) and the World Health [...] with health care provider. DIAGNOSTIC USE: The [place] [employer] (ADA) and the World Health [...] 1 Procedures Date Code Description Status 09/28/2023 59855 Remove Impacted Cerumen Comp leted Medical Devices Description No Information Available Encounters Type Date Location Provider Dx Diagnosis Office Visit 03/26/2024 1:47p Main Office ELIJAH Flores E11.8 Type 2 diabet es mellitus with unspecified complications D64.9 Anemia, unspecified Assessments Date Code Description Provider 03/26/2024 E11.8 Type 2 diabetes mellitus with unspecified complications ELIJAH Flores 03/26/2024 D64.9 Anemia, unspecified ELIJAH Altamirano Plan of Treatment Future Appointment(s):* 06/11/2024 2:30 pm - ELIJAH Flores at Main Office * 04/12/2024 1:15 pm - ELIJAH Flores at Main Office 12/11/2023 - ELIJAH Flores* I25.89 Asymptomatic coronary heart disease * C54.1 Endometrial carcinoma * Z86.59 H/O: depression * Z98.84 Bariatric surgery status Functional Status Description No Information Available Mental Status Description No Information Available Referrals Refer to Reason for Referral Status Appt [facility] AN[facility]AL HEARING TEST Closed 09/22/2023 [address] [place] [address] [phone] [facility] HEARING EVALUATION Closed 07/27/2022 [address] [place] [address] [phone] [facility] RIGHT BUTTOX Closed [address] [place] [address] [phone]
--- OUTSIDE RECORDS SUMMARY | 2024-04-05 13:19 | XMS_ITS ---
Author Organization [facility] Address [address] [facility] [place] [address] Care Team Providers Care Inside Technical Sales Representative Name Role Phone Mitra Cheung Primary Care Provider UnavailRigoberto Childs Unavailable [phone] Pari Monroy Unavailable [phone] Allergies Allergen (clinical drug ingredient) Drug/Non Drug [...] Twice a day for 30 days Active Keflex 500 MG 1 [...] Active Encounters Encounter Location Date Provider Diagnosis [facility] [address] [address] 03/28/2024 Pari Monroy Plan Of Treatment Next Appt Details Provider Name:Quin cohn, 04/09/2024 02:00:00 PM, [address] [place] [address], [address], Progress Notes * ATUL DexPhillB:1955 (69 yo F)Acc No.[id number]:03/28/2024 Progress Note Patient:?Linda DINERO Provider:?Pari Monroy DPM :1955???Age:69 Y???Sex:Female D ate:03/28/2024 Address:[address] [place] [address] [address], [address], [facility] Pcp:Mitra Cheung Subjective: * Chief Complaints: * ???1. Dr Corona. * Medical History:?Anxiety, Ca ncer, Cataracts, Depression, Diabetic, Gall bladder problems, Glaucoma, Heart disease, High blood pressure, Psychiatric disorder, Reflux, Stroke, Measles, Mumps, Chicken pox, Planter Wart. * Medications:?Taking Tretinoi n , Taking Pravastatin Sodium 40 MG Tablet [...] 1 capsule Orally Once a day * Allergies:?Tape: Rash/Itchy, Percocet: Hives. Objective: * Vitals:? Assessment: Plan: * Treatment: * Images: * The named appointment provid er may or may not be the originator of this progress note, and it is not deemed complete until electronically signed by the appointment provider. Sign off status: Pending * Provider:?Pari Monroy DPM Date:?0 03/28/2024 Generated for Leslye us/Ayo/Lisa on:?04/05/2024 01:19 PM EST
== END 2024-04-05 12:56 | disposition home or self-care (01) ==
LOC: HO.HAP 12:55
PROVIDERS: PCP Physician Assistant; Visit Provider Physician Assistant
DX: Z13.89 Encounter for screening for other disorder (principal)

== ENCOUNTER 2024-05-08 10:56 | Outpatient (REF) | payer SELFPAY ==
--- OUTSIDE RECORDS SUMMARY | 2024-05-08 13:10 | XMS_ITS | Continuity of Care Document ---
Author Organization [facility] [address] [facility] [address] [place] [address] Phone [phone] Problems Active Problems Provider Date Diabetes mellitus [...] Qnty Indications Order ing Provider Date Ziprasidone [id number] Capsules Take 1 tablet at 7 pm and 10 pm (Dr. Horta Brand only) 60caps Huber Jones M.D. 12/06/2022 BD Pen Needle/Liat/Ultra -Fine/32G X 4mm32G X 4 mm Misc 3 pen needle to insulin pen three times a day dx: e11.9 400units Huber Jones M.D. 05/27/2022 Rjmzivxoi5tj Tablets 1 tab at bedtime as needed Huber Jones M.D. 04/08/2022 Pravastatin Hmvaks07vt Tablets Take 1 Tablet By Mouth Every Day 90tabs Felicitas Rachel M.D. 09/07/2021 Klctgfcso8ly Tablets 1 tab by mouth twice a day as needed 60tabs Huber Jones M.D. 09/07/2021 Ziprasidone ORC33gk Capsules Take 1 tablet at 8 am and 5 pm. Huber Jones M.D. 09/07/2021 Restasis0.05% Emulsion 1 drop each eye twice daily Unknown Clopidogrel Fdbgxwtvn78qg Tablets 1 tab by mouth every day as directed 90tabs Felicitas Rachel M.D. Dwwrtw478pr Capsules 1 by mouth every day as needed Unknown Refresh1.4-0.6% Solution Unknown Senna Laxative8.6mg Tablets Unknown Ammonium Sddcnlr73% Cream apply to feet at 8 am and 8 pm Unknown Mxsomn2359ilw Capsules 1 by mouth every day at 7 pm Unknown Zqrxbvenf05do Tablets ER 24HR Unknown Vital Signs Date Vital Result Comment 04/12/2024 1:18pm BP Systolic 112 mmHg BP Diastolic 70 mmHg Heart Rate 76 /min Height 61 inches 5'1 Weight 142.25 lb BMI (Body Mass Index) 26.9 kg/m2 Results Test Acquired Date Facility Test Result H/L Range Note Hemoglobin A1c 04/12/2024 Inhouse Hemoglobin A1c 6.0% Glucose Fingerstick 04/12/2024 Inhouse Glucose Fingerstick 143 Glucose Fingerstick 12/11/2023 Inhouse Glucose Fingerstick 93 Comp. Metabolic [...] Estab. Alb/Creat Ratio 9 mg/gcreat 0-29 2 Glucose Fingerstick 08/10/2023 Inhouse Glucose Fingerstick 98 Hemoglobin A1c 08/03/2023 [facility] Hemoglobin A1c 5.5 % 4.8-5.6 3 Glucose Fingerstick 04/11/2023 Inhouse Glucose Fingerstick 118 Hemoglobin A1c 04/06/2023 [facility] Hemoglobin A1c 5.7 % High (4.0-5.6 ) 4 Glucose Fingerstick 12/06/2022 Inhouse Glucose Fingerstick 89 Hemoglobin A1c 12/01/2022 [facility] Hemoglobin A1c 5.7 % High (4.0-5.6 ) 5 Glucose Fingerstick 09/23/2022 Inhouse Glucose Fingerstick 140 Electrolytes 09/21/2022 [facility] Sodium 141 mmol/L (133-145 ) Potassium 4.1 mmol/L (3.6-5.2 ) Chloride 103 mmol/L (98-107) Bicarbonate 24 mmol/L (22-29) Anion Gap 14 (4-17) Ferritin 09/21/2022 [facility] Ferritin 32 NG/ML (14-283) Hemoglobin A1c 09/19/2022 [facility] Hemoglobin A1c 6.1 % High (4.0-5.6 ) 6 Glucose Fingerstick 06/20/2022 Inhouse Glucose Fingerstick 136 Comprehensive Metabolic Panl 06/13/2022 [facility] Glucose 206 mg/dL High (70-99) [...] 71 ML/MIN/1. 73M2 7 Lipid Panel 06/13/2022 [facility] Cholesterol, Total 133 mg/dL (<200) Triglyceride 176 mg/dL High (<150) HDL Chol 45 mg/dL (>39) LDL Cholesterol , Calculated 53 mg/dL (0-130) Non HDL Cholesterol (Calc) 88 mg/dL (<160) Complete Abc With Diff 06/13/2022 [facility] WBC 7.1 K/MM3 (4.0-11. 0) [...] ) Lymph # 1.7 K/MM3 (0.8-3.1 ) [place]# 0.6 K/MM3 (0.4-0.9 ) Eo # 0.2 K/MM3 (0.0-0.4 ) Baso # 0.0 K/MM3 (0.0-0.1 ) Abs. Imm Gran 0.0 K/MM3 Neut 63.4 % (44-76) Lymph 24.4 % (15-43) Monocyte 8.7 % (4.5-10. 5) Eo 2.3 % (0-6) Baso 0.6 % (0-2) Imm Gran 0.6 % Urinary Microalbumin 06/13/2022 [facility] Micro-Albumin 38.8 mg/L High (<20) 8 Malb/Creat Ratio 61.9 MG/GM High (0-20) Urine Creat For Micro Albumin 62.7 mg/dL Hemoglobin A1c 06/13/2022 [facility] Hemoglobin A1c 6.7 % High (4.0-5.6 ) 9 Glucose Fingerstick 04/08/2022 Inhouse Glucose Fingerstick 139 Hemoglobin A1c 04/01/2022 [facility] Hemoglobin A1c 8.1 % High (4.0-5.6 ) 10 Glucose Fingerstick 01/31/2022 Inhouse Glucose Fingerstick 232 Glucose Fingerstick 09/07/2021 Inhouse Glucose Fingerstick 166 Hemoglobin A1c 09/02/2021 [facility] Hemoglobin A1c 6.1 % High [...] with health care provider. DIAGNOSTIC USE: The [place] [employer] (ADA) and the World Health [...] with health care provider. DIAGNOSTIC USE: The [place] [employer] (ADA) and the World Health [...] with health care provider. DIAGNOSTIC USE: The [place] [employer] (ADA) and the World Health [...] with health care provider. DIAGNOSTIC USE: The [place] [employer] (ADA) and the World Health [...] with health care provider. DIAGNOSTIC USE: The [place] [employer] (ADA) and the World Health [...] with health care provider. DIAGNOSTIC USE: The [place] [employer] (ADA) and the World Health [...] 1 Procedures Date Code Description Status 09/28/2023 05119 Remove Impacted Cerumen Comp leted Medical Devices Description No Information Available Encounters Type Date Location Provider Dx Diagnosis Office Visit 03/26/2024 1:47p Main Office ELIJAH Flores E11.8 Type 2 diabet es mellitus with unspecified complications D64.9 Anemia, unspecified Assessments Date Code Description Provider 04/12/2024 E11.8 Type 2 diabetes mellitus with unspecified complications ELIJAH Flores 04/12/2024 I25.89 Asymptomatic coronary heart disease ELIJAH Flores 04/12/2024 C54.1 Endometrial carcinoma ELIJAH Flores 04/12/2024 F41.1 Generalized anxiety disorder ELIJAH Flores 04/12/2024 F33.1 Major depressive disorder, r ecurrent, moderate ELIJAH Flores 04/12/2024 Z98.84 Bariatric surgery status ELIJAH Bagley 04/12/2024 R31.9 Hematuria, unspecified ELIJAH Esquivel Plan of Treatment Future Appointment(s):* 07/12/2024 1:15 pm - ELIJAH Flores at Main Office * 06/11/2024 2:30 pm - ELIJAH Flores at Main Office 04/12/2024 - ELIJAH Flores* E11.8 Type 2 diabetes mellitus with unspecified complications * I25.89 Asymptomatic coronary heart disease * C54.1 Endometrial carcinoma * F41.1 Generalized anxiety disorder * F33.1 Major depressive disorder, recurrent, moderate * Z98.84 Bariatric surgery status * R31.9 Hematuria, unspecified Functional Status Description No Information Available Mental Status Description No Information Available Referrals Refer to Reason for Referral Status Appt [facility] Closed 09/22/[address] [place] [address] [phone] [facility]ALU[facility] Closed 07/27/[address] [place] [address] [phone] [facility] RIGHT [facility] Closed [address] [place] [address] [phone]
--- OUTSIDE RECORDS SUMMARY | 2024-05-08 13:10 | XMS_ITS | Patient Health Record ---
Author Organization [facility] Address [address] [facility] [place] [address] Care Team Providers Care Tube Former Operator Name Role Phone Jonatan Mitra Primary Care Provider UnavailRigoberto Childs Unavailable [phone] Jared Pavon Unavailable [phone] Quin Harry Unavailable [phone] Pari Monroy Unavailable [phone] Allergies Allergen (clinical drug ingredient) Drug/Non Drug Allergy documented on EMR Reaction Allergy Type Onset Date Status acetaminophen / oxycodone Percocet Hives Drug Allergy Active Tape Rash/Itchy Allergy Active Results Component Value Reference Range Notes HEMOGLOBIN A1C (GLYCOHEMOGLO BIN) Reviewed date:05/18/2023 01:50:02 PM Interpretation: Performing Lab: Notes/Report: HEMOGLOBIN A1C (HH) 5.5 HEMOGLOBIN A1C (GLYCOHEMOGLO BIN) Reviewed date:04/09/2024 01:55:28 PM Interpretation: Performing Lab: Notes/Report: HEMOGLOBIN A1C % (HH) 5.5 Reason For Referral No Information Medications Medication SIG (Take, Route, Frequency, Duration) Notes Start Date End Date Status Pravastatin Sodium 40 MG 1 tablet Orally Once a day Active Keflex 500 MG 1 capsule Orally every 12 hrs for 10 day(s) 07/13/2023 Not-Taking Senna Active Extra Depth Orthopedic Shoes (1 Pair) with Customized Heat Molded Multidensity Innersoles (3 Pair) as directed Dx: NIDDM (E11.9), Hammertoe Foot Deformity (M20.41,M20.42), Preulcerative Skin Lesion(s) (L85.1) 03/07/2023 Active Tretinoin Active Ammonium Lactate 12 % 1 application Externally Twice a day for 30 days Active Biotin Active Lisinopril 10 MG 1 tablet Orally Once a day Not-Taking Ziprasidone HCl 20mg 5am 80mg 7pm Active dilTIAZem HCl ER Beads 180 MG 1 capsule Orally Once a day Not-Taking Pantoprazole Sodium 40 MG 1 tablet Orally Once a day Not-Taking Colace Active Sucralfate 1 GM 1 tablet on an empty stomach Orally Twice a day Not-Taking LORazepam 4 MG/ML as directed Injection 2mg Active Clopidogrel Bisulfate 75 MG 1 tablet Orally Once a day Active Restasis 0.05 % 1 drop into affected eye Ophthalmic Twice a day Active Refresh Eye Itch Relief Active Immunizations Vaccine Route Administration Date Status Comme nts Influenza Unknown 03/05/2023 Administered Social History Tobacco Use: Social History Observation Description Date Details (start date - stop date) Never Smoker NA - NA Alcohol Screen Question Answer Notes Did you have a drink containing alcohol in the p ast year? No Points 0 Interpretation Negative Tobacco use other than smoking: Question Answer Notes Are you an other tobacco user? No Tobacco Control (Standard) Question Answer Notes Tobacco use: Nonsmoker Problems Problem Type SNOMED Code ICD Code Onset Dates Problem Status W/U Status Risk Notes Problem Acquired hammer toe of right foot (288855131694869 5) Other hammer toe(s) (acquired), right foot (M20.41) Active confirmed Problem Acquired hammer toe of left foot (438015024836029 3) Other hammer toe(s) (acquired), left foot (M20.42) Active confirmed Problem Type 2 diabetes mellitus without complication (431383351) Type 2 diabetes mellitus without complication (E11.9) Active confirmed Vital Signs Blood pressure diastolic 90 mm Hg 04/09/2024 Height 5ft1.5in in 04/09/2024 Blood pressure systolic 148 mm Hg 04/09/2024 Weight 139 lbs 04/09/2024 BMI 25.84 kg/m2 04/09/2024 Procedures Procedure Date Ordered Date Performed Result Body Sit e 20006-UHXFJOG NAIL, 6 OR MORE 05/18/2023 N/A 45202-IUIMKID NAIL, 6 OR MORE 07/27/2023 N/A Encounters Encounter Location Date Provider Diagnosis [address] [address] 05/18/2023 Rigoberto Ashwin Pain in right toe(s) M79.674 ; Tinea unguium B35.1 ; Pain in left toe(s) M79.675 ; Type 2 diabetes mellitus without complication E11.9 and Xerosis of skin L85.[address] [address] 07/13/2023 Jared Pavon Ingrowing nail L60.0 ; Cellulitis of right lower limb L03.115 ; Hematoma of toe of right foot, initial encounter S90.121A ; Pain in right toe(s) M79.674 and Type 2 diabetes mellitus without complication E11.[address] [address] 07/27/2023 Rigoberto Ashwin Pain in right toe(s) M79.674 ; Tinea unguium B35.1 ; Pain in left toe(s) M79.675 ; Type 2 diabetes mellitus without complication E11.9 and Xerosis of skin L85.[address] [address] 08/14/2023 Rigoberto Ashwin Hematoma of toe of left foot, initial encounter S90.122A ; Traumatic hematoma of left foot, initial encounter S90.32XA ; Other hammer toe(s) (acquired), left foot M20.42 ; Arthritis of joint of lesser toe, 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 and Pain in left toe(s) M79.[address] [address] 10/09/2023 Jared Pavon Pain in right toe(s) M79.674 ; Tinea unguium B35.1 ; Pain in left toe(s) M79.675 ; Type 2 diabetes mellitus without complication E11.9 and Xerosis of skin L85.[address] [address] 01/04/2024 Pari Monroy Pain in right toe(s) M79.674 ; Tinea unguium B35.1 ; Pain in left toe(s) M79.675 and Type 2 diabetes mellitus without complication E11.9 [facility] [address] [place] [address] 04/09/2024 Quin Harry Tinea unguium B35.1 ; Ingrown nail L60.0 ; Pain in right toe(s) M79.674 ; Pain in left toe(s) M79.675 and Type 2 diabetes mellitus without complication E11.9 [facility] [address] [facility] [address] [place] [address] 07/13/2023 [facility] [address] 08/14/2023 [facility] [address] 09/22/2023 Rigoberto Christopher Xerosis of skin L85.[address] [address] 04/15/2024 Rigoberto Christopher Xerosis of skin L85.3 Assessments [...] Pain in right toe(s) (ICD-10 - M79.674) 04/09/2024 Tinea unguium (ICD-10 - B35.1) 04/09/2024 Ingrown nail (ICD-10 - L60.0) 04/15/2024 Xerosis of skin (ICD-10 - L85.3) 04/09/2024 Pain in right toe(s) (ICD-10 - M79.674) [...] toe(s) (acquired), left foot (ICD-10 - M20.42) 04/09/2024 Pain in left toe(s) (ICD-10 - M79.675) 01/04/2024 Type 2 diabetes mellitus without complication (ICD-10 - E11.9) 04/09/2024 Type 2 diabetes mellitus without complication (ICD-10 [...] X ray : Foot, left 3V 08/14/2023 84404-MIBLXGQ NAIL, 6 OR MORE 03/07/2023 29782-PVXIHKM NAIL, 6 OR MORE 05/18/2023 55224-PEVVCWI NAIL, 6 OR MORE 07/27/2023 Next Appt Details Provider Name:Pari De Souza dilip, 06/20/2024 01:00:00 PM, [address] [facility], [place], [address], Insurance Providers Payer Name Payer Address Payer Phone Subscriber Number Group Number Insured Name Patient Relationship to Insured Coverage Start Date Coverage End Date Medicare [employer] [facility] [address] [place] [address] [id number] Linda Dinero Self - patient is the insured [facility] [address] [place] [address] [id number] Linda Dinero Self - patient is the insured Medical (General) History Medical History History ICD Code Anxiety Cancer Cataracts Depression Diabetic Gall bladder problems Glaucoma Heart disease High blood pressure Psychiatric disorder Reflux Stroke Measles Mumps Chicken pox Planter Wart Surgical History Surgery Date(Month/Year) gastrectomy 11-22-2022 hysterectomy 06-14-2021 Gall bladder removal 1977 03-27-1979 Wart removal 1969 dental surgery
--- OUTSIDE RECORDS SUMMARY | 2024-05-08 13:10 | XMS_ITS ---
Author Organization [facility] Address [address] [place] [address] Care Team Providers Care Supervisor Taping Name Role Phone Mitra Cheung Primary Care Provider Rigoberto Jimenez Unavailable [phone] REASON FOR VISIT RX request Medications Medication SIG (Take, Route, Fr equency, Duration) Notes Start Date End Date Status Ammonium Lactate 12 % 1 application Exte rnally Twice a day for 30 days Active Encounters Encounter Location Date Provider Diagnosis [address] [address] 04/15/2024 Rigoberto Christopher Xerosis of skin L85.3 Assessments Encounter Date Diagnosis (ICD Code) Assessment Notes Treatment Notes Treatment Clinical Notes Section Notes 04/15/2024 Xerosis of skin (ICD-10 - L85.3) Plan Of Treatment Medication Medication Name Sig Start Date Stop Date Notes Ammonium Lactate 12 % 1 application Exte rnally Twice a day for 30 days Next Appt Details Provider Name:Pari cherry, 06/20/2024 01:00:00 PM, [address] [facility], [place], [address], Progress Notes * Sarah DINERO:1955 (69 yo F)Acc No.[id number]:04/15/2024 Patient:?ATUL Linda :1955???Age:69 Y???Sex:Female [facility] [address], [place] [address] * Refills? Refill Ammonium Lactate Cream, 12 %, Externally, 120, 1 application, Twice a day, 30 days, Refills=2 * true * Date:? Generated for Leslye us/Ayo/Jonnaitting on:?05/08/2024 01:09 PM EDT
--- OUTSIDE RECORDS SUMMARY | 2024-05-08 13:10 | XMS_ITS ---
Author Organization [facility] Address [address] [place] [address] Care Team Providers Care Credit Coordinator Name Role Phone Mitra Cheung Primary Care Provider UnavailRigoberto Childs Unavailable [phone] Quin Harry Unavailable [phone] Allergies Allergen (clinical drug ingredient) Drug/Non Drug Allergy documented on EMR Reaction Allergy Type Onset Date Status acetaminophen / oxycodone Percocet Hives Drug Allergy Active Tape Rash/Itchy Allergy Active REASON FOR VISIT At Risk Footcare, Painful Nail(s) aggrevated by shoes and causing difficulty standing/walking., Ingrown Nail Medications Medication SIG (Take, Route, Frequency, Duration) Notes Start Date End Date Status Senna Active Biotin Active Ziprasidone HCl 20mg 5am 80mg 7pm Active Colace Active Restasis 0.05 % 1 drop into affected eye Ophthalmic Twice a day Active Pravastatin Sodium 40 MG 1 tablet Orally Once a day Active Tretinoin Active Lisinopril 10 MG 1 tablet Orally Once a day Not-Taking dilTIAZem HCl ER Beads 180 MG 1 capsule Orally Once a day Not-Taking Sucralfate 1 GM 1 tablet on an empty stomach Orally Twice a day Not-Taking Keflex 500 MG 1 capsule Orally every 12 hrs for 10 day(s) 07/13/2023 Not-Taking Extra Depth Orthopedic Shoes (1 Pair) with Customized Heat Molded Multidensity Innersoles (3 Pair) as directed Dx: NIDDM (E11.9), Hammertoe Foot Deformity (M20.41,M20.42), Preulcerative Skin Lesion(s) (L85.1) 03/07/2023 Active Ammonium Lactate 12 % 1 application Externally Twice a day for 30 days Active Pantoprazole Sodium 40 MG 1 tablet Orally Once a day Not-Taking Clopidogrel Bisulfate 75 MG 1 tablet Orally Once a day Active LORazepam 4 MG/ML as directed Injection 2mg Active Refresh Eye Itch Relief Active Social History Tobacco Use: Social History Observation Description Date Details (start date - stop date) Never Smoker NA - NA Tobacco use other than smoking: Question Answer Notes Are you an other tobacco user? No Tobacco Control (Standard) Question Answer Notes Tobacco use: Nonsmoker Vital Signs Height 5ft1.5in in 04/09/2024 Weight 139 lbs 04/09/2024 BMI 25.84 kg/m2 04/09/2024 Blood pressure systolic 148 mm Hg 04/09/19 25 Blood pressure diastolic 90 mm Hg 025 Encounters Encounter Location Date Provider Diagnosis [facility] [address] [address] 04/09/2024 Quin Harry Tinea unguium B35.1 ; Ingrown nail L60.0 ; Pain in right toe(s) M79.674 ; Pain in left toe(s) M79.675 and Type 2 diabetes mellitus without complication E11.9 Assessments Encounter Date Diagnosis (ICD Code) Assessment Notes Treatment Notes Treatment Clinical Notes Section Notes 04/09/2024 Tinea unguium (ICD-10 - B35.1) 04/09/2024 Ingrown nail (ICD-10 - L60.0) 04/09/2024 Pain in right toe(s) (ICD-10 - M79.674) 04/09/2024 Pain in left toe(s) (ICD-10 - M79.675) 04/09/2024 Type 2 diabetes mellitus without complication (ICD-10 - E11.9) Plan Of Treatment Next Appt Details Follow Up: 3 Months, Reason: Provider Name:Pari cherry, 06/20/2024 01:00:00 PM, [address] [place] [address], [id number], Procedure Notes * Category Sub-Category Detail Notes Debride Nail 6-10 Nail debridement Due to the cl inical pathology outlined in the exam findings, performance of this nail treatment is medically necessary as its management by an unskilled/untrained nonprofessional would put this patients foot and overall health at risk. Therefore, debridement to affected nail(s), as described in exam ( TA , T1 , T4 , T5 , T6 , T9 ), was performed exclusively by the physician of record to reduce/remove overall nail length, girth, thickness, subungual debris, and necrotic tissue, by manual and/or electrical means through the use of a nail nipper and/or dremel-type concrete wall grinder operator, to a more viable healthy nail plate or bed tissue 6-10 nails in total. Silver nitrate was used for any petechial bleeding as necessary. Definitive antifungal treatment options, both pharmaceutical and surgical, have been reviewed and discussed with the patient. The patient solely prefers the use of intermittent/as needed professional debridement services for their nail condition and understands the need for additional periodic treatments to maintain effectiveness in symptomatic relief - 97276 Progress Notes * Adri DINEROB:1955 (69 yo F)Acc No.[id number]:04/09/2024 Progress Note Patient:?Linda DINERO Provider:?Quin Harry DPM :1955???Age:69 Y???Sex:Female D ate:04/09/2024 Address:[address] [place] [address], [address], [facility] Pcp:Mitra Cheung Subjective: * Chief Complaints: * ???At Risk FootcarePainful N ail(s) aggrevated by shoes and causing difficulty standing/walking.Ingrown Nail * HPI: ???At Risk footcare:?Pt States Last PCP Visit:?Date?01/23/2024 * ROS:?General/Constitutional:?Nausea?denies.?Vomiting?denies.?Hunger Thirst?denies.?Loss appetite?denies.?Chills?denies.?Fatigue?denies.?Fever?denies.?Night Sweats?denies.?Unexplained weight loss?denies.?Unexplained weight gain?denies.?HEENTM:?Dentures?admits.?Dizziness?denies.?Glasses/contacts?admits.?Retinopathy?den ies.?Blurred/double vision?admits.?TMJ?denies.?Discharge/drainage?denies.?Implants?denies.?Sore throat?denies.?Dental implants?denies.?Hard of hearing ?admits.?Difficulty chewing/swallowing/speaking?denies.?Nose bleeds?denies.?Sore mouth?denies.?Respiratory:?On O xygen?denies.?Pneumonia/pleurisy?denies.?Bronchitis?denies.?Emphysema?denies.?Co ughing?denies.?Cough blood?denies.?Shortness of breath?denies.?Wheezing?denies.?Cardiovascular:?Pacemaker?denies.?MVP?denies.?WPW?denies.?CHF?denies.?Heart attack?admits.?Septal defect?denies.?Rapid beat?denies.?Chest pain ?denies.?Atrial Fib.?denies.?Murmur/Palpitations?denies.?Gastrointestinal:?Hemorrhoids?denies.?Stomach/Abdominal pain?denies.?Dark blood stool?denies.?Irritable bowel ?denies.?Constipation?denies.?Diarrhea?denies.?Hematology:?Swelling?denies.?Clots?denies.?Varicose Veins?denies.?Bruising?denies.?Bleeding problem?denies.?Genitourinary:?Blood urine?denies.?Frequent/Painfu/urination/bladder control?denies.?Kidney stones?denies.?Infection (UTI)?denies.?Nephropathy?denies.?sex trans dis (STD)?denies.?Prostate?denies.?Musculoskeletal:?Hammertoes?admits.?Bunions?denies.?Back Pain?denies.?Muscle Cramps/ Resting?denies.?Muscle cramps / walking?denies.?Generalized aches and pains?denies.?Weakness?denies.?Integ.:?Leigh?denies.?Scars?denies.?Corns/calluses?admits.?Ingrown nails?admits.?Painful nails?admits.?Open Sores?denies.?Rashes?denies.?Neurologic:?Difficulty sleeping?denies.?Brain disorder?denies.?Numbness?denies.?Balance t rouble?denies.?Confusion?denies.?Fainting/blackouts?denies.?Tingling?denies.?Jaret mors?denies.? * Medical History:? * Surgical History:?gastrectom y [id number] 70-86-7138Hoom bladder removal 1978C-Section 9-0-1648Xeyf removal 1970dental surgery * Hospitalization/Major Diagno stic Procedure:?Denies Past Hospitalization * Family History:?Mother: dece ased, diagnosed with Diabetic - NIDDM, Unspecified essential hypertension, Unspecified cerebral artery occlusion with cerebral infarction, Family history of arthritis.?Father: , diagnosed with Diabetic - NIDDM, Unspecified essential hypertension, Unspecified heart disease.? * Social History:?Tobacco Use:?Tobacco use other than smoking?Are you an other tobacco user??No ?Tobacco Control (Standard)?Tobacco use:?Nonsmoker ???Miscellaneous:?Caffeine: no, none. ?Children: yes, 1. ?Exercise: yes, Stationary [...] Rash/ItchyP ercocet: Hivesyes[Allergies Verified] Objective: * Vitals:?Ht: 5ft1.5in, Wt:139 , BMI:25.84, Shoe size: 8.5, BP:148/90mm Hg, BS: 186, Ht-cm: 156.21 cm, Wt-k.05 kg. * ???Past Orders: ???Lab:HEMOGLOBIN A1C (GLYCO HEMOGLOBIN) (Order Date - 01/21/2024) (Collection Date & Time - 01/21/2024 01:54 PM) ? Value Reference Range ?HEMOGLOBIN A1C % (HH) 5.5 * Examination: ???Ophthalmology Referral: ?DIABETES EYE EXAM?Procedure Performed:?Yes ?Date of Exam Performed?01/21/2024 ?Findings of Diabetic Eye Exam:?no retinopathy?Nails: ?NAILS are:?Elongated, overgrown, dystrophic, lytic, greater than 3mm thick, discolored and friable with crumbly malodorous subungual debris, with pain on palpation , TA , T1 , T4 , T5 , T6 , T9 , remaining nails are elongated, overgrown, dystrophic.?Dermatologic: ?SKIN FINDINGS:?Skin exam reveals Keratotic lesion(s) located at, Medial plantar, IPJ, T5.?Vascular: ?DP PULSES (B):?2/4, B/L.?PT PULSES (B):?1/4 , LEFT , 2/4 , RIGHT.?CAPILLARY FILL TIME:?3 secs. per digit, B/L.?TROPHIC CONDITION-TEXTURE/ELASTICITY/TURGOR/HAIR GROWTH (B):?normal, B/L.?TEMPERTURE GRADIENT (C):?normal, warm to cool, proximal to distal, B/L, B/L.?PIGMENTATION:?normal, B/L.?EDEMA (C):?absent, B/L.?Neurological: ?SENSORY:?Neurological exam reveals intact sensorium, pain sensation normal, vibration sensation intact, pinprick sensation is normal in the lower extremities, Pt denies, anesthesia, burning, paresthesia, tingling, B/L.?Ingrown Nail: ?INSPECTION:?Reveals nail incurvation, pain on palpation, groove hypertrophy, Medial nail border, T5.? Assessment: * Assessment: 1.?Tinea unguium - B35.1???2 .?Ingrown nail - L60.0 (Primary)???3.?Pain in right toe(s) - M79.674???4.?Pain in left toe(s) - M79.675???5.?Type 2 diabetes mellitus without complication - E11.9??? Plan: * Treatment: * Procedures:?Debride Nail 6-10:?Nail debridement?Due to the clinical pathology outlined in the exam findings, performance of this nail treatment is medically necessary as its management by an unskilled/untrained nonprofessional would put this patients foot and overall health at risk. Therefore, debridement to affected nail(s), as described in exam (?TA?,?T1?,?T4?,?T5?,?T6?,?T9?), was performed exclusively by the physician of record to reduce/remove overall nail length, girth, thickness, subungual debris, and necrotic tissue, by manual and/or electrical means through the use of a nail nipper and/or dremel-type concrete wall grinder operator, to a more viable healthy nail plate or bed tissue 6- 10 nails in total. Silver nitrate was used for any petechial bleeding as necessary. Definitive antifungal treatment options, both pharmaceutical and surgical, have been reviewed and discussed with the patient. The patient solely prefers the use of intermittent/as needed professional debridement services for their nail condition and understands the need for additional periodic treatments to maintain effectiveness in symptomatic relief - 07637.? * Procedure Codes:?61222 TRISTEN JOHNSON, 6 OR MORE * Preventive Medicine:? ??Counseling:?Discussion:?-13: Office or other outpatient visit for the evaluation and management of an established patient, which required a medically appropriate history and/or examination and LOW level of DECISION MAKING for: 1 STABLE ACUTE UNCOMPLICATED PROBLEM, 2 OR MORE MINOR PROBLEMS, OR 1 STABLE CHRONIC PROBLEM, THAT POSE(S) A LOW RISK FOR MORBIDITY/MORTALITY. The visit on the day of the [...] have encouraged the patient to call the office.?Abscess/Paraonychia/Ingrown Nails:?We discussed the possible etiologies (genetic, improper nail care, shoe gear, nail trauma) which may lead to ingrown nails and/or paronychial infections. We discussed and reviewed palliative/nonsurgical/deferring definitive treatment (vs) undergoing the treatment procedures of nail avulsion(s) or PNA, which may prevent recurrence and give more lasting results. The possible risks/complications such as worsened condition/delayed healing/nonhealing/failure/recurrence/infection, the potential benefits/advantages of decreased pain/deformity, as well as alterative treatment options including applying nail softening agents/nail groove packing were discussed. No guarantees were given regarding any outcome for any procedure. The patient was educated in the length of time for the affected nail to regrow once completely healed from a nail avulsion procedure. Once the condition has completely healed, the patient was consulted on proper nail care. Patient questions such as details of each procedure, varying time to heal, activity post procedure, and shoe gear were discussed and the answers were verbally confirmed fully understood, Pt defers PNA or NA today , slant back performed with good relief of pain, pt to monitor for any signs of infection, pt should soak in warm water and epsom salts and apply antibotic ointment, call with any issues.? * Follow Up:?3 Months * Images: * Sign off status: Completed true * Provider:?Quin Harry DPM Date:? Generated for Leslye us/Ayo/Lisa on:?05/08/2024 01:09 PM EDT History and Physical Notes * HPI (History of Present Illness) Category Sub-Category Detail Notes Category Not es At Risk footcare Pt States Last PCP Visit: Date: 4 Examination Category Sub-Category Detail Notes Category Not es Ingrown Nail INSPECTION: Reveals nail inc urvation, pain on palpation, groove hypertrophy, Medial nail border, T5 Neurological SENSORY: Neurological exa m reveals intact sensorium, pain sensation normal, vibration sensation intact, pinprick sensation is normal in the lower extremities, Pt denies, anesthesia, burning, paresthesia, tingling, B/L Dermatologic SKIN FINDINGS: Skin exam reveal s Keratotic lesion(s) located at, Medial plantar, IPJ, T5 Ophthalmology Referral DIABETES EYE EXAM Procedu re Performed:: Yes ?Date of Exam Performed: 01/21/2024 Findings of Diabetic Eye Exam:: no retin [...]
--- OUTSIDE RECORDS SUMMARY | 2024-05-08 13:10 | XMS_ITS | Encounter Summary ---
Author Organization [facility] Address [address] [place] [address] Care Team Providers Care Business Support Specialist Name Role Phone Huber Jones MD Primary Care Provider Encounter Details Date Type Department Care Team (Late st Contact Info) Description 04/08/2024 Lab Requisition [facility] - Main Lab [address] [facility] [employer] [place] [address] Aiden Santiago MD [address] [place] [address] Gross hematuria Social History Tobacco Use Types Packs/Day Years Used Date Smoking Tobacco: Never Assessed Comments Unknown Sex and Gender Information Value Date Recorded Sex Assigned at Not on file Legal Sex Female 10:08 PM EST Gender Identity Not on file Sexual Orientation Not on file documented as of this encounter Plan of Treatment Not on file documented as of this encounter Procedures Procedure Name Priority Date/Time Associated Diagnosis Comments AP OUTSIDE CONSULT Routine 04/02/2024 12 :00 AM EST Gross hematuria documented in this encounter Results * Anatomic pathology outside consult (04/02/2024 12:00 AM EST) Final Diagnosis A. Urine, Voided, ([id number]): Negative for high grade urothelial carcinoma. Results of UroVysion fluorescence in situ hybridization (FISH) testing: CEP3: Normal CEP7: Normal CEP17: Normal LSI 9p21: Normal Interpretation: Normal profile Controls stained appropriately. Note: The results are intended as a screening device and should be interpreted in association with other clinical and pathological findings. 04/10/2024 3:40 PM [facility] Clinical Information Gross hematuria R31.0 Urine Cytology/FISH (now) 04/10/2024 3:40 PM [facility] Gross Description A. Urine, Voided, ([id number]): Received one ThinPrep slide for cytology and one ThinPrep slide for UroVysion FISH 04/10/2024 3:40 PM [facility] Disclaimer Unless otherwise specified, all tissue is 10% NB formalin fixed and paraffin embedded. Technical pathology services provided by [facility] at [address] [place] [address] (CLIA #[id number]/Sara Wick MD, Automotive Manager) 04/10/2024 3:40 PM [facility] Tissue Urine specimen from urethra / Unknown 04/02/2024 04/08/2024 8:27 AM EST us Aiden Santiago MD LAB PATHOLOGY ORDERABLES Final Result [facility] [address] [place] [address], documented in this encounter Visit Diagnoses Diagnosis Gross hematuria documented in this encounter Care Teams Business Support Specialist Relationship Specialty Start Date End Date Huber Jones MD [address] [place] [address] [address] [place], [place] PCP - General Endocrinology 07/01/20 documented as of this encounter
--- OUTSIDE RECORDS SUMMARY | 2024-05-08 13:10 | XMS_ITS ---
Author Organization [facility] Address [address] [place] [address] Care Team Providers Care Online Producer Name Role Phone Mitra Cheung Primary Care Provider UnavailRigoberto Childs Unavailable [phone] Pari Monroy Unavailable [phone] Allergies Allergen (clinical drug ingredient) Drug/Non Drug [...] Active Encounters Encounter Location Date Provider Diagnosis [facility] [address] [address] 03/28/2024 Pari Monroy Plan Of Treatment Next Appt Details Provider Name:Pari Taylorlalit dilip, 06/20/2024 01:00:00 PM, [address] [place] [address], [phone], Progress Notes * ATUL DexPhillB:1955 (69 yo F)Acc No.[id number]:03/28/2024 Progress Note Patient:?Linda DINERO Provider:?Pari Monroy DPM :1955???Age:69 Y???Sex:Female D ate:03/28/2024 Address:[address] [place] [address] [address], [address], [facility] Pcp:Mitra Cheung Subjective: * Chief Complaints: * [...] DPM Date:?0 03/28/2024 Generated for Leslye us/Ayo/Lisa on:?05/08/2024 01:09 PM EDT
--- OUTSIDE RECORDS SUMMARY | 2024-05-08 13:10 | XMS_ITS | Clinical Summary ---
Author Organization [address] [facility] Address [address] [place] [address] Phone Care Team Providers Care Customer Contact Specialist Name Role Phone Huber Jones MD Primary Care Provider Encounters Date Type Department Care Team Description 04/08/2024 Lab Requisition [facility] - Main Lab [address] [facility] [place] [address] Aiden Santiago MD Gross hematuria from Last 3 Months Social History Tobacco Use Types Packs/Day Years Used Date Smoking Tobacco: Never Assessed Comments Unknown Sex and Gender Information Value Date Recorded Sex Assigned at Not on file Legal Sex Female 10:08 PM EST Gender Identity Not on file Sexual Orientation Not on file Plan of Treatment Health Maintenance Due Date Last Done Comments Breast Cancer Screening 1955 DTaP,Tdap,and Td Vaccines (1 - Tdap) 1973 Pneumococcal Vaccine: 50+ Ye ars (1 of 1 - PCV) 2004 Zoster Vaccines (1 of 2) 2004 Colorectal Cancer Screening: Colonoscopy 01/22/2022 Depression Screening 01/22/2022 Falls Risk Assessment 01/22/2022 Hepatitis C Screening 01/22/2022 Medicare Annual Wellness Visit 01/22/2022 Osteoporosis Screening (Bone Density Screening) 01/22/2022 Social Influencers of Health Screening 01/22/2022 COVID-19 Vaccine (1 - 2023-2 5 season) 2023 Influenza Vaccine (#1) 2023 RSV Immunization Patients 60 + Years Old (1 - 1-dose 75+ series) 2029 HIB Vaccines Aged Out No longer eligi ble based on patient's age to complete this topic HPV Vaccines Aged Out No longer eligi ble based on patient's age to complete this topic Hepatitis A Vaccines Aged Out No long er eligible based on patient's age to complete this topic Hepatitis B Vaccines Aged Out No long er eligible based on patient's age to complete this topic IPV Vaccines Aged Out No longer eligi ble based on patient's age to complete this topic MMR Vaccines Aged Out No longer eligi ble based on patient's age to complete this topic Meningococcal ACWY Vaccine Aged Out N o longer eligible based on patient's age to complete this topic Meningococcal B Vacine Aged Out No lo nger eligible based on patient's age to complete this topic RSV Immunization Patients Un keisha 20 months Aged Out No longer eligible b ased on patient's age to complete this topic Varicella Vaccines Aged Out No longer eligible based on patient's age to complete this topic Procedures Procedure Name Priority Date/Time Associated Diagnosis Comments AP OUTSIDE CONSULT Routine 04/02/2024 12 :00 AM EST Gross hematuria from Last 3 Months Results * Anatomic pathology outside consult (04/02/2024 12:00 AM EST) Final Diagnosis A. Urine, Voided, ([id number]): Negative for high grade urothelial carcinoma. Results of UroVysion fluorescence in situ hybridization (FISH) testing: CEP3: Normal CEP7: Normal CEP17: Normal LSI 9p21: Normal Interpretation: Normal profile Controls stained appropriately. Note: The results are intended as a screening device and should be interpreted in association with other clinical and pathological findings. 04/10/2024 3:40 PM EST [facility] Clinical Information Gross hematuria R31.0 Urine Cytology/FISH (now) 04/10/2024 3:40 PM EST [facility] Gross Description A. Urine, Voided, ([id number]): Received one ThinPrep slide for cytology and one ThinPrep slide for UroVysion FISH 04/10/2024 3:40 PM [facility] Disclaimer Unless otherwise specified, all tissue is 10% NB formalin fixed and paraffin embedded. Technical pathology services provided by [facility] at [address], [place] [address] (CLIA #[id number]/Sara Wick MD, Employment Educational Coord) 04/10/2024 3:40 PM EST [facility] [place] [place] ([facility]) [facility] Tissue Urine specimen from urethra / Unknown 04/02/2024 04/08/2024 8:27 AM EST us Aiden Santiago MD LAB PATHOLOGY ORDERABLES Final Result [facility] ([facility]) [facility] [address] [place] [address], from Last 3 Months Insurance MEDICARE Care Teams Customer Contact Specialist Relationship Specialty Start Date End Date Huber Jones MD [address] [place] [address] [address] [place], [place] PCP - General Endocrinology 07/01/20
== END 2024-05-08 10:57 | disposition home or self-care (01) ==
LOC: HO.HAP 10:56
PROVIDERS: Visit Provider Physician Assistant
DX: Z46.1 Encounter for fitting and adjustment of hearing aid (principal); H90.3 Sensorineural hearing loss, bilateral
CPT/HCPCS: V5299

== ENCOUNTER 2024-06-13 13:43 | Outpatient (AMB) | payer OTHER, MEDICARE, SELFPAY ==
--- NOTE | 2024-06-13 13:46 | A.OFFVIS_ITS ---
VS Expanded 06/13/24 13:55 BP 163/67 H Blood Pressure Location Rt brachial Blood Pressure Position Sitting Pulse 67 Pulse Source Pulse Oximeter Temp 97 F Temperature Source Temporal Artery Scan Pulse Oximetry 96 Oxygen Delivery Method Room Air Height 5 ft 1.5 in Weight 141 lb 6.4 oz BMI 26.3 Body Fat % 28.9 Body Fat Mass 40.8 Fat Free Mass 100.6 Visceral Fat Rating 8.0 Body Water % 50.1 Body Water Mass 70.8 Muscle Mass/Score 95.4 Basal Metabolic Rate/Score 1,334 Intake Visit Reasons: OV PO LSG 11/22/22 Allergies demerol Allergy (Unknown, Uncoded 10/20/23 13:38) hives, hallucinations percocet Allergy (Unknown, Uncoded 10/20/23 13:38) Hives HPI Comments Details: This?a?68?yo female who is s/p LSG without hiatal hernia repair on?11/22/2022. Presents for 1 year 6 month post op visit. Weight today is 141.4 pounds, with a BMI of 26.3. There has been a 48.8 pound weight loss,(initial weight 190.2 pounds) since starting the program on 07/14/2022 reflecting a 25.6 % total body weight loss and a weight loss of 25.1 pounds since surgery (operative weight 166.5 pounds) reflecting a 15 % TBWL since surgery. No complaints of nausea, emesis, abdominal pain or reflux. Reports infrequent but normal bowel movements every 1-2 days. Patient is feeling overwhelmed by her caregiver responsibility for her boyfriend. We discussed the importance of self-care. He has had multiple falls, multiple hospital admissions and is currently admitted to [facility]. The plan is for rehab and likely transition to long-term care. Present meal plan includes: celebrate 4 in 1 1/2 in 8 oz unsweetened almond milk x 2 Celebrate 4 in 1 1 scoop in 8 oz unsweetened almond milk x2 Two meals, puree, 4 forks each Drinkin oz water daily Exercise plan: none in 2 months [facility] Medical History (Updated 03/03/23 @ 11:23 by Laquita Barroso PA-C) BMI 36.0-36.9,adult Steatosis, liver Asymptomatic coronary heart disease History of endometrial cancer History of cerebrovascular accident BMI 35.0-35.9,adult GERD (gastroesophageal reflux disease) Hepatomegaly Liver fibrosis Depression Bipolar 1 disorder Hyperlipidemia Insulin dependent type 2 diabetes mellitus Myocardial infarction Surgical History Hx of laparoscopic partial gastrectomy Hx of section Hx of wisdom tooth extraction Hx of lymph node excision Hx of cholecystectomy Hx of hysterectomy Family History Mother Hypertension Diabetes High cholesterol Stroke Father Diabetes Hypertension High cholesterol Heart attack Sister Diabetes Hypertension Son Stroke Hypertension High cholesterol Social History Household Members: Significant Other Housing: House Are you a primary district manager primary care sales to a significant other at home: Yes (SO, son with be available post-op to help with care) Do you presently have visiting nurse or other home services: No Alcohol intake: never Patient Tobacco Use Status: Never used Tobacco Physical Exam Vital Signs: Last Vital Signs Temp 97 F 06/13/24 13:55 Pulse 67 06/13/24 13:55 BP 163/67 H 06/13/24 13:55 Pulse Ox 96 06/13/24 13:55 Oxygen Delivery Method Room Air 06/13/24 13:55 BMI result Body Mass Index 26.3 Const General: healthy appearing and no acute distress Resp Effort & Inspection: normal respiratory effort Auscultation: clear to auscultation bilaterally Cardio Rate: regular rate Rhythm: regular rhythm GI Auscultation: normal bowel sounds Extrem General: Yes normal to inspection Assessment & Plan Assessment & Plan (1) S/P laparoscopic sleeve gastrectomy: Code(s): Z98.84 - Bariatric surgery status Category: Surgical Plan: Patient will continue current meal plan. Discussed the importance of self-care including returning to exercise. We will check 18 month postop labs. Encouraged to text with any questions or concerns as well as weekly weights. Follow-up in approximately 6 weeks Orders: Orders Insulin Today E78.5 - Hyperlipidemia, unspecified, I10 - Essential (primary) hypertension, K76.0 - Fatty (change of) liver, not elsewhere classified, Z98.84 - Bariatric surgery status Hemoglobin A1c Today E78.5 - Hyperlipidemia, unspecified, I10 - Essential (primary) hypertension, K76.0 - Fatty (change of) liver, not elsewhere classified, Z98.84 - Bariatric surgery status Complete Blood Count Auto Diff Today E78.5 - Hyperlipidemia, unspecified, I10 - Essential (primary) hypertension, K76.0 - Fatty (change of) liver, not elsewhere classified, Z.84 - Bariatric surgery status Lipid Panel Today E78.5 - Hyperlipidemia, unspecified, I10 - Essential (primary) hypertension, K76.0 - Fatty (change of) liver, not elsewhere classified, Z.84 - Bariatric surgery status IRON PROFILE Today E78.5 - Hyperlipidemia, unspecified, I10 - Essential (primary) hypertension, K76.0 - Fatty (change of) liver, not elsewhere classified, Z.84 - Bariatric surgery status Vitamin B12 and Folate Today E78.5 - Hyperlipidemia, unspecified, I10 - Essential (primary) hypertension, K76.0 - Fatty (change of) liver, not elsewhere classified, Z.84 - Bariatric surgery status Zinc Today E78.5 - Hyperlipidemia, unspecified, I10 - Essential (primary) hypertension, K76.0 - Fatty (change of) liver, not elsewhere classified, Z.84 - Bariatric surgery status C Reactive Protein Today E78.5 - Hyperlipidemia, unspecified, I10 - Essential (primary) hypertension, K76.0 - Fatty (change of) liver, not elsewhere classified, Z.84 - Bariatric surgery status Vitamin A Today E78.5 - Hyperlipidemia, unspecified, I10 - Essential (primary) hypertension, K76.0 - Fatty (change of) liver, not elsewhere classified, Z98.84 - Bariatric surgery status TSH reflex Free T4 Today E78.5 - Hyperlipidemia, unspecified, I10 - Essential (primary) hypertension, K76.0 - Fatty (change of) liver, not elsewhere classified, Z98.84 - Bariatric surgery status Vitamin D 25-OH Total Today E78.5 - Hyperlipidemia, unspecified, I10 - Essential (primary) hypertension, K76.0 - Fatty (change of) liver, not elsewhere classified, Z.84 - Bariatric surgery status Vitamin B1 Today E78.5 - Hyperlipidemia, unspecified, I10 - Essential (primary) hypertension, K76.0 - Fatty (change of) liver, not elsewhere classified, Z98.84 - Bariatric surgery status Ferritin Today E78.5 - Hyperlipidemia, unspecified, I10 - Essential (primary) hypertension, K76.0 - Fatty (change of) liver, not elsewhere classified, Z98.84 - Bariatric surgery status Basic Metabolic Panel Today E78.5 - Hyperlipidemia, unspecified, I10 - Es sential (primary) hypertension, K76.0 - Fatty (change of) liver, not elsewhere classified, Z98.84 - Bariatric surgery status
[2024-06-13 13:55] VITALS: BP 163/67; PULSE 67; TEMP 36.1; O2SAT 96; BMI 26.3
--- OUTSIDE RECORDS SUMMARY | 2024-06-13 16:05 | XMS_ITS ---
Author Organization [facility] Address [address] [place] [address] Care Team Providers Care Catalytic Converter Operator Name Role Phone Mitra Cheung Primary Care Provider Pari Novoa Unavailable [phone] Allergies Allergen (clinical drug ingredient) Drug/Non Drug [...] Active Encounters Encounter Location Date Provider Diagnosis [facility] [address] [address] 03/28/2024 Pari Porfirio Plan Of Treatment Next Appt Details Provider Name:Pari De Souza dilip, 06/20/2024 01:00:00 PM, [address] [place] [address], [address], Progress Notes * Dex DINEROiDOB:1955 (69 yo F)Acc No.[id number]:03/28/2024 Progress Note Patient:?Linda DINERO Provider:?Pari Monroy DPM :1955???Age:69 Y???Sex:Female D ate:03/28/2024 Address:[address] [place] [address] Rd, [address], [facility] Pcp:Mitra Cheung Subjective: * Chief Complaints: * [...] Monroy DPM Date:?0 03/28/2024 Generated for Leslye us/Ayo/Jonnaitting on:?06/13/2024 04:05 PM EDT
--- OUTSIDE RECORDS SUMMARY | 2024-06-13 16:06 | XMS_ITS ---
Author Organization [facility] Address [address] [facility] [place] [address] Care Team Providers Care Rubber Extrusion Machine Operator Name Role Phone Mitra Cheung Primary Care Provider UnavailPari Cosme Unavailable [phone] Quin Harry Unavailable [phone] Allergies Allergen (clinical drug ingredient) Drug/Non Drug [...] 025 Encounters Encounter Location Date Provider Diagnosis [facility] [address] [address] 04/09/2024 Quin Harry Tinea unguium B35.1 ; [...] Reason: Provider Name:Pari cherry, 06/20/2024 01:00:00 PM, [address] [place] [address], [address], Procedure Notes * Category Sub-Category Detail Notes [...] use of a nail nipper and/or dremel-type emery grinder, to a more viable healthy nail [...] to maintain effectiveness in symptomatic relief - 89221 Progress Notes * Adri DINEROB:1955 (69 yo F)Acc No.[id number]:04/09/2024 Progress Note Patient:?Linda DINERO Provider:?Quin Harry DPM :1955???Age:69 Y???Sex:Female D ate:04/09/2024 Address:[address] [place] [address], [address], [facility] Pcp:Mitra Cheung Subjective: * Chief Complaints: * [...] * Medical History:? * Surgical History:?gastrectom y 05-3-8437gpwtttpszxht 51-36-7533Hubk bladder removal 1978C-Section 1-6-9766Hrsv removal 1970dental surgery * Hospitalization/Major Diagno stic [...] use of a nail nipper and/or dremel-type emery grinder, to a more viable healthy nail [...] to maintain effectiveness in symptomatic relief - 20540.? * Procedure Codes:?51493 TRISTEN JOHNSON, 6 OR MORE * Preventive [...] Harry DPM Date:? Generated for Leslye us/Ayo/Lisa on:?06/13/2024 04:05 PM EDT History and Physical Notes * [...]
--- OUTSIDE RECORDS SUMMARY | 2024-06-13 16:06 | XMS_ITS ---
Author Organization [facility] Address [address] [place] [address] Care Team Providers Care Home Sales Consultant Name Role Phone Mitra Cheung Primary Care Provider UnavailPari Cosme Unavailable [phone] Rigoberto Christopher Unavailable [phone] REASON FOR VISIT RX request Medications Medication SIG (Take, Route, Fr equency, Duration) Notes Start Date End Date Status Ammonium Lactate 12 % 1 application Exte rnally Twice a day for 30 days Active Encounters Encounter Location Date Provider Diagnosis [address] [address] 04/15/2024 Rigoberto Christopher Xerosis of skin L85.3 [...] Provider Name:Pari cherry, 06/20/2024 01:00:00 PM, [address] [place], [address], Progress Notes * Adri DINEROB:1955 (69 yo F)Acc No.[id number]:04/15/2024 Patient:?Linda DINERO :1955???Age:69 Y???Sex:Female Address:[address] [place] [address] Rd, [address], [place] [address] * Refills? Refill Ammonium Lactate Cream, 12 %, Externally, 120, 1 application, Twice a day, 30 days, Refills=2 * true * Date:? Generated for Leslye us/Ayo/Jonnaitting on:?06/13/2024 04:05 PM EDT
--- OUTSIDE RECORDS SUMMARY | 2024-06-13 16:06 | XMS_ITS | Encounter Summary ---
Author Organization [facility] Address [address] [place] [address] Care Team Providers Care Forestry Engineer Name Role Phone Huber Jones MD Primary Care Provider Encounter Details Date Type Department Care Team (Late st Contact Info) Description 04/08/2024 Lab Requisition [facility] - Main Lab [address] [facility] [place] [address] Aiden Santiago MD [address] [place] [address] Gross hematuria Social History Tobacco [...] AM EST) Final Diagnosis A. Urine, Voided, ([id number]): Negative for high grade urothelial carcinoma. Results of UroVysion fluorescence in situ hybridization (FISH) testing: CEP3: Normal CEP7: Normal CEP17: Normal LSI 9p21: Normal Interpretation: Normal profile Controls stained appropriately. Note: The results are intended as a screening device and should be interpreted in association with other clinical and pathological findings. 04/10/2024 3:40 PM [facility] Clinical Information Gross hematuria R31.0 Urine Cytology/FISH (now) 04/10/2024 3:40 PM [facility] Gross Description A. Urine, Voided, ([id number]): Received one ThinPrep slide for cytology and one ThinPrep slide for UroVysion FISH 04/10/2024 3:40 PM [facility] Disclaimer Unless otherwise specified, all tissue is 10% NB formalin fixed and paraffin embedded. Technical pathology services provided by [facility] at [address] [facility] [facility] [address] [place] [address] (CLIA #[id number]/Sara Wick MD, Seafood Team Member) 04/10/2024 3:40 PM [facility] Tissue Urine specimen from urethra / Unknown 04/02/2024 04/08/2024 8:27 AM EST us Aiden Santiago MD LAB PATHOLOGY ORDERABLES Final Result [facility] [address] [place] [address], documented in this encounter Visit Diagnoses Diagnosis Gross hematuria documented in this encounter Care Teams Forestry Engineer Relationship Specialty Start Date End Date Huber Jones MD [address] [place] [address] Dr [address] [place], [place] PCP - General Endocrinology 07/01/20 documented as of this encounter
--- OUTSIDE RECORDS SUMMARY | 2024-06-13 16:06 | XMS_ITS | Clinical Summary ---
Author Organization [address] [facility] Address [address] [place] [address] Phone Care Team Providers Care Coach Builder Name Role Phone Huber Jones MD Primary Care Provider [phone] Encounters Date Type Department Care Team Description 04/08/2024 Lab Requisition [facility] - Main Lab [address] [facility] [place] [address] Aiden Santiago MD Gross hematuria [...] Influencers of Health Screening 01/22/2022 COVID-19 Vaccine ( - 2023-2 5 season) 2023 Influenza Vaccine (Season Ended) 2024 RSV Immunization Adult Patie nts (1 - 1-dose 75+ series) 2029 HIB [...] age to complete this topic Meningococcal B Vaccine Aged Out No l onger eligible based on patient's age to complete [...] AM EST) Final Diagnosis A. Urine, Voided, ([id number]): Negative for high grade urothelial carcinoma. Results of UroVysion fluorescence in situ hybridization (FISH) testing: CEP3: Normal CEP7: Normal CEP17: Normal LSI 9p21: Normal Interpretation: Normal profile Controls stained appropriately. Note: The results are intended as a screening device and should be interpreted in association with other clinical and pathological findings. 04/10/2024 3:40 PM EST [facility] Clinical Information Gross hematuria R31.0 Urine Cytology/FISH (now) 04/10/2024 3:40 PM EST [facility] Gross Description A. Urine, Voided, ([id number]): Received one ThinPrep slide for cytology and one ThinPrep slide for UroVysion FISH 04/10/2024 3:40 PM [facility] Disclaimer Unless otherwise specified, all tissue is 10% NB formalin fixed and paraffin embedded. Technical pathology services provided by [facility] at [address], [place] [address] (CLIA #[id number]/Sara Wick MD, Law Examiner) 04/10/2024 3:40 PM EST [facility] Tissue Urine specimen from urethra / Unknown 04/02/2024 04/08/2024 8:27 AM EST us Aiden Santiago MD LAB PATHOLOGY ORDERABLES Final Result [facility] ([facility] [address] [place] [address], from Last 3 Months Insurance MEDICARE [facility] Care Teams Coach Builder Relationship Specialty Start Date End Date Huber Jones MD [address] [place] [address] [address] [place], [place] PCP - General Endocrinology 07/01/20
--- OUTSIDE RECORDS SUMMARY | 2024-06-13 16:06 | XMS_ITS | Patient Health Record ---
Author Organization [facility] Address [address] [facility] [place] [address] Care Team Providers Care Relay Tester Name Role Phone Jonatan Mitra Primary Care Provider UnavailPari Cosme Unavailable [phone] Jared Pavon Unavailable [phone] Rigoberto Christopher Unavailable [phone] Quin Harry Unavailable [phone] Allergies Allergen (clinical drug ingredient) Drug/Non Drug Allergy documented on EMR Reaction Allergy Type Onset Date Status acetaminophen / oxycodone Percocet Hives Drug Allergy Active Tape Rash/Itchy Allergy Active Results Component Value Reference Range Notes HEMOGLOBIN A1C (GLYCOHEMOGLO BIN) Reviewed date:04/09/2024 01:55:28 [...] Problem Acquired hammer toe of right foot (223387092701193 5) Other hammer toe(s) (acquired), right foot (M20.41) Active confirmed Problem Acquired hammer toe of left foot (443668582652796 3) Other hammer toe(s) (acquired), left foot (M20.42) Active confirmed Problem Type 2 diabetes mellitus without complication (176552775) Type 2 diabetes mellitus without complication (E11.9) Active confirmed Vital Signs Blood pressure diastolic 90 mm Hg 04/09/2024 Height 5ft1.5in in 04/09/2024 Blood pressure systolic 148 mm Hg 04/09/2024 Weight 139 lbs 04/09/2024 BMI 25.84 kg/m2 04/09/2024 Procedures Procedure Date Ordered Date Performed Result Body Sit e 08335-SVAQVLU NAIL, 6 OR MORE 07/27/2023 N/A Encounters Encounter Location Date Provider Diagnosis [facility] [address] [place] [address] 07/13/2023 Jared Pavon Ingrowing nail L60.0 ; Cellulitis of right lower limb L03.115 ; Hematoma of toe of right foot, initial encounter S90.121A ; Pain in right toe(s) M79.674 and Type 2 diabetes mellitus without complication E11.[address] [address] 07/27/2023 Rigoberto Christopher Pain in right toe(s) M79.674 ; Tinea unguium B35.1 ; Pain in left toe(s) M79.675 ; Type 2 diabetes mellitus without complication E11.9 and Xerosis of skin L85.[address] [address] 08/14/2023 Rigoberto Christopher Hematoma of toe of left foot, initial encounter S90.122A ; Traumatic hematoma of left foot, initial encounter S90.32XA ; Other hammer toe(s) (acquired), left foot M20.42 ; Arthritis of joint of lesser toe, 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 and Pain in left toe(s) M79.[address] [address] 10/09/2023 Jared Pavon Pain in right toe(s) M79.674 ; Tinea unguium B35.1 ; Pain in left toe(s) M79.675 ; Type 2 diabetes mellitus without complication E11.9 and Xerosis of skin L85.[address] [address] 01/04/2024 Pari Monroy Pain in right toe(s) M79.674 ; Tinea unguium B35.1 ; Pain in left toe(s) M79.675 and Type 2 diabetes mellitus without complication E11.[address] [address] 04/09/2024 Quin Harry Tinea unguium B35.1 ; Ingrown nail L60.0 ; Pain in right toe(s) M79.674 ; Pain in left toe(s) M79.675 and Type 2 diabetes mellitus without complication E11.[address] [address] 07/13/2023 Rigoberto Christopher [address] [place] [address] [place] [address] 08/14/2023 Rigobetro Ashwin [facility] [address] [place] [address] 09/22/2023 Rigoberot Vidalunier Xerosis of skin L85.3 [facility] [address] 04/15/2024 Rigobertoizabella VidalAshwin Xerosis of skin L85.3 Assessments Encounter Date Diagnosis (ICD Code) Assessment Notes Treatment Notes Treatment Clinical Notes Section Notes 07/13/2023 Ingrowing nail (ICD-10 - L60.0) 07/13/2023 [...] right foot, initial encounter (ICD-10 - S90.121A) 07/13/2023 Pain in right toe(s) (ICD-10 - [...] 07/27/2023 Xerosis of skin (ICD-10 - L85.3) 07/13/2023 Type 2 diabetes mellitus without complication (ICD-10 - E11.9) 08/14/2023 Pain in left toe(s) (ICD-10 - M79.675) 10/09/2023 Xerosis of skin (ICD-10 - L85.3) 08/14/2023 Other Plan Of Treatment Pending Test Test Name Order Date X ray : Foot, left 3V 08/14/2023 [id number] NAIL, 6 OR MORE 03/07/2023 [id number] NAIL, 6 OR MORE 05/18/2023 [id number] NAIL, 6 OR MORE 07/27/2023 Next Appt Details Provider Name:Pari cherry, 06/20/2024 01:00:00 PM, [address] [facility], [place], [address], Insurance Providers Payer Name Payer Address Payer Phone Subscriber Number Group Number Insured Name Patient Relationship to Insured Coverage Start Date Coverage End Date Medicare National Govt [employer] [facility] [address] [place] [address] [id number] Linda Dinero Self - patient is the insured [facility] [address] [place] [address] [id number] Linda Dinero Self - patient is the [...]
== END 2024-06-13 14:27 | disposition home or self-care (01) ==
LOC: HO.HBS 13:44
PROVIDERS: PCP Physician Assistant; Visit Provider Physician Assistant Surgical
DX: E66.3 Overweight (principal); Z68.26 Body mass index [BMI] 26.0-26.9, adult; Z90.3 Acquired absence of stomach [part of]; Z98.84 Bariatric surgery status
CPT/HCPCS: 99213

== ENCOUNTER → 2024-06-13 13:43 | Outpatient (BNVA) | payer OTHER, MEDICARE, SELFPAY | PROVIDERS: PCP Physician Assistant; Visit Provider Physician Assistant Surgical | DX: E66.3 Overweight (principal); Z98.84 Bariatric surgery status; K76.0 Fatty (change of) liver, not elsewhere classified; I25.9 Chronic ischemic heart disease, unspecified; E11.9 Type 2 diabetes mellitus without complications; I10 Essential (primary) hypertension; R16.0 Hepatomegaly, not elsewhere classified; E78.5 Hyperlipidemia, unspecified ==

== ENCOUNTER 2024-06-14 07:23 | Outpatient (REF) | payer OTHER, MEDICARE, SELFPAY ==
--- OUTSIDE RECORDS SUMMARY | 2024-06-14 07:25 | XMS_ITS ---
Author Organization [facility] Address [address] [place] [address] Care Team Providers Care Game Author Name Role Phone Mitra Cheung Primary Care Provider Pari Novoa Unavailable [phone] Allergies Allergen (clinical drug ingredient) Drug/Non Drug [...] Active Encounters Encounter Location Date Provider Diagnosis [facility] [address] [address] 03/28/2024 Pari Porfirio Plan Of Treatment Next Appt Details Provider Name:Pari De Souza dilip, 06/20/2024 01:00:00 PM, [address] [place] [address], [address], Progress Notes * Dex DINEROiDOB:1955 (69 yo F)Acc No.[id number]:03/28/2024 Progress Note Patient:?Linda DINERO Provider:?Pari Monroy DPM :1955???Age:69 Y???Sex:Female D ate:03/28/2024 Address:[address] [place] [address] Rd, [address], [facility] Pcp:Mitra Cheung Subjective: * Chief Complaints: * [...] DPM Date:?0 03/28/2024 Generated for Leslye us/Ayo/Jonnaitting on:?06/14/2024 07:25 AM EDT
--- OUTSIDE RECORDS SUMMARY | 2024-06-14 07:25 | XMS_ITS ---
Author Organization [facility] Address [address] [facility] [place] [address] Care Team Providers Care Mid Level Net Developer Name Role Phone Mitra Cheung Primary Care Provider UnavailPari Cosme Unavailable [phone] Quin Harry Unavailable [phone] Allergies Allergen (clinical drug ingredient) Drug/Non Drug [...] 025 Encounters Encounter Location Date Provider Diagnosis [facility] [address] [address] 04/09/2024 Quin Harry Tinea unguium B35.1 ; [...] Reason: Provider Name:Pari cherry, 06/20/2024 01:00:00 PM, [address] [place] [address], [address], Procedure Notes * Category Sub-Category Detail Notes [...] use of a nail nipper and/or dremel-type centerless grinder set up operator, to a more viable healthy nail [...] to maintain effectiveness in symptomatic relief - 27[address] Progress Notes * Adri DINEROB:1955 (69 yo F)Acc No.[id number]:04/09/2024 Progress Note Patient:?Linda DINEOR Provider:?Quin Harry DPM :1955???Age:69 Y???Sex:Female D ate:04/09/2024 Address:[address] [place] [address], [address], [facility] Pcp:Mitra Cheung Subjective: * Chief Complaints: * [...] * Medical History:? * Surgical History:?gastrectom y 12-6-9833jjrvdsydnfjg 19-51-7366Xfmi bladder removal 1978C-Section 9-1-2125Xohz removal 1970dental surgery * Hospitalization/Major Diagno stic [...] use of a nail nipper and/or dremel-type centerless grinder set up operator, to a more viable healthy nail [...] to maintain effectiveness in symptomatic relief - 83447.? * Procedure Codes:?11086 TRISTEN JOHNSON, 6 OR MORE * Preventive [...] Harry DPM Date:? Generated for Leslye us/Ayo/Lisa on:?06/14/2024 07:25 AM EDT History and Physical Notes * HPI [...]
--- OUTSIDE RECORDS SUMMARY | 2024-06-14 07:25 | XMS_ITS | Continuity of Care Document ---
Author Organization [facility] [address] [place] [address] Phone [phone] Problems Active Problems Provider Date Diabetes mellitus [...] 2023 H/O: depression ELIJAH Flores Onset: 2023 History of bariatric surgical procedure ELIJAH Altamirano Onset: 06/11/2024 Social History Type Date Description Comments Sex Unknown Tobacco Use Start: Unknown Never Smoked Cigarettes Smoking Status Reviewed: 06/11/24 Never Smoked Cigaret cassidy ETOH Use Denies alcohol use Allergies and adverse reactions Active Allergies Criticality Reaction Severity Comments Date Percocet Unable to assess criticality 01/31/2022 Demerol Unable to assess criticality Hallucinations 06/11/2024 Medications Active Medications SIG Qnty Indications Order ing Provider Date Ziprasidone KQG38ji Capsules Take 1 tablet at 7 pm and 10 pm (Dr. Horta Brand only) 60caps Huber Jones M.D. 12/06/2022 BD Pen Needle/Liat/Ultra -Fine/32G X 4mm32G X 4 mm Misc 3 pen needle to insulin pen three times a day dx: e11.9 400units Huber Jones M.D. 05/27/2022 Pravastatin Dnnzly61iw Tablets Take 1 Tablet By Mouth Every Day 90tabs Felicitas Rachel M.D. 09/07/2021 Ziprasidone YBT70jt Capsules Take 1 tablet at 8 am and 5 pm. Huber Jones M.D. 09/07/2021 Venjmpcdw2bi Tablets 1 tab by mouth twice a day as needed Unknown Fymlojnbb0wl Tablets 1 tab at bedtime as needed Unknown Restasis0.05% Emulsion 1 drop each eye twice daily Unknown Clopidogrel Lrrrqxclc35dh Tablets Take 1 Tablet By Mouth Every Day as Directed 90tabs Felicitas Rachel M.D. Fnzxro797yz Capsules 1 by mouth every day as needed Unknown Refresh1.4-0.6% Solution Unknown Senna Laxative8.6mg Tablets Take three tabs at bedtime Unknown Ammonium Pomiwjv89% Cream apply to feet at 8 am and 8 pm Unknown Cqbvis8765hxo Capsules 1 by mouth every day at 7 pm Unknown Vital Signs Date Vital Result Comment 06/11/2024 2:51pm BP Systolic 126 mmHg BP Diastolic 70 mmHg Heart Rate 63 /min Height 61 inches 5'1 Weight 146.00 lb BMI (Body Mass Index) 27.6 kg/m2 Results Test Acquired Date Facility Test Result H/L Range Note Glucose Fingerstick 06/11/2024 Inhouse Glucose Fingerstick 136 Glucose Fingerstick 04/12/2024 Inhouse Glucose Fingerstick 143 Hemoglobin A1c 04/12/2024 Inhouse Hemoglobin A1c 6.0% Glucose Fingerstick 12/11/2023 Inhouse Glucose Fingerstick 93 [...] Inhouse Glucose Fingerstick 118 Hemoglobin A1c 04/06/2023 [facility] Hemoglobin A1c 5.7 % High (4.0-5.6 ) 4 Glucose Fingerstick 12/06/2022 Inhouse Glucose Fingerstick 89 Hemoglobin A1c 12/01/2022 [facility] Hemoglobin A1c 5.7 % High (4.0-5.6 ) 5 Glucose Fingerstick 09/23/2022 Inhouse Glucose Fingerstick 140 Electrolytes 09/21/2022 [facility] Sodium 141 mmol/L (133-145 ) Potassium 4.1 mmol/L (3.6-5.2 ) Chloride 103 mmol/L (98-107) Bicarbonate 24 mmol/L (22-29) Anion Gap 14 (4-17) Ferritin 09/21/2022 [facility] Ferritin 32 NG/ML (14-283) Hemoglobin A1c 09/19/2022 [facility] Hemoglobin A1c 6.1 % High (4.0-5.6 ) 6 Glucose Fingerstick 06/20/2022 Inhouse Glucose Fingerstick 136 Comprehensive Metabolic Panl 06/13/2022 [facility] Glucose 206 mg/dL High (70-99) [...] 71 ML/MIN/1. 73M2 7 Lipid Panel 06/13/2022 [facility] Cholesterol, Total 133 mg/dL (<200) Triglyceride 176 mg/dL High (<150) HDL Chol 45 mg/dL (>39) LDL Cholesterol , Calculated 53 mg/dL (0-130) Non HDL Cholesterol (Calc) 88 mg/dL (<160) Complete Abc With Diff 06/13/2022 [facility] WBC 7.1 K/MM3 (4.0-11. 0) [...] ) Lymph # 1.7 K/MM3 (0.8-3.1 ) [place]# 0.6 K/MM3 (0.4-0.9 ) Eo # 0.2 K/MM3 (0.0-0.4 ) Baso # 0.0 K/MM3 (0.0-0.1 ) Abs. Imm Gran 0.0 K/MM3 Neut 63.4 % (44-76) Lymph 24.4 % (15-43) Monocyte 8.7 % (4.5-10. 5) Eo 2.3 % (0-6) Baso 0.6 % (0-2) Imm Gran 0.6 % Urinary Microalbumin 06/13/2022 [facility] Micro-Albumin 38.8 mg/L High (<20) 8 Malb/Creat Ratio 61.9 MG/GM High (0-20) Urine Creat For Micro Albumin 62.7 mg/dL Hemoglobin A1c 06/13/2022 [facility] Hemoglobin A1c 6.7 % High (4.0-5.6 ) 9 Glucose Fingerstick 04/08/2022 Inhouse Glucose Fingerstick 139 Hemoglobin A1c 04/01/2022 [facility] Hemoglobin A1c 8.1 % High (4.0-5.6 ) 10 Glucose Fingerstick 01/31/2022 Inhouse Glucose Fingerstick 232 Glucose Fingerstick 09/07/2021 Inhouse Glucose Fingerstick 166 Hemoglobin A1c 09/02/2021 [facility] Hemoglobin A1c 6.1 % High [...] with health care provider. DIAGNOSTIC USE: The [place] Diabetes Association (ADA) and the World Health [...] with health care provider. DIAGNOSTIC USE: The [place] Diabetes Association (ADA) and the World Health [...] with health care provider. DIAGNOSTIC USE: The [place] Diabetes Association (ADA) and the World Health [...] with health care provider. DIAGNOSTIC USE: The [place] Diabetes Association (ADA) and the World Health [...] with health care provider. DIAGNOSTIC USE: The [place] Diabetes Association (ADA) and the World Health [...] with health care provider. DIAGNOSTIC USE: The [place] Diabetes Association (ADA) and the World Health [...] 1 Procedures Date Code Description Status 09/28/2023 79000 Remove Impacted Cerumen Comp leted Medical Devices Description No Information Available Encounters Type Date Location Provider Dx Diagnosis Office Visit 03/26/2024 1:47p Main Office ELIJAH Flores E11.8 Type 2 diabet es mellitus with unspecified complications D64.9 Anemia, unspecified Assessments Date Code Description Provider 06/11/2024 E11.9 Type 2 diabetes mellitus wit hout complications ELIJAH Flores 06/11/2024 I25.89 Asymptomatic coronary heart disease ELIJAH Flores 06/11/2024 C54.1 Endometrial carcinoma ELIJAH Flores 06/11/2024 F41.1 Generalized anxiety disorder ELIJAH Flores 06/11/2024 F33.1 Major depressive disorder, r ecurrent, moderate ELIJAH Flores 06/11/2024 Z98.84 Bariatric surgery status ELIJAH Bagley 06/11/2024 R31.9 Hematuria, unspecified ELIJAH Esquivel 06/11/2024 D64.9 Anemia, unspecified ELIJAH Altamirano 06/11/2024 Z01.818 Encounter for other preproce dural examination ELIJAH Flores Plan of Treatment Future Appointment(s):* 08/01/2024 2:30 pm - ELIJAH Flores at Main Office 06/11/2024 - ELIJAH Flores* E11.9 Type 2 diabetes mellitus without complications * I25.89 Asymptomatic coronary heart disease * C54.1 Endometrial carcinoma * F41.1 Generalized anxiety disorder * F33.1 Major depressive disorder, recurrent, moderate * Z98.84 Bariatric surgery status * R31.9 Hematuria, unspecified * D64.9 Anemia, unspecified * Z01.818 Encounter for other preprocedural examination Functional Status Description No Information Available Mental Status Description No Information Available Referrals Refer to Reason for Referral Status Appt Andrew e [facility] Annual Hearing Test Created [address] [place] [address] [phone] [facility] ANNUAL HEARING TEST Closed 09/22/[address] [place] [address] [phone] [facility] HEARING EVALUATION Closed 07/27/[address] [place] [phone] [facility] RIGHT [facility]TO[facility] Closed [address] [place] [phone]
--- OUTSIDE RECORDS SUMMARY | 2024-06-14 07:25 | XMS_ITS ---
Author Organization [facility] Address [address] [place] [address] Care Team Providers Care Livestock Broker Name Role Phone Mitra Cheung Primary Care Provider UnavailPari Cosme Unavailable [phone] Rigoberto Christopher Unavailable [phone] REASON FOR VISIT RX request Medications Medication SIG (Take, Route, Fr equency, Duration) Notes Start Date End Date Status Ammonium Lactate 12 % 1 application Exte rnally Twice a day for 30 days Active Encounters Encounter Location Date Provider Diagnosis [address] [address] 04/15/2024 Rigoberto Christopher Xerosis of skin L85.3 [...] Provider Name:Pari cherry, 06/20/2024 01:00:00 PM, [address] [place], [address], Progress Notes * Adri DINEROB:1955 (69 yo F)Acc No.[id number]:04/15/2024 Patient:?Linda DINERO :1955???Age:69 Y???Sex:Female Address:[address] [place] [address] [address], [address], [place] [address] * Refills? Refill Ammonium Lactate Cream, 12 %, Externally, 120, 1 application, Twice a day, 30 days, Refills=2 * true * Date:? Generated for Leslye us/Ayo/Jonnaitting on:?06/14/2024 07:25 AM EDT
--- OUTSIDE RECORDS SUMMARY | 2024-06-14 07:26 | XMS_ITS | Patient Health Record ---
Author Organization [facility] Address [address] [facility] [place] [address] Care Team Providers Care Pouako Kura [place] Maori Name Role Phone Jonatan Mitra Primary Care Provider UnavailPari Cosme Unavailable [phone] Jared Pavon Unavailable [phone] Rigoberto Christopher Unavailable [phone] Quin Harry Unavailable [phone] Allergies Allergen (clinical drug ingredient) Drug/Non Drug [...] Problem Acquired hammer toe of right foot (957696675755059 5) Other hammer toe(s) (acquired), right foot (M20.41) Active confirmed Problem Acquired hammer toe of left foot (632263043091937 3) Other hammer toe(s) (acquired), left foot (M20.42) Active confirmed Problem Type 2 diabetes mellitus without complication (023193965) Type 2 diabetes mellitus without complication (E11.9) Active confirmed Vital Signs Blood pressure diastolic 90 mm Hg 04/09/2024 Height 5ft1.5in in 04/09/2024 Blood pressure systolic 148 mm Hg 04/09/2024 Weight 139 lbs 04/09/2024 BMI 25.84 kg/m2 04/09/2024 Procedures Procedure Date Ordered Date Performed Result Body Sit e 25860-BLUJMKP NAIL, 6 OR MORE 07/27/2023 N/A Encounters Encounter Location Date Provider Diagnosis [facility] [address] [place] [address] 07/13/2023 Jared Pavon Ingrowing nail L60.0 ; Cellulitis of right lower limb L03.115 ; Hematoma of toe of right foot, initial encounter S90.121A ; Pain in right toe(s) M79.674 and Type 2 diabetes mellitus without complication E11.[address] [address] 07/27/2023 Rigoberto Christopher Pain in right toe(s) M79.674 ; Tinea unguium B35.1 ; Pain in left toe(s) M79.675 ; Type 2 diabetes mellitus without complication E11.9 and Xerosis of skin L85.[address] [address] 08/14/2023 Rigoberto Christopher Hematoma of toe of left foot, initial encounter S90.122A ; Traumatic hematoma of left foot, initial encounter S90.32XA ; Other hammer toe(s) (acquired), left foot M20.42 ; Arthritis of joint of lesser toe, 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 and Pain in left toe(s) M79.[address] [address] 10/09/2023 Jared Pavon Pain in right toe(s) M79.674 ; Tinea unguium B35.1 ; Pain in left toe(s) M79.675 ; Type 2 diabetes mellitus without complication E11.9 and Xerosis of skin L85.[address] [address] 01/04/2024 Pari Monroy Pain in right toe(s) M79.674 ; Tinea unguium B35.1 ; Pain in left toe(s) M79.675 and Type 2 diabetes mellitus without complication E11.[address] [address] 04/09/2024 Quin Harry Tinea unguium B35.1 ; Ingrown nail L60.0 ; Pain in right toe(s) M79.674 ; Pain in left toe(s) M79.675 and Type 2 diabetes mellitus without complication E11.[address] [address] 07/13/2023 Rigoberto Christopher [place] [address] [place] [address] 08/14/2023 Rigoberto Ashwin [facility] [address] [place] [address] 09/22/2023 Rigoberto Vidalunier Xerosis of skin L85.[address] [facility] [address] 04/15/2024 Rigobertoizabella VidalAshwin Xerosis of skin L85.3 [...] X ray : Foot, left 3V 08/14/2023 78579-AKLEKYX NAIL, 6 OR MORE 03/07/2023 99665-RPIUZCB NAIL, 6 OR MORE 05/18/2023 50021-RRUNCIZ NAIL, 6 OR MORE 07/27/2023 Next Appt Details Provider Name:Pari cherry, 06/20/2024 01:00:00 PM, [address] [facility], [place], [address], Insurance Providers Payer Name Payer Address Payer Phone Subscriber Number Group Number Insured Name Patient Relationship to Insured Coverage Start Date Coverage End Date Medicare National Govt [employer] [facility] [address] [place] [address] [id number] Linda Dinero Self - patient is the insured [facility] [address] [place] [address] [id number] Linda Dinero Self - patient is the [...]
--- OUTSIDE RECORDS SUMMARY | 2024-06-14 07:26 | XMS_ITS | Encounter Summary ---
Author Organization [facility] Address [address] [place] [address] Care Team Providers Care Lead Javascript Engineer Name Role Phone Huber Jones MD Primary Care Provider Encounter Details Date Type Department Care Team (Late st Contact Info) Description 04/08/2024 Lab Requisition [facility] - Main Lab [address] [facility] [employer] [address] Aiden Santiago MD [address] [place] [address] Gross hematuria Social History Tobacco [...] AM EST) Final Diagnosis A. Urine, Voided, ([id number]): Negative for high grade urothelial carcinoma. Results of UroVysion fluorescence in situ hybridization (FISH) testing: CEP3: Normal CEP7: Normal CEP17: Normal LSI 9p21: Normal Interpretation: Normal profile Controls stained appropriately. Note: The results are intended as a screening device and should be interpreted in association with other clinical and pathological findings. 04/10/2024 3:40 PM [facility] Clinical Information Gross hematuria R31.0 Urine Cytology/FISH (now) 04/10/2024 3:40 PM [facility] Gross Description A. Urine, Voided, ([id number]): Received one ThinPrep slide for cytology and one ThinPrep slide for UroVysion FISH 04/10/2024 3:40 PM [facility] Disclaimer Unless otherwise specified, all tissue is 10% NB formalin fixed and paraffin embedded. Technical pathology services provided by [facility] at [address] [facility] [address] [place] [address] (CLIA #[id number]/Sara Wick MD, Canteen Operator) 04/10/2024 3:40 PM [facility] Tissue Urine specimen from urethra / Unknown 04/02/2024 04/08/2024 8:27 AM EST us Aiden Santiago MD LAB PATHOLOGY ORDERABLES Final Result [facility] [address] [place] [address], documented in this encounter Visit Diagnoses Diagnosis Gross hematuria documented in this encounter Care Teams Lead Javascript Engineer Relationship Specialty Start Date End Date Huber Jones MD [address] [place] [address] Dr [address] [place], [place] PCP - General Endocrinology 07/01/20 documented as of this encounter
--- OUTSIDE RECORDS SUMMARY | 2024-06-14 07:26 | XMS_ITS | Clinical Summary ---
Author Organization [address] [facility] Address [address] [place] [address] Phone Care Team Providers Care Credit Reporter Name Role Phone Huber Jones MD Primary Care Provider Encounters Date Type Department Care Team Description 04/08/[address] [facility] - Main Lab [address] [facility] [employer] [address] Aiden Santiago MD Gross hematuria [...] AM EST) Final Diagnosis A. Urine, Voided, ([id number]): Negative for high grade urothelial carcinoma. Results [...] CENTER LAB Gross Description A. Urine, Voided, ([id number]): Received one ThinPrep slide for cytology and one ThinPrep slide for UroVysion FISH 04/10/2024 3:40 PM [facility] Disclaimer Unless otherwise specified, all tissue is 10% NB formalin fixed and paraffin embedded. Technical pathology services provided by [facility] at [address], [place] [address] (CLIA #[id number]/Sara Wick MD, Putty Glazer) 04/10/2024 3:40 PM EST [facility] Tissue Urine specimen from urethra / Unknown 04/02/2024 04/08/2024 8:27 AM EST us Aiden Santiago MD LAB PATHOLOGY ORDERABLES Final Result [facility] [address] [place] [address], from Last 3 Months Insurance MEDICARE [facility] Care Teams Credit Reporter Relationship Specialty Start Date End Date Huber Jones MD [address] [place] [address] [address] [place], [place] PCP - General Endocrinology 07/01/20
[2024-06-14 07:38] LABS: MANUAL DIFF FLAG NO
[2024-06-14 08:26] LABS: Basophils Percent Auto 0.3 % (0-2); Eosinophils Absolute Auto 0.1 X10*3/uL (0.0-0.4); Eosinophils Percent Auto 1.2 % (0-4); Hematocrit 37.7 % (37.0-47.0); Hemoglobin 13.8 g/dl (12.0-16.0); Imm Gran Abs Auto 0.02 X10*3/uL (0.00-0.03); Imm Gran Pct Auto 0.3 % (0.0-0.4); Lymphocytes Absolute Auto 1.4 X10*3/uL (1.2-4.9); Lymphocytes Percent Auto 21.7 % (20-40); Mean Corpuscular HGB Conc 36.6 g/dl (31.0-35.0); Mean Corpuscular Hemoglobin 31.8 pg (27.0-33.0); Mean Corpuscular Volume 86.9 fL (80.0-98.0); Mean Platelet Volume 10.4 fL (9.4-12.3); Monocytes Absolute Auto 0.5 X10*3/uL (0.1-1.2); Monocytes Percent Auto 7.9 % (2-11); Neutrophils Absolute Auto 4.4 x10*3/uL (2.0-8.3); Neutrophils Percent Auto 68.6 % (45-73); Platelet Count 191 X10*3/uL (160-400); Red Blood Count 4.34 X10*6/uL (4.20-5.50); Red Cell Distribution Width 12.2 % (11.0-16.0); White Blood Count 6.5 X10*3/uL (4.8-10.8)
[2024-06-14 08:38] LABS: Estimated Average Glucose 114 mg/dL; Hemoglobin A1C 136.7094 umol/L; Hemoglobin A1c % 5.6 % (<6.0); Total Hemoglobin (HGBA1C) 3649.2504 umol/L
[2024-06-14 08:57] LABS: Anion Gap 12 (12-20); Blood Urea Nitrogen 22 mg/dL (9-16); C Reactive Protein 0.12 mg/dL (< or = 0.50); Calcium 9.5 mg/dL (8.4-10.2); Carbon Dioxide 28 mmol/L (22-29); Chloride 106 mmol/L (96-108); Cholesterol 155 mg/dL (<200); Estimated Glomerular Filt Rate > 60; Glucose Random 162 mg/dL (60-115); HDL Cholesterol 54 mg/dL (>40); Iron 109 mcg/dL (30-160); LDL Cholesterol Calculated 85 mg/dL (<100); Percent Iron Saturation 38 % (15-50); Potassium 3.5 mmol/L (3.3-5.1); Sodium 142 mmol/L (135-145); Total Iron Binding Capacity 287 mcg/dL (228-428); Triglycerides 81 mg/dL (<150); Unsaturated Iron Binding 178 ug/dL
[2024-06-14 09:13] LABS: Ferritin 109 ng/mL (10-250); Insulin 11 uU/mL (2-29); TSH reflex Free T4 2.01 uIU/mL (0.32-4.0); Vitamin D 25-OH Total 53.1 ng/mL (>30)
[2024-06-14 09:28] LABS: Folate 15.8 ng/mL (> or = 4.0); Vitamin B12 1320 pg/mL (200-900)
[2024-06-17 19:49] LABS: Zinc 75 mcg/dL (60-130)
[2024-06-18 16:13] LABS: Vitamin A 57 mcg/dL (38-98)
[2024-06-22 16:28] LABS: Vitamin B1 44 nmol/L (8-30)
== END 2024-06-14 07:24 | disposition home or self-care (01) ==
LOC: HO.LAB 07:23
PROVIDERS: PCP Physician Assistant; Visit Provider Physician Assistant Surgical
DX: Z98.84 Bariatric surgery status (principal); K76.0 Fatty (change of) liver, not elsewhere classified; I10 Essential (primary) hypertension; E78.5 Hyperlipidemia, unspecified; Z13.1 Encounter for screening for diabetes mellitus
CPT/HCPCS: 36415; 80048; 80061; 82306; 82607; 82728; 82746; 83036; 83525; 83540; 84425; 84443; 84590; 84630; 85025; 86140

== ENCOUNTER 2024-07-22 15:30 | Outpatient (AMB) | payer OTHER, MEDICARE, SELFPAY ==
[2024-07-22 09:54] VITALS: BMI 26.2
--- NOTE | 2024-07-22 09:54 | MHC.OFFVISWM ---
VS Expanded 07/22/24 09:54 Height 5 ft 1.5 in Weight 141 lb BMI 26.2 Body Fat % 38.7 Fat Free Mass 86.3 Visceral Fat Rating 9.1 Body Water % 45.7 Muscle Mass/Score 81.1 Intake Visit Reasons: TV PO LSG 11/22/22 Allergies demerol Allergy (Unknown, Uncoded 10/20/23 13:38) hives, hallucinations percocet Allergy (Unknown, Uncoded 10/20/23 13:38) Hives HPI Comments Details: This?a?68?yo female who is s/p LSG without hiatal hernia repair on?11/22/2022. Presents for 1 year 8 month post op visit. Weight today is 141 pounds, with a BMI of 26.2. There has been a 48.8 pound weight loss,(initial weight 190.2 pounds) since starting the program on 07/14/2022 reflecting a 25.6 % total body weight loss and a weight loss of 25.1 pounds since surgery (operative weight 166.5 pounds) reflecting a 15 % TBWL since surgery. No complaints of nausea, emesis, abdominal pain or reflux. Reports infrequent but normal bowel movements every 1-2 days. Since last visit, she has noted low blood sugars. She additionally had cataract surgery and was told not to exercise for 2 weeks. Her boyfriend is now residing in a long-term. Present meal plan includes: celebrate 4 in 1 1/2 in 8 oz unsweetened almond milk x 2 Celebrate 4 in 1 1 scoop in 8 oz unsweetened almond milk x2 Two meals, puree, 4 forks each, Drinkin oz water daily Exercise plan: Will try to go at 2 in the afternoon [facility] Medical History (Updated 03/03/23 @ 11:23 by Laquita Barroso PA-C) BMI 36.0-36.9,adult Steatosis, liver Asymptomatic coronary heart disease History of endometrial cancer History of cerebrovascular accident BMI 35.0-35.9,adult GERD (gastroesophageal reflux disease) Hepatomegaly Liver fibrosis Depression Bipolar 1 disorder Hyperlipidemia Insulin dependent type 2 diabetes mellitus Myocardial infarction Surgical History Hx of laparoscopic partial gastrectomy Hx of section Hx of wisdom tooth extraction Hx of lymph node excision Hx of cholecystectomy Hx of hysterectomy Family History Mother Hypertension Diabetes High cholesterol Stroke Father Diabetes Hypertension High cholesterol Heart attack Sister Diabetes Hypertension Son Stroke Hypertension High cholesterol Social History Household Members: Significant Other Housing: House Are you a primary career information specialist to a significant other at home: Yes (SO, son with be available post-op to help with care) Do you presently have visiting nurse or other home services: No Alcohol intake: never Patient Tobacco Use Status: Never used Tobacco Telehealth Telehealth Telehealth Platform: Telephone Location of provider rendering services: practice address Location of patient: address on file Patient Identification confirmed using: Name, : Yes Telehealth method: voice only Patient verbally consented to treatment: Yes Patient verbally consented to billing insurance company: Yes Patient informed of any privacy concerns related to visit: Yes Minutes spent on Phone/Video with Pt.: 15 Assessment & Plan Assessment & Plan (1) S/P laparoscopic sleeve gastrectomy: Code(s): Z98.84 - Bariatric surgery status Category: Surgical Plan: Celebrate 4 in 1 1 scoop in 8 oz unsweetened almond milk x 3 Two meals, puree, 4 forks each, Italian yogurt Patient was having difficulty with scheduling due to her boyfriend now in a [place] facility. She additionally was complaining of nocturia, we will therefore streamline her shakes and add a Italian yogurt at night. She was encouraged to resume exercise. She was encouraged to send weight is weekly and text with any questions or concerns.
--- OUTSIDE RECORDS SUMMARY | 2024-07-22 16:48 | XMS_ITS | Continuity of Care Document ---
Author Organization [facility] [address] [place] [address] Phone [phone] Problems Active Problems Provider Date Diabetes mellitus [...] Qnty Indications Order ing Provider Date Ziprasidone [id number] Capsules Take 1 tablet at 7 pm and 10 pm (Dr. Horta Brand only) 60caps Huber Jones M.D. 12/06/2022 BD Pen Needle/Liat/Ultra -Fine/32G X 4mm32G X 4 mm Misc 3 pen needle to insulin pen three times a day dx: e11.9 400units Huber Jones M.D. 05/27/2022 Pravastatin Jcydqn68nk Tablets Take 1 Tablet By Mouth Every Day 90tabs Felicitas Rachel M.D. 09/07/2021 Ziprasidone CSE25jf Capsules Take 1 tablet at 8 am and 5 pm. Huber Jones M.D. 09/07/2021 Qznixofeh7yb Tablets 1 tab by mouth twice a day as needed Unknown Hwkmxqvzx5yh Tablets 1 tab at bedtime as needed Unknown Restasis0.05% Emulsion 1 drop each eye twice daily Unknown Clopidogrel Okofpiiyp43qv Tablets Take 1 Tablet By Mouth Every Day as Directed 90tabs Felicitas Rachel M.D. Ikitio915lr Capsules 1 by mouth every day as needed Unknown Refresh1.4-0.6% Solution Unknown Senna Laxative8.6mg Tablets Take three tabs at bedtime Unknown Ammonium Xhrnrar81% Cream apply to feet at 8 am and 8 pm Unknown [id number] Capsules 1 by mouth every day at [...] Inhouse Glucose Fingerstick 118 Hemoglobin A1c 04/06/2023 [facility] Hemoglobin A1c 5.7 % High (4.0-5.6 ) 4 Glucose Fingerstick 12/06/2022 Inhouse Glucose Fingerstick 89 Hemoglobin A1c 12/01/2022 [facility] Hemoglobin A1c 5.7 % High (4.0-5.6 ) 5 Glucose Fingerstick 09/23/2022 Inhouse Glucose Fingerstick 140 Electrolytes 09/21/2022 [facility] Sodium 141 mmol/L (133-145 ) Potassium 4.1 mmol/L (3.6-5.2 ) Chloride 103 mmol/L (98-107) Bicarbonate 24 mmol/L (22-29) Anion Gap 14 (4-17) Ferritin 09/21/2022 [facility] Ferritin 32 NG/ML (14-283) Hemoglobin A1c 09/19/2022 [facility] Hemoglobin A1c 6.1 % High (4.0-5.6 ) 6 Glucose Fingerstick 06/20/2022 Inhouse Glucose Fingerstick 136 Comprehensive Metabolic Panl 06/13/2022 [facility] Glucose 206 mg/dL High [...] 71 ML/MIN/1. 73M2 7 Lipid Panel 06/13/2022 [facility] Cholesterol, Total 133 mg/dL (<200) Triglyceride 176 mg/dL High (<150) HDL Chol 45 mg/dL (>39) LDL Cholesterol , Calculated 53 mg/dL (0-130) Non HDL Cholesterol (Calc) 88 mg/dL (<160) Complete Abc With Diff 06/13/2022 [facility] WBC 7.1 K/MM3 (4.0-11. [...] ) Lymph # 1.7 K/MM3 (0.8-3.1 ) [place]# 0.6 K/MM3 (0.4-0.9 ) Eo # 0.2 K/MM3 (0.0-0.4 ) Baso # 0.0 K/MM3 (0.0-0.1 ) Abs. Imm Gran 0.0 K/MM3 Neut 63.4 % (44-76) Lymph 24.4 % (15-43) Monocyte 8.7 % (4.5-10. 5) Eo 2.3 % (0-6) Baso 0.6 % (0-2) Imm Gran 0.6 % Urinary Microalbumin 06/13/2022 [facility] Micro-Albumin 38.8 mg/L High (<20) 8 Malb/Creat Ratio 61.9 MG/GM High (0-20) Urine Creat For Micro Albumin 62.7 mg/dL Hemoglobin A1c 06/13/2022 [facility] Hemoglobin A1c 6.7 % High (4.0-5.6 ) 9 Glucose Fingerstick 04/08/2022 Inhouse Glucose Fingerstick 139 Hemoglobin A1c 04/01/2022 [facility] Hemoglobin A1c 8.1 % High (4.0-5.6 ) 10 Glucose Fingerstick 01/31/2022 Inhouse Glucose Fingerstick 232 Glucose Fingerstick 09/07/2021 Inhouse Glucose Fingerstick 166 Hemoglobin A1c 09/02/2021 [facility] Hemoglobin A1c 6.1 % [...] with health care provider. DIAGNOSTIC USE: The [place] Diabetes Association (ADA) and the World Health [...] with health care provider. DIAGNOSTIC USE: The [place] Diabetes Association (ADA) and the World Health [...] with health care provider. DIAGNOSTIC USE: The [place] Diabetes Association (ADA) and the World Health [...] with health care provider. DIAGNOSTIC USE: The [place] Diabetes Association (ADA) and the World Health [...] with health care provider. DIAGNOSTIC USE: The [place] Diabetes Association (ADA) and the World Health [...] with health care provider. DIAGNOSTIC USE: The [place] Diabetes Association (ADA) and the World Health [...] 1 Procedures Date Code Description Status 09/28/2023 58566 Remove Impacted Cerumen Comp leted Medical Devices [...] Reason for Referral Status Appt Andrew e [facility] Cardiology (New Patients) CAD, Asymptom atic Created [address] [facility] [address] [place] [address] [phone] [facility] Annual Hearing Test Sched ed 10/03/[address] [place] [address] [phone] [facility] ANNUAL HEARING TEST Closed 09/22/[address] [place] [address] [phone] [facility] HEARING EVALUATION Closed 07/27/[address] [place] [address] [phone] [facility] Wound Care RIGHT BUTTOX Closed [address] [place] [address] [phone]
== END 2024-07-23 15:22 | disposition home or self-care (01) ==
LOC: HO.HBS 15:41
PROVIDERS: PCP Physician Assistant; Visit Provider Physician Assistant Surgical
DX: E66.3 Overweight (principal); Z68.26 Body mass index [BMI] 26.0-26.9, adult; Z90.3 Acquired absence of stomach [part of]; Z98.84 Bariatric surgery status
CPT/HCPCS: 98013

== ENCOUNTER 2024-08-26 14:15 | Outpatient (AMB) | payer OTHER, MEDICARE, SELFPAY ==
--- OUTSIDE RECORDS SUMMARY | 2024-07-30 05:15 | XMS_ITS ---
Author Organization [facility] Address [address] [place] [address] Care Team Providers Care Procurement Representative Name Role Phone Mitra Cheung Primary Care Provider Pari Novoa [phone] Corona Encounters Encounter Location Date Provider Diagnosis [address] [address] 07/30/2024 Pari Monroy Plan Of Treatment Next Appt Details Provider Name:Pari cherry, 10/16/2024 09:00:00 AM, [address] [place], [address], Progress Notes * Adri DINEROB:1955 (69 yo F)Acc No.[id number]:07/30/2024 Progress Note Patient: Dex SKELTONi Provider: Faye Monroy DPM :1955 A ge:69 Y S ex:Female Date:07/30/2024 Address: [address], [id number] Pcp:Mitra Cheung Subjective: * Chief Complaints: * 1 . [...] DPM Date: 0 07/30/2024 Generated for Leslye Martinez on: 08/26/2024 03:05 PM EDT
--- NOTE | 2024-08-26 08:03 | MHC.OFFVISWM ---
VS Expanded 08/26/24 08:04 Height 5 ft 1.5 in Weight 142 lb BMI 26.4 Body Fat % 39 Fat Free Mass 86.7 Visceral Fat Rating 9.2 Body Water % 45.4 Muscle Mass/Score 81.1 Basal Metabolic Rate/Score 1,184 Intake Visit Reasons: TV PO LSG 11/22/22 Machine Loader Required: No Allergies demerol Allergy (Unknown, Uncoded 10/20/23 13:38) hives, hallucinations percocet Allergy (Unknown, Uncoded 10/20/23 13:38) Hives Medication List - Last Reconciled 08/26/24 by ELIJAH Hernandez biotin mcg PO carboxymethylcellulose sodium 1% (Refresh Celluvisc) 1 drp ophthalmic (eye) QID clopidogrel 75 mg PO DAILY cyclosporine 0.05% (Restasis) 1 drp ophthalmic (eye) .0800+2200 docusate sodium (Colace) 100 mg PO TID lorazepam 2 mg PO .@2200 PRN lorazepam 1 mg PO .@0800+1700 pravastatin 40 mg PO .DAILY@1900 Held on 11/23/22. Instructions: discuss with Dr Anderson sennosides (senna) 8.6 mg PO BID tretinoin 0.025% appl topical ziprasidone HCl 20 mg PO BID@0800,1700 ziprasidone HCl 80 mg PO BID@1900,2200 HPI Comments Details: This?a?69?yo female who is s/p LSG without hiatal hernia repair on?11/22/2022. Presents for 1 year 9 month post op visit. Weight today is 142 pounds, with a BMI of 26.4. There has been a 47.8 pound weight loss,(initial weight 190.2 pounds) since starting the program on 07/14/2022 reflecting a 25.6 % total body weight loss and a weight loss of 24.1 pounds since surgery (operative weight 166.5 pounds) reflecting a 15 % TBWL since surgery. No complaints of nausea, emesis, abdominal pain or reflux. Reports infrequent but normal bowel movements every 1-2 days. Since last visit, she has noted low blood sugars. She additionally had cataract surgery and was told not to exercise for 2 weeks. Her boyfriend is now out of the hospital for 2 weeks and she is having difficulty with that. She is having difficulty with her meal plan due to her feeling as though she has to care for her boyfriend at [facility]. Present meal plan includes: Celebrate 4 in 1 1 scoop in 8 oz unsweetened almond milk x 3 Two meals, puree, 4 forks each, Kiswahili yogurt Drinkin oz water daily Exercise plan: daily treadmill 1 hour, [facility] Medical History (Updated 03/03/23 @ 11:23 by Laquita Barroso PA-C) BMI 36.0-36.9,adult Steatosis, liver Asymptomatic coronary heart disease History of endometrial cancer History of cerebrovascular accident BMI 35.0-35.9,adult GERD (gastroesophageal reflux disease) Hepatomegaly Liver fibrosis Depression Bipolar 1 disorder Hyperlipidemia Insulin dependent type 2 diabetes mellitus Myocardial infarction Surgical History Hx of laparoscopic partial gastrectomy Hx of section Hx of wisdom tooth extraction Hx of lymph node excision Hx of cholecystectomy Hx of hysterectomy Family History Mother Hypertension Diabetes High cholesterol Stroke Father Diabetes Hypertension High cholesterol Heart attack Sister Diabetes Hypertension Son Stroke Hypertension High cholesterol Social History Household Members: Significant Other Housing: House Are you a primary interior plant caretaker to a significant other at home: Yes (SO, son with be available post-op to help with care) Do you presently have visiting nurse or other home services: No Alcohol intake: never Patient Tobacco Use Status: Never used Tobacco Telehealth Telehealth Telehealth Platform: Telephone Location of provider rendering services: practice address Location of patient: address on file Patient Identification confirmed using: Name, : Yes Telehealth method: voice only Patient verbally consented to treatment: Yes Patient verbally consented to billing insurance company: Yes Patient informed of any privacy concerns related to visit: Yes Minutes spent on Phone/Video with Pt.: 12 Assessment & Plan Assessment & Plan (1) S/P laparoscopic sleeve gastrectomy: Code(s): Z98.84 - Bariatric surgery status Category: Surgical Plan: Discussed the importance of following the meal plan exactly. She is concerned as she is frequently traveling back and forth to the nursing facility to help with her boyfriend. Discussed making all 3 shakes in the morning and just sipping them slowly throughout the day then having her 2 meals after that. She appreciated that strategy and will try to put this in place. She was congratulated on her exercise regularity. Encouraged to continue. Follow-up 1 month.
[2024-08-26 08:04] VITALS: BMI 26.4
--- OUTSIDE RECORDS SUMMARY | 2024-08-26 15:05 | XMS_ITS | Continuity of Care Document ---
Author Organization [facility] 2 [facility] [address] [place] [address] Phone [phone] Problems Active Problems Provider Date Diabetes mellitus [...] Social History Type Date Description Comments Sex Female Sex Unknown Tobacco Use Start: Unknown Never Smoked Cigarettes Smoking Status Reviewed: 08/01/24 Never Smoked Cigaret cassidy ETOH Use Denies alcohol use Allergies and adverse reactions Active Allergies Criticality Reaction Severity Comments Date Percocet Unable to assess criticality 01/31/2022 Demerol Unable to assess criticality Hallucinations 06/11/2024 Medications Active Medications SIG Qnty Indications Ordering Provider Date Ziprasidone [id number] Capsules Take 1 tablet at 7 pm and 10 pm (Dr. Mychal Mora only) 60caps Huber Jones M.D. 12/06/2022 Pravastatin Cymtbe83ki Tablets Take 1 Tablet By Mouth Every Day 90tabs Felicitas Rachel M.D. 09/07/2021 Ziprasidone PGH34qi Capsules Take 1 tablet at 8 am and 5 pm. Huber Jones M.D. 09/07/2021 Xtphrkoej5pe Tablets 1 tab by mouth twice a day as needed Unknown Fgzxznjxl2eq Tablets 1 tab at bedtime as needed Unknown Restasis0.05% Emulsion 1 drop each eye twice daily Unknown Clopidogrel Uuisiqpsv20vb Tablets Take 1 Tablet By Mouth Every Day as Directed 90tabs Felicitas Rachel M.D. Mhpams357dr Capsules 1 by mouth every day as needed Unknown Refresh1.4-0.6% Solution Unknown Senna Laxative8.6mg Tablets Take three tabs at bedtime Unknown Ammonium Rzvutyy88% Cream apply to feet at 8 am and 8 pm Unknown Zkpkoy3903qbb Capsules 1 by mouth every day at 7 pm Unknown Vital Signs Date Vital Result Comment 08/01/2024 2:32pm BP Systolic 120 mmHg BP Diastolic 78 mmHg Heart Rate 61 /min Height 61 inches 5'1 Weight 144.25 lb BMI (Body Mass Index) 27.3 kg/m2 Results Test Acquired Date Facility Test Result H/L Range Note Hemoglobin A1c 08/01/2024 Inhouse Hemoglobin A1c 5.9% Glucose Fingerstick 08/01/2024 Inhouse Glucose Fingerstick 119 Glucose Fingerstick 06/11/2024 Inhouse Glucose Fingerstick 136 [...] Inhouse Glucose Fingerstick 118 Hemoglobin A1c 04/06/2023 [facility] Hemoglobin A1c 5.7 % High (4.0-5.6 ) 4 Glucose Fingerstick 12/06/2022 Inhouse Glucose Fingerstick 89 Hemoglobin A1c 12/01/2022 [facility] Hemoglobin A1c 5.7 % High (4.0-5.6 ) 5 Glucose Fingerstick 09/23/2022 Inhouse Glucose Fingerstick 140 Electrolytes 09/21/2022 [facility] Sodium 141 mmol/L (133-145 ) Potassium 4.1 mmol/L (3.6-5.2 ) Chloride 103 mmol/L (98-107) Bicarbonate 24 mmol/L (22-29) Anion Gap 14 (4-17) Ferritin 09/21/2022 [facility] Ferritin 32 NG/ML (14-283) Hemoglobin A1c 09/19/2022 [facility] Hemoglobin A1c 6.1 % High (4.0-5.6 ) 6 Glucose Fingerstick 06/20/2022 Inhouse Glucose Fingerstick 136 Comprehensive Metabolic Panl 06/13/2022 [facility] Glucose 206 mg/dL [...] 71 ML/MIN/1. 73M2 7 Lipid Panel 06/13/2022 [facility] Cholesterol, Total 133 mg/dL (<200) Triglyceride 176 mg/dL High (<150) HDL Chol 45 mg/dL (>39) LDL Cholesterol , Calculated 53 mg/dL (0-130) Non HDL Cholesterol (Calc) 88 mg/dL (<160) Complete Abc With Diff 06/13/2022 [facility] WBC 7.1 K/MM3 [...] ) Lymph # 1.7 K/MM3 (0.8-3.1 ) [place]# 0.6 K/MM3 (0.4-0.9 ) Eo # 0.2 K/MM3 (0.0-0.4 ) Baso # 0.0 K/MM3 (0.0-0.1 ) Abs. Imm Gran 0.0 K/MM3 Neut 63.4 % (44-76) Lymph 24.4 % (15-43) Monocyte 8.7 % (4.5-10. 5) Eo 2.3 % (0-6) Baso 0.6 % (0-2) Imm Gran 0.6 % Urinary Microalbumin 06/13/2022 [facility] Micro-Albumin 38.8 mg/L High (<20) 8 Malb/Creat Ratio 61.9 MG/GM High (0-20) Urine Creat For Micro Albumin 62.7 mg/dL Hemoglobin A1c 06/13/2022 [facility] Hemoglobin A1c 6.7 % High (4.0-5.6 ) 9 Glucose Fingerstick 04/08/2022 Inhouse Glucose Fingerstick 139 Hemoglobin A1c 04/01/2022 [facility] Hemoglobin A1c 8.1 % High (4.0-5.6 ) 10 Glucose Fingerstick 01/31/2022 Inhouse Glucose Fingerstick 232 Glucose Fingerstick 09/07/2021 Inhouse Glucose Fingerstick 166 Hemoglobin A1c 09/02/2021 [facility] Hemoglobin A1c 6.1 [...] with health care provider. DIAGNOSTIC USE: The [place] Diabetes Association (ADA) and the World Health [...] with health care provider. DIAGNOSTIC USE: The [place] Diabetes Association (ADA) and the World Health [...] with health care provider. DIAGNOSTIC USE: The [place] Diabetes Association (ADA) and the World Health [...] with health care provider. DIAGNOSTIC USE: The [place] Diabetes Association (ADA) and the World Health [...] with health care provider. DIAGNOSTIC USE: The [place] Diabetes Association (ADA) and the World Health [...] with health care provider. DIAGNOSTIC USE: The [place] Diabetes Association (ADA) and the World Health [...] 1 Procedures Date Code Description Status 09/28/2023 69206 Remove Impacted Cerumen Comp leted Medical Devices Description No Information Available Encounters Type Date Location Provider Dx Diagnosis Office Visit 08/01/2024 2:30p Main Office ELIJAH Flores E11.8 Type 2 diabet es mellitus with unspecified complications I25.89 Other forms of chron ic ischemic heart disease C54.1 Malignant neoplasm o f endometrium F33.1 Major depressive dis order, recurrent, moderate F41.1 Generalized anxiety disorder Z98.[address] atus Assessments Date Code Description Provider 08/01/2024 E11.8 Type 2 diabetes mellitus with unspecified complications ELIJAH Flores 08/01/2024 I25.89 Asymptomatic coronary heart disease ELIJAH Flores 08/01/2024 C54.1 Endometrial carcinoma ELIJAH Flores 08/01/2024 F33.1 Major depressive disorder, r ecurrent, moderate ELIJAH Flores 08/01/2024 F41.1 Generalized anxiety disorder ELIJAH Flores 08/01/2024 Z98.84 Bariatric surgery status ELIJAH Bagley Plan of Treatment Future Appointment(s):* 01/31/2025 9:15 am - Quin Lofton, BRANCH EXAMINER at Main Office 08/01/2024 - ELIJAH Flores* E11.8 Type 2 diabetes mellitus with unspecified complications * I25.89 Asymptomatic coronary heart disease * C54.1 Endometrial carcinoma * F33.1 Major depressive disorder, recurrent, moderate * F41.1 Generalized anxiety disorder * Z98.84 Bariatric surgery status Functional Status Description No Information Available Mental Status Description No Information Available Referrals Refer to Dr Reason for Referral Status Appt Andrew e [facility] Cardiology (New Patients) CAD, Asymptom atic Scheduled 12/26/[address] [place] [address] [phone] [facility] Annual Hearing Test Sched ed 10/03/[address] [place] [address] [phone] [facility] ANNUAL HEARING TEST Closed 09/22/[address] [place] [address] [phone] [facility] HEARING EVALUATION Closed 07/27/[address] [place] [address] [phone] [facility] Wound Care RIGHT BUTTOX Closed [address] [place] [address] [phone]
--- OUTSIDE RECORDS SUMMARY | 2024-08-26 15:05 | XMS_ITS | Clinical Summary ---
Author Organization [address] [facility] Address [address] [place] [address] Phone Care Team Providers Care Emergency Communications Officer Name Role Phone Mitra Cheung Primary Care Provider [phone] Encounters Date Type Department Care Team Description 08/14/[address] [place] [address] Mitra Cheung PA 07/03/[address] [place] [address] Huber Jones MD from Last 3 Months Social History Tobacco Use Types Packs/Day Years Used Date Smoking Tobacco: Never Assessed Comments Unknown Sex and Gender Information Value Date Recorded Sex Assigned at Not on file Legal Sex Female 10:08 PM EST Gender Identity Not on file Sexual Orientation Not on file Plan of Treatment Upcoming Encounters Date Type Department Care Team (Late st Contact Info) Description 12/26/2024 8:20 AM EST Office Visit [facility] Cardiology [facility] [address] [facility] [address] [place] [address] Zamzam Rodriguez MD [address] [facility] [address] [place], [place] [id number] Health Maintenance Due Date Last Done Comments Breast Cancer Screening 1955 DTaP,Tdap,and Td Vaccines (1 - Tdap) 1973 Pneumococcal Vaccine: 50+ Ye ars (1 of 1 - PCV) 2004 Zoster Vaccines (1 of 2) 2004 Cholesterol Screening (Lipid Panel) 01/22/2022 Colorectal Cancer Screening: Colonoscopy 01/22/2022 Depression Screening 01/22/2022 Falls Risk Assessment 01/22/2022 Hepatitis C Screening 01/22/2022 Medicare Annual Wellness Visit 01/22/2022 Osteoporosis Screening (Bone Density Screening) 01/22/2022 Social Influencers of Health Screening 01/22/2022 COVID-19 Vaccine ( - 2023-2 5 season) 2023 Hypertension/CHF/CAD Annual BMP Blood Test 07/09/2024 Influenza Vaccine (#1) 2024 RSV Immunization Adult Patie nts (1 [...] on patient's age to complete this topic Insurance MEDICARE [facility] Care Teams Emergency Communications Officer Relationship Specialty Start Date End Date Mitra Cheung PA [address] [place] [address] [place] [address] PCP - General 07/09/24
== END 2024-08-26 14:36 | disposition home or self-care (01) ==
LOC: HO.HBS 14:34
PROVIDERS: PCP Physician Assistant; Visit Provider Physician Assistant Surgical
DX: E66.3 Overweight (principal); Z68.26 Body mass index [BMI] 26.0-26.9, adult; Z90.3 Acquired absence of stomach [part of]; Z98.84 Bariatric surgery status
CPT/HCPCS: 98012

== ENCOUNTER 2024-09-26 14:30 | Outpatient (AMB) | payer OTHER, MEDICARE, SELFPAY ==
--- OUTSIDE RECORDS SUMMARY | 2024-07-30 05:15 | XMS_ITS ---
Author Organization [facility] Address [address] [place] [address] Care Team Providers Care Print Shop Stenographer Name Role Phone Mitra Cheung Primary Care Provider Pari Novoa [phone] Corona Encounters Encounter Location Date Provider Diagnosis [address] [address] 07/30/2024 Pari Monroy Plan Of Treatment Next Appt Details Provider Name:Pari cherry, 10/16/2024 09:00:00 AM, [address] [place], [address], Progress Notes * Adri DINEROB:1955 (69 yo F)Acc No.[id number]:07/30/2024 Progress Note Patient: Dex SKELTONi Provider: Faye Monroy DPM :1955 A ge:69 Y S ex:Female Date:07/30/2024 Address: [address], [place] Pcp:Mitra Cheung Subjective: * Chief Complaints: * [...] 0 07/30/2024 Generated for Leslye Martinez on: 0 09/26/2024 02:42 PM EDT
--- NOTE | 2024-09-26 08:35 | MHC.OFFVISWM ---
Intake Visit Reasons: TV PO LSG 11/22/22 Allergies demerol Allergy (Unknown, Uncoded 10/20/23 13:38) hives, hallucinations percocet Allergy (Unknown, Uncoded 10/20/23 13:38) Hives HPI Comments Details: This?a?69?yo female who is s/p LSG without hiatal hernia repair on?11/22/2022. Presents for 1 year 10 month post op visit. Weight today is 143.2 pounds, with a BMI of 26.4. There has been a 47 pound weight loss,(initial weight 190.2 pounds) since starting the program on 07/14/2022 reflecting a 24.7 % total body weight loss and a weight loss of 23.3 pounds since surgery (operative weight 166.5 pounds) reflecting a 13.9 % TBWL since surgery. No complaints of nausea, emesis, abdominal pain or reflux. Reports infrequent but normal bowel movements every 1-2 days. Since last visit, she has noted low blood sugars. She additionally had cataract surgery and was told not to exercise for 2 weeks. Her boyfriend is now out of the hospital for 2 weeks and she is having difficulty with that. She is having difficulty with her meal plan due to her feeling as though she has to care for her boyfriend at . She states that everyday she has something off the plan: cashews. cookie, ice cream pop (low alban), more protein, bites of what she feeds her boyfriend. She has been seeing psychiatry and recc was to continue trazadone. Patient has been under significant stress. Present meal plan includes: Celebrate 4 in 1 1 scoop in 8 oz unsweetened almond milk x 3 Two meals, puree, 4 forks each, [place] Islander yogurt Drinkin oz water daily Exercise plan: daily treadmill 1 hour, [facility] Medical History (Updated 03/03/23 @ 11:23 by Laquita Barroso PA-C) BMI 36.0-36.9,adult Steatosis, liver Asymptomatic coronary heart disease History of endometrial cancer History of cerebrovascular accident BMI 35.0-35.9,adult GERD (gastroesophageal reflux disease) Hepatomegaly Liver fibrosis Depression Bipolar 1 disorder Hyperlipidemia Insulin dependent type 2 diabetes mellitus Myocardial infarction Surgical History Hx of laparoscopic partial gastrectomy Hx of section Hx of wisdom tooth extraction Hx of lymph node excision Hx of cholecystectomy Hx of hysterectomy Family History Mother Hypertension Diabetes High cholesterol Stroke Father Diabetes Hypertension High cholesterol Heart attack Sister Diabetes Hypertension Son Stroke Hypertension High cholesterol Social History Household Members: Significant Other Housing: House Are you a primary child care centre manager to a significant other at home: Yes (SO, son with be available post-op to help with care) Do you presently have visiting nurse or other home services: No Alcohol intake: never Patient Tobacco Use Status: Never used Tobacco Telehealth Telehealth Telehealth Platform: Telephone Location of provider rendering services: practice address Location of patient: address on file Patient Identification confirmed using: Name, : Yes Telehealth method: voice only Patient verbally consented to treatment: Yes Patient verbally consented to billing insurance company: Yes Patient informed of any privacy concerns related to visit: Yes Minutes spent on Phone/Video with Pt.: 15 Assessment & Plan Assessment & Plan (1) S/P laparoscopic sleeve gastrectomy: Code(s): Z98.84 - Bariatric surgery status Category: Surgical Plan: Given patient's significant anxiety, advised to discuss this further with psychiatry. She does have increased anxiety due to her boyfriend being in the senior living and his brother just recently dying. She has been eating off menu and snacking between shakes. Discussed the importance of avoiding this. She will continue to exercise as she is able. She will increase her fluids and continue the meal plan without the snacking. Return to the office in November for her 2 year follow-up. Check labs at that time.
--- OUTSIDE RECORDS SUMMARY | 2024-09-26 14:43 | XMS_ITS | Clinical Summary ---
Author Organization [facility] Address [address] [place] [address] Phone Care Team Providers Care Wardrobe Manager Name Role Phone Huber Jones MD Primary Care Provider [phone] Allergies Active Allergy Reactions Criticality Noted Date Comments Adhesive Rash Low 10/10/2023 Meperidine Anxiety Low 02/07/2018 Oxycodone-Acetaminophen Hives 02/07/2018 Tobramycin Itching,Photosensiti vity,Swel ling 10/10/2023 Medications ziprasidone (GEODON) 80 MG capsule 1 capsule with food Active cholecalciferol (VITAMIN D3) 2,000 unit tablet as directed Active diphenhydramine HCl (BENADRYL ALLERGY ORAL) 1 capsule as needed Active dilTIAZem (CARDIZEM CD) 180 MG 24 hr capsule 1 capsule on an empty stomach in the morning Active aspirin 81 MG EC tablet 1 tablet Active zolpidem (AMBIEN CR) 12.5 MG CR tablet 1.5 tabs (15mg) Active zolpidem (AMBIEN) 5 MG tablet Active sucralfate (CARAFATE) 1 gram tablet 1 tab(s) Active pravastatin (PRAVACHOL) 40 MG tablet 1 tablet Active metFORMIN (GLUCOPHAGE) 1000 MG tablet 1 tablet with meals Active LORazepam (ATIVAN) 1 MG tablet 1 tablet Active lisinopril (PRINIVIL,ZESTR IL) 5 MG tablet 1 tablet Acti ve insulin glargine (LANTUS U-100 INSULIN) 100 unit/mL injection vial 36 units Activ e estradiol (ESTRACE) 0.01 % (0.1 mg/gram) vaginal cream 1gm as directed 09/30/2014 Active omeprazole (PRILOSEC) 20 MG capsule 1 capsule Active naproxen sodium (ALEVE) 220 MG tablet Take 220 mg by mouth 2 (two) times a day with meals. Active Bifidobacterium infantis (ALIGN ORAL) Take by mouth. Active apple cider vinegar 300 mg Tab Take by mouth. Active biotin 1 mg tablet Take 1,000 mcg by mouth 3 (three) times a day. Active omega 4-kbt-evi-fish oil 1,000 mg (120 mg-180 mg) Cap Take 1 capsule by mouth daily. Active fluticasone propionate (FLONASE) 50 mcg/actuation nasal spray 1 spray by Nasal route daily. Active insulin detemir U-100 (LEVEMIR) 100 unit/mL injection vial Inject under the skin nightly. Active magnesium chloride 64 mg TbEC Take 1,066 mg by mouth daily. Active cyclosporine (RESTASIS) 0.05 % suspension Place 1 drop into each eye 2 (two) times a day. Active ferrous sulfate 140 mg (45 mg seneca[place] iron) TbER Take by mouth daily. Active ammonium lactate (AMLACTIN) 12 % cream 1 Application. Active clopidogrel (PLAVIX) 75 mg tablet Take by mouth. 06/08/2023 Active docusate sodium (COLACE) 100 MG capsule Take by mouth. Active sennosides (SENNA) 8.6 mg Cap Active pilocarpine (ISOPTO CARPINE) 1 % ophthalmic solution Place 1 drop into the left eye 4 (four) times a day. 15 mL 12 11/16/2023 Active Active Problems No known active problems Family History Medical History Relation Comments Heart attack Father Stroke Mother Colon cancer Paternal Grandfather Lung cancer Paternal Grandfather Stroke Paternal Grandmother Relation Status Comments Father Maternal Grandfather Maternal Grandmother Mother Paternal Grandfather Paternal Grandmother Sister Alive Social History Tobacco Use Types Packs/Day Years Used Date Smoking Tobacco: Never Smokeless Tobacco: Never Alcohol Use Standard Drinks/Week Comments No 0 (1 standard drink = 0.6 oz pur e alcohol) Education Answer Date Recorded Are you interested in more education? Not on maria isabel e 06/26/2022 Are you concerned about learning? Not on file 06/26/2022 No 06/26/2022 No 06/26/2022 Digital Access Answer Date Recorded No 07/17/2022 No 07/17/2022 Reliable internet access at home? Not on file 07/17/2022 Device with a working camera? Not on file Comments No Sex and Gender Information Value Date Recorded Sex Assigned at Not on file Legal Sex Female 6:25 PM EST Gender Identity Not on file Sexual Orientation Not on file Occupation Industry Job Start Date Job End Date disablity Not on file Not on file Not on file Last Filed Vital Signs Vital Sign Reading Time Taken Comments Blood Pressure 124/74 02/07/2018 11:33 AM EST Pulse - - Temperature - - Respiratory Rate - - Oxygen Saturation - - Inhaled Oxygen Concentration - - Weight 76.2 kg (168 lb) 02/07/2018 11:33 AM EST Height 157.5 cm (5' 2 ) 02/07/2018 11:33 AM EST Body Mass Index 30.73 02/07/2018 11:33 AM EST Plan of Treatment Health Maintenance Due Date Last Done Comments Adult Td,Tdap Booster 1954 CREATININE LEVEL 1954 LIPID PANEL 1954 POTASSIUM LEVEL 1954 DEPRESSION SCREENING 1966 HEPATITIS C SCREENING 1972 MAMMOGRAM 1994 COLOGUARD 1999 COLONOSCOPY 1999 COLORECTAL CANCER SCREENING 1999 FIT TEST 1999 FOBT 1999 SIGMOIDOSCOPY 1999 VIRTUAL COLONOSCOPY 1999 PNEUMOCOCCAL VACCINES (50+ y ears) (1 of 1 - PCV) 2004 ZOSTER VACCINES (1 of 2) 2004 OSTEOPOROSIS SCREENING INITI AL (ONE-TIME) 2019 COVID-19 VACCINE (2 - 2023-2 5 season) 2023 05/27/2020 RSV VACCINE (1 - 1-dose 75+ series) 2029 SMOKING STATUS SCREENING (On ce After 26 Yrs) Completed 02/07/2018 HEPATITIS A VACCINES Aged Out No long er eligible based on patient's age to complete this topic HIB VACCINES Aged Out No longer eligi ble based on patient's age to complete this topic MENINGOCOCCAL VACCINES (ACWY) Aged Out No longer eligible based on patient's age to complete this topic MENINGOCOCCAL VACCINES (B) Aged Out N o longer eligible based on patient's age to complete this topic Medical Devices Not on file Insurance MEDICARE PART A & B [facility] MEDICARE ENHANCE SUPPLEMENT MEDICARE PART A & B [facility] MEDICARE ENHANCE SUPPLEMENT MEDICARE PART A & B MEDICARE ENHANCE SUPPLEMENT MEDICARE PART A & B [facility] MEDICARE ENHANCE SUPPLEMENT MEDICARE PART A & B [facility] MEDICARE ENHANCE SUPPLEMENT MEDICARE PART A & B Member Subscriber Plan / Payer (Ef fective 2013-Present) Name:Linda Dinero Member ID:[id number] Relation to Subscriber:Self Name:Linda Dinero Subscriber ID:[id number] Payer ID:[id number] Group ID:Not on file Type:Medicare Address: [employer] [address] [place] [phone] [facility] MEDICARE ENHANCE SUPPLEMENT MEDICARE PART A & B [facility] MEDICARE ENHANCE SUPPLEMENT MEDICARE PART A & B Member Subscriber Plan / Payer (Ef fective 2013-Present) Name:Linda Dinero Member ID:[id number] Relation to Subscriber:Self Name:Linda Dinero Subscriber ID:[id number] Payer ID:[id number] Group ID:Not on file Type:Medicare Address: [employer] [address] [place] [phone] [facility] MEDICARE ENHANCE SUPPLEMENT RD [address] [facility] [place] [address] MEDICARE PART A & B [facility] MEDICARE ENHANCE SUPPLEMENT Care Teams Wardrobe Manager Relationship Specialty Start Date End Date Huber Jones MD [address] [place] [address] PCP - General 02/23/17 Additional Source Comments The information contained in this document represents components of the legal health record. It is not the complete legal health record.[facility]
--- OUTSIDE RECORDS SUMMARY | 2024-09-26 14:43 | XMS_ITS | Clinical Summary ---
Author Organization [address] [facility] Address [address] [place] [address] Phone Care Team Providers Care Supervisor Grove Name Role Phone Mitra Cheung Primary Care Provider [phone] Encounters Date Type Department Care Team Description 08/14/2024 Telephone [facility] Cardiology [facility] [address] [place] [address] Mitra Cheung PA 07/03/2024 Telephone [facility] [address] [place] [address] Huber Jones MD from Last [...] Description 12/26/2024 8:20 AM EST Office Visit [facility]iology [facility] [address] [facility] [address] [place] [id number] Zamzam Rodriguez MD [address] [facility] [address] [place], [place] [id number] Health Maintenance Due Date Last Done Comments Breast Cancer Screening 1954 DTaP,Tdap,and Td Vaccines (1 - Tdap) 1973 Pneumococcal Vaccine: 50+ Ye ars (1 of 1 - PCV) 2004 Zoster Vaccines (1 of 2) 2004 Cholesterol Screening (Lipid Panel) 01/22/2022 Colorectal Cancer Screening: Colonoscopy 01/22/2022 Falls Risk Assessment 01/22/2022 Hepatitis C Screening 01/22/2022 Medicare Annual Wellness Visit 01/22/2022 Osteoporosis Screening (Bone Density Screening) 01/22/2022 Social Influencers of Health Screening 01/22/2022 COVID-19 Vaccine (1 - 2023-2 5 season) 2023 Depression Screening 02/21/2024 Hypertension/CHF/CAD Annual BMP Blood Test 07/09/2024 Influenza [...] age to complete this topic Insurance MEDICARE [facility] Care Teams Supervisor Grove Relationship Specialty Start Date End Date Mitra Cheung PA [address] [place] [address] [place] [address] PCP - General 07/09/24
== END 2024-09-26 14:57 | disposition home or self-care (01) ==
LOC: HO.HBS 14:40
PROVIDERS: PCP Physician Assistant; Visit Provider Physician Assistant Surgical
DX: E66.3 Overweight (principal); Z98.84 Bariatric surgery status; Z90.3 Acquired absence of stomach [part of]; Z68.26 Body mass index [BMI] 26.0-26.9, adult
CPT/HCPCS: 98013

== ENCOUNTER 2024-10-07 07:56 | Outpatient (REF) | payer MEDICARE, OTHER, SELFPAY ==
--- OUTSIDE RECORDS SUMMARY | 2024-06-20 11:45 | XMS_ITS ---
Author Organization [facility] Address [address] [place] [address] Care Team Providers Care Camera Control Operator Name Role Phone Mitra Cheung Primary Care Provider Pari Novoa [phone] Encounters Encounter Location Date Provider Diagnosis [facility] [address] [place] [address] 06/20/2024 Pari Monroy Plan Of Treatment Next Appt Details Provider Name:Pari cherry, 10/16/2024 09:00:00 AM, [address] [place], [address], Progress Notes * Dex DINEROiDOB:1955 (69 yo F)Acc No.[id number]:06/20/2024 Progress Note Patient: Linda SKELTON Provider: Faye Monroy DPM :1955 A ge:69 Y S ex:Female Date:06/20/2024 Address:[address], [place], [place] Pcp:Mitra Cheung Subjective: * Chief Complaints: * * Medical History: Objective: * Vitals: Assessment: Plan: * Treatment: * Images: * The named appointment provid er may or may not be the originator of this progress note, and it is not deemed complete until electronically signed by the appointment provider. Sign off status: Pending * Provider: Faye Monroy, NATHANIEL Date: 0 06/20/2024 Generated for Leslye us/Ayo/Lisa on: 0 10/07/2024 07:58 AM EDT
--- OUTSIDE RECORDS SUMMARY | 2024-10-07 07:58 | XMS_ITS | Continuity of Care Document ---
Author Organization [facility] [address] [facility] [address] [place] [address] Phone [phone] Care Team Providers Care Pulmonary Physical Therapist Name Role Phone Quin Lofton CNP Care Team Informatio n Locker Room Manager [phone] Problems Active Problems Provider Date Diabetes mellitus [...] SIG Qnty Indications Ordering Provider Date Ziprasidone JKO76hb Capsules Take 1 tablet at 7 pm and 10 pm (Dr. Horta Brand only) 60caps Huber Jones M.D. 12/06/2022 Pravastatin Ymhcyu02mk Tablets Take 1 Tablet By Mouth Every Day 90tabs Quin Lofton, [facility] 09/07/2021 Ziprasidone PGT24wl Capsules Take 1 tablet at 8 am and 5 pm. Huber Jones M.D. 09/07/2021 Hemnzlqsd6zb Tablets 1 tab by mouth twice a day as needed Unknown Yjsohrzpx3pu Tablets 1 tab at bedtime as needed Unknown Restasis0.05% Emulsion 1 drop each eye twice daily Unknown Clopidogrel Taivvxasl33lf Tablets Take 1 Tablet By Mouth Every Day as Directed 90tabs Felicitas Rachel M.D. Uoqrez016xg Capsules 1 by mouth every day as needed Unknown Refresh1.4-0.6% Solution Unknown Senna Laxative8.6mg Tablets Take three tabs at bedtime Unknown Ammonium Uhzzlwd97% Cream apply to feet at 8 am and 8 pm Unknown [id number] Capsules 1 by mouth every day at [...] Inhouse Glucose Fingerstick 118 Hemoglobin A1c 04/06/2023 [facility] Hemoglobin A1c 5.7 % High (4.0-5.6 ) 4 Glucose Fingerstick 12/06/2022 Inhouse Glucose Fingerstick 89 Hemoglobin A1c 12/01/2022 [facility] Hemoglobin A1c 5.7 % High (4.0-5.6 ) 5 Glucose Fingerstick 09/23/2022 Inhouse Glucose Fingerstick 140 Electrolytes 09/21/2022 [facility] Sodium 141 mmol/L (133-145 ) Potassium 4.1 mmol/L (3.6-5.2 ) Chloride 103 mmol/L (98-107) Bicarbonate 24 mmol/L (22-29) Anion Gap 14 (4-17) Ferritin 09/21/2022 [facility] Ferritin 32 NG/ML (14-283) Hemoglobin A1c 09/19/2022 [facility] Hemoglobin A1c 6.1 % High (4.0-5.6 ) 6 Glucose Fingerstick 06/20/2022 Inhouse Glucose Fingerstick 136 Comprehensive Metabolic Panl 06/13/2022 [facility] Glucose 206 mg/dL High (70-99) [...] 71 ML/MIN/1. 73M2 7 Lipid Panel 06/13/2022 [facility] Cholesterol, Total 133 mg/dL (<200) Triglyceride 176 mg/dL High (<150) HDL Chol 45 mg/dL (>39) LDL Cholesterol , Calculated 53 mg/dL (0-130) Non HDL Cholesterol (Calc) 88 mg/dL (<160) Complete Abc With Diff 06/13/2022 [facility] WBC 7.1 K/MM3 (4.0-11. 0) [...] ) Lymph # 1.7 K/MM3 (0.8-3.1 ) [place]# 0.6 K/MM3 (0.4-0.9 ) Eo # 0.2 K/MM3 (0.0-0.4 ) Baso # 0.0 K/MM3 (0.0-0.1 ) Abs. Imm Gran 0.0 K/MM3 Neut 63.4 % (44-76) Lymph 24.4 % (15-43) Monocyte 8.7 % (4.5-10. 5) Eo 2.3 % (0-6) Baso 0.6 % (0-2) Imm Gran 0.6 % Urinary Microalbumin 06/13/2022 [facility] Micro-Albumin 38.8 mg/L High (<20) 8 Malb/Creat Ratio 61.9 MG/GM High (0-20) Urine Creat For Micro Albumin 62.7 mg/dL Hemoglobin A1c 06/13/2022 [facility] Hemoglobin A1c 6.7 % High (4.0-5.6 ) 9 Glucose Fingerstick 04/08/2022 Inhouse Glucose Fingerstick 139 Hemoglobin A1c 04/01/2022 [facility] Hemoglobin A1c 8.1 % High (4.0-5.6 ) 10 Glucose Fingerstick 01/31/2022 Inhouse Glucose Fingerstick 232 Glucose Fingerstick 09/07/2021 Inhouse Glucose Fingerstick 166 Hemoglobin A1c 09/02/2021 [facility] Hemoglobin A1c 6.1 % High [...] 1 Procedures Date Code Description Status 09/28/2023 63193 Remove Impacted Cerumen Comp leted Medical Devices Description No Information Available Encounters Type Date Location Provider Dx Diagnosis Office Visit 08/27/2024 10:07a Main Office Felicitas Rachel M.D. E11.8 Type 2 diabetes mellitus with unspecified complications F33.1 Major depressive dis order, recurrent, moderate Assessments Date Code Description Provider 08/27/2024 E11.8 Type 2 diabetes mellitus with unspecified complications Felicitas Rachel M.D. 08/27/2024 F33.1 Major depressive disorder, recurrent, moderate Felicitas Rachel M.D. Plan of Treatment Future Appointment(s):* 01/31/2025 9:15 am - Quin Lofton, DIRECTOR OF PROGRAMMING at Main Office 08/01/2024 - ELIJAH Flores* [...] Reason for Referral Status Appt Andrew e [facility] Cardiology (New Patients) CAD, Asymptom atic Scheduled 12/26/2024 [address] [facility] [address] [place] [address] [phone] [facility] Annual Hearing Test Sched ed 10/03/[address] [place] [address] [phone] [facility] ANNUAL HEARING TEST Closed 09/22/[address] [place] [address] [phone] [facility] HEARING EVALUATION Closed 07/27/[address] [place] [address] [phone] [facility] Closed [address] [place] [address] [phone]
--- OUTSIDE RECORDS SUMMARY | 2024-10-07 07:58 | XMS_ITS | Clinical Summary ---
Author Organization [facility] Address [address] [place] [address] Phone Care Team Providers Care Quality Officer Name Role Phone Huber Jones MD Primary Care Provider [phone] Allergies Active Allergy Reactions Criticality Noted Date [...] 3 (three) times a day. Active omega 6-nwh-tgy-fish oil 1,000 mg (120 mg-180 mg) Cap [...] Active ferrous sulfate 140 mg (45 mg [place] iron) TbER Take by mouth daily. Active [...] file Insurance MEDICARE PART A & B [facility] MEDICARE ENHANCE SUPPLEMENT Member Subscriber Plan / Payer ( fective 2013-Present) Name:Linda Dinero Relation to Subscriber:Self Name:BarDex marquezi Payer ID:[id number] (NAIC) Group ID:Not on file Type:[facility] [employer] Address: [facility] [id number] [place] [address] MEDICARE PART A & B [facility] MEDICARE ENHANCE SUPPLEMENT MEDICARE PART A & B MEDICARE ENHANCE SUPPLEMENT MEDICARE PART A & B [facility] MEDICARE ENHANCE SUPPLEMENT MEDICARE PART A & B [facility] MEDICARE ENHANCE SUPPLEMENT MEDICARE PART A & B Member Subscriber Plan / Payer (Ef fective 2013-Present) Name:Linda Dinero Member ID:[id number] Relation to Subscriber:Self Name:Linda Dinero Subscriber ID:[id number] Payer ID:[id number] Group ID:Not on file Type:Medicare Address: [employer] [address] [place] [phone] [facility] MEDICARE ENHANCE SUPPLEMENT MEDICARE PART A & B [facility] MEDICARE ENHANCE SUPPLEMENT MEDICARE PART A & B Member Subscriber Plan / Payer (Ef fective 2013-Present) Name:Linda Dinero Member ID:[id number] Relation to Subscriber:Self Name:Linda Dinero Subscriber ID:[id number] Payer ID:[id number] Group ID:Not on file Type:Medicare Address: [employer] [address] [place] [phone] [facility] MEDICARE ENHANCE SUPPLEMENT Member Subscriber Plan / Payer ( fective 2013-Present) Name:Linda Dinero Relation to Subscriber:Self Name:Linda Dinero Payer ID:[id number] (NAIC) Group ID:Not on file Type:[employer] Address: [address] [place] [address] [address] [facility] [place] [address] MEDICARE PART A & B [facility] MEDICARE ENHANCE SUPPLEMENT [facility] Address: [address] [place] [address] Care Teams Quality Officer Relationship Specialty Start Date End Date Huber Jones MD [address] [place] [address] PCP - General 02/23/17 Additional Source Comments The information contained in this document represents components of the legal health record. It is not the complete legal health record.[facility]
--- OUTSIDE RECORDS SUMMARY | 2024-10-07 07:58 | XMS_ITS | Clinical Summary ---
Author Organization 299 [facility] Address [address] [place] [address] Phone Care Team Providers Care Benzene Washer Operator Name Role Phone Mitra Cheung Primary Care Provider [phone] Encounters Date Type Department Care Team Description 08/14/2024 Telephone [facility] Cardiology [address] [place] [address] Mitra Cheung PA from Last 3 Months Social History Tobacco Use Types Packs/Day Years Used Date Smoking Tobacco: Never Assessed Comments Unknown Sex and Gender Information Value Date Recorded Sex Assigned at Not on file Legal Sex Female 10:08 PM EST Gender Identity Not on file Sexual Orientation Not on file Plan of Treatment Upcoming Encounters Date Type Department Care Team ([facility] st Contact Info) Description 12/26/2024 8:20 AM EST Office Visit [facility] [address] [facility] [address] [place] [phone] Zamzam Rodriguez MD [address] [facility] [address] [place] [address] Health Maintenance Due Date Last Done Comments [...] age to complete this topic Insurance MEDICARE [facility] Care Teams Benzene Washer Operator Relationship Specialty Start Date End Date Mitra Cheung PA [address] [place] [address] [place] [address] PCP - General 07/09/24
--- NOTE | 2024-10-07 10:40 | MHC.AU.HA3 ---
Hearing Instrument Follow-Up- Binaural Date of Visit: 10/07/24 Right Ear: Eulogio, Model, Color, Serial Number: Stephani Reynoso [id number] SN: [id number] Color: [place]alwood Repair Table Operator Repair Warranty: 01/29/2022 Repair Table Operator Loss and Damage Warranty: 01/29/2022 [facility] Service Plan: 08/02/2025 Battery Size: 312 Armature Winder/Slim Tube: 2M Earmold/Dome/CShell/SlimTip:Medium vented dome with retention tail Type of Wax Guard: CeruShield Dispensed By: [facility] Date of Fittin11/07/2018 Left Ear: Euolgio, Model, Color, Serial Number: Stephani Reynoso [id number] [id number] SN: [id number] Color: [place] Repair Table Operator Repair Warranty: 01/29/2022 Repair Table Operator Loss and Damage Warranty: 01/29/2022 [facility] Service Plan: 08/02/2025 Battery Size: 312 Armature Winder/Slim Tube: 2M Earmold/Dome/CShell/SlimTip: Medium vented dome with retention tail Type of Wax Guard: CeruShield Dispensed By: [facility] Date of Fittin11/07/2018 Follow-Up Summary: Seen for evaluation. Reports left aid has been hard to insert since switching from open to vented domes 09/22/23. Cleaned aids, build up in microphone ports noted. Brushed and vacuumed leslie ports, replaced wax guards, replaced tails, ran through dehumidifier. Listening check positive. Tried a small vented instead of medium. Linda found this to slip out of her ear too easily. Put medium back on, found this to be more secure. Sticking with medium vented domes. Recommendations: Recommendations: Hearing instrument maintenance in 6 months, or sooner if needed. Diagnosis Code(s): Primary Diagnosis: H90.3 Bilateral Sensorineural Hearing Loss Signature: Provider: Helga Reno, [facility] [place]
== END 2024-10-07 07:57 | disposition home or self-care (01) ==
LOC: HO.SH 07:56
PROVIDERS: Visit Provider Physician Assistant
DX: Z01.118 Encounter for examination of ears and hearing with other abnormal findings (principal); H90.3 Sensorineural hearing loss, bilateral
CPT/HCPCS: 92552; 92556; 92567

== ENCOUNTER 2025-01-15 09:26 | Outpatient (AMB) | payer OTHER, MEDICARE, SELFPAY ==
--- OUTSIDE RECORDS SUMMARY | 2024-03-28 11:00 | XMS_ITS ---
Author Organization [facility] Address [address] [place] [address] Care Team Providers Care Inventory Audit Clerk Name Role Phone Quin James Primary Care Provider Pari Calderon Unavailable [phone] Allergies Allergen (clinical drug ingredient) Drug/Non Drug Allergy documented on EMR Reaction Allergy Type Onset Date Status acetaminophen / oxycodone Percocet Hives Drug Allergy Active Tape Rash/Itchy Allergy Active REASON FOR VISIT Dr Corona Medications Medication SIG (Take, Route, Frequency, Duration) Notes Start Date End Date Status Restasis 0.05 % 1 drop into affected eye Ophthalmic Twice a day Active Biotin Active Ziprasidone HCl 20mg 5am 80mg 7pm Active Senna Active Colace Active Lisinopril 10 MG 1 tablet Orally Once a day Not-Taking dilTIAZem HCl ER Beads 180 MG 1 capsule Orally Once a day Not-Taking Sucralfate 1 GM 1 tablet on an empty stomach Orally Twice a day Not-Taking Tretinoin Active Pravastatin Sodium 40 MG 1 tablet Orally Once a day Active Pantoprazole Sodium 40 MG 1 tablet Orally Once a day Not-Taking Ammonium Lactate 12 % 1 application Externally Twice a day; Duration: 30 days Active Keflex 500 MG 1 capsule Orally every 12 hrs; Duration: 10 day(s) 07/13/2023 Not-Taking Clopidogrel Bisulfate 75 MG 1 tablet Orally Once a day Active Extra Depth Orthopedic Shoes (1 Pair) with Customized Heat Molded Multidensity Innersoles (3 Pair) as directed Dx: NIDDM (E11.9), Hammertoe Foot Deformity (M20.41,M20.42), Preulcerative Skin Lesion(s) (L85.1) 03/07/2023 Active LORazepam 4 MG/ML as directed Injection 2mg Active Refresh Eye Itch Relief Active Encounters Encounter Location Date Provider Diagnosis [facility] [address] [address] 03/28/2024 Pari Monroy Plan Of Treatment Next Appt Details Provider Name:Pari De Souza dilip, 03/26/2025 09:00:00 AM, [address] [place] [address], [address], Progress Notes * ATUL DexiDOB:1955 (69 yo F)Acc No.[id number]:03/28/2024 Progress Note Patient: Linda SKELTON Provider: Faye Monroy DPM :1955 A ge:69 Y S ex:Female Date:03/28/2024 Address:[address] [place] [address] [address], [address], [facility] Pcp:Quin James Subjective: * Chief Complaints: * [address] Corona. * Medical History: A nxiety, Cancer, Cataracts, Depression, Diabetic, Gall bladder problems, Glaucoma, Heart disease, High blood pressure, Psychiatric disorder, Reflux, Stroke, Measles, Mumps, Chicken pox, Planter Wart. * Medications: T aking Tretinoin , Taking Pravastatin Sodium 40 MG Tablet 1 tablet Orally Once a day , Taking Senna , Taking Colace , Taking Biotin , Taking Ziprasidone HCl , Notes to Pharmacist: 20mg 5am 80mg 7pm, Taking Restasis 0.05 % Emulsion 1 drop into affected eye Ophthalmic Twice a day , Taking Refresh Eye Itch Relief , Taking LORazepam 4 MG/ML Solution as directed Injection , Notes to Pharmacist: 2mg, Taking Clopidogrel Bisulfate 75 MG Tablet 1 tablet Orally Once a day , Taking Extra Depth Orthopedic Shoes (1 Pair) with Customized Heat Molded Multidensity Innersoles (3 Pair) as directed Dx: NIDDM (E11.9), Hammertoe Foot Deformity (M20.41,M20.42), Preulcerative Skin Lesion(s) (L85.1) , Taking Ammonium Lactate 12 % Cream 1 application Externally Twice a day , Not-Taking/PRN Keflex 500 MG Capsule 1 capsule Orally every 12 hrs , Not-Taking/PRN Pantoprazole Sodium 40 MG Tablet Delayed Release 1 tablet Orally Once a day , Not-Taking/PRN Sucralfate 1 GM Tablet 1 tablet on an empty stomach Orally Twice a day , Not-Taking/PRN Lisinopril 10 MG Tablet 1 tablet Orally Once a day , Not-Taking/PRN dilTIAZem HCl ER Beads 180 MG Capsule Extended Release 24 Hour 1 capsule Orally Once a day * Allergies: T ape: Rash/Itchy, Percocet: Hives. Objective: * Vitals: Assessment: Plan: * Treatment: * Images: * The named appointment provid er may or may not be the originator of this progress note, and it is not deemed complete until electronically signed by the appointment provider. Sign off status: Pending * Provider: Faye Monroy DPM Date: 0 03/28/2024 Generated for Leslye us/Ayo/Lisa on: 03/17/2024 10:32 AM EST
--- OUTSIDE RECORDS SUMMARY | 2024-06-20 10:45 | XMS_ITS ---
Author Organization [facility] Address [address] [place] [address] Care Team Providers Care Platform Inspector Name Role Phone Quin James Primary Care Provider Berna Pari Bowles Unavailable [phone] Encounters Encounter Location Date Provider Diagnosis [address] [address] 06/20/2024 Pari Monroy Plan Of Treatment Next Appt Details Provider Name:Pari cherry, 03/26/2025 09:00:00 AM, [address] [place], [address], Progress Notes * Dex DINEROiDOB:1955 (69 yo F)Acc No.[id number]:06/20/2024 Progress Note Patient: Dex SKELTONi Provider: Faye Monroy DPM :1955 A ge:69 Y S ex:Female Date:06/20/2024 Address:[address], [place], [place] Pcp:Quin James Subjective: * Chief Complaints: * * Medical History: Objective: * Vitals: Assessment: Plan: * Treatment: * Images: * The named appointment provid er may or may not be the originator of this progress note, and it is not deemed complete until electronically signed by the appointment provider. Sign off status: Pending * Provider: Faye Monroy DPM Date: 0 06/20/2024 Generated for Leslye us/Ayo/Lisa on: 03/17/2024 10:31 AM EST
--- OUTSIDE RECORDS SUMMARY | 2024-07-30 04:15 | XMS_ITS ---
Author Organization [facility] Address [address] [place] [address] Care Team Providers Care Fabric Awning Repairer Name Role Phone Quin James Primary Care Provider Berna Pari Bowles [phone] Corona Encounters Encounter Location Date Provider Diagnosis [facility] [address] [place] [address] 07/30/2024 Pari Monroy Plan Of Treatment Next Appt Details Provider Name:Pari cherry, 03/26/2025 09:00:00 AM, [address] [place], [address], Progress Notes * Dex DINEROiDOB:1955 (69 yo F)Acc No.[id number]:07/30/2024 Progress Note Patient: Dex SKELTONi Provider: Faye Monroy DPM :1955 A ge:69 Y S ex:Female Date:07/30/2024 Address:[address], [id number] Pcp:Quin James Subjective: * Chief Complaints: * [address] Corona. * Medical History: Objective: * Vitals: Assessment: Plan: * Treatment: * Images: * The named appointment provid er may or may not be the originator of this progress note, and it is not deemed complete until electronically signed by the appointment provider. Sign off status: Pending * Provider: Faye Monroy DPM Date: 0 07/30/2024 Generated for Leslye Gambino/Lisa on: 03/17/2024 10:31 AM EST
--- NOTE | 2025-01-15 09:55 | MHC.OFFVISWM ---
VS Expanded 01/15/25 10:01 BP 164/72 H Blood Pressure Location Rt brachial Blood Pressure Position Sitting Pulse 64 Pulse Source Pulse Oximeter Temp 96.5 F L Temperature Source Temporal Artery Scan Pulse Oximetry 98 Oxygen Delivery Method Room Air Height 5 ft 1.5 in Weight 151 lb 6.4 oz BMI 28.1 Body Fat % 32.4 Body Fat Mass 49.0 Fat Free Mass 102.2 Visceral Fat Rating 9.0 Body Water % 47.5 Body Water Mass 71.8 Muscle Mass/Score 97.0 Basal Metabolic Rate/Score 1,369 Intake Visit Reasons: OV PO LSG 11/22/22 Allergies demerol Allergy (Unknown, Uncoded 10/20/23 13:38) hives, hallucinations percocet Allergy (Unknown, Uncoded 10/20/23 13:38) Hives Medication List - Last Reconciled 01/15/25 by ELIJAH Berrios biotin mcg PO carboxymethylcellulose sodium 1% (Refresh Celluvisc) 1 drp ophthalmic (eye) QID clopidogrel 75 mg PO DAILY cyclosporine 0.05% (Restasis) 1 drp ophthalmic (eye) .0800+2200 docusate sodium (Colace) 100 mg PO TID lorazepam 2 mg PO .@2200 PRN lorazepam 1 mg PO .@0800+1700 metformin 500 mg PO DAILY pravastatin 40 mg PO .DAILY@1900 Held on 11/23/22. Instructions: discuss with Dr Anderson trazodone 50 mg PO BEDTIME tretinoin 0.025% appl topical ziprasidone HCl 20 mg PO BID@0800,1700 ziprasidone HCl 80 mg PO BID@1900,2200 HPI Comments Details: This a 69 yo female who is s/p LSG without hiatal hernia repair on 11/22/2022. Presents for 2 year 1 month post op visit. Weight today is 151.4 pounds, with a BMI of 28.1. Initial weight 190.2 pounds starting the program on 07/14/2022 and operative weight 166.5 pounds. No complaints of nausea, emesis, abdominal pain or reflux. Reports infrequent but normal bowel movements every 1-2 days. She is having difficulty with her meal plan due to her feeling as though she has to care for her at SNF and he was hospitalized several times recently. She states that everyday she has something off the plan: cashews. cookie, ice cream pop (low alban), more protein, bites of what she feeds her boyfriend. Sleeping issues. She has been seeing psychiatry and [facility] was to continue trazadone. Patient has been under significant stress. Was started back on metformin by PCP for diabetes. She notes sometimes blood sugars up to 345. She reports history of a stroke and heart attack in addition to diabetes. She was previously on Trulicity. Present meal plan includes: Celebrate 4 in 1 1 scoop in 8 oz unsweetened almond milk x 3 Two meals, puree, 4 forks each Tamazight yogurt Drinkin oz water daily Exercise plan: daily treadmill 1 hour- hasn't been doing this in 3-4 months, also having hip pain [facility] Medical History (Updated 03/03/23 @ 11:23 by Laquita Barroso PA-C) BMI 36.0-36.9,adult Steatosis, liver Asymptomatic coronary heart disease History of endometrial cancer History of cerebrovascular accident BMI 35.0-35.9,adult GERD (gastroesophageal reflux disease) Hepatomegaly Liver fibrosis Depression Bipolar 1 disorder Hyperlipidemia Insulin dependent type 2 diabetes mellitus Myocardial infarction Surgical History Hx of laparoscopic partial gastrectomy Hx of section Hx of wisdom tooth extraction Hx of lymph node excision Hx of cholecystectomy Hx of hysterectomy Family History Mother Hypertension Diabetes High cholesterol Stroke Father Diabetes Hypertension High cholesterol Heart attack Sister Diabetes Hypertension Son Stroke Hypertension High cholesterol Social History Household Members: Significant Other Housing: House Are you a primary reproductive healthcare assistant to a significant other at home: Yes (SO, son with be available post-op to help with care) Do you presently have visiting nurse or other home services: No Alcohol intake: never Patient Tobacco Use Status: Never used Tobacco Physical Exam Vital Signs: Last Vital Signs Temp 96.5 F L 01/15/25 10:01 Pulse 64 01/15/25 10:01 BP 164/72 H 01/15/25 10:01 Pulse Ox 98 01/15/25 10:01 Oxygen Delivery Method Room Air 01/15/25 10:01 BMI result Body Mass Index 28.1 Assessment & Plan Assessment & Plan (1) Overweight: Code(s): E66.3 - Overweight Category: Medical (2) S/P laparoscopic sleeve gastrectomy: Code(s): Z98.84 - Bariatric surgery status Category: Medical (3) Diabetes mellitus: Code(s): E11.9 - Type 2 diabetes mellitus without complications Category: Medical Plan Pt is interested in starting GLP1. Reviewed contraindications, discussed dosing. Discussed need for adequate protein intake while on GLP1s as well as frequent communication with our office. Pt will check in with me weekly and is aware that subsequent Rx will be dependent on frequent communication. She is diabetic, will prescribe Mounjaro. Labs ordered. I encouraged pt to text me weekly for accountability. RTC 4mo. Orders: Orders Vitamin D 25-OH Total Today E66.3 - Overweight, Z98.84 - Bariatric surgery status Ferritin Today E66.3 - Overweight, Z98.84 - Bariatric surgery status TSH reflex Free T4 Today E66.3 - Overweight, Z98.84 - Bariatric surgery status C Reactive Protein Today E66.3 - Overweight, Z98.84 - Bariatric surgery status Zinc Today E66.3 - Overweight, Z98.84 - Bariatric surgery status Complete Blood Count Auto Diff Today E66.3 - Overweight, Z98.84 - Bariatric surgery status IRON PROFILE Today E66.3 - Overweight, Z98.84 - Bariatric surgery status Insulin Today E66.3 - Overweight, Z98.84 - Bariatric surgery status Vitamin B1 Today E66.3 - Overweight, Z98.84 - Bariatric surgery status Vitamin A Today E66.3 - Overweight, Z98.84 - Bariatric surgery status Vitamin B12 and Folate Today E66.3 - Overweight, Z98.84 - Bariatric surgery status Comprehensive Met. Panel Today E66.3 - Overweight, Z98.84 - Bariatric surgery status Lipid Panel Today E66.3 - Overweight, Z98.84 - Bariatric surgery status Hemoglobin A1c Today E66.3 - Overweight, Z98.84 - Bariatric surgery status Medications: New tirzepatide (Mounjaro) for 4 weeks 2.5 mg (0.5 mL) subcut QWEEK 2 mL 0RF
[2025-01-15 10:01] VITALS: BP 164/72; PULSE 64; TEMP 35.8; O2SAT 98; BMI 28.1
--- OUTSIDE RECORDS SUMMARY | 2025-01-15 10:31 | XMS_ITS | Clinical Summary ---
Author Organization LL [address] [facility] Address [address] [place] [address] Phone Care Team Providers Care Refrigeration Systems Installer Name Role Phone Quin Lofton Primary Care Provid er Medications clopidogreL (PLAVIX) 75 mg tablet Take 1 tablet (75 mg total) by mouth 1 (one) time each day. 5 Active ziprasidone (GEODON) 20 mg capsule Take 1 capsule (20 mg total) by mouth 2 (two) times a day with meals. Take at 6 am and 5pm 5 Active docusate sodium (COLACE) 100 mg capsule Take 1 capsule (100 mg total) by mouth 2 (two) times a day if needed for constipation . Active LORazepam (ATIVAN) 1 mg tablet Take 1 tablet (1 mg total) by mouth every 6 (six) hours if needed for anxiety. Max Daily Amount: 4 mg Active LORazepam (ATIVAN) 2 mg tablet Take 1 tablet (2 mg total) by mouth at bedtime. Max Daily Amount: 2 mg Active pravastatin (PRAVACHOL) 40 mg tablet Take 1 tablet (40 mg total) by mouth at bedtime. Active ziprasidone (GEODON) 80 mg capsule Take 1 capsule (80 mg total) by mouth 2 (two) times a day with meals. Active biotin 5,000 mcg tablet,chewable Chew 45 mcg 1 (one) time each day. 2 Active traZODone (DESYREL) 50 mg tablet Take 0.5 tablets (25 mg total) by mouth at bedtime. Active mirabegron (Myrbetriq) 50 mg 24 hr tablet Take 1 tablet (50 mg total) by mouth 1 (one) time each day. 12/27/19 25 Discontinu ed(Formula ry change) Active Problems Problem Noted Date Diagnosed Date Heart murmur 12/26/2024 Assessment & Plan (12/26/2024 5:56 PM EST): Suspect heart murmur is a flow murmur. Will obtain echocardiogram to assess cardiac function and valve structure. She otherwise asymptomatic. Cardiomyopathy (CMS/HCC V24, CMS/HCC V28) 2024 Assessment & Plan (12/26/2024 5:56 PM EST): Only information can obtained from 2022 it was discharge summary. From discharge summary that she had a transient reduced left ventricular systolic function with apical wall motion abnormality. She did have obstructive coronary artery disease. I suspect she could have a Takotsubo cardiomyopathy related to tremendous psychiatric stress. I will review all her other records to see whether she truly had a TIA in 2011. That we will determine whether Plavix will be necessary. Hyperlipidemia 12/26/2024 Assessment & Plan (12/26/2024 5:56 PM EST): Should target her LDL below at least 100. Resolved Problems Problem Noted Date Diagnosed Date Resolved Date CAD (coronary artery disease) 12/26/2024 12/26/2024 Assessment & Plan (12/26/2024 5:56 PM EST): Orders: ECG 12 lead Encounters Date Type Department Care Team Description 12/26/2024 8:20 AM EST Office Visit [facility] - [address] [place] [address] Zamzam Rodriguez MD Murmur, cardiac (Primary Dx); Coronary artery disease involving [place] coronary artery of [place] heart with other form of angina pectoris (CMS/HCC V24); Heart murmur; Cardiomyopathy, unspecified type (CMS/HCC V24, CMS/HCC V28); Hyperlipidemia, unspecified hyperlipidemia type from Last 3 Months Medical History Medical History Date Comments Asymptomatic coronary heart disease Endometrial carcinoma (CMS/HCC V24, [facility] V28) Anemia Hematuria Diabetes mellitus ([facility] V24, [facility] V28) Depressive disorder GERD (gastroesophageal reflux disease) Strain of tendon of foot and ankle Social History Tobacco Use Types Packs/Day Years Used Date Smoking Tobacco: Former Cigarettes Smokeless Tobacco: Never Tobacco Cessation:Counseling Given: Not Answered Alcohol Use Standard Drinks/Week Comments Never 0 (1 standard drink = 0.6 oz pur e alcohol) Comments Unknown Sex and Gender Information Value Date Recorded Sex Assigned at Not on file Legal Sex Female 10:08 PM EST Gender Identity Not on file Sexual Orientation Not on file Obstetrics History Last Filed Vital Signs Vital Sign Reading Time Taken Comments Blood Pressure 120/60 12/26/2024 8:14 AM EST Pulse 58 12/26/2024 8:14 AM EST Temperature - - Respiratory Rate - - Oxygen Saturation 98% 12/26/2024 8:14 AM EST Inhaled Oxygen Concentration - - Weight 70.8 kg (156 lb) 12/26/2024 8:14 AM EST Height 154.9 cm (5' 1 ) 12/26/2024 8:14 AM EST Body Mass Index 29.48 12/26/2024 8:14 AM EST Plan of Treatment Upcoming Encounters Date Type Department Care Team (Late st Contact Info) Description 03/11/2025 8:00 AM EST Ancillary Procedure [facility] [address] [facility] [address] [place] [address] Health Maintenance Due Date Last Done Comments Breast Cancer Screening 1955 Diabetes: Annual GFR (Glomerular Filtration Rate) 1954 Diabetes: Annual Foot Exam 1964 Diabetes: Annual Retina Eye Exam 1964 DTaP,Tdap,and Td Vaccines (1 - Tdap) 1973 Cholesterol Screening (Lipid Panel) 01/22/2022 Falls Risk Assessment 01/22/2022 Hepatitis C Screening 01/22/2022 Medicare Annual Wellness Visit 01/22/2022 Osteoporosis Screening (Bone Density Screening) 01/22/2022 Social Influencers of Health Screening 01/22/2022 Colorectal Cancer Screening: Colonoscopy 02/26/2023 02/26/2013 Depression Screening 02/21/2024 Hypertension/CHF/CAD Annual BMP Blood Test 07/09/2024 COVID-19 Vaccine ( season) 2024 11/05/2023, 03/05/2023, 01/30/2021, Additional history exists Influenza Vaccine (#1) 2024 , 03/05/2023, 11/20/2021, Additional history exists Diabetes: Annual Urine Albumin-Creatinine Ratio (uACR) 12/26/2024 Diabetes: Blood Sugar Control Test (HGBA1C) 12/26/2024 RSV Immunization Adult Patients (1 - 1-dose 75+ series) 2029 Pneumococcal Vaccine: 50+ Years Completed 02/09/2022 Zoster Vaccines Completed 02/09/2022, 10/15/2021 HIB Vaccines Aged Out No longer eligi [...] to complete this topic RSV Immunization Patients Under 20 months Aged Out No longer eligible based on patient's age to complete this topic Varicella Vaccines Aged Out No longer eligible based on patient's age to complete this topic Procedures Procedure Name Priority Date/Time Associated Diagnosis Comments ECG 12-LEAD Routine 12/26/2024 8:20 AM EST Coronary artery disease involving blue lake coronary artery of [place] heart with other form of angina pectoris (CMS/HCC V24) EXTERNAL COLONOSCOPY REPORT Routine 02/26/2013 11:21 AM EST from Last 3 Months or Most Recently Relevant to Health Maintenance Results * ECG 12 lead (12/26/2024 8:20 AM EST) Ventricular Rate ECG 58 BPM GEMUSE Atrial Rate 58 BPM GEMUSE P-R Interval 174 ms GEMUSE QRS Duration 92 ms GEMUSE Q-T Interval 412 ms GEMUSE QTc 404 ms GEMUSE P Wave Brave 60 degrees GEMUSE R Brave 81 degrees GEMUSE T Brave 67 degrees GEMUSE ECG Interpretation Sinus bradycardia Otherwise normal ECG No previous ECGs available Confirmed by Mario RODRIGUEZ YUFENG ([id number]) on 12/26/2024 9:48:22 AM GEMUSE 12/26/2024 8:20 AM EST 12/26/2024 9:48 AM EST us Zamzam Rodriguez MD ECG ORDERABLES Final Result GEMUSE * External Colonoscopy Report (02/26/2013 11:21 AM EST) Anatomical Region Laterality Modality Endoscopy us Historical Provider GI~PROCEDURE ORDERABLES F inal Result from Last 3 Months or Most Recently Relevant to Health Maintenance Insurance MEDICARE [facility] Care Teams Refrigeration Systems Installer Relationship Specialty Start Date End Date Quin Lofton CRNP [address] [place] [address] Drive [address] [place] [address] PCP - General Family Medicine 12/26/24
--- OUTSIDE RECORDS SUMMARY | 2025-01-15 10:32 | XMS_ITS | Continuity of Care Document ---
Author Organization [facility] [address] [place] [address] Phone [phone] Care Team Providers Care Heel Lining Paster Name Role Phone Quin Lofton CNP Care Team Informatio n Permit Review Assistant [phone] Problems Active Problems Provider Date Diabetes mellitus [...] Demerol Unable to assess criticality Hallucinations 06/11/2024 Tobramycin Unable to assess criticality swelling, redness, burning of eyes 12/03/2024 Medications Active Medications SIG Qnty Indications Order ing Provider Date Metformin HCL AT830vd Tablets ER 24HR Take 1 tablet by mouth twice daily with food. 90Unspecifie d E11.8 Quin Lofton , [facility] 12/27/2024 Ziprasidone TMI62so Capsules Take 1 tablet at 7 pm and 10 pm (Dr. Horta Brand only) 60caps Huber Jones M.D. 12/06/2022 Pravastatin Toimms23eo Tablets Take 1 Tablet By Mouth Every Day 90tabs Quin Lofton [facility] 09/07/2021 Ziprasidone PHR69ho Capsules Take 1 tablet at 8 am and 5 pm. Huber Jones M.D. 09/07/2021 [id number] Capsules 1 by mouth every day as needed Unknown Trazodone SSY74zz Tablets Take 1 Tablet By Mouth Every Day AT Bedtime Unknown [id number] Capsules 1 by mouth every day at 7 pm Unknown Ammonium Islvqvk62% Cream apply to feet at 8 am and 8 pm Unknown Senna Laxative8.6mg Tablets Take three tabs at bedtime Unknown Refresh1.4-0.6% Solution Unknown Clopidogrel Apqtzkbau10hi Tablets Take 1 Tablet By Mouth Every Day as Directed 90tabs Quin Lofton [facility] Restasis0.05% Emulsion 1 drop each eye twice daily Unknown Xjqhxcqfe9qw Tablets 1 tab at bedtime as needed Unknown Kkihochnn6dx Tablets 1 tab by mouth twice a day as needed Unknown History Medications Metformin UYQ768yr Tablets take 1 tablet by mouth twice a day with food 180tabs Quin [facility] ez, [facility] 12/27/2024 - 12/27/2024 Metformin HCL ER (Mod)500mg Tablets ER 24HR take 1 tablet by mouth twice a day with food 180tabs [facility] 12/27/2024 - 12/27/2024 Metformin HCL [id number] Tablets ER 24HR Unspecified [facility], [facility] 12/27/2024 - 12/27/2024 Vital Signs Date Vital Result Comment 12/27/2024 8:18am BP Systolic 128 mmHg BP Diastolic 72 mmHg Heart Rate 70 /min Height 61.5 inches 5'1.50 Weight 151.38 lb BMI (Body Mass Index) 28.1 kg/m2 Results Test Acquired Date Facility Test Result H/L Range Note Hemoglobin A1c 12/27/2024 Inhouse Hemoglobin A1c 6.4 Glucose Fingerstick 12/27/2024 Inhouse Glucose Fingerstick 197 Glucose Fingerstick 08/01/2024 Inhouse Glucose Fingerstick 119 Hemoglobin A1c 08/01/2024 Inhouse Hemoglobin A1c 5.9% Glucose Fingerstick 06/11/2024 Inhouse Glucose Fingerstick 136 [...] Inhouse Glucose Fingerstick 118 Hemoglobin A1c 04/06/2023 [facility] Hemoglobin A1c 5.7 % High (4.0-5.6 ) 4 Glucose Fingerstick 12/06/2022 Inhouse Glucose Fingerstick 89 Hemoglobin A1c 12/01/2022 [facility] Hemoglobin A1c 5.7 % High (4.0-5.6 ) 5 Glucose Fingerstick 09/23/2022 Inhouse Glucose Fingerstick 140 Electrolytes 09/21/2022 [facility] Sodium 141 mmol/L (133-145 ) Potassium 4.1 mmol/L (3.6-5.2 ) Chloride 103 mmol/L (98-107) Bicarbonate 24 mmol/L (22-29) Anion Gap 14 (4-17) Ferritin 09/21/2022 [facility] Ferritin 32 NG/ML (14-283) Hemoglobin A1c 09/19/2022 [facility] Hemoglobin A1c 6.1 % High (4.0-5.6 ) 6 Glucose Fingerstick 06/20/2022 Inhouse Glucose Fingerstick 136 Comprehensive Metabolic Panl 06/13/2022 [facility] Glucose 206 mg/dL High (70-99) [...] 71 ML/MIN/1. 73M2 7 Lipid Panel 06/13/2022 [facility] Cholesterol, Total 133 mg/dL (<200) Triglyceride 176 mg/dL High (<150) HDL Chol 45 mg/dL (>39) LDL Cholesterol , Calculated 53 mg/dL (0-130) Non HDL Cholesterol (Calc) 88 mg/dL (<160) Complete Abc With Diff 06/13/2022 [facility] WBC 7.1 K/MM3 (4.0-11. 0) [...] ) Lymph # 1.7 K/MM3 (0.8-3.1 ) [place]# 0.6 K/MM3 (0.4-0.9 ) Eo # 0.2 K/MM3 (0.0-0.4 ) Baso # 0.0 K/MM3 (0.0-0.1 ) Abs. Imm Gran 0.0 K/MM3 Neut 63.4 % (44-76) Lymph 24.4 % (15-43) Monocyte 8.7 % (4.5-10. 5) Eo 2.3 % (0-6) Baso 0.6 % (0-2) Imm Gran 0.6 % Urinary Microalbumin 06/13/2022 [facility] Micro-Albumin 38.8 mg/L High (<20) 8 Malb/Creat Ratio 61.9 MG/GM High (0-20) Urine Creat For Micro Albumin 62.7 mg/dL Hemoglobin A1c 06/13/2022 [facility] Hemoglobin A1c 6.7 % High (4.0-5.6 ) 9 Glucose Fingerstick 04/08/2022 Inhouse Glucose Fingerstick 139 Hemoglobin A1c 04/01/2022 [facility] Hemoglobin A1c 8.1 % High (4.0-5.6 ) 10 Glucose Fingerstick 01/31/2022 Inhouse Glucose Fingerstick 232 Glucose Fingerstick 09/07/2021 Inhouse Glucose Fingerstick 166 Hemoglobin A1c 09/02/2021 [facility] Hemoglobin A1c 6.1 % High [...] with health care provider. DIAGNOSTIC USE: The English Diabetes Association (ADA) and the World Health [...] with health care provider. DIAGNOSTIC USE: The English Diabetes Association (ADA) and the World Health [...] with health care provider. DIAGNOSTIC USE: The English Diabetes Association (ADA) and the World Health [...] with health care provider. DIAGNOSTIC USE: The English Diabetes Association (ADA) and the World Health [...] with health care provider. DIAGNOSTIC USE: The English Diabetes Association (ADA) and the World Health [...] with health care provider. DIAGNOSTIC USE: The English Diabetes Association (ADA) and the World Health [...] Supplement 1 Procedures Date Code Description Status 12/27/2024 07120 Glucose Monitoring Interpeta tion And Report Completed 09/28/2023 34429 Remove Impacted Cerumen Comp leted Medical Devices Description No Information Available Encounters Type Date Location Provider Dx Diagnosis Office Visit 12/27/2024 8:00a Main Office Quin Lofton CNP E11.8 Type 2 diabetes mellitus with unspecified complications Assessments Date Code Description Provider 12/27/2024 E11.8 Type 2 diabetes mellitus with unspecified complications Quin Lofton CNP Plan of Treatment Future Appointment(s):* 04/14/2025 9:00 am - Quin Lofton CNP at Main Office 12/27/2024 - Quin Lofton CNP* E11.8 Type 2 diabetes mellitus with unspecified complications* New Medication:* Metformin HCL ER 500 mg * New Labs:* Comp. Metabolic Panel (14), Ordered: 12/27/24 * Lipid Panel, Ordered: 12/27/24 * Urinalysis, Complete, Ordered: 12/27/24 * CBC With Differential/Platelet, Ordered: 12/27/24 * TSH RFX On Abnormal To Free T4, Ordered: 12/27/24 * Vitamin D, 25-Hydroxy, Ordered: 12/27/24 * Albumin/Creatinine Ratio, Random Urine, Ordered: 12/27/24 * Hemoglobin A1c, Ordered: 12/27/24 Functional Status Description No Information Available Mental Status Description No Information Available Referrals Refer to Reason for Referral Status Appt [facility] (New Patients) CAD, Asymptom atic Scheduled 12/26/[address] [place], [place] [id number] [phone] [facility] Annual Hearing Test Closed 10/07/[address] [place] [address] [phone] [facility] ANNUAL HEARING TEST Closed 09/22/[address] [place] [phone] [facility] HEARING EVALUATION Closed 07/27/[address] [place] [address] [phone] [facility] Closed [address] [place] [address] [phone]
--- OUTSIDE RECORDS SUMMARY | 2025-01-15 10:32 | XMS_ITS | Patient Health Record ---
[facility] Organization [facility] Address [address] [place] [address] Care Team Providers Care Manual Arts Therapy Teacher Name Role Phone Quin James Primary Care Provider Berna Pari Bowles Unavailable [phone] Rigoberto Christopher Unavailable [phone] Quin Harry Unavailable [phone] Allergies Allergen (clinical drug ingredient) Drug/Non Drug Allergy documented on EMR Reaction Allergy Type Onset Date Status acetaminophen / oxycodone Percocet Hives Drug Allergy Active Tape Rash/Itchy Allergy Active Results Component Value Reference Range Notes HEMOGLOBIN A1C (GLYCOHEMOGLO BIN) Reviewed date:04/09/2024 01:55:28 PM Interpretation: Performing Lab: Notes/Report: HEMOGLOBIN A1C % (HH) 5.5 HEMOGLOBIN A1C (GLYCOHEMOGLO BIN) Reviewed date:08/01/2024 09:37:09 AM Interpretation: Performing Lab: Notes/Report: HEMOGLOBIN A1C % (HH) 5.5 HEMOGLOBIN A1C (GLYCOHEMOGLO BIN) Reviewed date:10/16/2024 09:13:20 AM Interpretation: Performing Lab: Notes/Report: HEMOGLOBIN A1C % (HH) 5.9 HEMOGLOBIN A1C (GLYCOHEMOGLO BIN) Reviewed date:01/06/2025 09:31:27 AM Interpretation: Performing Lab: Notes/Report: HEMOGLOBIN A1C % (HH) 6.4 Reason For Referral No Information Medications Medication SIG (Take, Route, Frequency, Duration) Notes Start Date End Date Status Senna Active Pantoprazole Sodium 40 MG 1 tablet Orally Once a day Not-Taking Keflex 500 MG 1 capsule Orally every 12 hrs; Duration: 10 day(s) 07/13/2023 Not-Taking Pravastatin Sodium 40 MG 1 tablet Orally Once a day Active Tretinoin Active Ammonium Lactate 12 % APPLY EXTERNALLY TWICE A DAY; Duration: 30 Active Biotin Active Lisinopril 10 MG 1 tablet Orally Once a day Not-Taking Colace Active Sucralfate 1 GM 1 tablet on an empty stomach Orally Twice a day Not-Taking Restasis 0.05 % 1 drop into affected eye Ophthalmic Twice a day Active metFORMIN HCl ER 500 MG Oral; Duration: 90 Days Active Ziprasidone HCl 20mg 5am 80mg 7pm Active dilTIAZem HCl ER Beads 180 MG 1 capsule Orally Once a day Not-Taking LORazepam 4 MG/ML as directed Injection 2mg Active Refresh Eye Itch Relief Active traZODone HCl 25MG Active Extra Depth Orthopedic Shoes (1 Pair) with Customized Heat Molded Multidensity Innersoles (3 Pair) as directed Dx: NIDDM (E11.9), Hammertoe Foot Deformity (M20.41,M20.42), Preulcerative Skin Lesion(s) (L85.1) 03/07/2023 Active Clopidogrel Bisulfate 75 MG 1 tablet Orally Once a day Active Immunizations Vaccine Route Administration Date Status Comme nts Influenza Unknown 03/05/2023 Administered Influenza Unknown 12/22/2023 Administered Influenza Unknown 11/22/2024 Administered Social History Tobacco Use: Social History Observation Description Date Details (start date - stop date) Never Smoker NA - NA Tobacco use other than smoking: Question Answer Notes Are you an other tobacco user? No Tobacco Control (Standard) Question Answer Notes Tobacco use: Nonsmoker Additional Findings: Tobacco non-user Current no nsmoker AUDIT-C (Standard) Question Answer Notes Did you have a drink containing alcohol in the p ast year? No Points 0 Interpretation Negative Problems Problem Type SNOMED Code ICD Code Onset Dates Problem Status W/U Status Risk Notes Problem Acquired hammer toe of right foot (761682359378635 5) Other hammer toe(s) (acquired), right foot (M20.41) Active confirmed Problem Acquired hammer toe of left foot (160305056464015 3) Other hammer toe(s) (acquired), left foot (M20.42) Active confirmed Problem Type II diabetes mellitus without complication (837610252) Type 2 diabetes mellitus without complication (E11.9) Active confirmed Vital Signs Blood pressure diastolic 65 mm Hg 01/06/2025 Height 5ft 1.5in in 01/06/2025 Blood pressure systolic 130 mm Hg 01/06/2025 Weight 146 lbs 01/06/2025 BMI 27.14 kg/m2 01/06/2025 Encounters Encounter Location Date Provider Diagnosis [address] [address] 04/09/2024 Quin Harry Tinea unguium B35.1 ; Ingrown nail L60.0 ; Pain in right toe(s) M79.674 ; Pain in left toe(s) M79.675 and Type 2 diabetes mellitus without complication E11.[address] [address] 08/01/2024 Pari Monroy Tinea unguium B35.1 ; Pain in right toe(s) M79.674 ; Pain in left toe(s) M79.675 and Type 2 diabetes mellitus without complication E11.[address] [address] 10/16/2024 Pari Monroy Tinea unguium B35.1 ; Pain in right toe(s) M79.674 ; Pain in left toe(s) M79.675 and Type 2 diabetes mellitus without complication E11.[address] [address] 01/06/2025 Pari Monroy Tinea unguium B35.1 ; Pain in right toe(s) M79.674 ; Pain in left toe(s) M79.675 and Type 2 diabetes mellitus without complication E11.[address] [address] 04/15/2024 Rigoberto Christopher Xerosis of skin L85.[address] [address] 06/20/2024 Pari Monroy Assessments Encounter Date Diagnosis (ICD Code) Assessment Notes Treatment Notes Treatment Clinical Notes Section Notes 04/09/2024 Tinea unguium (ICD-10 - B35.1) 04/09/2024 Ingrown nail (ICD-10 - L60.0) 04/15/2024 Xerosis of skin (ICD-10 - L85.3) 08/01/2024 Tinea unguium (ICD-10 - B35.1) 10/16/2024 Tinea unguium (ICD-10 - B35.1) 01/06/2025 Tinea unguium (ICD-10 - B35.1) 10/16/2024 Pain in right toe(s) (ICD-10 - M79.674) 08/01/2024 Pain in right toe(s) (ICD-10 - M79.674) 01/06/2025 Pain in right toe(s) (ICD-10 - M79.674) 04/09/2024 Pain in right toe(s) (ICD-10 - M79.674) 10/16/2024 Pain in left toe(s) (ICD-10 - M79.675) 01/06/2025 Pain in left toe(s) (ICD-10 - M79.675) 08/01/2024 Pain in left toe(s) (ICD-10 - M79.675) 04/09/2024 Pain in left toe(s) (ICD-10 - M79.675) 04/09/2024 Type 2 diabetes mellitus without complication (ICD-10 - E11.9) 10/16/2024 Type 2 diabetes mellitus without complication (ICD-10 - E11.9) 08/01/2024 Type 2 diabetes mellitus without complication (ICD-10 - E11.9) 01/06/2025 Type 2 diabetes mellitus without complication (ICD-10 - E11.9) Plan Of Treatment Pending Test Test Name Order Date X ray : Foot, left 3V 08/14/2023 [id number] NAIL, 6 OR MORE 03/07/2023 [id number] NAIL, 6 OR MORE 05/18/2023 [id number] NAIL, 6 OR MORE 07/27/2023 Next Appt Details Provider Name:Pari cherry, 03/26/2025 09:00:00 AM, [address] [facility], [place], [address], Insurance Providers Payer Name Payer Address Payer Phone Subscriber Number Group Number Insured Name Patient Relationship to Insured Coverage Start Date Coverage End Date Medicare National [employer] [address] [place] [address] [id number] Bar Linda Self - patient is the insured [facility] [address] [place] [address] [id number] Linda Dinero Self - patient is the insured Medical (General) History Medical History History ICD Code Anxiety Cancer Cataracts Depression Diabetic Gall bladder problems Glaucoma Heart disease High blood pressure Psychiatric disorder Reflux Stroke Measles Mumps Chicken pox Plantalma Joiner Surgical History Surgery Date(Month/Year) gastrectomy 11-22-2022 hysterectomy 06-14-2021 Gall bladder removal 1977 03-27-1979 Wart removal 1969 dental surgery cataract surgery 07/04/24
--- OUTSIDE RECORDS SUMMARY | 2025-01-15 10:32 | XMS_ITS | Encounter Summary ---
Author Organization [facility] Address [address] [place] [address] Care Team Providers Care Manager Creative Name Role Phone Quin Lofton Primary Care Provid er Encounter Details Date Type Department Care Team (Late st Contact Info) Description 04/08/2024 Lab Requisition [facility] - Main Lab [address] [facility] [place] [address] Aiden Santiago MD [address] [facility] [address] [place] [phone] Gross hematuria Social History Tobacco Use Types Packs/Day Years Used Date Smoking Tobacco: Never Assessed Comments Unknown Sex and Gender Information Value Date Recorded Sex Assigned at Not on file Legal Sex Female 10:08 PM EST Gender Identity Not on file Sexual Orientation Not on file documented as of this encounter Plan of Treatment Upcoming Encounters Date Type Department Care Team (Late st Contact Info) Description 03/11/2025 8:00 AM EST Ancillary Procedure [facility] - [address] [place] [phone] documented as of this encounter Procedures Procedure Name Priority Date/Time Associated Diagnosis Comments AP OUTSIDE CONSULT Routine 04/02/2024 12 :00 AM EST Gross hematuria documented in this encounter Results * Anatomic pathology outside consult (04/02/2024 12:00 AM EST) Final Diagnosis A. Urine, Voided, ([id number]): Negative for high grade urothelial carcinoma. Results of UroVysion fluorescence in situ hybridization (FISH) testing: CEP3: Normal CEP7: Normal CEP17: Normal LSI 9p21: Normal Interpretation: Normal profile Controls stained appropriately. Note: The results are intended as a screening device and should be interpreted in association with other clinical and pathological findings. 04/10/2024 3:40 PM [facility] Clinical Information Gross hematuria R31.0 Urine Cytology/FISH (now) 04/10/2024 3:40 PM [facility] Gross Description A. Urine, Voided, ([id number]): Received one ThinPrep slide for cytology and one ThinPrep slide for UroVysion FISH 04/10/2024 3:40 PM [facility] Disclaimer Unless otherwise specified, all tissue is 10% NB formalin fixed and paraffin embedded. Technical pathology services provided by [facility] at [address], [place] [address] (CLIA #[id number]/Sara Wick MD, Estate Planner) 04/10/2024 3:40 PM [facility] Tissue Urine specimen from urethra / Unknown 04/02/2024 04/08/2024 8:27 AM EST Aiden Santiago MD LAB PATHOLOGY ORDERABLES Final Result [facility] [address] [place] [address], documented in this encounter Visit Diagnoses Diagnosis Gross hematuria documented in this encounter Care Teams Manager Creative Relationship Specialty Start Date End Date Quin Lofton CRNP [address] [place] [address] PCP - General Family Medicine 12/26/24 documented as of this encounter
--- OUTSIDE RECORDS SUMMARY | 2025-01-15 10:32 | XMS_ITS | Clinical Summary ---
Author Organization [facility] Address [address] [place] [address] Phone Care Team Providers Care Oil Pipe Inspector Name Role Phone Huber Jones MD Primary Care Provider Allergies Active Allergy Reactions Criticality Noted Date [...] 3 (three) times a day. Active omega 3-cre-sgj-fish oil 1,000 mg (120 mg-180 mg) Cap [...] Active ferrous sulfate 140 mg (45 mg [place] iron) TbER Take by mouth daily. Active [...] 1999 VIRTUAL COLONOSCOPY 1999 PNEUMOCOCCAL VACCINES (50+ years) (1 of 1 - PCV) 2004 ZOSTER VACCINES (1 of 2) 2004 OSTEOPOROSIS SCREENING INITIAL (ONE-TIME) 2019 INFLUENZA VACCINE (#1) 2024 0, 02/22/2018, 03/10/2016, Additional history exists COVID-19 VACCINE (2 - 2024- season) 2024 05/27/2020 RSV VACCINE (1 - 1-dose 75+ series) 2029 SMOKING STATUS SCREENING (Once After 26 Yrs) Completed 02/07/2018 HEPATITIS A VACCINES Aged Out No long er eligible based on patient's age to complete this topic HIB VACCINES Aged Out No longer eligi ble based on patient's age to complete this topic IPV VACCINES Aged Out No longer eligi ble based on patient's age to complete this topic MENINGOCOCCAL VACCINES (ACWY) Aged Out No longer eligible based on patient's age to complete this topic MENINGOCOCCAL VACCINES (B) Aged Out N o longer eligible based on patient's age to complete this topic Medical Devices Not on file Insurance MEDICARE PART A & B [facility] MED[facility] ENHANCE SUPPLEMENT MEDICARE PART A & B [facility] MEDICARE ENHANCE SUPPLEMENT MEDICARE PART A & B [facility] MEDICARE ENHANCE SUPPLEMENT MEDICARE PART A & B [facility] MEDICARE ENHANCE SUPPLEMENT MEDICARE PART A & B [facility] MEDICARE ENHANCE SUPPLEMENT MEDICARE PART A & B MEDICARE ENHANCE SUPPLEMENT [address] [place] [address] MEDICARE PART A & B MEDICARE ENHANCE SUPPLEMENT MEDICARE PART A & B [facility] MEDICARE ENHANCE SUPPLEMENT MEDICARE PART A & B [facility] MEDICARE ENHANCE SUPPLEMENT Care Teams Oil Pipe Inspector Relationship Specialty Start Date End Date Huber Jones MD [address] [place] [address] PCP - General 02/23/17 Additional Source Comments The information contained in this document represents components of the legal health record. It is not the complete legal health record.[facility]
== END 2025-01-15 10:53 | disposition home or self-care (01) ==
LOC: HO.HBS 09:27
PROVIDERS: Visit Provider Physician Assistant Surgical
DX: E66.3 Overweight (principal); Z98.84 Bariatric surgery status; E11.9 Type 2 diabetes mellitus without complications
CPT/HCPCS: 99214

== ENCOUNTER 2025-01-20 08:16 | Outpatient (REF) | payer MEDICARE, OTHER, SELFPAY ==
--- OUTSIDE RECORDS SUMMARY | 2024-03-28 11:00 | XMS_ITS ---
Author Organization [facility] Address [address] [place] [address] Care Team Providers Care Setup Operator Name Role Phone Quin James Primary Care Provider Pari Calderon Unavailable [phone] Allergies Allergen (clinical drug ingredient) Drug/Non Drug [...] Active Encounters Encounter Location Date Provider Diagnosis [facility] [address] [address] 03/28/2024 Pari Monroy Plan Of Treatment Next Appt Details Provider Name:Pari De Souza dilip, 03/26/2025 09:00:00 AM, [address] [place] [address], [address], Progress Notes * ATUL DexiDOB:1955 (69 yo F)Acc No.[id number]:03/28/2024 Progress Note Patient: Linda SKELTON Provider: Faye Monroy DPM :1955 A ge:69 Y S ex:Female Date:03/28/2024 Address:[address] [place] [address] [address], [address], [facility] Pcp:Quin James Subjective: * Chief Complaints: * [...] 0 03/28/2024 Generated for Leslye us/Ayo/Lisa on: 1 03/23/2024 08:32 AM EST
--- OUTSIDE RECORDS SUMMARY | 2024-06-20 10:45 | XMS_ITS ---
Author Organization [facility] Address [address] [place] [address] Care Team Providers Care Engineer Design And Construction Name Role Phone Quin James Primary Care Provider Berna Pari Bowles Unavailable [phone] Encounters Encounter Location Date Provider Diagnosis [address] [address] 06/20/2024 Pari Monroy Plan Of Treatment Next Appt Details Provider Name:Pari cherry, 03/26/2025 09:00:00 AM, [address] [place], [address], Progress Notes * Dex DINEROiDOB:1955 (69 yo F)Acc No.[id number]:06/20/2024 Progress Note Patient: Dex SKELTONi Provider: Faye Monroy DPM :1955 A ge:69 Y S ex:Female Date:06/20/2024 Address:[address], [place], [place] Pcp:Quin James Subjective: * Chief Complaints: * [...] 0 06/20/2024 Generated for Leslye us/Ayo/Lisa on: 03/23/2024 08:32 AM EST
--- OUTSIDE RECORDS SUMMARY | 2024-07-30 04:15 | XMS_ITS ---
Author Organization [facility] Address [address] [place] [address] Care Team Providers Care Mechanical Design Drafter Name Role Phone Quin James Primary Care Provider Berna Pari Bowles [phone] Corona Encounters Encounter Location Date Provider Diagnosis [facility] [address] [place] [address] 07/30/2024 Pari Monroy Plan Of Treatment Next Appt Details Provider Name:Pari cherry, 03/26/2025 09:00:00 AM, [address] [place], [address], Progress Notes * Dex DINEROiDOB:1955 (69 yo F)Acc No.[id number]:07/30/2024 Progress Note Patient: Dex SKELTONi Provider: Faye Monroy DPM :1955 A ge:69 Y S ex:Female Date:07/30/2024 Address:[address], [place] Pcp:Quin James Subjective: * Chief Complaints: * [...] 0 07/30/2024 Generated for Leslye Gambino/Lisa on: 03/23/2024 08:32 AM EST
[2025-01-20 08:29] LABS: MANUAL DIFF FLAG NO
--- OUTSIDE RECORDS SUMMARY | 2025-01-20 08:32 | XMS_ITS | Encounter Summary ---
Author Organization [facility] Address [address] [place] [address] Care Team Providers Care Line Pilot Name Role Phone Quin Lofton Primary Care Provid er Encounter Details Date Type Department Care Team (Late st Contact Info) Description 04/08/2024 Lab Requisition [facility] - Main Lab [address] [facility] [place] [address] Aiden Santiago MD [address] [facility] [address] [place] [phone] Gross hematuria Social History Tobacco Use Types [...] Description 03/11/2025 8:00 AM EST Ancillary Procedure [facility] - [address] [place] [phone] documented as of this encounter Procedures Procedure Name Priority Date/Time Associated Diagnosis Comments AP OUTSIDE CONSULT Routine 04/02/2024 12 :00 AM EST Gross hematuria documented in this encounter Results * Anatomic pathology outside consult (04/02/2024 12:00 AM EST) Final Diagnosis A. Urine, Voided, ([id number]): Negative for high grade urothelial carcinoma. Results of UroVysion fluorescence in situ hybridization (FISH) testing: CEP3: Normal CEP7: Normal CEP17: Normal LSI 9p21: Normal Interpretation: Normal profile Controls stained appropriately. Note: The results are intended as a screening device and should be interpreted in association with other clinical and pathological findings. 04/10/2024 3:40 PM [facility] at 1540 EST Clinical Information Gross hematuria R31.0 Urine Cytology/FISH (now) 04/10/2024 3:40 PM [facility] Gross Description A. Urine, Voided, ([id number]): Received one ThinPrep slide for cytology and one ThinPrep slide for UroVysion FISH 04/10/2024 3:40 PM [facility] Disclaimer Unless otherwise specified, all tissue is 10% NB formalin fixed and paraffin embedded. Technical pathology services provided by [facility] at [address], [place] [address] (CLIA #[id number]/Sara Wick MD, Team Member) 04/10/2024 3:40 PM [facility] Tissue Urine specimen from urethra / Unknown 04/02/2024 04/08/2024 8:27 AM EST Aiden Santiago MD LAB PATHOLOGY ORDERABLES Final Result [facility] [address] [place] [address], documented in this encounter Visit Diagnoses Diagnosis Gross hematuria documented in this encounter Care Teams Line Pilot Relationship Specialty Start Date End Date Quin Lofton CRNP [address] [place] [address] Drive [address] [place] [address] PCP - General Family Medicine 12/26/24 documented as of this encounter
--- OUTSIDE RECORDS SUMMARY | 2025-01-20 08:32 | XMS_ITS | Clinical Summary ---
Author Organization LL [address] [facility] Address [address] [place] [address] Phone Care Team Providers Care Dental Ceramist Assistant Name Role Phone Quin Lofton Primary Care [...] Description 12/26/2024 8:20 AM EST Office Visit [facility] - [address] [place] [address] Zamzam Rodriguez MD Murmur, cardiac (Primary Dx); Coronary artery disease involving [place] coronary artery of [place] heart with other form of angina pectoris (CMS/HCC V24); Heart murmur; Cardiomyopathy, unspecified type (CMS/HCC V24, CMS/HCC V28); Hyperlipidemia, unspecified hyperlipidemia type from Last 3 Months Medical History Medical History Date Comments Asymptomatic coronary heart disease Endometrial carcinoma (CMS/HCC V24, [facility] V28) Anemia Hematuria Diabetes mellitus ([facility] V24, [facility] V28) Depressive disorder GERD (gastroesophageal reflux disease) [...] Description 03/11/2025 8:00 AM EST Ancillary Procedure [facility] - [facility] [address] [facility] [address] [place] [address] Health Maintenance Due Date Last [...] 8:20 AM EST Coronary artery disease involving [place] coronary artery of [place] heart with other form of angina pectoris [...] GEMUSE QTc 404 ms GEMUSE P Wave [place] 60 degrees GEMUSE R [place] 81 degrees GEMUSE T [place] 67 degrees GEMUSE ECG Interpretation Sinus bradycardia [...] Recently Relevant to Health Maintenance Insurance MEDICARE [facility] Care Teams Dental Ceramist Assistant Relationship Specialty Start Date End Date Quin Lofton CRNP [address] [place] [address] Drive [address] [place] [address] PCP - General Family Medicine 12/26/24
--- OUTSIDE RECORDS SUMMARY | 2025-01-20 08:33 | XMS_ITS | Continuity of Care Document ---
Author Organization [facility] [address] [place] [address] Phone [phone] Care Team Providers Care Case Mgr Name Role Phone Quin Lofton CNP Care Team Informatio n Audio Narrator [phone] Problems Active Problems Provider Date Diabetes mellitus Huber Jones M.D. Onset: 0 09/07/2021 Endometrial carcinoma Huber Jones M.D. Onse t: 09/07/2021 Asymptomatic coronary heart disease Huber bojras M.D. Onset: 09/07/2021 Depressive disorder Huber Jones [...] Indications Order ing Provider Date Metformin HCL [id number] Tablets ER 24HR Take 1 tablet by mouth twice daily with food. 90Unspecifie d E11.8 Quin Lofton , [facility] 12/27/2024 Ziprasidone EYX28ef Capsules Take 1 tablet at 7 pm and 10 pm (Dr. Horta Brand only) 60caps Huber Jones M.D. 12/06/2022 Pravastatin Veqodp79ng Tablets Take 1 Tablet By Mouth Every Day 90tabs Quin Lofton [facility] 09/07/2021 Ziprasidone GTN41oy Capsules Take 1 tablet at 8 am and 5 pm. Huber Jones M.D. 09/07/2021 Xfrvnd119ij Capsules 1 by mouth every day as needed Unknown Trazodone COY93gv Tablets Take 1 Tablet By Mouth Every Day AT Bedtime Unknown Ayhflx0629vvm Capsules 1 by mouth every day at 7 pm Unknown Ammonium Enrlbde15% Cream apply to feet at 8 am and 8 pm Unknown Senna Laxative8.6mg Tablets Take three tabs at bedtime Unknown Refresh1.4-0.6% Solution Unknown Clopidogrel Rqavztjob74ov Tablets Take 1 Tablet By Mouth Every Day as Directed 90tabs Quin Lofton [facility] Restasis0.05% Emulsion 1 drop each eye twice daily Unknown Xdvqrlyyh4eh Tablets 1 tab at bedtime as needed Unknown Cjgziyeot9mu Tablets 1 tab by mouth twice a day as needed Unknown History Medications Metformin ATR634zs Tablets take 1 tablet by mouth twice a day with food 180tabs Quin [facility] ez, [facility] 12/27/2024 - 12/27/2024 Metformin HCL ER (Mod)500mg Tablets ER 24HR take 1 tablet by mouth twice a day with food 180tabs [facility] 12/27/2024 - 12/27/2024 Metformin HCL UJ484zu Tablets ER 24HR Unspecified [facility], [facility] 12/27/2024 - 12/27/2024 Vital Signs Date [...] Inhouse Glucose Fingerstick 118 Hemoglobin A1c 04/06/2023 [facility] Hemoglobin A1c 5.7 % High (4.0-5.6 ) 4 Glucose Fingerstick 12/06/2022 Inhouse Glucose Fingerstick 89 Hemoglobin A1c 12/01/2022 [facility] Hemoglobin A1c 5.7 % High (4.0-5.6 ) 5 Glucose Fingerstick 09/23/2022 Inhouse Glucose Fingerstick 140 Electrolytes 09/21/2022 [facility] Sodium 141 mmol/L (133-145 ) Potassium 4.1 mmol/L (3.6-5.2 ) Chloride 103 mmol/L (98-107) Bicarbonate 24 mmol/L (22-29) Anion Gap 14 (4-17) Ferritin 09/21/2022 [facility] Ferritin 32 NG/ML (14-283) Hemoglobin A1c 09/19/2022 [facility] Hemoglobin A1c 6.1 % High (4.0-5.6 ) 6 Glucose Fingerstick 06/20/2022 Inhouse Glucose Fingerstick 136 Comprehensive Metabolic Panl 06/13/2022 [facility] Glucose 206 mg/dL High [...] 71 ML/MIN/1. 73M2 7 Lipid Panel 06/13/2022 [facility] Cholesterol, Total 133 mg/dL (<200) Triglyceride 176 mg/dL High (<150) HDL Chol 45 mg/dL (>39) LDL Cholesterol , Calculated 53 mg/dL (0-130) Non HDL Cholesterol (Calc) 88 mg/dL (<160) Complete Abc With Diff 06/13/2022 [facility] WBC 7.1 K/MM3 (4.0-11. [...] ) Lymph # 1.7 K/MM3 (0.8-3.1 ) [place]# 0.6 K/MM3 (0.4-0.9 ) Eo # 0.2 K/MM3 (0.0-0.4 ) Baso # 0.0 K/MM3 (0.0-0.1 ) Abs. Imm Gran 0.0 K/MM3 Neut 63.4 % (44-76) Lymph 24.4 % (15-43) Monocyte 8.7 % (4.5-10. 5) Eo 2.3 % (0-6) Baso 0.6 % (0-2) Imm Gran 0.6 % Urinary Microalbumin 06/13/2022 [facility] Micro-Albumin 38.8 mg/L High (<20) 8 Malb/Creat Ratio 61.9 MG/GM High (0-20) Urine Creat For Micro Albumin 62.7 mg/dL Hemoglobin A1c 06/13/2022 [facility] Hemoglobin A1c 6.7 % High (4.0-5.6 ) 9 Glucose Fingerstick 04/08/2022 Inhouse Glucose Fingerstick 139 Hemoglobin A1c 04/01/2022 [facility] Hemoglobin A1c 8.1 % High (4.0-5.6 ) 10 Glucose Fingerstick 01/31/2022 Inhouse Glucose Fingerstick 232 Glucose Fingerstick 09/07/2021 Inhouse Glucose Fingerstick 166 Hemoglobin A1c 09/02/2021 [facility] Hemoglobin A1c 6.1 % [...] with health care provider. DIAGNOSTIC USE: The [place] Diabetes Association (ADA) and the World Health [...] with health care provider. DIAGNOSTIC USE: The [place] Diabetes Association (ADA) and the World Health [...] with health care provider. DIAGNOSTIC USE: The [place] Diabetes Association (ADA) and the World Health [...] with health care provider. DIAGNOSTIC USE: The [place] Diabetes Association (ADA) and the World Health [...] with health care provider. DIAGNOSTIC USE: The [place] Diabetes Association (ADA) and the World Health [...] with health care provider. DIAGNOSTIC USE: The [place] Diabetes Association (ADA) and the World Health [...] 1 Procedures Date Code Description Status 12/27/2024 32738 Glucose Monitoring Interpeta tion And Report Completed 09/28/2023 [id number] Remove Impacted Cerumen Comp leted Medical Devices [...] Reason for Referral Status Appt [facility] (New Patients) CAD, Asymptom atic Scheduled 12/26/[address] [place], [place] [phone] [facility] Annual Hearing Test Closed 10/07/[address] [place] [address] [phone] [facility] ANNUAL HEARING TEST Closed 09/22/[address] [place] [address] [phone] [facility] HEARING EVALUATION Closed 07/27/[address] [place] [address] [phone] [facility] RIGHT BUTTOX Closed [address] [place] [address] [phone]
--- OUTSIDE RECORDS SUMMARY | 2025-01-20 08:33 | XMS_ITS | Patient Health Record ---
[facility] Address [address] [facility] [place] [address] Care Team Providers Care Movement Therapist Name Role Phone Quin James Primary Care Provider Berna Pari Bowles Unavailable [phone] Rigoberto Christopher Unavailable [phone] Quin Harry Unavailable [phone] Allergies Allergen (clinical drug ingredient) Drug/Non Drug [...] Problem Acquired hammer toe of right foot (293817003796350 5) Other hammer toe(s) (acquired), right foot (M20.41) Active confirmed Problem Acquired hammer toe of left foot (389688793604160 3) Other hammer toe(s) (acquired), left foot (M20.42) Active confirmed Problem Type II diabetes mellitus without complication (797233924) Type 2 diabetes mellitus without complication (E11.9) Active confirmed Vital Signs Blood pressure diastolic 65 mm Hg 01/06/2025 Height 5ft 1.5in in 01/06/2025 Blood pressure systolic 130 mm Hg 01/06/2025 Weight 146 lbs 01/06/2025 BMI 27.14 kg/m2 01/06/2025 Encounters Encounter Location Date Provider Diagnosis [address] [address] 04/09/2024 Quin Harry Tinea unguium B35.1 ; Ingrown nail L60.0 ; Pain in right toe(s) M79.674 ; Pain in left toe(s) M79.675 and Type 2 diabetes mellitus without complication E11.[address] [address] 08/01/2024 Pari Monroy Tinea unguium B35.1 ; Pain in right toe(s) M79.674 ; Pain in left toe(s) M79.675 and Type 2 diabetes mellitus without complication E11.[address] [address] 10/16/2024 Pari Monroy Tinea unguium B35.1 ; Pain in right toe(s) M79.674 ; Pain in left toe(s) M79.675 and Type 2 diabetes mellitus without complication E11.[address] [address] 01/06/2025 Pari Monroy Tinea unguium B35.1 ; Pain in right toe(s) M79.674 ; Pain in left toe(s) M79.675 and Type 2 diabetes mellitus without complication E11.[address] [address] 04/15/2024 Rigoberto Christopher Xerosis of skin L85.[address] [address] 06/20/2024 Pari Monroy Assessments Encounter Date Diagnosis [...] X ray : Foot, left 3V 08/14/2023 [id number] NAIL, 6 OR MORE 03/07/2023 [id number] NAIL, 6 OR MORE 05/18/2023 [id number] NAIL, 6 OR MORE 07/27/2023 Next Appt Details Provider Name:Pari cherry, 03/26/2025 09:00:00 AM, [address] [facility], [place], [address], Insurance Providers Payer Name Payer Address Payer Phone Subscriber Number Group Number Insured Name Patient Relationship to Insured Coverage Start Date Coverage End Date [employer] [address] [place] [address] [phone] [id number] Bar Linda Self - patient is the insured [facility] [address] [place] [phone] [id number] Linda Dinero Self - patient is the [...]
[2025-01-20 09:11] LABS: Hematocrit 39.1 % (37.0-47.0); Hemoglobin 13.8 g/dl (12.0-16.0); Imm Gran Abs Auto 0.01 X10*3/uL (0.00-0.03); Imm Gran Pct Auto 0.2 % (0.0-0.4); Lymphocytes Absolute Auto 1.6 X10*3/uL (1.2-4.9); Mean Corpuscular HGB Conc 35.3 g/dl (31.0-35.0); Mean Corpuscular Hemoglobin 31.0 pg (27.0-33.0); Mean Corpuscular Volume 87.9 fL (80.0-98.0); NRBC Abs Auto 0.000 X10*3/uL (0.0-0.012); NRBC Pct Auto 0.0 /100WBC (0.0-0.2); Platelet Count 189 X10*3/uL (160-400); Red Blood Count 4.45 X10*6/uL (4.20-5.50); White Blood Count 5.9 X10*3/uL (4.8-10.8)
[2025-01-20 09:46] LABS: Alanine Aminotransferase 24 U/L (0-31); Albumin Level 4.6 g/dL (3.5-5.0); Alkaline Phosphatase 77 U/L (39-117); Anion Gap 11 (12-20); Aspartate Amino Transferase 26 U/L (5-31); Blood Urea Nitrogen 16 mg/dL (9-16); Calcium 9.5 mg/dL (8.4-10.2); Carbon Dioxide 31 mmol/L (22-29); Chloride 105 mmol/L (96-108); Cholesterol 181 mg/dL (<200); Estimated Glomerular Filt Rate > 60; HDL Cholesterol 60 mg/dL (>40); Iron 110 mcg/dL (30-160); Percent Iron Saturation 37 % (15-50); Potassium 3.8 mmol/L (3.3-5.1); Sodium 143 mmol/L (135-145); Total Iron Binding Capacity 295 mcg/dL (228-428); Total Protein 6.8 g/dL (6.5-8.0); Triglycerides 179 mg/dL (<150); Unsaturated Iron Binding 185 ug/dL
[2025-01-20 10:10] LABS: Folate 15.9 ng/mL (> or = 4.0); Vitamin B12 997 pg/mL (200-900)
[2025-01-20 10:13] LABS: Ferritin 77 ng/mL (10-250)
== END 2025-01-20 08:17 | disposition home or self-care (01) ==
LOC: HO.LAB 08:16
PROVIDERS: Visit Provider Physician Assistant Surgical
DX: E66.3 Overweight (principal); Z13.29 Encounter for screening for other suspected endocrine disorder; Z13.1 Encounter for screening for diabetes mellitus; Z98.84 Bariatric surgery status
CPT/HCPCS: 36415; 80053; 80061; 82306; 82607; 82728; 82746; 83036; 83525; 83540; 84425; 84443; 84590; 84630; 85025; 86140